=== PATIENT | male | born 1950 | race Caucasian/White ===

== ENCOUNTER → 2016-07-17 | Outpatient (CLI) | payer OTHER ==
[~2016-07-17] MED LIST: ASPI81TA28 PO; LISI-461 PO; METO50TA7 PO; ROSU20TA PO
--- NOTE | 2016-07-17 10:54 | DIAGNOSTIC IMAGING REPORT ---
ULTRASOUND RIGHT UPPER QUADRANT ABDOMEN CLINICAL HISTORY: Elevated hepatic transaminases. COMPARISON STUDY: No priors. TECHNIQUE: Real-time, grayscale, and color flow sonography of the right upper quadrant of the abdomen was performed. Images are reviewed in the transverse and longitudinal planes. FINDINGS: Liver: The liver is enlarged and demonstrates heterogeneous increased echotexture consistent with severe hepatic steatosis. Note that this degrades acoustic penetration of the liver. There is no intrahepatic biliary ductal dilatation. The main portal vein is patent. Gallbladder: The gallbladder is surgically absent. The common bile duct measures up to 0.5 cm in diameter. Pancreas: Not well visualized due to overlying bowel gas. Right kidney: Survey images of the right kidney demonstrate normal size and echotexture. There is no hydronephrosis. A 1.9 cm cyst is noted in the interpolar region. A 3.2 cm exophytic cyst is observed. Ascites: None. IMPRESSION: 1. Hepatomegaly and severe hepatic steatosis. 2. Status post cholecystectomy. 3. The pancreas was not well visualized due to overlying bowel gas. Electronically signed by: Lance Keller M.D. 07/17/2016 10:52 AM Dictated Date/Time: 07/17/2016 10:51 AM
== END | disposition home or self-care (01) ==
LOC: C.ULTR 10:29
PROVIDERS: ATTEND Internal Medicine
DX: R74.8 Abnormal levels of other serum enzymes (principal); R16.0 Hepatomegaly, not elsewhere classified; K76.0 Fatty (change of) liver, not elsewhere classified

== ENCOUNTER 2016-12-27 11:23 | Inpatient (IN) | payer OTHER ==
[~2016-12-27] VITALS: Ht 188 cm; Wt 97.8 kg
[2016-12-27] MEDS ORDERED: SODIUM CHLORIDE 0.9% 1000ML 1,000 ML IV STA (11:35)
[2016-12-27 12:20] LABS: BASO % 0.2 %; BASO ABS # 0.01 K/uL (0-0.2); COMPLETE YES; EOS % 1.2 %; HEMATOCRIT 37.5 % (42-52); IG% 0.2 %; LYMPH ABS # 1.09 K/uL (1.2-3.4); MEAN CELL VOLUME 88.9 fL (80-100); MEAN CORPUSCULAR HEMOGLOBIN 31.8 pg (25-34); MEAN CORPUSCULAR HGB CONC 35.7 g/dl (32-36); MEAN PLATELET VOLUME 9.6 fL (7.4-10.4); MONO % 9.4 %; PLATELET COUNT 136 K/uL (130-400); RED BLOOD COUNT 4.22 M/uL (4.7-6.1); WHITE BLOOD COUNT 5.19 K/uL (4.8-10.8)
[2016-12-27 12:23] LABS: ISTAT CREATININE 13.9 mg/dl (0.6-1.3); ISTAT HEMOGLOBIN 13.9 g/dl (14.0-18.0); ISTAT IONIZED CALCIUM 1.1 mmol/l (1.12-1.32)
--- NOTE | 2016-12-27 12:34 | DIAGNOSTIC IMAGING REPORT ---
CT SCAN OF THE ABDOMEN AND PELVIS WITHOUT IV CONTRAST CLINICAL HISTORY: Acute renal insufficiency. COMPARISON STUDY: Abdominal ultrasound dated 07/17/2016. TECHNIQUE: CT scan of the abdomen and pelvis is performed from the lung bases to the proximal femora. Images are reviewed in the axial, sagittal, and coronal planes. IV contrast was not administered for this examination. A dose lowering technique was utilized adhering to the principles of ALARA. CT DOSE: 658.18 mGy.cm FINDINGS: Lung bases: The heart is normal in size and without pericardial effusion. The coronary arteries are densely calcified. There is elevation of the right hemidiaphragm with mild bibasilar atelectasis. The lung bases are otherwise clear. There is a tiny hiatal hernia. Liver: The unenhanced liver is normal in size, contour, and attenuation. There is no intrahepatic biliary ductal dilatation. Gallbladder: Surgically absent noting clips in the gallbladder fossa. Spleen: Normal in size and attenuation. Pancreas: The unenhanced pancreas is grossly unremarkable. Adrenal glands: Unremarkable. Kidneys: The unenhanced kidneys demonstrate cortical atrophy and are without hydronephrosis. There are no renal calculi identified. A 3.7 cm exophytic cyst arises from the lower pole of the right kidney. A 2.0 cm exophytic cyst arises from the upper pole of the left kidney. Abdominal vasculature: The abdominal aorta is normal in course and caliber noting moderate to advanced atherosclerotic calcification. Bowel: The small bowel and colon are normal in course and caliber. The appendix is well-visualized and normal. Peritoneum: There is no intraperitoneal free air or abdominal ascites. Lymphadenopathy: None. Pelvic viscera: The prostate gland is diminutive and heterogeneous. The bladder wall appears mildly thickened and trabeculated suggesting chronic obstruction. Small bilateral ureteroceles are suspected. The ureters on the right may contain a punctate calculus. Skeletal structures: The skeletal structures are osteopenic. There is mild lumbosacral spondylosis. No lytic or blastic lesions are seen. IMPRESSION: 1. There are no acute infectious or inflammatory findings in the abdomen or pelvis. 2. The kidneys demonstrate cortical atrophy and are without hydronephrosis. 3. Small bilateral ureteroceles versus Hutch diverticula are suspected. The ureterocele on the right may contain a punctate calculus. Electronically signed by: Lance Keller M.D. 12/27/2016 12:32 PM Dictated Date/Time: 12/27/2016 12:24 PM
[2016-12-27 12:50] LABS: ALKALINE PHOSPHATASE 104 U/L (45-117); ALT/SGPT 19 U/L (12-78); BLOOD UREA NITROGEN 122 mg/dl (7-18); BUN/CREATININE RATIO 10.2 (10-20); CALCIUM 8.6 mg/dl (8.5-10.1); CARBON DIOXIDE 11 mmol/L (21-32); CHLORIDE 93 mmol/L (98-107); GLUCOSE 92 mg/dl (70-99); SODIUM 123 mmol/L (136-145)
[2016-12-27] MEDS ORDERED: METO50TA7 PO (13:09)
[2016-12-27] MEDS ORDERED: LISI-461 PO (13:09)
[2016-12-27] MEDS ORDERED: ASPI81TA28 PO (13:09)
[2016-12-27] MEDS ORDERED: ROSU20TA PO (13:09)
[2016-12-27 13:12] LABS: POTASSIUM 5.1 mmol/L (3.5-5.1)
--- NOTE | 2016-12-27 13:22 | History and Physical ---
History & Physical Date & Time of Service: Dec 27, 2016 at 13:22 . Chief Complaint: nausea, vomiting, diarrhea . Primary Care Physician: Darya Swain M.D. . History of Present Illness Source: patient, clinic records, hospital records 66 year-old male followed by Dr. Swain for Internal Medicine. History of hypertension and dyslipidemia. Developed GI symptoms 6 days prior to admission. [place]. Ate a hoagie that was prepared at a sandwich shop. Initially experienced nausea followed by vomiting and multiple episodes of loose stools. No hematemesis, melena, hematochezia. No abdominal pain. Experience possible low-grade temp, but did not take his temperature. He took 2 Advil tablets on one occasion; no other use of NSAID's. No recent ground beef, undercooked eggs. 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 No sick contacts. He was seen in an urgent care center 2 days prior to admission. Serum creatinine was reportedly 10. Apparently he was advised to come to the ED for evaluation, but opted not to at that time. Seen by Dr. Swain today referred to the ED for further evaluation and management. Patient reports that he has been voiding without difficulty. No history of renal disease; outpatient labs in November showed normal renal function. Only occasionally uses ibuprofen (took 2 tablets this week). . Past Medical/Surgical History Chronic Medical Problems: (1) Dyslipidemia Status: Chronic (2) Hypertension Status: Chronic Surgical Problems: (1) Status post cholecystectomy Status: Chronic (2) Status post surgical removal of pilonidal cyst Status: Chronic . Family History FATHER Hypertension Congestive heart failure Coronary artery disease Myelodysplastic syndrome Atrial fibrillation MOTHER Pulmonary embolism Hypertension GRANDMOTHER Diabetes mellitus Social History Smoking Status: Former Smoker Alcohol Use: 2 drinks/day Allergies Coded Allergies: No Known Allergies (Unverified , 12/27/16) Home Medications Scheduled Aspirin (Aspirin Ec), 81 MG PO DAILY Lisinopril (Zestril), 10 MG PO DAILY Metoprolol Succ (Toprol Xl) (Toprol-Xl), 50 MG PO DAILY Rosuvastatin Calcium (Crestor), 20 MG PO DAILY Review of Systems Constitutional: + weight loss (5 pounds this week), No fever Eyes: No worsening of vision, No diplopia ENT: No nasal symptoms, No sore throat Respiratory: No cough, No shortness of breath Cardiovascular: No chest pain, No edema Abdomen: + problem reported (as noted above) Musculoskeletal: No joint pain, No muscle pain Genitourinary - Male: No hematuria, No dysuria Neurologic: + problem reported (no headaches) Endocrine: + fatigue, No excessive thirst, No excessive urination Hematologic / Lymphatic: + abnormal bleeding/bruising Integumentary: No rash, No new/changing skin lesions Physical Exam Vital Signs Date Time Temp Pulse Resp B/P (MAP) Pulse Ox O2 Delivery O2 Flow Rate FiO2 12/27/16 12:44 83 12/27/16 12:37 80 130/74 98 Room Air 83 119/76 94 110/78 12/27/16 12:37 96 Room Air 12/27/16 12:37 96 Room Air 12/27/16 11:25 87 18 101/66 98 Room Air General Appearance: WD/WN, no apparent distress Head: normocephalic, atraumatic Eyes: normal inspection, PERRL, EOMI, sclerae normal (eyelids and conjunctivae normal) ENT: normal ENT inspection, hearing grossly normal, pharynx normal Neck: supple, no adenopathy, thyroid normal, no JVD, trachea midline Respiratory/Chest: lungs clear, no respiratory distress, no accessory muscle use Cardiovascular: regular rate, rhythm, no edema, no gallop, no JVD, no murmur, normal peripheral pulses, + pertinent finding (no rub) Abdomen/GI: non tender, soft, no organomegaly, no pulsatile mass, + pertinent finding (hyperactive bowel sounds) Back: no CVA tenderness Extremities/Musculoskelatal: no calf tenderness, normal capillary refill, no pedal edema Neurologic/Psych: holistic specialist II-XII nml as tested (PERRL, EOMI, no facial palsy, no dysarthria), no motor/sensory deficits, alert, normal mood/affect, oriented x 3 Skin: normal color, warm/dry, no rash Lymphatic: no adenopathy (cervical, axillary) Diagnostics Laboratory Results Results Past 24 Hours Test 12/27/16 12:00 12/27/16 12:09 12/27/16 12:52 Range/Units White Blood Count 5.19 4.8-10.8 K/uL Red Blood Count 4.22 4.7-6.1 M/uL Hemoglobin 13.4 14.0-18.0 g/dL Hematocrit 37.5 42-52 % Mean Corpuscular Volume 88.9 80-100 fL Mean Corpuscular Hemoglobin 31.8 25-34 pg Mean Corpuscular Hemoglobin Concent 35.7 32-36 g/dl Platelet Count 136 130-400 K/uL Mean Platelet Volume 9.6 7.4-10.4 fL Neutrophils (%) (Auto) 68.0 % Lymphocytes (%) (Auto) 21.0 % Monocytes (%) (Auto) 9.4 % Eosinophils (%) (Auto) 1.2 % Basophils (%) (Auto) 0.2 % Neutrophils # (Auto) 3.53 1.4-6.5 K/uL Lymphocytes # (Auto) 1.09 1.2-3.4 K/uL Monocytes # (Auto) 0.49 0.11-0.59 K/uL Eosinophils # (Auto) 0.06 0-0.5 K/uL Basophils # (Auto) 0.01 0-0.2 K/uL RDW Standard Deviation 40.8 36.4-46.3 fL RDW Coefficient of Variation 12.6 11.5-14.5 % Immature Granulocyte % (Auto) 0.2 % Immature Granulocyte # (Auto) 0.01 0.00-0.02 K/uL Sodium Level 123 136-145 mmol/L Potassium Level 5.1 3.5-5.1 mmol/L Chloride Level 93 98-107 mmol/L Carbon Dioxide Level 11 21-32 mmol/L Anion Gap 19.0 20.0 16-25 mmol/L Blood Urea Nitrogen 122 7-18 mg/dl Creatinine 12.00 0.60-1.40 mg/dl Est Creatinine Clear Calc Drug Dose 7.2 ml/min Estimated GFR () 4.5 Estimated GFR (Non- 3.9 BUN/Creatinine Ratio 10.2 10-20 Random Glucose 92 70-99 mg/dl Calcium Level 8.6 8.5-10.1 mg/dl Total Bilirubin 0.4 0.2-1 mg/dl Direct Bilirubin 0.1 0-0.2 mg/dl Aspartate Amino Transf (AST/SGOT) 9 15-37 U/L Alanine Aminotransferase (ALT/SGPT) 19 12-78 U/L Alkaline Phosphatase 104 45-117 U/L Total Protein 7.8 6.4-8.2 gm/dl Albumin 3.6 3.4-5.0 gm/dl Thyroid Stimulating Hormone (TSH) 3.640 0.300-4.500 uIu/ml Bedside Hemoglobin 13.9 14.0-18.0 g/dl Bedside Hematocrit 41 42-52 % Bedside Sodium 124 135-144 mEq/L Bedside Potassium 5.1 3.3-5.0 mEq/L Bedside Chloride 98 101-112 mEq/L Bedside Total CO2 13 24-31 mEq/l Bedside Blood Urea Nitrogen 133 7-18 mg/dl Bedside Creatinine 13.9 0.6-1.3 mg/dl Bedside Glucose (other) 93 70-99 mg/dl Bedside Ionized Calcium (Felicita) 1.10 1.12-1.32 mmol/l Diagnostic Radiology CHEST ONE VIEW PORTABLE FINDINGS: Cardiomediastinal silhouette normal. Mildly low lung volumes. Bandlike opacity in the left lung base. No other focal infiltrate. No pleural effusion or pneumothorax. Osseous structures normal. Multiple overlying external leads degrade evaluation of the abdomen. IMPRESSION: 1. Minimal left basilar opacity likely atelectasis. No other focal infiltrate. Electronically signed by: Thomas Forde M.D. 12/27/2016 5:54 PM Dictated Date/Time: 12/27/2016 5:[address] SCAN OF THE ABDOMEN AND PELVIS WITHOUT IV CONTRAST FINDINGS: Lung bases: The heart is normal in size and without pericardial effusion. The coronary arteries are densely calcified. There is elevation of the right hemidiaphragm with mild bibasilar atelectasis. The lung bases are otherwise clear. There is a tiny hiatal hernia. Liver: The unenhanced liver is normal in size, contour, and attenuation. There is no intrahepatic biliary ductal dilatation. Gallbladder: Surgically absent noting clips in the gallbladder fossa. Spleen: Normal in size and attenuation. Pancreas: The unenhanced pancreas is grossly unremarkable. Adrenal glands: Unremarkable. Kidneys: The unenhanced kidneys demonstrate cortical atrophy and are without hydronephrosis. There are no renal calculi identified. A 3.7 cm exophytic cyst arises from the lower pole of the right kidney. A 2.0 cm exophytic cyst arises from the upper pole of the left kidney. Abdominal vasculature: The abdominal aorta is normal in course and caliber noting moderate to advanced atherosclerotic calcification. Bowel: The small bowel and colon are normal in course and caliber. The appendix is well-visualized and normal. Peritoneum: There is no intraperitoneal free air or abdominal ascites. Lymphadenopathy: None. Pelvic viscera: The prostate gland is diminutive and heterogeneous. The bladder wall appears mildly thickened and trabeculated suggesting chronic obstruction. Small bilateral ureteroceles are suspected. The ureters on the right may contain a punctate calculus. Skeletal structures: The skeletal structures are osteopenic. There is mild lumbosacral spondylosis. No lytic or blastic lesions are seen. IMPRESSION: 1. There are no acute infectious or inflammatory findings in the abdomen or pelvis. 2. The kidneys demonstrate cortical atrophy and are without hydronephrosis. 3. Small bilateral ureteroceles versus Hutch diverticula are suspected. The ureterocele on the right may contain a punctate calculus. Electronically signed by: Lance Keller M.D. 12/27/2016 12:32 PM Dictated Date/Time: 12/27/2016 12:24 PM . EKG EKG performed at 11:58 reviewed and demonstrated baseline artifact, normal sinus rhythm at 82/minute, no acute ST or T-wave abnormalities. . Impression Assessment and Plan ACUTE KIDNEY INJURY Acute kidney injury; recent GI symptoms with multiple episodes of vomiting and diarrhea. Labs demonstrate BUN 122 and creatinine 12, associated with metabolic acidosis. Probable pre-renal azotemia. Consider shiga toxin-mediated HUS. Check stool studies. Follow platelets. No urinary tract obstruction per CT. Urine sediment fairly benign with 0-4 RBC's and 1-5 hyaline casts. UA does show 2+ blood with only a few RBC's. Pt is taking statin. Check CPK to rule out rhabdomyolysis. Check FE Na. IV fluids. No emergent need for hemodialysis (K 5.1, not fluid overloaded, not uremic). Consult Nephrology. HYPONATREMIA Serum sodium 123. Hyponatremia most likely secondary to electrolyte losses from vomiting and diarrhea. Fluid resuscitation with normal saline ordered. Monitor serum sodium and avoid overly-rapid correction. GI SYMPTOMS Patient experiencing severe nausea, vomiting, diarrhea without abdominal pain where per GI bleeding. He attributes GI illness to eating a hoagie from a sandwich shop. Check stools for WBCs, Clostridium difficile PCR, routine enteric pathogens, Giardia antigen, cryptosporidium antigen. HYPERTENSION Hemodynamically stable in ED. Hold lisinopril in light of YVAN. Continue metoprolol. Following titrate therapy. DYSLIPIDEMIA Hold rosuvastatin in light of GI symptoms. Check CPK to rule out rhabdomyolysis. VTE PROPHYLAXIS Moderate-high risk for VTE. SQ heparin. Ambulate. RESUSCITATION STATUS No living will. Full code. DISPOSITION Admit to Telemetry Unit. Expected discharge to home. Internal Medicine follow-up with Dr. Swain. . VTE Prophylaxis Given or contraindicated: Unfractionated heparin SQ
[2016-12-27 14:20] VITALS: BP 152/84; PULSE 91; TEMP 36.5; O2SAT 100; Ht 188 cm; Wt 97.8 kg
[2016-12-27] MEDS ORDERED: SODIUM CHLORIDE 0.9% 1000ML 1,000 ML IV SCH (14:30)
[2016-12-27] MEDS ORDERED: HydrALAZINE HCL 20 MG/ML VIAL IV. PRN (14:30)
[2016-12-27] MEDS ORDERED: CLONIDINE HCL 0.1 MG TAB PO PRN (14:30)
[2016-12-27 14:42] LABS: URINE APPEARANCE CLEAR (CLEAR); URINE BILIRUBIN NEG (NEG); URINE COLOR YELLOW; URINE NITRITE NEG (NEG); URINE SPECIFIC GRAVITY 1.015 (1.000-1.030); UROBILINOGEN NEG (NEG)
[2016-12-27 14:43] LABS: MANUAL MICROSCOPIC REQUIRED? NO; REVIEW REQ? YES
[2016-12-27 15:39] VITALS: BP 122/72; PULSE 83; TEMP 37; O2SAT 98
[2016-12-27 16:30] LABS: INR 0.9 (0.9-1.1); PARTIAL THROMBOPLASTIN RATIO 1.1; PROTHROMBIN TIME (PATIENT) 9.6 SECONDS (9.0-12.0)
[2016-12-27 16:56] LABS: BUN/CREATININE RATIO 10.1 (10-20); CALCIUM 7.9 mg/dl (8.5-10.1); POTASSIUM 4.6 mmol/L (3.5-5.1)
--- NOTE | 2016-12-27 17:50 | EMERGENCY ROOM VISIT NOTE ---
History Report prepared by Chelsey: [facility] Under the Supervision of: Dr. Rasta Arenas M.D. First contact with patient: 11:40 Chief Complaint: DEHYDRATION Stated Complaint: DEHYDRATION/FOOD POISON Nursing Triage Summary: Nausea, vomiting, diarrhea since approx Saturday. Seen at [facility], had lab work two times, showing dehydration. States feels it was food poisoning, not feeling any better per the pt. History of Present Illness The patient is a 66 year old male who presents to the Emergency Room with complaints of a persistent illness that started 6 days ago. He says that he was at camp and must have eaten something bad because he started having nausea, and episodes of vomiting and diarrhea. The patient notes that his stools were really dark during the first 2 days of the illness. He says that he has been gurgling as well. The patient thinks that the food that he ate that was bad was some peppers in a hoagie. He notes that he went to urgent care 2 days ago, and had lab work that day which revealed that his kidney function was off. 2 days ago, his creatinine was 10, and today it was 12. The patient states that his kidney function is normally perfect. He was told to go to the ED, but decided to see his family doctor yesterday morning and was given water there due to dehydration, and had another blood test. The patient then decided to come here today because he is not feeling any better. He notes that he had right flank pain one day over the course of the illness, but had one dose of Aleve and the pain went away. Pt denies LOC, headache, fevers, chills, diaphoresis, visual changes, neck pain, chest pain, breathing difficulties, current abdominal pain, back pain, hematochezia, urinary symptoms, numbness, weakness, lymphadenopathy, rash, or other complaints. Source of History: patient, spouse/significant other Onset: 6 days ago Position: other (global - illness) Quality: other (kidney function off) Timing: other (persistent) Associated Symptoms: + nausea, + vomiting, + diarrhea Note: Associated symptoms: Right flank pain during one day of illness, since resolved. Stools were dark during first 2 days of illness. Review of Systems See HPI for pertinent positives and negatives. A total of ten systems were reviewed and were otherwise negative. Past Medical & Surgical Medical Problems: (1) No chronic diseases present Family History Cancer Diabetes mellitus Hypertension Social History Smoking Status: Former Smoker Alcohol Use: occasionally Marital Status: Housing Status: lives with family Occupation Status: retired Current/Historical Medications Scheduled Aspirin (Aspirin Ec), 81 MG PO DAILY Lisinopril (Zestril), 10 MG PO DAILY Metoprolol Succ (Toprol Xl) (Toprol-Xl), 50 MG PO DAILY Rosuvastatin Calcium (Crestor), 20 MG PO DAILY Allergies Coded Allergies: No Known Allergies (Unverified , 12/27/16) Physical Exam Vital Signs Date Time Temp Pulse Resp B/P (MAP) Pulse Ox O2 Delivery O2 Flow Rate FiO2 12/27/16 12:44 83 12/27/16 12:37 80 130/74 98 Room Air 83 119/76 94 110/78 12/27/16 12:37 96 Room Air 12/27/16 12:37 96 Room Air 12/27/16 11:25 87 18 101/66 98 Room Air Physical Exam GENERAL: Awake, alert, well-appearing, in no distress HENT: Normocephalic, atraumatic. Oropharynx unremarkable. EYES: Normal conjunctiva. Sclera non-icteric. NECK: Supple. No nuchal rigidity. FROM. No JVD. RESPIRATORY: Clear to auscultation. CARDIAC: Regular rate, normal rhythm. Extremities warm and well perfused. Pulses equal. ABDOMEN: Soft, non-distended. No tenderness to palpation. No rebound or guarding. No masses. RECTAL: Deferred. MUSCULOSKELETAL: Chest examination reveals no tenderness. The back is symmetrical on inspection without obvious abnormality. There is no CVA tenderness to palpation. No joint edema. LOWER EXTREMITIES: Calves are equal size bilaterally and non-tender. No edema. No discoloration. NEURO: Normal sensorium. No sensory or motor deficits noted. SKIN: No rash or jaundice noted. Medical Decision & Procedures ER Provider Diagnostic Interpretation: CT: Radiology results as stated below per my review and radiologist interpretation CT SCAN OF THE ABDOMEN AND PELVIS WITHOUT IV CONTRAST CLINICAL HISTORY: Acute renal insufficiency. COMPARISON STUDY: Abdominal ultrasound dated 07/17/2016. TECHNIQUE: CT scan of the abdomen and pelvis is performed from the lung bases to the proximal femora. Images are reviewed in the axial, sagittal, and coronal planes. IV contrast was not administered for this examination. A dose lowering technique was utilized adhering to the principles of ALARA. CT DOSE: 658.18 mGy.cm FINDINGS: Lung bases: The heart is normal in size and without pericardial effusion. The coronary arteries are densely calcified. There is elevation of the right hemidiaphragm with mild bibasilar atelectasis. The lung bases are otherwise clear. There is a tiny hiatal hernia. Liver: The unenhanced liver is normal in size, contour, and attenuation. There is no intrahepatic biliary ductal dilatation. Gallbladder: Surgically absent noting clips in the gallbladder fossa. Spleen: Normal in size and attenuation. Pancreas: The unenhanced pancreas is grossly unremarkable. Adrenal glands: Unremarkable. Kidneys: The unenhanced kidneys demonstrate cortical atrophy and are without hydronephrosis. There are no renal calculi identified. A 3.7 cm exophytic cyst arises from the lower pole of the right kidney. A 2.0 cm exophytic cyst arises from the upper pole of the left kidney. Abdominal vasculature: The abdominal aorta is normal in course and caliber noting moderate to advanced atherosclerotic calcification. Bowel: The small bowel and colon are normal in course and caliber. The appendix is well-visualized and normal. Peritoneum: There is no intraperitoneal free air or abdominal ascites. Lymphadenopathy: None. Pelvic viscera: The prostate gland is diminutive and heterogeneous. The bladder wall appears mildly thickened and trabeculated suggesting chronic obstruction. Small bilateral ureteroceles are suspected. The ureters on the right may contain a punctate calculus. Skeletal structures: The skeletal structures are osteopenic. There is mild lumbosacral spondylosis. No lytic or blastic lesions are seen. IMPRESSION: 1. There are no acute infectious or inflammatory findings in the abdomen or pelvis. 2. The kidneys demonstrate cortical atrophy and are without hydronephrosis. 3. Small bilateral ureteroceles versus Hutch diverticula are suspected. The ureterocele on the right may contain a punctate calculus. Electronically signed by: Lance Keller M.D. 12/27/2016 12:32 PM Dictated Date/Time: 12/27/2016 12:24 PM Laboratory Results 12/27/16 12:00 Red Blood Count 4.22, Mean Corpuscular Volume 88.9, Mean Corpuscular Hemoglobin 31.8, Mean Corpuscular Hemoglobin Concent 35.7, Mean Platelet Volume 9.6, Neutrophils (%) (Auto) 68.0, Lymphocytes (%) (Auto) 21.0, Monocytes (%) (Auto) 9.4, Eosinophils (%) (Auto) 1.2, Basophils (%) (Auto) 0.2, Neutrophils # (Auto) 3.53, Lymphocytes # (Auto) 1.09, Monocytes # (Auto) 0.49, Eosinophils # (Auto) 0.06, Basophils # (Auto) 0.01 Test 12/27/16 12:00 12/27/16 12:09 12/27/16 12:22 12/27/16 12:52 White Blood Count 5.19 K/uL (4.8-10.8) Red Blood Count 4.22 M/uL (4.7-6.1) Hemoglobin 13.4 g/dL (14.0-18.0) Hematocrit 37.5 % (42-52) Mean Corpuscular Volume 88.9 fL (80-100) Mean Corpuscular Hemoglobin 31.8 pg (25-34) Mean Corpuscular Hemoglobin Concent 35.7 g/dl (32-36) Platelet Count 136 K/uL (130-400) Mean Platelet Volume 9.6 fL (7.4-10.4) Neutrophils (%) (Auto) 68.0 % Lymphocytes (%) (Auto) 21.0 % Monocytes (%) (Auto) 9.4 % Eosinophils (%) (Auto) 1.2 % Basophils (%) (Auto) 0.2 % Neutrophils # (Auto) 3.53 K/uL (1.4-6.5) Lymphocytes # (Auto) 1.09 K/uL (1.2-3.4) Monocytes # (Auto) 0.49 K/uL (0.11-0.59) Eosinophils # (Auto) 0.06 K/uL (0-0.5) Basophils # (Auto) 0.01 K/uL (0-0.2) RDW Standard Deviation 40.8 fL (36.4-46.3) RDW Coefficient of Variation 12.6 % (11.5-14.5) Immature Granulocyte % (Auto) 0.2 % Immature Granulocyte # (Auto) 0.01 K/uL (0.00-0.02) Total Bilirubin 0.4 mg/dl (0.2-1) Alanine Aminotransferase (ALT/SGPT) 19 U/L (12-78) Alkaline Phosphatase 104 U/L (45-117) Total Protein 7.8 gm/dl (6.4-8.2) Albumin 3.6 gm/dl (3.4-5.0) Thyroid Stimulating Hormone (TSH) 3.640 uIu/ml (0.300-4.500) Bedside Hemoglobin 13.9 g/dl (14.0-18.0) Bedside Hematocrit 41 % (42-52) Bedside Sodium 124 mEq/L (135-144) Bedside Potassium 5.1 mEq/L (3.3-5.0) Bedside Chloride 98 mEq/L (101-112) Bedside Total CO2 13 mEq/l (24-31) Bedside Blood Urea Nitrogen 133 mg/dl (7-18) Bedside Creatinine 13.9 mg/dl (0.6-1.3) Bedside Glucose (other) 93 mg/dl (70-99) Bedside Ionized Calcium (Felicita) 1.10 mmol/l (1.12-1.32) Bedside Glucose 87 mg/dl (70-99) Direct Bilirubin 0.1 mg/dl (0-0.2) Aspartate Amino Transf (AST/SGOT) 9 U/L (15-37) Laboratory results reviewed by me Medications Administered Medications (Trade) Dose Ordered Sig/Niall Route Start Time Stop Time Status Last Admin Dose Admin Sodium Chloride 1,000 ml @ 999 mls/hr Q1H1M STAT IV 12/27/16 11:35 12/27/16 12:35 DC 12/27/16 11:35 999 MLS/HR ECG Indication: nausea Rate (beats per minute): 82 Rhythm: normal sinus Findings: no acute ischemic change, no ectopy ED Course 1135: Ordered NSS 1000 ml @ 999 mls/hr IV. 1143: The patient was evaluated in room A10. A complete history and physical exam was performed. 1235: Upon reexamination, the patient was resting comfortably. I discussed the test results and treatment plan with him. He expressed understanding and agreement. The patient will be evaluated for further management. 1240: I discussed the patient with Dr. Danilo Davila professor of geology - he will evaluate the patient for further treatment. Medical Decision Triage Nursing notes reviewed. The patient's presentation and history were concerning for ARF. Etiologies such as metabolic, infection, hypo/hyperglycemia, electrolyte abnormalities, cardiac sources, intracerebral event, toxicologic, neurologic, as well as others were entertained. Patient is evaluated. Clinically he was well. Blood work was obtained. No leukocytosis. His chemistry panel showed some hyponatremia and his creatinine was concerning for a severe elevation. Stool studies were ordered. The patient was hydrated. CT imaging did not reveal any acute findings. Consultation was made with internal medicine. The patient was evaluated in the Emergency Room for further management. Medication Reconcilliation Current Medication List: was personally reviewed by me Blood Pressure Screening Patient's blood pressure: Normal blood pressure Consults Time Called: 1233 Consulting Physician: Dr. Danilo Davila professor of geology Returned Call: 1240 I discussed the patient with Dr. Danilo Davila professor of geology - he will evaluate the patient for further treatment. Impression Primary Impression: Acute renal failure Scribe Attestation The scribe's documentation has been prepared under my direction and personally reviewed by me in its entirety. I confirm that the note above accurately reflects all work, treatment, procedures, and medical decision making performed by me. Departure Information Dispostion Being Evaluated By Hospitalist Referrals Darya Swain M.D. (PCP) Patient Instructions My [facility]
--- NOTE | 2016-12-27 17:56 | DIAGNOSTIC IMAGING REPORT ---
CHEST ONE VIEW PORTABLE CLINICAL HISTORY: 66 years-old Male presenting with acute kidney injury. TECHNIQUE: Portable upright AP view of the chest was obtained. COMPARISON: None. FINDINGS: Cardiomediastinal silhouette normal. Mildly low lung volumes. Bandlike opacity in the left lung base. No other focal infiltrate. No pleural effusion or pneumothorax. Osseous structures normal. Multiple overlying external leads degrade evaluation of the abdomen. IMPRESSION: 1. Minimal left basilar opacity likely atelectasis. No other focal infiltrate. Electronically signed by: Thomas Forde M.D. 12/27/2016 5:54 PM Dictated Date/Time: 12/27/2016 5:54 PM
[2016-12-27] MEDS: SODIUM CHLORIDE 0.45% 1000ML 1,000 ML IV SCH ×2 (18:36→22:05)
[2016-12-27 19:35] VITALS: BP 138/68; PULSE 79; TEMP 36.8; O2SAT 96
[2016-12-27] MEDS: HEPARIN SOD 5000 UNIT/0.5 ML CARP SQ SCH (20:22)
[2016-12-27 22:39] LABS: BUN/CREATININE RATIO 10.9 (10-20); CALCIUM 7.7 mg/dl (8.5-10.1); POTASSIUM 4.6 mmol/L (3.5-5.1)
[2016-12-27 23:11] VITALS: BP 116/72; PULSE 79; TEMP 36.8; O2SAT 99
[2016-12-28] VITALS (7 sets, daily range): BP systolic 102–128; BP diastolic 66–76; PULSE 73–92; TEMP 36.5–36.8; O2SAT 96–100
[2016-12-28 02:14] LABS: BUN/CREATININE RATIO 10.2 (10-20); CALCIUM 7.4 mg/dl (8.5-10.1); POTASSIUM 5.1 mmol/L (3.5-5.1)
[2016-12-28] MEDS: SODIUM CHLORIDE 0.45% 1000ML 1,000 ML IV SCH (02:41)
[2016-12-28 06:16] LABS: HEMATOCRIT 33.6 % (42-52); MEAN CELL VOLUME 89.6 fL (80-100); MEAN CORPUSCULAR HEMOGLOBIN 30.7 pg (25-34); MEAN CORPUSCULAR HGB CONC 34.2 g/dl (32-36); MEAN PLATELET VOLUME 9.5 fL (7.4-10.4); PLATELET COUNT 118 K/uL (130-400); RED BLOOD COUNT 3.75 M/uL (4.7-6.1); WHITE BLOOD COUNT 4.73 K/uL (4.8-10.8)
[2016-12-28 07:02] LABS: ALB/GLOB RATIO 0.9 (0.9-2); BUN/CREATININE RATIO 9.5 (10-20); CALCIUM 7.6 mg/dl (8.5-10.1); MAGNESIUM 2.2 mg/dl (1.8-2.4); PHOSPHORUS 8.9 mg/dl (2.5-4.9); POTASSIUM 4.8 mmol/L (3.5-5.1)
[2016-12-28] MEDS: METOPROLOL SUCC 50MG EXT REL TAB PO SCH (07:49)
[2016-12-28] MEDS: ASPIRIN 81 MG ECTAB PO SCH (07:49)
[2016-12-28] MEDS: HEPARIN SOD 5000 UNIT/0.5 ML CARP SQ SCH ×2 (07:54→19:37)
--- NOTE | 2016-12-28 08:08 | NEPHROLOGY CONSULTATION ---
DATE OF CONSULTATION: 12/28/2016 ATTENDING OF RECORD: Dr. Juares. REASON FOR CONSULTATION: YVAN. HISTORY OF PRESENT ILLNESS: This is a 66-year-old male who presents with significant acute kidney injury. The patient states that a week ago today he went to [employer] on his way to [employer] and they made a sandwich for him and he ate half of the sandwich and several hours later started to develop loose stools, nausea, vomiting. He has not had anything really to eat since then and he continue to have loose stools; however, no more nausea and vomiting and is starting to get hungry again. The patient states that he did not have any decrease in urination. He did have some muscle spasms/low back pain on Saturday, did take 2 Aleve; however, has not had any more Aleve since then. The patient is stated denies any diabetes and quit smoking many years ago, does have hypertension. The patient states that he feels he has lost about 6 pounds this week, but otherwise feels okay. REVIEW OF SYSTEMS: No headaches, no blurry vision, no dysphagia, no lightheadedness. No chest pain, no shortness of breath. Positive nausea and vomiting has improved. Positive diarrhea continues. Positive anorexia is slowly improving. Positive fatigue. All other review of systems otherwise negative. PAST MEDICAL HISTORY: Hyperlipidemia and hypertension. PAST SURGICAL HISTORY: Cholecystectomy. FAMILY HISTORY: Heart disease and hypertension. SOCIAL HISTORY: Former smoker, quit several years ago; and does have about 2 drinks a day. No drugs. 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 HOME MEDICATIONS: Significant for metoprolol and lisinopril. CURRENT MEDICATIONS: Aspirin 81 mg a day, Toprol-XL 50 mg a day, heparin 5000 units subQ q. 12, half normal saline at 150 mL an hour. PHYSICAL EXAMINATION: VITAL SIGNS: Temperature 36.7, pulse 92, respiratory rate 18, blood pressure 102/70, satting 99% on room air. GENERAL: Awake, alert, oriented x3. EYES: No scleral icterus. ENT: Mucous membranes are dry. NECK: Supple. PULMONARY: Clear to auscultation. CARDIAC: Regular rate and rhythm. ABDOMEN: Bowel sounds positive, soft, nontender. EXTREMITIES: No clubbing, cyanosis or edema. NEUROLOGICALLY: Nonfocal. DERMATOLOGIC: No rash or ulcers noted. LABORATORIES: Sodium level is 128, potassium is 4.8, chloride 99, bicarbonate is 10, BUN is 114, creatinine is 12, glucose is 81, calcium is 7.6, and phosphorus level is 8.9. Magnesium level is 2.2, total protein 6.1, albumin 2.98. Urine random sodium of 38, urine random creatinine of 47. UA with pH of 5, specific gravity 1.015, 1+ protein, 2+ blood, and 0-4 RBCs. White count is 4, H&H 11 and 33, platelet count is 118 and INR is 0.9. Hep A and hep C are pending. Giardia is pending. Cryptosporidium is pending. Sodium level on admission was 123, trended up to 128 and now on half normal saline. C. diff is negative. Stool studies are pending. IMAGING DATA: Chest x-ray shows minimal left basilar opacity, likely atelectasis. Abdominal pelvis CT without contrast shows cortical atrophy of the kidneys without hydronephrosis. IMPRESSION AND PLAN: 1. Acute kidney injury in the setting of poor appetite, 6-pound weight loss, and diarrhea for the past week as well as taken 2 Aleve on a Saturday. Kidney function has not improved despite aggressive IV fluids and remains at 12. The patient though not uremic and potassium levels are stable. No indication for emergent dialysis at this time. The patient currently is getting half normal saline secondary to sodium level going from 123 up to 128. However, low sodium levels likely acute and okay for correcting since the patient still needs significant volume resuscitation. 2. Metabolic acidosis presumed, bicarb levels 10, we would like to switch fluids to D5W with 150 mEq of sodium bicarbonate and follow the potassium levels which are likely to drop as we correct the acidosis. 3. Hypocalcemia. Calcium levels are low. However, hesitant to give calcium at this time given the phosphorus levels are significantly elevated at 8.9. I would follow the calcium levels and only replete if corrected calcium levels are below 8. Overall, there is a concern for TTP or HUS, but he is not having any fevers, no abdominal pain and no change in mental status. Platelet count was good on admission and is just mildly low now after hydration down to 118. I feel the more likely scenario is significant volume depletion causing acute tubular necrosis where creatinine may take several days to start to improve. If patient starts get short of breath or electrolyte derangements, I may consider doing dialysis during this admission; however, trying to avoid by fluid resuscitation and following up labs. I appreciate the consultation. RACHAEL
[2016-12-28] MEDS: SODIUM BICARBONATE 8.4% INJ 150 MEQ in DEXTROSE 5% 1000ML 1,000 ML IV SCH ×3 (08:44→23:22)
[2016-12-28 13:00] LABS: BUN/CREATININE RATIO 10.4 (10-20); CALCIUM 7.7 mg/dl (8.5-10.1); POTASSIUM 4.2 mmol/L (3.5-5.1)
--- NOTE | 2016-12-28 19:16 | Progress Note ---
Internal Med Progress Note Date of Service: Dec 28, 2016. Provider Documentation: SUBJECTIVE: resting comfortably still has some diarrhea afebrile denies nausea or abdominal pain no sob no chest pain OBJECTIVE: Vital Signs-as noted below Exam: General-alert and awake. Not in distress ENT-normal hearing Neck-no neck masses Lungs-cta b/l no wheezing present no crackles Heart-s1 and s2 heard regular rate and rhythm no murmurs Abdomen-soft bowel sounds present non tender no distension Extremities-no erythema no edema Neuro-alert and awake moves extremities Lab data as noted below. ASSESSMENT & PLAN: ACUTE KIDNEY INJURY had GI symptoms with multiple episodes of vomiting and diarrhea.still has some diarrhea presented with BUN 122 and creatinine 12, associated with metabolic acidosis. MOST LIKELY pre-renal azotemia. Shiga toxin-mediated HUS. await Check stool studies. CT abd/plevis- no obstruction f/u cpk levels on bicarb drip as per Nephrology. close follow labs HYPONATREMIA Serum sodium 123. most;y hypovolumic on fluyids na 129 today f/u labs GI SYMPTOMS Patient was experiencing severe nausea, vomiting, diarrhea without abdominal pain. still has some diarrhea He attributes GI illness to eating a hoagie from a sandwich shop. will follow stools for routine enteric pathogens, Giardia antigen, cryptosporidium antigen. stool wbc negative study c diff negative HYPERTENSION Holding lisinopril in light of YVAN. To Continue metoprolol. will monitor DYSLIPIDEMIA Holding rosuvastatin in light of GI symptoms. Checking CPK to rule out rhabdomyolysis. VTE PROPHYLAXIS SQ heparin. Ambulate. RESUSCITATION STATUS Full code. DISPOSITION monitor in tele to be determined Vital Signs: Date Time Temp Pulse Resp B/P (MAP) Pulse Ox O2 Delivery O2 Flow Rate FiO2 12/28/16 16:04 36.7 86 18 110/68 (82) 98 12/28/16 16:00 Room Air 12/28/16 12:00 Room Air 12/28/16 11:13 36.7 78 18 128/74 (92) 100 Room Air 12/28/16 08:00 Room Air 12/28/16 07:08 92 18 102/70 (81) 99 Room Air 12/28/16 07:06 85 18 113/72 (86) 100 Room Air 12/28/16 07:05 36.7 78 18 120/76 (91) 100 Room Air 12/28/16 05:07 36.5 83 20 122/76 (91) 99 Room Air 12/28/16 04:00 Room Air 12/28/16 00:00 Room Air 12/27/16 23:11 36.8 79 20 116/72 (87) 99 Room Air 12/27/16 20:00 Room Air 12/27/16 19:35 36.8 79 18 138/68 (91) 96 Lab Results: Results Past 24 Hours Test 12/27/16 21:57 12/28/16 00:00 12/28/16 01:30 12/28/16 05:26 Range/Units Sodium Level 127 128 128 136-145 mmol/L Potassium Level 4.6 5.1 4.8 3.5-5.1 mmol/L Chloride Level 98 99 99 98-107 mmol/L Carbon Dioxide Level 13 12 10 21-32 mmol/L Anion Gap 16.0 17.0 19.0 3-11 mmol/L Blood Urea Nitrogen 120 113 114 7-18 mg/dl Creatinine 11.00 11.00 12.00 0.60-1.40 mg/dl Est Creatinine Clear Calc Drug Dose 7.7 7.7 7.0 ml/min Estimated GFR () 5.0 5.0 4.5 Estimated GFR (Non- 4.3 4.3 3.9 BUN/Creatinine Ratio 10.9 10.2 9.5 10-20 Random Glucose 80 79 81 70-99 mg/dl Calcium Level 7.7 7.4 7.6 8.5-10.1 mg/dl White Blood Count 4.73 4.8-10.8 K/uL Red Blood Count 3.75 4.7-6.1 M/uL Hemoglobin 11.5 14.0-18.0 g/dL Hematocrit 33.6 42-52 % Mean Corpuscular Volume 89.6 80-100 fL Mean Corpuscular Hemoglobin 30.7 25-34 pg Mean Corpuscular Hemoglobin Concent 34.2 32-36 g/dl RDW Standard Deviation 41.1 36.4-46.3 fL RDW Coefficient of Variation 12.6 11.5-14.5 % Platelet Count 118 130-400 K/uL Mean Platelet Volume 9.5 7.4-10.4 fL Phosphorus Level 8.9 2.5-4.9 mg/dl Magnesium Level 2.2 1.8-2.4 mg/dl Total Bilirubin 0.3 0.2-1 mg/dl Aspartate Amino Transf (AST/SGOT) 7 15-37 U/L Alanine Aminotransferase (ALT/SGPT) 15 12-78 U/L Alkaline Phosphatase 72 45-117 U/L Total Protein 6.1 6.4-8.2 gm/dl Albumin 2.9 3.4-5.0 gm/dl Globulin 3.2 2.5-4.0 gm/dl Albumin/Globulin Ratio 0.9 0.9-2 Hepatitis C Antibody Screen NEG NEG Test 12/28/16 11:50 12/28/16 12:16 Range/Units Stool Occult Blood NEGATIVE NEGATIVE Sodium Level 128 136-145 mmol/L Potassium Level 4.2 3.5-5.1 mmol/L Chloride Level 97 98-107 mmol/L Carbon Dioxide Level 17 21-32 mmol/L Anion Gap 14.0 3-11 mmol/L Blood Urea Nitrogen 114 7-18 mg/dl Creatinine 11.00 0.60-1.40 mg/dl Est Creatinine Clear Calc Drug Dose 7.7 ml/min Estimated GFR () 5.0 Estimated GFR (Non- 4.3 BUN/Creatinine Ratio 10.4 10-20 Random Glucose 198 70-99 mg/dl Calcium Level 7.7 8.5-10.1 mg/dl Ionized Calcium 0.99 1.12-1.32 mmol/l Microbiology Results 12/28/16 Shiga Toxin Test, Received Pending 12/28/16 Stool Culture, Received Pending 12/28/16 C.difficile Toxin B Gene (PCR) - Final, Complete No C. difficile toxin B gene detected 12/28/16 WBC Smear - Final, Complete
[2016-12-29] VITALS (8 sets, daily range): BP systolic 102–143; BP diastolic 67–79; PULSE 65–92; TEMP 36.5–36.9; O2SAT 97–98
[2016-12-29] MEDS: SODIUM BICARBONATE 8.4% INJ 150 MEQ in DEXTROSE 5% 1000ML 1,000 ML IV SCH (06:17)
--- NOTE | 2016-12-29 09:09 | Nephrology Progress Note ---
Nephrology Progress Note Date of Service: Dec 29, 2016. Subjective 66 yo male with erg-zem-lexwaxsi-presumed volume depletion significant enough to cause atn in the setting of n/v/diarrhea. feels good other than the watery diarrhea. pt is hungry and tolerating the clear liquid diet. Objective Date Time Temp Pulse Resp B/P (MAP) Pulse Ox O2 Delivery O2 Flow Rate FiO2 12/29/16 07:49 128/78 (95) 110/77 (88) 103/67 (79) 12/29/16 07:45 36.6 66 20 128/78 (95) 98 Room Air 74 86 12/29/16 04:11 36.9 65 17 114/70 (85) 98 Room Air 65 12/29/16 04:00 Room Air 12/29/16 00:13 36.7 70 17 129/75 (93) 98 Room Air 79 115/70 (85) 83 102/68 (79) 12/28/16 23:59 Room Air 12/28/16 20:00 Room Air 12/28/16 19:31 36.8 73 18 108/66 (80) 96 12/28/16 16:04 36.7 86 18 110/68 (82) 98 12/28/16 16:00 Room Air 12/28/16 12:00 Room Air 12/28/16 11:13 36.7 78 18 128/74 (92) 100 Room Air Physical Exam: General-aaox3 Eyes-no scleral icterus ENT-mm dry Neck-supple Lungs-cta Heart-rrr Abdomen-bs+ s/nt/nd Extremities-no edema Neuro-nonfocal Current Inpatient Medications Medications (Trade) Dose Ordered Sig/Niall Route Start Time Stop Time Status Last Admin Dose Admin Clonidine HCl (Catapres Tab) 0.1 mg Q4H PRN PO 12/27/16 14:30 01/26/17 14:29 Hydralazine HCl (HydrALAZINE INJ) 10 mg Q6H PRN IV. 12/27/16 14:30 01/26/17 14:29 Heparin Sodium (Porcine) (Heparin Sq 5000 Unit/0.5ml) 5,000 unit Q12 SQ 12/27/16 21:00 01/26/17 20:59 12/28/16 19:37 5,000 UNIT Aspirin (Ecotrin Tab) 81 mg DAILY PO 12/28/16 09:00 01/27/17 08:59 12/28/16 07:49 81 MG Metoprolol Succinate (Toprol Xl Tab) 50 mg DAILY PO 12/28/16 09:00 01/27/17 08:59 12/28/16 07:49 50 MG Sodium Bicarbonate 150 meq/Dextrose 1,150 ml @ 150 mls/hr Q7H40M IV 12/28/16 08:00 01/27/17 07:59 12/29/16 06:17 150 MLS/HR Last 24 Hours Test 12/28/16 11:50 12/28/16 12:16 12/29/16 06:46 12/29/16 08:51 Stool Occult Blood NEGATIVE Sodium Level 128 mmol/L Potassium Level 4.2 mmol/L Chloride Level 97 mmol/L Carbon Dioxide Level 17 mmol/L Anion Gap 14.0 mmol/L Blood Urea Nitrogen 114 mg/dl Creatinine 11.00 mg/dl Est Creatinine Clear Calc Drug Dose 7.7 ml/min Estimated GFR () 5.0 Estimated GFR (Non- 4.3 BUN/Creatinine Ratio 10.4 Random Glucose 198 mg/dl Calcium Level 7.7 mg/dl Ionized Calcium 0.99 mmol/l Total Creatine Kinase 88 U/L Test 12/29/16 08:52 Assessment & Plan YBO-lvf-jfnbvhkk-no hydro-thought to be volume depletion significant enough to cause atn-currently does not need dialysis. urinating well. labs pending. Metabolic acidosis-on d5w with 150meq of sodium bicarb and to recheck bicarb levels and calcium levels. hypokalemia-k levels likely low secondary to correcting the acidosis. will await the labs this morning and replete prn.
[2016-12-29 09:12] LABS: BASO % 0.5 %; BASO ABS # 0.02 K/uL (0-0.2); COMPLETE YES; EOS % 3.3 %; HEMATOCRIT 28.3 % (42-52); IG% 0.5 %; LYMPH % 24.9 %; LYMPH ABS # 0.97 K/uL (1.2-3.4); MEAN CELL VOLUME 85.8 fL (80-100); MEAN CORPUSCULAR HEMOGLOBIN 30.9 pg (25-34); MEAN PLATELET VOLUME 9.2 fL (7.4-10.4); MONO % 12.3 %; NEUT % 58.5 %; PLATELET COUNT 128 K/uL (130-400); WHITE BLOOD COUNT 3.89 K/uL (4.8-10.8)
[2016-12-29] MEDS: HEPARIN SOD 5000 UNIT/0.5 ML CARP SQ SCH ×2 (09:34→21:27)
[2016-12-29] MEDS: METOPROLOL SUCC 50MG EXT REL TAB PO SCH (09:35)
[2016-12-29] MEDS: ASPIRIN 81 MG ECTAB PO SCH (09:35)
[2016-12-29 09:39] LABS: BUN/CREATININE RATIO 9.2 (10-20); CALCIUM 7.6 mg/dl (8.5-10.1); MAGNESIUM 1.8 mg/dl (1.8-2.4); POTASSIUM 3.3 mmol/L (3.5-5.1)
[2016-12-29] MEDS ORDERED: POTASSIUM CHLORIDE 10 MEQ TABCR PO ONE (10:15)
[2016-12-29] MEDS ORDERED: CALCIUM GLUCONATE 10% 1,000 MG in SODIUM CHLORIDE 0.9% 50ML 50 ML IV ONE (10:15)
[2016-12-29] MEDS: SODIUM CHLORIDE 0.9% 1000ML 1,000 ML IV SCH (15:29)
--- NOTE | 2016-12-29 17:07 | Progress Note ---
Internal Med Progress Note Date of Service: Dec 29, 2016. Provider Documentation: SUBJECTIVE: resting comfortably still has some loose stools afebrile no nausea or abdominal pain request to advance the diet no sob OBJECTIVE: Vital Signs-as noted below Exam: General-alert and awake. Not in distress ENT-normal hearing Neck-no neck masses Lungs-cta b/l no wheezing present no crackles Heart-s1 and s2 heard regular rate and rhythm no murmurs Abdomen-soft bowel sounds present non tender no distension Extremities-no erythema no edema Neuro-alert and awake moves extremities Lab data as noted below. ASSESSMENT & PLAN: ACUTE KIDNEY INJURY had GI symptoms with multiple episodes of vomiting and diarrhea.still has some diarrhea presented with BUN 122 and creatinine 12, associated with metabolic acidosis. MOST LIKELY pre-renal azotemia. Shiga toxin-mediated HUS?. Check stool studies so far negative CT abd/plevis- no obstruction normal cpk levels on fluids as per Nephrology. close follow labs HYPONATREMIA Serum sodium 123. most;y hypovolumic on fluyids na 132 today f/u labs hypokalemia will replace. GI SYMPTOMS Patient was experiencing severe nausea, vomiting, diarrhea without abdominal pain. still has some diarrhea He attributes GI illness to eating a hoagie from a sandwich shop. will follow stools for routine enteric pathogens, Giardia antigen, cryptosporidium antigen. stool wbc negative study c diff negative HYPERTENSION Holding lisinopril in light of YVAN. To Continue metoprolol. stable will monitor DYSLIPIDEMIA Holding rosuvastatin in light of GI symptoms. Normal CPK levels VTE PROPHYLAXIS SQ heparin. Ambulate. RESUSCITATION STATUS Full code. DISPOSITION monitor in tele to be determined Vital Signs: Date Time Temp Pulse Resp B/P (MAP) Pulse Ox O2 Delivery O2 Flow Rate FiO2 12/29/16 15:26 36.6 75 20 132/79 (96) 98 Room Air 84 108/72 (84) 91 109/69 (82) 12/29/16 12:15 36.5 74 16 119/74 (89) 98 Room Air 12/29/16 07:49 128/78 (95) 110/77 (88) 103/67 (79) 12/29/16 07:45 36.6 66 20 128/78 (95) 98 Room Air 74 86 12/29/16 04:11 36.9 65 17 114/70 (85) 98 Room Air 65 12/29/16 04:00 Room Air 12/29/16 00:13 36.7 70 17 129/75 (93) 98 Room Air 79 115/70 (85) 83 102/68 (79) 12/28/16 23:59 Room Air 12/28/16 20:00 Room Air 12/28/16 19:31 36.8 73 18 108/66 (80) 96 Lab Results: Results Past 24 Hours Test 12/29/16 06:46 Range/Units White Blood Count 3.89 4.8-10.8 K/uL Red Blood Count 3.30 4.7-6.1 M/uL Hemoglobin 10.2 14.0-18.0 g/dL Hematocrit 28.3 42-52 % Mean Corpuscular Volume 85.8 80-100 fL Mean Corpuscular Hemoglobin 30.9 25-34 pg Mean Corpuscular Hemoglobin Concent 36.0 32-36 g/dl Platelet Count 128 130-400 K/uL Mean Platelet Volume 9.2 7.4-10.4 fL Neutrophils (%) (Auto) 58.5 % Lymphocytes (%) (Auto) 24.9 % Monocytes (%) (Auto) 12.3 % Eosinophils (%) (Auto) 3.3 % Basophils (%) (Auto) 0.5 % Neutrophils # (Auto) 2.27 1.4-6.5 K/uL Lymphocytes # (Auto) 0.97 1.2-3.4 K/uL Monocytes # (Auto) 0.48 0.11-0.59 K/uL Eosinophils # (Auto) 0.13 0-0.5 K/uL Basophils # (Auto) 0.02 0-0.2 K/uL RDW Standard Deviation 38.6 36.4-46.3 fL RDW Coefficient of Variation 12.3 11.5-14.5 % Immature Granulocyte % (Auto) 0.5 % Immature Granulocyte # (Auto) 0.02 0.00-0.02 K/uL Sodium Level 132 136-145 mmol/L Potassium Level 3.3 3.5-5.1 mmol/L Chloride Level 94 98-107 mmol/L Carbon Dioxide Level 24 21-32 mmol/L Anion Gap 14.0 3-11 mmol/L Blood Urea Nitrogen 101 7-18 mg/dl Creatinine 11.00 0.60-1.40 mg/dl Est Creatinine Clear Calc Drug Dose 7.7 ml/min Estimated GFR () 5.0 Estimated GFR (Non- 4.3 BUN/Creatinine Ratio 9.2 10-20 Random Glucose 149 70-99 mg/dl Calcium Level 7.6 8.5-10.1 mg/dl Magnesium Level 1.8 1.8-2.4 mg/dl Total Creatine Kinase 88 39-308 U/L
[2016-12-30] MEDS: SODIUM CHLORIDE 0.9% 1000ML 1,000 ML IV SCH ×3 (01:25→16:00)
[2016-12-30 02:58] VITALS: BP 113/70; PULSE 67; TEMP 36.7; O2SAT 98
[2016-12-30 06:26] LABS: BASO % 0.3 %; BASO ABS # 0.01 K/uL (0-0.2); COMPLETE YES; EOS % 2.5 %; HEMATOCRIT 28.7 % (42-52); IG% 0.3 %; LYMPH ABS # 1.02 K/uL (1.2-3.4); MEAN CELL VOLUME 87.8 fL (80-100); MEAN CORPUSCULAR HEMOGLOBIN 30.9 pg (25-34); MEAN CORPUSCULAR HGB CONC 35.2 g/dl (32-36); MEAN PLATELET VOLUME 8.7 fL (7.4-10.4); MONO % 14.8 %; NEUT % 56.1 %; PLATELET COUNT 113 K/uL (130-400); RED BLOOD COUNT 3.27 M/uL (4.7-6.1); WHITE BLOOD COUNT 3.93 K/uL (4.8-10.8)
[2016-12-30 07:12] LABS: BUN/CREATININE RATIO 9.1 (10-20); CALCIUM 7.7 mg/dl (8.5-10.1); CREATININE 9.6 mg/dl (0.60-1.40); MAGNESIUM 1.6 mg/dl (1.8-2.4); PHOSPHORUS 7.2 mg/dl (2.5-4.9); POTASSIUM 3.3 mmol/L (3.5-5.1)
[2016-12-30] MEDS ORDERED: POTASSIUM CHLORIDE 10 MEQ TABCR PO ONE ×2 (07:45→08:45)
[2016-12-30 08:08] VITALS: BP_SYST 109; BP_SYST 122; BP_SYST 145; BP_DIAS 76; BP_DIAS 79; BP_DIAS 84; PULSE 77; PULSE 84; PULSE 92; TEMP 36.4; O2SAT 98
--- NOTE | 2016-12-30 08:33 | Nephrology Progress Note ---
Nephrology Progress Note Date of Service: Dec 30, 2016. Subjective 66 yo male with xbt-ikm-ehnnmkhf-presumed volume depletion significant enough to cause atn in the setting of n/v/diarrhea. continues with watery diarrhea but tolerating renal diet. no sob. pt notices he feels much better and urinating much more. Objective Date Time Temp Pulse Resp B/P (MAP) Pulse Ox O2 Delivery O2 Flow Rate FiO2 12/30/16 08:08 36.4 77 20 145/84 (104) 98 Room Air 84 122/79 (93) 92 109/76 (87) 12/30/16 04:00 Room Air 12/30/16 02:58 36.7 67 19 113/70 (84) 98 Room Air 12/29/16 23:59 Room Air 12/29/16 22:52 36.8 72 19 143/79 (100) 97 Room Air 92 121/77 (92) 89 105/69 (81) 12/29/16 20:00 Room Air 12/29/16 19:32 36.6 77 18 122/74 (90) 97 Room Air 12/29/16 16:00 Room Air 12/29/16 15:26 36.6 75 20 132/79 (96) 98 Room Air 84 108/72 (84) 91 109/69 (82) 12/29/16 12:15 36.5 74 16 119/74 (89) 98 Room Air 12/29/16 12:00 Room Air Physical Exam: General-aaox3 Eyes-no scleral icterus ENT-mm dry Neck-supple Lungs-clear Heart-regular Abdomen-bs+ s/nt/nd Extremities-no edema Neuro-nonfocal Current Inpatient Medications Medications (Trade) Dose Ordered Sig/Niall Route Start Time Stop Time Status Last Admin Dose Admin Clonidine HCl (Catapres Tab) 0.1 mg Q4H PRN PO 12/27/16 14:30 01/26/17 14:29 Hydralazine HCl (HydrALAZINE INJ) 10 mg Q6H PRN IV. 12/27/16 14:30 01/26/17 14:29 Heparin Sodium (Porcine) (Heparin Sq 5000 Unit/0.5ml) 5,000 unit Q12 SQ 12/27/16 21:00 01/26/17 20:59 12/29/16 21:27 5,000 UNIT Aspirin (Ecotrin Tab) 81 mg DAILY PO 12/28/16 09:00 01/27/17 08:59 12/29/16 09:35 81 MG Metoprolol Succinate (Toprol Xl Tab) 50 mg DAILY PO 12/28/16 09:00 01/27/17 08:59 12/29/16 09:35 50 MG Sodium Chloride 1,000 ml @ 100 mls/hr Q10H IV 12/29/16 10:00 01/28/17 09:59 12/30/16 01:25 100 MLS/HR Potassium Chloride (Klor-Con M10) 40 meq NOW ONCE PO 12/30/16 08:30 12/30/16 08:31 UNV Magnesium Sulfate 1 gm/Prmx 100 ml @ 100 mls/hr NOW ONCE IV 12/30/16 08:30 12/30/16 09:29 UNV Last 24 Hours Test 12/30/16 06:09 White Blood Count 3.93 K/uL Red Blood Count 3.27 M/uL Hemoglobin 10.1 g/dL Hematocrit 28.7 % Mean Corpuscular Volume 87.8 fL Mean Corpuscular Hemoglobin 30.9 pg Mean Corpuscular Hemoglobin Concent 35.2 g/dl Platelet Count 113 K/uL Mean Platelet Volume 8.7 fL Neutrophils (%) (Auto) 56.1 % Lymphocytes (%) (Auto) 26.0 % Monocytes (%) (Auto) 14.8 % Eosinophils (%) (Auto) 2.5 % Basophils (%) (Auto) 0.3 % Neutrophils # (Auto) 2.21 K/uL Lymphocytes # (Auto) 1.02 K/uL Monocytes # (Auto) 0.58 K/uL Eosinophils # (Auto) 0.10 K/uL Basophils # (Auto) 0.01 K/uL RDW Standard Deviation 40.4 fL RDW Coefficient of Variation 12.5 % Immature Granulocyte % (Auto) 0.3 % Immature Granulocyte # (Auto) 0.01 K/uL Sodium Level 138 mmol/L Potassium Level 3.3 mmol/L Chloride Level 101 mmol/L Carbon Dioxide Level 25 mmol/L Anion Gap 12.0 mmol/L Blood Urea Nitrogen 88 mg/dl Creatinine 9.60 mg/dl Est Creatinine Clear Calc Drug Dose 8.8 ml/min Estimated GFR () 5.9 Estimated GFR (Non- 5.1 BUN/Creatinine Ratio 9.1 Random Glucose 94 mg/dl Calcium Level 7.7 mg/dl Phosphorus Level 7.2 mg/dl Magnesium Level 1.6 mg/dl Assessment & Plan HJN-fvu-youoyveg-no vmosf-VTB-fmuzciysgb slowly improving. pt symptomatically improving. hypokalemia/hypomag-giving 40meq of po kdur and one gram of iv mag. repleting prn. continue current iv fluids. no signs of volume overload.
[2016-12-30] MEDS ORDERED: MAGNESIUM SULFATE 1GM / D5W 1 GM in PREMIXED IN D5W 100 ML IV ONE (08:45)
[2016-12-30] MEDS ORDERED: NURSING VERBAL MED ORDER ONE (09:00)
[2016-12-30] MEDS: ASPIRIN 81 MG ECTAB PO SCH (09:03)
[2016-12-30] MEDS: METOPROLOL SUCC 50MG EXT REL TAB PO SCH (09:03)
[2016-12-30] MEDS: HEPARIN SOD 5000 UNIT/0.5 ML CARP SQ SCH ×2 (09:04→19:57)
[2016-12-30 12:13] VITALS: BP 114/73; PULSE 67; TEMP 36.5; O2SAT 98
[2016-12-30 15:32] VITALS: BP_SYST 102; BP_SYST 106; BP_SYST 110; BP_DIAS 68; BP_DIAS 69; PULSE 72; PULSE 78; PULSE 79; TEMP 36.5; O2SAT 97
--- NOTE | 2016-12-30 16:38 | Progress Note ---
Internal Med Progress Note Date of Service: Dec 30, 2016. Provider Documentation: SUBJECTIVE: resting comfortably had three loose bowel movements yesterday tolerating regular renal diet no nausea or abdominal pain' afebrile feeling much better OBJECTIVE: Vital Signs-as noted below Exam: General-alert and awake. Not in distress ENT-normal hearing Neck-no neck masses Lungs-cta b/l no wheezing present no crackles Heart-s1 and s2 heard regular rate and rhythm no murmurs Abdomen-soft bowel sounds present non tender no distension Extremities-no erythema no edema Neuro-alert and awake moves extremities Lab data as noted below. ASSESSMENT & PLAN: ACUTE KIDNEY INJURY had GI symptoms with multiple episodes of vomiting and diarrhea.still has some diarrhea presented with BUN 122 and creatinine 12, associated with metabolic acidosis. MOST LIKELY pre-renal azotemia. Shiga toxin-mediated HUS?. Check stool studies so far negative CT abd/plevis- no obstruction normal cpk levels on fluids as per Nephrology cr 9.6 today. close follow labs HYPONATREMIA na 138 today resolved hypokalemia will replace. GI SYMPTOMS Patient was experiencing severe nausea, vomiting, diarrhea without abdominal pain. still has some diarrhea He attributes GI illness to eating a hoagie from a sandwich shop. will follow stools for routine enteric pathogens, Giardia antigen, cryptosporidium antigen. stool wbc negative study c diff negative HYPERTENSION Holding lisinopril in light of YVAN. To Continue metoprolol. stable will monitor DYSLIPIDEMIA Holding rosuvastatin in light of GI symptoms. Normal CPK levels VTE PROPHYLAXIS SQ heparin. Ambulate. RESUSCITATION STATUS Full code. DISPOSITION monitor in tele to be determined Vital Signs: Date Time Temp Pulse Resp B/P (MAP) Pulse Ox O2 Delivery O2 Flow Rate FiO2 12/30/16 15:32 36.5 72 20 110/69 (83) 97 Room Air 78 106/69 (81) 79 102/68 (79) 12/30/16 12:13 36.5 67 16 114/73 (87) 98 Room Air 12/30/16 08:08 36.4 77 20 145/84 (104) 98 Room Air 84 122/79 (93) 92 109/76 (87) 12/30/16 07:30 Room Air 12/30/16 04:00 Room Air 12/30/16 02:58 36.7 67 19 113/70 (84) 98 Room Air 12/29/16 23:59 Room Air 12/29/16 22:52 36.8 72 19 143/79 (100) 97 Room Air 92 121/77 (92) 89 105/69 (81) 12/29/16 20:00 Room Air 12/29/16 19:32 36.6 77 18 122/74 (90) 97 Room Air Lab Results: Results Past 24 Hours Test 12/30/16 06:09 Range/Units White Blood Count 3.93 4.8-10.8 K/uL Red Blood Count 3.27 4.7-6.1 M/uL Hemoglobin 10.1 14.0-18.0 g/dL Hematocrit 28.7 42-52 % Mean Corpuscular Volume 87.8 80-100 fL Mean Corpuscular Hemoglobin 30.9 25-34 pg Mean Corpuscular Hemoglobin Concent 35.2 32-36 g/dl Platelet Count 113 130-400 K/uL Mean Platelet Volume 8.7 7.4-10.4 fL Neutrophils (%) (Auto) 56.1 % Lymphocytes (%) (Auto) 26.0 % Monocytes (%) (Auto) 14.8 % Eosinophils (%) (Auto) 2.5 % Basophils (%) (Auto) 0.3 % Neutrophils # (Auto) 2.21 1.4-6.5 K/uL Lymphocytes # (Auto) 1.02 1.2-3.4 K/uL Monocytes # (Auto) 0.58 0.11-0.59 K/uL Eosinophils # (Auto) 0.10 0-0.5 K/uL Basophils # (Auto) 0.01 0-0.2 K/uL RDW Standard Deviation 40.4 36.4-46.3 fL RDW Coefficient of Variation 12.5 11.5-14.5 % Immature Granulocyte % (Auto) 0.3 % Immature Granulocyte # (Auto) 0.01 0.00-0.02 K/uL Sodium Level 138 136-145 mmol/L Potassium Level 3.3 3.5-5.1 mmol/L Chloride Level 101 98-107 mmol/L Carbon Dioxide Level 25 21-32 mmol/L Anion Gap 12.0 3-11 mmol/L Blood Urea Nitrogen 88 7-18 mg/dl Creatinine 9.60 0.60-1.40 mg/dl Est Creatinine Clear Calc Drug Dose 8.8 ml/min Estimated GFR () 5.9 Estimated GFR (Non- 5.1 BUN/Creatinine Ratio 9.1 10-20 Random Glucose 94 70-99 mg/dl Calcium Level 7.7 8.5-10.1 mg/dl Phosphorus Level 7.2 2.5-4.9 mg/dl Magnesium Level 1.6 1.8-2.4 mg/dl
[2016-12-30 19:44] VITALS: BP 136/67; PULSE 64; TEMP 36.6; O2SAT 99
[2016-12-30 22:15] LABS: CRYPTOSPORIDIUM AG TC 37213 NOT DETECTED (NOT DETECTED); O&P GIARDIA AG NOT DETECTED (NOT DETECTED)
[2016-12-31] VITALS (11 sets, daily range): BP systolic 99–131; BP diastolic 65–81; PULSE 61–93; TEMP 36.5–36.9; O2SAT 92–99
[2016-12-31] MEDS: SODIUM CHLORIDE 0.9% 1000ML 1,000 ML IV SCH ×3 (02:00→23:00)
[2016-12-31 07:00] LABS: BASO % 0.2 %; BASO ABS # 0.01 K/uL (0-0.2); COMPLETE YES; EOS % 2.6 %; HEMATOCRIT 28.1 % (42-52); IG% 0.2 %; LYMPH % 27.5 %; LYMPH ABS # 1.25 K/uL (1.2-3.4); MEAN CELL VOLUME 89.8 fL (80-100); MEAN CORPUSCULAR HEMOGLOBIN 31.3 pg (25-34); MEAN CORPUSCULAR HGB CONC 34.9 g/dl (32-36); MEAN PLATELET VOLUME 9.1 fL (7.4-10.4); MONO % 14.3 %; NEUT % 55.2 %; PLATELET COUNT 136 K/uL (130-400); RED BLOOD COUNT 3.13 M/uL (4.7-6.1); WHITE BLOOD COUNT 4.54 K/uL (4.8-10.8)
[2016-12-31 07:48] LABS: BUN/CREATININE RATIO 9.2 (10-20); CALCIUM 7.8 mg/dl (8.5-10.1); CREATININE 7.78 mg/dl (0.60-1.40); MAGNESIUM 1.6 mg/dl (1.8-2.4); POTASSIUM 3.4 mmol/L (3.5-5.1)
[2016-12-31] MEDS: ASPIRIN 81 MG ECTAB PO SCH (09:21)
[2016-12-31] MEDS: METOPROLOL SUCC 50MG EXT REL TAB PO SCH (09:21)
[2016-12-31] MEDS: HEPARIN SOD 5000 UNIT/0.5 ML CARP SQ SCH ×2 (09:22→20:25)
[2016-12-31] MEDS: POTASSIUM CHLORIDE 10 MEQ TABCR PO SCH (12:30)
[2016-12-31] MEDS: MAGNESIUM SULFATE 1GM / D5W 1 GM in PREMIXED IN D5W 100 ML IV SCH ×2 (12:30→13:38)
--- NOTE | 2016-12-31 12:39 | Nephrology Progress Note ---
Nephrology Progress Note Date of Service: Dec 31, 2016. Subjective 66 yo male with bhw-wex-acweieza-presumed volume depletion significant enough to cause atn in the setting of n/v/diarrhea. pt continues to feel better everyday. did lose iv access this morning. Objective Date Time Temp Pulse Resp B/P (MAP) Pulse Ox O2 Delivery O2 Flow Rate FiO2 12/31/16 11:13 36.7 61 18 115/70 (85) 99 Room Air 12/31/16 08:00 Room Air 12/31/16 07:35 81 99/66 (77) 12/31/16 07:35 75 121/75 (90) 12/31/16 07:34 36.9 67 18 131/80 (97) 99 Room Air 12/31/16 04:30 Room Air 12/31/16 03:58 36.9 70 18 124/81 (95) 97 Room Air 12/31/16 00:06 36.6 70 18 121/73 (89) 92 Room Air 82 115/71 (86) 93 104/65 (78) 12/31/16 00:00 Room Air 12/30/16 20:00 Room Air 12/30/16 19:44 36.6 64 18 136/67 (90) 99 Room Air 12/30/16 16:00 Room Air 12/30/16 15:32 36.5 72 20 110/69 (83) 97 Room Air 78 106/69 (81) 79 102/68 (79) Physical Exam: General-aaox3 Eyes-no scleral icterus ENT-mmm Neck-supple Lungs-clear Heart-regular Abdomen-bs+ s/nt/nd Extremities-no edema Neuro-nonfocal Current Inpatient Medications Medications (Trade) Dose Ordered Sig/Niall Route Start Time Stop Time Status Last Admin Dose Admin Clonidine HCl (Catapres Tab) 0.1 mg Q4H PRN PO 12/27/16 14:30 01/26/17 14:29 Hydralazine HCl (HydrALAZINE INJ) 10 mg Q6H PRN IV. 12/27/16 14:30 01/26/17 14:29 Heparin Sodium (Porcine) (Heparin Sq 5000 Unit/0.5ml) 5,000 unit Q12 SQ 12/27/16 21:00 01/26/17 20:59 12/31/16 09:22 5,000 UNIT Aspirin (Ecotrin Tab) 81 mg DAILY PO 12/28/16 09:00 01/27/17 08:59 12/31/16 09:21 81 MG Metoprolol Succinate (Toprol Xl Tab) 50 mg DAILY PO 12/28/16 09:00 01/27/17 08:59 12/31/16 09:21 50 MG Sodium Chloride 1,000 ml @ 100 mls/hr Q10H IV 12/29/16 10:00 01/28/17 09:59 12/31/16 02:00 100 MLS/HR Potassium Chloride (Klor-Con M10) 30 meq TODAY@1115 PO 12/31/16 11:15 01/30/17 11:14 12/31/16 12:30 30 MEQ Magnesium Sulfate 1 gm/Prmx 100 ml @ 100 mls/hr Q1H IV 12/31/16 11:15 12/31/16 13:14 12/31/16 12:30 100 MLS/HR Last 24 Hours Test 12/31/16 06:16 White Blood Count 4.54 K/uL Red Blood Count 3.13 M/uL Hemoglobin 9.8 g/dL Hematocrit 28.1 % Mean Corpuscular Volume 89.8 fL Mean Corpuscular Hemoglobin 31.3 pg Mean Corpuscular Hemoglobin Concent 34.9 g/dl Platelet Count 136 K/uL Mean Platelet Volume 9.1 fL Neutrophils (%) (Auto) 55.2 % Lymphocytes (%) (Auto) 27.5 % Monocytes (%) (Auto) 14.3 % Eosinophils (%) (Auto) 2.6 % Basophils (%) (Auto) 0.2 % Neutrophils # (Auto) 2.50 K/uL Lymphocytes # (Auto) 1.25 K/uL Monocytes # (Auto) 0.65 K/uL Eosinophils # (Auto) 0.12 K/uL Basophils # (Auto) 0.01 K/uL RDW Standard Deviation 41.0 fL RDW Coefficient of Variation 12.7 % Immature Granulocyte % (Auto) 0.2 % Immature Granulocyte # (Auto) 0.01 K/uL Sodium Level 141 mmol/L Potassium Level 3.4 mmol/L Chloride Level 105 mmol/L Carbon Dioxide Level 24 mmol/L Anion Gap 12.0 mmol/L Blood Urea Nitrogen 72 mg/dl Creatinine 7.78 mg/dl Est Creatinine Clear Calc Drug Dose 10.9 ml/min Estimated GFR () 7.6 Estimated GFR (Non- 6.5 BUN/Creatinine Ratio 9.2 Random Glucose 91 mg/dl Calcium Level 7.8 mg/dl Magnesium Level 1.6 mg/dl Assessment & Plan HMT-ojl-btecgwfz-no drdzt-KZQ-vtrttpdnld continues to improve. continue current iv fluids. will need iv placed again this morning. serologies are pending and ordered to be thorough but appears to be atn which is resolving. hypokalemia/hypomag-repleting prn.
--- NOTE | 2016-12-31 15:24 | Progress Note ---
Internal Med Progress Note Date of Service: Dec 31, 2016. Provider Documentation: SUBJECTIVE: resting on the chair comfortably no bowel movements yesterday and today so far tolerating regular renal diet no pain afebrile ambulating in room fine OBJECTIVE: Vital Signs-as noted below Exam: General-alert and awake. Not in distress ENT-normal hearing Neck-no neck masses Lungs-cta b/l no wheezing present no crackles Heart-s1 and s2 heard regular rate and rhythm no murmurs Abdomen-soft bowel sounds present non tender no distension Extremities-no erythema no edema Neuro-alert and awake moves extremities Lab data as noted below. ASSESSMENT & PLAN: 66M PRESENTS WITH 6DAYS OF N/V AND DIARRHEA. WAS CAMPING FOR HUNTING BUT DRINKING BOTTLED WATER. URGENT CARE LABS SHOWED CR 11 BUT DID NOT COME TO HOSPITAL. SAW FAMILY DOCTOR WHO ADVISED TO COME TO HOSPITAL. SEEN BY NEPHROLOGY. MOST LIKELY ATN FROM DIARRHEA AND VOMITING. HOLDING LISINOPRIL. FLUIDS PER NEPHROLOGY. SLOW IMPROVEMENT. SEROLOGIES PENDING. CR 7.8 TODAY. ACUTE KIDNEY INJURY had GI symptoms with multiple episodes of vomiting and diarrhea.still has some diarrhea presented with BUN 122 and creatinine 12, associated with metabolic acidosis. MOST LIKELY pre-renal azotemia. Shiga toxin-mediated HUS?. Check stool studies so far negative CT abd/plevis- no obstruction normal cpk levels serologies pending on fluids as per Nephrology cr 7.8 today. slowly improving close follow labs HYPONATREMIA na 138 today resolved hypokalemia and hypomagnesemia will replace. GI SYMPTOMS Patient was experiencing severe nausea, vomiting, diarrhea without abdominal pain on presentation. still had some diarrhea until yesterday He attributes GI illness to eating a hoagie from a sandwich shop. will follow stools for routine enteric pathogens, Giardia antigen, cryptosporidium antigen- negative so far stool wbc negative study c diff negative improved HYPERTENSION Holding lisinopril in light of YVAN. To Continue metoprolol. stable will monitor DYSLIPIDEMIA Holding rosuvastatin in light of GI symptoms. Normal CPK levels VTE PROPHYLAXIS SQ heparin. Ambulate. RESUSCITATION STATUS Full code. DISPOSITION monitor in tele ambulate in hallway await renal function to improve expect to discharge home and followup with pcp and nephrology Vital Signs: Date Time Temp Pulse Resp B/P (MAP) Pulse Ox O2 Delivery O2 Flow Rate FiO2 12/31/16 16:00 98 Room Air 12/31/16 15:20 36.5 68 20 116/74 (88) 98 Room Air 12/31/16 12:00 99 Room Air 12/31/16 11:13 36.7 61 18 115/70 (85) 99 Room Air 12/31/16 08:00 Room Air 12/31/16 07:35 81 99/66 (77) 12/31/16 07:35 75 121/75 (90) 12/31/16 07:34 36.9 67 18 131/80 (97) 99 Room Air 12/31/16 04:30 Room Air 12/31/16 03:58 36.9 70 18 124/81 (95) 97 Room Air 12/31/16 00:06 36.6 70 18 121/73 (89) 92 Room Air 82 115/71 (86) 93 104/65 (78) 12/31/16 00:00 Room Air 12/30/16 20:00 Room Air 12/30/16 19:44 36.6 64 18 136/67 (90) 99 Room Air Lab Results: Results Past 24 Hours Test 12/31/16 06:16 Range/Units White Blood Count 4.54 4.8-10.8 K/uL Red Blood Count 3.13 4.7-6.1 M/uL Hemoglobin 9.8 14.0-18.0 g/dL Hematocrit 28.1 42-52 % Mean Corpuscular Volume 89.8 80-100 fL Mean Corpuscular Hemoglobin 31.3 25-34 pg Mean Corpuscular Hemoglobin Concent 34.9 32-36 g/dl Platelet Count 136 130-400 K/uL Mean Platelet Volume 9.1 7.4-10.4 fL Neutrophils (%) (Auto) 55.2 % Lymphocytes (%) (Auto) 27.5 % Monocytes (%) (Auto) 14.3 % Eosinophils (%) (Auto) 2.6 % Basophils (%) (Auto) 0.2 % Neutrophils # (Auto) 2.50 1.4-6.5 K/uL Lymphocytes # (Auto) 1.25 1.2-3.4 K/uL Monocytes # (Auto) 0.65 0.11-0.59 K/uL Eosinophils # (Auto) 0.12 0-0.5 K/uL Basophils # (Auto) 0.01 0-0.2 K/uL RDW Standard Deviation 41.0 36.4-46.3 fL RDW Coefficient of Variation 12.7 11.5-14.5 % Immature Granulocyte % (Auto) 0.2 % Immature Granulocyte # (Auto) 0.01 0.00-0.02 K/uL Sodium Level 141 136-145 mmol/L Potassium Level 3.4 3.5-5.1 mmol/L Chloride Level 105 98-107 mmol/L Carbon Dioxide Level 24 21-32 mmol/L Anion Gap 12.0 3-11 mmol/L Blood Urea Nitrogen 72 7-18 mg/dl Creatinine 7.78 0.60-1.40 mg/dl Est Creatinine Clear Calc Drug Dose 10.9 ml/min Estimated GFR () 7.6 Estimated GFR (Non- 6.5 BUN/Creatinine Ratio 9.2 10-20 Random Glucose 91 70-99 mg/dl Calcium Level 7.8 8.5-10.1 mg/dl Magnesium Level 1.6 1.8-2.4 mg/dl
[2017-01-01] VITALS (11 sets, daily range): BP systolic 101–137; BP diastolic 63–84; PULSE 63–80; TEMP 36.2–36.8; O2SAT 96–100
[2017-01-01 06:59] LABS: BASO % 0.2 %; BASO ABS # 0.01 K/uL (0-0.2); COMPLETE YES; EOS % 3.4 %; IG% 0.6 %; LYMPH % 27.1 %; LYMPH ABS # 1.35 K/uL (1.2-3.4); MEAN CELL VOLUME 91.4 fL (80-100); MEAN CORPUSCULAR HEMOGLOBIN 31.1 pg (25-34); MEAN CORPUSCULAR HGB CONC 34.1 g/dl (32-36); MEAN PLATELET VOLUME 8.8 fL (7.4-10.4); MONO % 10.8 %; NEUT % 57.9 %; PLATELET COUNT 157 K/uL (130-400); WHITE BLOOD COUNT 4.98 K/uL (4.8-10.8)
[2017-01-01 07:56] LABS: BUN/CREATININE RATIO 9.4 (10-20); CREATININE 6.11 mg/dl (0.60-1.40); POTASSIUM 3.4 mmol/L (3.5-5.1)
[2017-01-01] MEDS: METOPROLOL SUCC 50MG EXT REL TAB PO SCH (08:27)
[2017-01-01] MEDS: SODIUM CHLORIDE 0.9% 1000ML 1,000 ML IV SCH ×2 (08:27→18:11)
[2017-01-01] MEDS: ASPIRIN 81 MG ECTAB PO SCH (08:27)
[2017-01-01] MEDS: POTASSIUM CHLORIDE 10 MEQ TABCR PO SCH ×2 (08:28→15:26)
[2017-01-01] MEDS: HEPARIN SOD 5000 UNIT/0.5 ML CARP SQ SCH ×2 (08:29→21:46)
--- NOTE | 2017-01-01 14:52 | Progress Note ---
Internal Med Progress Note Date of Service: Jan 01, 2017. Provider Documentation: SUBJECTIVE: patient denies pain or shortness of breath. denies problems with urination. patient understands that he is receiving IV fluids as his renal function is being monitored. No cardiac events on monitor technician OBJECTIVE: Exam: General-alert and awake. Not in distress ENT-normal hearing Neck-no neck masses Lungs-cta b/l, no wheezing present no crackles Heart-s1 and s2 heard regular rate and rhythm no murmurs Abdomen-soft bowel sounds present non tender no distension Extremities-no erythema no edema Neuro-alert and awake moves extremities ASSESSMENT & PLAN: ACUTE KIDNEY INJURY likely secondary to pre-renal azotemia from multiple episodes of vomiting and diarrhea -CT abdomen 12/27/16:There are no acute infectious or inflammatory findings in the abdomen/pelvis, The kidneys demonstrate cortical atrophy and are without hydronephrosis. There are 3.7 cm exophytic cyst arises from the lower pole of the right kidney and A 2.0 cm exophytic cyst arises from the upper pole of the left kidney. -negative stool studies -Creatinine downtrending from 12 on admission 12/27/16 to 6.11 on 01/01/17 while on IV fluids -Patient with resolved diarrhea and vomiting -Patient is urinating Electrolyte deficiencies -Hyponatremia on admission resolved -serum Potassium 3.4 with normal serum magnesium level of 2 on 01/01/17, 60 meq oral potassium ordered HYPERTENSION -Lisinopril held because of YVAN. -Continue metoprolol DYSLIPIDEMIA -Rosuvastatin held because of recent GI symptoms. -Normal CPK levels VTE PROPHYLAXIS -SQ heparin. Ambulate. RESUSCITATION STATUS: Full code. Telemetry discontinue on 01/01/17 DISPOSITION: await renal function to improve vs plateau and will then be discharged to home primary care and nephrology follow up Vital Signs: Date Time Temp Pulse Resp B/P (MAP) Pulse Ox O2 Delivery O2 Flow Rate FiO2 01/01/17 11:20 36.2 63 16 128/76 (93) 100 Room Air 01/01/17 11:20 Room Air 01/01/17 11:09 36.6 63 18 99 01/01/17 10:56 36.6 63 18 99 01/01/17 10:48 36.6 63 18 114/69 (84) 99 Room Air 01/01/17 07:56 Room Air 01/01/17 07:35 36.7 68 18 122/73 (89) 98 Room Air 01/01/17 04:00 98 Room Air 01/01/17 03:43 36.6 64 18 111/71 (84) 98 01/01/17 00:00 36.8 68 18 137/84 (101) 97 12/31/16 23:59 96 Room Air 12/31/16 20:00 96 Room Air 12/31/16 19:35 36.7 76 18 108/70 (83) 96 Room Air 12/31/16 16:00 98 Room Air 12/31/16 15:20 36.5 68 20 116/74 (88) 98 Room Air Lab Results: Results Past 24 Hours Test 01/01/17 06:44 Range/Units White Blood Count 4.98 4.8-10.8 K/uL Red Blood Count 3.50 4.7-6.1 M/uL Hemoglobin 10.9 14.0-18.0 g/dL Hematocrit 32.0 42-52 % Mean Corpuscular Volume 91.4 80-100 fL Mean Corpuscular Hemoglobin 31.1 25-34 pg Mean Corpuscular Hemoglobin Concent 34.1 32-36 g/dl Platelet Count 157 130-400 K/uL Mean Platelet Volume 8.8 7.4-10.4 fL Neutrophils (%) (Auto) 57.9 % Lymphocytes (%) (Auto) 27.1 % Monocytes (%) (Auto) 10.8 % Eosinophils (%) (Auto) 3.4 % Basophils (%) (Auto) 0.2 % Neutrophils # (Auto) 2.88 1.4-6.5 K/uL Lymphocytes # (Auto) 1.35 1.2-3.4 K/uL Monocytes # (Auto) 0.54 0.11-0.59 K/uL Eosinophils # (Auto) 0.17 0-0.5 K/uL Basophils # (Auto) 0.01 0-0.2 K/uL RDW Standard Deviation 42.9 36.4-46.3 fL RDW Coefficient of Variation 12.8 11.5-14.5 % Immature Granulocyte % (Auto) 0.6 % Immature Granulocyte # (Auto) 0.03 0.00-0.02 K/uL Sodium Level 144 136-145 mmol/L Potassium Level 3.4 3.5-5.1 mmol/L Chloride Level 109 98-107 mmol/L Carbon Dioxide Level 25 21-32 mmol/L Anion Gap 10.0 3-11 mmol/L Blood Urea Nitrogen 57 7-18 mg/dl Creatinine 6.11 0.60-1.40 mg/dl Est Creatinine Clear Calc Drug Dose 13.8 ml/min Estimated GFR () 10.1 Estimated GFR (Non- 8.8 BUN/Creatinine Ratio 9.4 10-20 Random Glucose 104 70-99 mg/dl Calcium Level 8.0 8.5-10.1 mg/dl Magnesium Level 2.0 1.8-2.4 mg/dl
[2017-01-01] MEDS ORDERED: POTASSIUM CHLORIDE 20 MEQ TABCR PO ONE (15:00)
[2017-01-01] MEDS ORDERED: POTASSIUM CHLORIDE 10 MEQ TABCR PO ONE (16:00)
--- NOTE | 2017-01-01 16:00 | Nephrology Progress Note ---
Nephrology Progress Note Date of Service: Jan 01, 2017. Subjective 66 yo male with ndd-hsr-lijsahuf-presumed volume depletion significant enough to cause atn in the setting of n/v/diarrhea. pt moved to regular floor. feels great. drinking cranberry juice. no signs of volume overload. Objective Date Time Temp Pulse Resp B/P (MAP) Pulse Ox O2 Delivery O2 Flow Rate FiO2 01/01/17 15:48 36.3 68 18 101/63 (76) 100 Room Air 01/01/17 11:20 36.2 63 16 128/76 (93) 100 Room Air 01/01/17 11:20 Room Air 01/01/17 11:09 36.6 63 18 99 01/01/17 10:56 36.6 63 18 99 01/01/17 10:48 36.6 63 18 114/69 (84) 99 Room Air 01/01/17 07:56 Room Air 01/01/17 07:35 36.7 68 18 122/73 (89) 98 Room Air 01/01/17 04:00 98 Room Air 01/01/17 03:43 36.6 64 18 111/71 (84) 98 01/01/17 00:00 36.8 68 18 137/84 (101) 97 12/31/16 23:59 96 Room Air 12/31/16 20:00 96 Room Air 12/31/16 19:35 36.7 76 18 108/70 (83) 96 Room Air 12/31/16 16:00 98 Room Air Physical Exam: General-aaox3 Eyes-no scleral icterus ENT-mmm Neck-supple Lungs-cta Heart-regular Abdomen-bs+ s/nt/nd Extremities-no edema Neuro-nonfocal Current Inpatient Medications Medications (Trade) Dose Ordered Sig/Niall Route Start Time Stop Time Status Last Admin Dose Admin Clonidine HCl (Catapres Tab) 0.1 mg Q4H PRN PO 12/27/16 14:30 01/26/17 14:29 Hydralazine HCl (HydrALAZINE INJ) 10 mg Q6H PRN IV. 12/27/16 14:30 01/26/17 14:29 Heparin Sodium (Porcine) (Heparin Sq 5000 Unit/0.5ml) 5,000 unit Q12 SQ 12/27/16 21:00 01/26/17 20:59 01/01/17 08:29 5,000 UNIT Aspirin (Ecotrin Tab) 81 mg DAILY PO 12/28/16 09:00 01/27/17 08:59 01/01/17 08:27 81 MG Metoprolol Succinate (Toprol Xl Tab) 50 mg DAILY PO 12/28/16 09:00 01/27/17 08:59 01/01/17 08:27 50 MG Sodium Chloride 1,000 ml @ 100 mls/hr Q10H IV 12/29/16 10:00 01/28/17 09:59 01/01/17 08:27 100 MLS/HR Potassium Chloride (Klor-Con M10) 30 meq TODAY@1600 ONCE PO 01/01/17 16:00 01/01/17 16:01 Last 24 Hours Test 01/01/17 06:44 White Blood Count 4.98 K/uL Red Blood Count 3.50 M/uL Hemoglobin 10.9 g/dL Hematocrit 32.0 % Mean Corpuscular Volume 91.4 fL Mean Corpuscular Hemoglobin 31.1 pg Mean Corpuscular Hemoglobin Concent 34.1 g/dl Platelet Count 157 K/uL Mean Platelet Volume 8.8 fL Neutrophils (%) (Auto) 57.9 % Lymphocytes (%) (Auto) 27.1 % Monocytes (%) (Auto) 10.8 % Eosinophils (%) (Auto) 3.4 % Basophils (%) (Auto) 0.2 % Neutrophils # (Auto) 2.88 K/uL Lymphocytes # (Auto) 1.35 K/uL Monocytes # (Auto) 0.54 K/uL Eosinophils # (Auto) 0.17 K/uL Basophils # (Auto) 0.01 K/uL RDW Standard Deviation 42.9 fL RDW Coefficient of Variation 12.8 % Immature Granulocyte % (Auto) 0.6 % Immature Granulocyte # (Auto) 0.03 K/uL Sodium Level 144 mmol/L Potassium Level 3.4 mmol/L Chloride Level 109 mmol/L Carbon Dioxide Level 25 mmol/L Anion Gap 10.0 mmol/L Blood Urea Nitrogen 57 mg/dl Creatinine 6.11 mg/dl Est Creatinine Clear Calc Drug Dose 13.8 ml/min Estimated GFR () 10.1 Estimated GFR (Non- 8.8 BUN/Creatinine Ratio 9.4 Random Glucose 104 mg/dl Calcium Level 8.0 mg/dl Magnesium Level 2.0 mg/dl Assessment & Plan RGM-lui-ughuiblv-no [id number] continues to improve. down to 6.11. hypokalemia-k 3.4 and repleting prn. continue current iv fluids. if eating and drinking well, depending on labs, could consider sending home tomorrow with repeat labs next week.
[2017-01-02] MEDS: SODIUM CHLORIDE 0.9% 1000ML 1,000 ML IV SCH ×2 (04:15→14:39)
[2017-01-02 07:35] LABS: BUN/CREATININE RATIO 9.1 (10-20); CALCIUM 8.1 mg/dl (8.5-10.1); CREATININE 4.49 mg/dl (0.60-1.40); MAGNESIUM 1.5 mg/dl (1.8-2.4); POTASSIUM 3.8 mmol/L (3.5-5.1)
[2017-01-02 07:37] LABS: ALB/GLOB RATIO 0.9 (0.9-2)
[2017-01-02 07:38] VITALS: BP 120/68; PULSE 68; TEMP 36.5; O2SAT 96
[2017-01-02 08:00] VITALS: O2SAT 96
[2017-01-02] MEDS: ASPIRIN 81 MG ECTAB PO SCH (08:17)
[2017-01-02] MEDS: METOPROLOL SUCC 50MG EXT REL TAB PO SCH (08:17)
[2017-01-02] MEDS: HEPARIN SOD 5000 UNIT/0.5 ML CARP SQ SCH ×2 (08:18→21:53)
[2017-01-02] MEDS ORDERED: MAGNESIUM SULFATE 1GM / D5W 1 GM in PREMIXED IN D5W 100 ML IV STA (08:30)
--- NOTE | 2017-01-02 09:00 | Nephrology Progress Note ---
Nephrology Progress Note Date of Service: Jan 02, 2017. Subjective 66 yo male with tyf-jhb-wlinfhfk-presumed volume depletion significant enough to cause atn in the setting of n/v/diarrhea. Patient continues to recover. now patient's greatest concern is that he hasn't had a bowel movement for several days. He normally has issues with chronic constipation and has used high dose Senna in the past-followed by GI in [place]. Now patient uses PRN Miralax to maintain regularity. Otherwise, he states that he feels great. with good urine output and no signs of volume overload. No nausea, vomiting, chest pain, SOB, or confusion. Objective Date Time Temp Pulse Resp B/P (MAP) Pulse Ox O2 Delivery O2 Flow Rate FiO2 01/02/17 07:38 36.5 68 12 120/68 (85) 96 Room Air 0.0 01/01/17 23:59 Room Air 01/01/17 23:49 36.6 80 18 122/72 (89) 97 Room Air 01/01/17 18:09 96 Room Air 01/01/17 15:48 36.3 68 18 101/63 (76) 100 Room Air 01/01/17 11:20 36.2 63 16 128/76 (93) 100 Room Air 01/01/17 11:20 Room Air 01/01/17 11:09 36.6 63 18 99 01/01/17 10:56 36.6 63 18 99 01/01/17 10:48 36.6 63 18 114/69 (84) 99 Room Air Physical Exam: General-aaox3 Eyes-no scleral icterus ENT-mmm Neck-supple Lungs-cta Heart-regular Abdomen-bs+ s/nt/nd Extremities-no edema Neuro-nonfocal Current Inpatient Medications Medications (Trade) Dose Ordered Sig/Niall Route Start Time Stop Time Status Last Admin Dose Admin Clonidine HCl (Catapres Tab) 0.1 mg Q4H PRN PO 12/27/16 14:30 01/26/17 14:29 Hydralazine HCl (HydrALAZINE INJ) 10 mg Q6H PRN IV. 12/27/16 14:30 01/26/17 14:29 Heparin Sodium (Porcine) (Heparin Sq 5000 Unit/0.5ml) 5,000 unit Q12 SQ 12/27/16 21:00 01/26/17 20:59 01/02/17 08:18 5,000 UNIT Aspirin (Ecotrin Tab) 81 mg DAILY PO 12/28/16 09:00 01/27/17 08:59 01/02/17 08:17 81 MG Metoprolol Succinate (Toprol Xl Tab) 50 mg DAILY PO 12/28/16 09:00 01/27/17 08:59 01/02/17 08:17 50 MG Sodium Chloride 1,000 ml @ 100 mls/hr Q10H IV 12/29/16 10:00 01/28/17 09:59 01/02/17 04:15 100 MLS/HR Magnesium Sulfate 1 gm/Prmx 100 ml @ 100 mls/hr NOW STAT IV 01/02/17 08:30 01/02/17 09:29 Magnesium Sulfate 1 gm/Prmx 100 ml @ 100 mls/hr TODAY@0930 IV 01/02/17 09:30 01/02/17 10:29 Magnesium Oxide (Mag-Ox Tab) 400 mg QAM PO 01/02/17 09:00 02/01/17 08:59 Last 24 Hours Test 01/02/17 06:47 Sodium Level 143 mmol/L Potassium Level 3.8 mmol/L Chloride Level 114 mmol/L Carbon Dioxide Level 23 mmol/L Anion Gap 6.0 mmol/L Blood Urea Nitrogen 41 mg/dl Creatinine 4.49 mg/dl Est Creatinine Clear Calc Drug Dose 18.8 ml/min Estimated GFR () 14.7 Estimated GFR (Non- 12.7 BUN/Creatinine Ratio 9.1 Random Glucose 125 mg/dl Calcium Level 8.1 mg/dl Magnesium Level 1.5 mg/dl Total Bilirubin 0.2 mg/dl Aspartate Amino Transf (AST/SGOT) 15 U/L Alanine Aminotransferase (ALT/SGPT) 17 U/L Alkaline Phosphatase 52 U/L Total Protein 6.2 gm/dl Albumin 2.9 gm/dl Globulin 3.3 gm/dl Albumin/Globulin Ratio 0.9 Assessment & Plan KYG-ygy-kivnsvug-no lmzxk-BVF-qyojftmxnu continues to improve. down to 4.49. From a renal perspective, may be ok to be d/c'd as soon as tomorrow if kidney function continues to improve. will continue to follow as outpt with repeat labs next week. hypokalemia-continuing to replete prn. Last potassium 3.8. Hypomagnesemia. Magnesium trending downward at 1.5. will give 1g Iv now and continue to follow. Primary service also ordered a loading maintenance dose. will notify charge nurse to inform primary hospitalist for cancellation of order if indicated. Constipation. Had significant volume depletion but recovering. maintained with miralax at home. defer to primary service. addition of mag may also help produce a bm. This patient was seen and treated with direct collaboration with Dr. Mata. Thank you for the opportunity to participate in this patient's care. Appreciate the Consult. ATTENDING NOTE: I performed a history and physical examination of the patient, including specifically on history- pt feels great, concerned now about constipation, on physical exam-no edema, and my impression and plan are ATN-resolving, would like to keep pt in house till tomorrow afternoon to try to help optimize renal recovery and repeat bmp again next saturday. repleting mag today as well with one gram. I have discussed the patient's management with Ellen Ngo PA-C, Please refer to above note for the documented findings and plan of care. Reg Mata DO
[2017-01-02] MEDS ORDERED: NURSING VERBAL MED ORDER ONE (09:30)
[2017-01-02] MEDS ORDERED: MAGNESIUM SULFATE 1GM / D5W 1 GM in PREMIXED IN D5W 100 ML IV SCH (09:30)
[2017-01-02] MEDS: MAGNESIUM OXIDE 400 MG TAB PO SCH (09:42)
[2017-01-02 15:23] VITALS: BP 118/64; PULSE 66; TEMP 36.7; O2SAT 97
--- NOTE | 2017-01-02 15:52 | Progress Note ---
Internal Med Progress Note Date of Service: Jan 02, 2017. Provider Documentation: SUBJECTIVE: patient denies pain or shortness of breath. denies problems with urination. OBJECTIVE: Exam: General-alert and awake. Not in distress ENT-normal hearing Neck-no neck masses Lungs-cta b/l, no wheezing present no crackles Heart-s1 and s2 heard regular rate and rhythm no murmurs Abdomen-soft bowel sounds present non tender no distension Extremities-no erythema no edema Neuro-alert and awake moves extremities ASSESSMENT & PLAN: ACUTE KIDNEY INJURY likely secondary to pre-renal azotemia from multiple episodes of vomiting and diarrhea -CT abdomen 12/27/16:There are no acute infectious or inflammatory findings in the abdomen/pelvis, The kidneys demonstrate cortical atrophy and are without hydronephrosis. There are 3.7 cm exophytic cyst arises from the lower pole of the right kidney and A 2.0 cm exophytic cyst arises from the upper pole of the left kidney. -negative stool studies -Creatinine downtrending from 12 on admission 12/27/16 to 4.49 on 01/02/17 while on IV fluids -resolved diarrhea and vomiting -Patient is urinating -nephrology consult following patient Electrolyte deficiencies -Hyponatremia on admission resolved -serum magnesium level of 1.5 on 01/02/17, a total of 2 grams IV magnesium given. Patient is on PO magnesium daily now because has been have low serum magnesium requiring IV repletions in recent days. HYPERTENSION -Lisinopril held because of YVAN. -Continue metoprolol DYSLIPIDEMIA -Rosuvastatin held because of recent GI symptoms. -Normal CPK levels VTE PROPHYLAXIS -SQ heparin. Ambulate. RESUSCITATION STATUS: Full code. DISPOSITION: awaiting renal function to improve vs plateau and will then be discharged to home with primary care and nephrology follow up Vital Signs: Date Time Temp Pulse Resp B/P (MAP) Pulse Ox O2 Delivery O2 Flow Rate FiO2 01/02/17 15:23 36.7 66 12 118/64 (82) 97 Room Air 01/02/17 08:00 96 Room Air 01/02/17 07:38 36.5 68 12 120/68 (85) 96 Room Air 0.0 01/01/17 23:59 Room Air 01/01/17 23:49 36.6 80 18 122/72 (89) 97 Room Air 01/01/17 18:09 96 Room Air Lab Results: Results Past 24 Hours Test 01/02/17 06:47 Range/Units Sodium Level 143 136-145 mmol/L Potassium Level 3.8 3.5-5.1 mmol/L Chloride Level 114 98-107 mmol/L Carbon Dioxide Level 23 21-32 mmol/L Anion Gap 6.0 3-11 mmol/L Blood Urea Nitrogen 41 7-18 mg/dl Creatinine 4.49 0.60-1.40 mg/dl Est Creatinine Clear Calc Drug Dose 18.8 ml/min Estimated GFR () 14.7 Estimated GFR (Non- 12.7 BUN/Creatinine Ratio 9.1 10-20 Random Glucose 125 70-99 mg/dl Calcium Level 8.1 8.5-10.1 mg/dl Magnesium Level 1.5 1.8-2.4 mg/dl Total Bilirubin 0.2 0.2-1 mg/dl Aspartate Amino Transf (AST/SGOT) 15 15-37 U/L Alanine Aminotransferase (ALT/SGPT) 17 12-78 U/L Alkaline Phosphatase 52 45-117 U/L Total Protein 6.2 6.4-8.2 gm/dl Albumin 2.9 3.4-5.0 gm/dl Globulin 3.3 2.5-4.0 gm/dl Albumin/Globulin Ratio 0.9 0.9-2
[2017-01-02 16:47] VITALS: O2SAT 96
[2017-01-02 18:30] LABS: ALBUMIN 2.8 G/DL (3.8-4.8); GAMMA GLOBULIN 0.6 G/DL (0.8-1.7); TOTAL PROTEIN 5.1 G/DL (6.2-8.3)
[2017-01-02 23:35] VITALS: BP 113/70; PULSE 61; TEMP 36.6; O2SAT 98
[2017-01-03] MEDS: SODIUM CHLORIDE 0.9% 1000ML 1,000 ML IV SCH (01:01)
[2017-01-03 07:07] LABS: BUN/CREATININE RATIO 8.6 (10-20); CALCIUM 8.2 mg/dl (8.5-10.1); CREATININE 3.39 mg/dl (0.60-1.40); MAGNESIUM 1.8 mg/dl (1.8-2.4); POTASSIUM 3.8 mmol/L (3.5-5.1)
[2017-01-03 07:10] LABS: ALB/GLOB RATIO 0.8 (0.9-2)
[2017-01-03 07:22] VITALS: BP 120/71; PULSE 65; TEMP 36.4; O2SAT 95
[2017-01-03] MEDS: ASPIRIN 81 MG ECTAB PO SCH (07:40)
[2017-01-03] MEDS: MAGNESIUM OXIDE 400 MG TAB PO SCH (07:40)
[2017-01-03] MEDS: METOPROLOL SUCC 50MG EXT REL TAB PO SCH (07:40)
[2017-01-03] MEDS: HEPARIN SOD 5000 UNIT/0.5 ML CARP SQ SCH (07:42)
[2017-01-03] MEDS ORDERED: SODIUM CHLORIDE 0.45% 1000ML 1,000 ML IV ONE (07:43)
[2017-01-03 08:00] VITALS: O2SAT 95
--- NOTE | 2017-01-03 11:48 | Progress Note ---
Internal Med Progress Note Date of Service: Jan 03, 2017. Provider Documentation: SUBJECTIVE: patient denies pain or shortness of breath. denies problems with urination. OBJECTIVE: Exam: General-alert and awake. Not in distress ENT-normal hearing Neck-no neck masses Lungs-cta b/l, no wheezing present no crackles Heart-s1 and s2 heard regular rate and rhythm no murmurs Abdomen-soft bowel sounds present non tender no distension Extremities-no erythema no edema Neuro-alert and awake moves extremities ASSESSMENT & PLAN: ACUTE KIDNEY INJURY likely secondary to pre-renal azotemia from multiple episodes of vomiting and diarrhea -CT abdomen 12/27/16:There are no acute infectious or inflammatory findings in the abdomen/pelvis, The kidneys demonstrate cortical atrophy and are without hydronephrosis. There are 3.7 cm exophytic cyst arises from the lower pole of the right kidney and A 2.0 cm exophytic cyst arises from the upper pole of the left kidney. -negative stool studies -Creatinine downtrending from 12 on admission 12/27/16 to 3.39 on 01/03/17 while on IV fluids -resolved diarrhea and vomiting -Patient is urinating -nephrology consult following patient as inpatient. Hospitalist physician spoke with materials planning analyst Dr. Mata on 01/03/[address] Mata states that patient's kidney function has improved sufficiently for hospital discharge Electrolyte deficiencies -Hyponatremia on admission resolved -Serum Magnesium 1.8 on 01/03/17, patient received magnesium supplements as inpatient HYPERTENSION -Lisinopril held because of acute kidney injury. patient's blood pressure controlled without lisinopril. would advise to continue to hold this medication until primary care doctor follow up -Continue metoprolol DYSLIPIDEMIA -Rosuvastatin held in the hospital because of GI symptoms of diarrhea. Normal CPK levels. can continue Rosuvastatin as outpatient Disposition: patient to be discharged to home. Patient will contact his primary care doctor Internal Medicine Darrian Rubio Hallie Jeanne, MD for follow up. Patient also receiving prescription for Complete Metabolic Panel to be performed so his renal function can be followed by his primary care doctor. Patient may need further nephrology follow up as outpatient. This referral can be made by his primary care doctor Vital Signs: Date Time Temp Pulse Resp B/P (MAP) Pulse Ox O2 Delivery O2 Flow Rate FiO2 01/03/17 08:00 95 Room Air 01/03/17 07:22 36.4 65 20 120/71 (87) 95 Room Air 01/03/17 00:00 Room Air 01/02/17 23:35 36.6 61 16 113/70 (84) 98 Room Air 01/02/17 16:47 96 Room Air 01/02/17 15:23 36.7 66 12 118/64 (82) 97 Room Air Lab Results: Results Past 24 Hours Test 01/03/17 06:17 Range/Units Sodium Level 145 136-145 mmol/L Potassium Level 3.8 3.5-5.1 mmol/L Chloride Level 115 98-107 mmol/L Carbon Dioxide Level 24 21-32 mmol/L Anion Gap 6.0 3-11 mmol/L Blood Urea Nitrogen 29 7-18 mg/dl Creatinine 3.39 0.60-1.40 mg/dl Est Creatinine Clear Calc Drug Dose 24.9 ml/min Estimated GFR () 20.7 Estimated GFR (Non- 17.8 BUN/Creatinine Ratio 8.6 10-20 Random Glucose 97 70-99 mg/dl Calcium Level 8.2 8.5-10.1 mg/dl Magnesium Level 1.8 1.8-2.4 mg/dl Total Bilirubin 0.2 0.2-1 mg/dl Aspartate Amino Transf (AST/SGOT) 13 15-37 U/L Alanine Aminotransferase (ALT/SGPT) 16 12-78 U/L Alkaline Phosphatase 45 45-117 U/L Total Protein 5.6 6.4-8.2 gm/dl Albumin 2.5 3.4-5.0 gm/dl Globulin 3.1 2.5-4.0 gm/dl Albumin/Globulin Ratio 0.8 0.9-2
--- NOTE | 2017-01-03 12:07 | Discharge Instructions ---
Discharge Instructions Date of Service Jan 03, 2017. Admission Reason for Admission: Acute Kidney Injury Discharge Discharge Diagnosis / Problem: acute renal failure, diarrhea, hypokalemia, hypomagnesemia Discharge Goals Goal(s): Improve disease control Activity Recommendations Activity Limitations: resume your previous activity . Instructions / Follow-Up Instructions / Follow-Up ACUTE KIDNEY INJURY likely secondary to pre-renal azotemia from multiple episodes of vomiting and diarrhea -CT abdomen 12/27/16:There are no acute infectious or inflammatory findings in the abdomen/pelvis, The kidneys demonstrate cortical atrophy and are without hydronephrosis. There are 3.7 cm exophytic cyst arises from the lower pole of the right kidney and A 2.0 cm exophytic cyst arises from the upper pole of the left kidney. -negative stool studies -Creatinine downtrending from 12 on admission 12/27/16 to 3.39 on 01/03/17 while on IV fluids -resolved diarrhea and vomiting -Patient is urinating -nephrology consult following patient as inpatient. Hospitalist physician spoke with steel die printer Dr. Mata on 01/03/[address] Mata states that patient's kidney function has improved sufficiently for hospital discharge Electrolyte deficiencies -Hyponatremia on admission resolved -Serum Magnesium 1.8 on 01/03/17, patient received magnesium supplements as inpatient HYPERTENSION -Lisinopril held because of acute kidney injury. patient's blood pressure controlled without lisinopril. would advise to continue to hold this medication until primary care doctor follow up -Continue metoprolol DYSLIPIDEMIA -Rosuvastatin held in the hospital because of GI symptoms of diarrhea. Normal CPK levels. can continue Rosuvastatin as outpatient Disposition: patient to be discharged to home. Patient will contact his primary care doctor Internal Medicine Darrian Rubio Hallie Jeanne, MD for follow up. Patient also receiving prescription for Complete Metabolic Panel to be performed so his renal function can be followed by his primary care doctor. Patient may need further nephrology follow up as outpatient. This referral can be made by his primary care doctor Current Hospital Diet Patient's current hospital diet: Low Sodium Diet (2gm Na) Discharge Diet Recommended Diet: Low Sodium Diet (2gm Na), Renal Diet Pending Studies Studies pending at discharge: no Laboratory Results 01/01/17 06:44 Red Blood Count 3.50, Mean Corpuscular Volume 91.4, Mean Corpuscular Hemoglobin 31.1, Mean Corpuscular Hemoglobin Concent 34.1, Mean Platelet Volume 8.8, Neutrophils (%) (Auto) 57.9, Lymphocytes (%) (Auto) 27.1, Monocytes (%) (Auto) 10.8, Eosinophils (%) (Auto) 3.4, Basophils (%) (Auto) 0.2, Neutrophils # (Auto ) 2.88, Lymphocytes # (Auto) 1.35, Monocytes # (Auto) 0.54, Eosinophils # (Auto ) 0.17, Basophils # (Auto) 0.01 01/03/17 06:17 Test 12/27/16 12:00 12/27/16 12:09 12/27/16 12:22 12/27/16 12:52 Thyroid Stimulating Hormone (TSH) 3.640 uIu/ml (0.300-4.500) Bedside Hemoglobin 13.9 g/dl (14.0-18.0) Bedside Hematocrit 41 % (42-52) Bedside Sodium 124 mEq/L (135-144) Bedside Potassium 5.1 mEq/L (3.3-5.0) Bedside Chloride 98 mEq/L (101-112) Bedside Total CO2 13 mEq/l (24-31) Bedside Blood Urea Nitrogen 133 mg/dl (7-18) Bedside Creatinine 13.9 mg/dl (0.6-1.3) Bedside Glucose (other) 93 mg/dl (70-99) Bedside Ionized Calcium (Felicita) 1.10 mmol/l (1.12-1.32) Bedside Glucose 87 mg/dl (70-99) Direct Bilirubin 0.1 mg/dl (0-0.2) Test 12/27/16 14:25 12/27/16 16:10 12/27/16 21:57 12/28/16 00:00 Urine Color YELLOW Urine Appearance CLEAR (CLEAR) Urine pH 5.0 (4.5-7.5) Urine Specific Ilion 1.015 (1.000-1.030) Urine Protein 1+ (NEG) Urine Glucose (UA) NEG (NEG) Urine Ketones NEG (NEG) Urine Occult Blood 2+ (NEG) Urine Nitrite NEG (NEG) Urine Bilirubin NEG (NEG) Urine Urobilinogen NEG (NEG) Urine Leukocyte Esterase NEG (NEG) Urine WBC (Auto) 1-5 /hpf (0-5) Urine RBC (Auto) 0-4 /hpf (0-4) Urine Hyaline Casts (Auto) 1-5 /lpf (0-5) Urine Epithelial Cells (Auto) 10-20 /lpf (0-5) Urine Bacteria (Auto) NEG (NEG) Urine Yeast (Auto) (NONE PRSENT) Urine Osmolality 196 mOms/kg (500-800) Urine Random Creatinine 47.0 mg/dl Urine Random Sodium 38 mEq/L Prothrombin Time 9.6 SECONDS (9.0-12.0) Prothromb Time International Ratio 0.9 (0.9-1.1) Activated Partial Thromboplast Time 28.7 SECONDS (21.0-31.0) Partial Thromboplastin Ratio 1.1 Hepatitis A IgM Antibody NON-REACTIVE (NON-REACTIVE) Stool Cryptosporidium Antigen NOT DETECTED (NOT DETECTED) Giardia Antigen NOT DETECTED (NOT DETECTED) Test 12/28/16 05:26 12/28/16 11:50 12/28/16 12:16 12/29/16 06:46 Hepatitis C Antibody Screen NEG (NEG) Stool Occult Blood NEGATIVE (NEGATIVE) Ionized Calcium 0.99 mmol/l (1.12-1.32) Total Creatine Kinase 88 U/L (39-308) Test 12/30/16 06:09 01/01/17 06:44 01/03/17 06:17 Phosphorus Level 7.2 mg/dl (2.5-4.9) Qngsz-8-Rwcaxkdre 0.3 G/DL (0.2-0.3) Jweub-5-Xbhbgsoxf 0.6 G/DL (0.5-0.9) Xbif-2-Pborlsld 0.4 G/DL (0.4-0.6) Jwkm-8-Ihjlchpz 0.4 G/DL (0.2-0.5) Gamma Globulins 0.6 G/DL (0.8-1.7) Prot Electrophor Monoclonal Peak 3 G/DL (NOT DETECTED) Serum Monoclonal Protein G/DL (NOT DETECTED) Serum Monoclonal Protein (2) G/DL (NOT DETECTED) Protein Electrophoresis Interpret SEE NOTE Total Protein (MELVIN) 5.1 G/DL (6.2-8.3) Albumin (MELVIN) 2.8 G/DL (3.8-4.8) Anti-Nuclear Antibody Screen NEGATIVE (NEGATIVE) Anti-Nuclear Antibody Comment (()) Anti-Neutrophil Cytoplasmic Ab Negative (Negative) Anti-Glomerular Basement Memb Ab <1.0 AI (<1.0) Complement C3 114 MG/DL (90-180) Complement C4 35 MG/DL (16-47) Total Complement (CH50) >60 U/mL (31-60) White Blood Count 4.98 K/uL (4.8-10.8) Red Blood Count 3.50 M/uL (4.7-6.1) Hemoglobin 10.9 g/dL (14.0-18.0) Hematocrit 32.0 % (42-52) Mean Corpuscular Volume 91.4 fL (80-100) Mean Corpuscular Hemoglobin 31.1 pg (25-34) Mean Corpuscular Hemoglobin Concent 34.1 g/dl (32-36) Platelet Count 157 K/uL (130-400) Mean Platelet Volume 8.8 fL (7.4-10.4) Neutrophils (%) (Auto) 57.9 % Lymphocytes (%) (Auto) 27.1 % Monocytes (%) (Auto) 10.8 % Eosinophils (%) (Auto) 3.4 % Basophils (%) (Auto) 0.2 % Neutrophils # (Auto) 2.88 K/uL (1.4-6.5) Lymphocytes # (Auto) 1.35 K/uL (1.2-3.4) Monocytes # (Auto) 0.54 K/uL (0.11-0.59) Eosinophils # (Auto) 0.17 K/uL (0-0.5) Basophils # (Auto) 0.01 K/uL (0-0.2) RDW Standard Deviation 42.9 fL (36.4-46.3) RDW Coefficient of Variation 12.8 % (11.5-14.5) Immature Granulocyte % (Auto) 0.6 % Immature Granulocyte # (Auto) 0.03 K/uL (0.00-0.02) Anion Gap 6.0 mmol/L (3-11) Est Creatinine Clear Calc Drug Dose 24.9 ml/min Estimated GFR () 20.7 Estimated GFR (Non- 17.8 BUN/Creatinine Ratio 8.6 (10-20) Calcium Level 8.2 mg/dl (8.5-10.1) Magnesium Level 1.8 mg/dl (1.8-2.4) Total Bilirubin 0.2 mg/dl (0.2-1) Aspartate Amino Transf (AST/SGOT) 13 U/L (15-37) Alanine Aminotransferase (ALT/SGPT) 16 U/L (12-78) Alkaline Phosphatase 45 U/L (45-117) Total Protein 5.6 gm/dl (6.4-8.2) Albumin 2.5 gm/dl (3.4-5.0) Globulin 3.1 gm/dl (2.5-4.0) Albumin/Globulin Ratio 0.8 (0.9-2) Date/Time Source Procedure Growth Status 12/28/16 00:00 Stool Shiga Toxin Test - Final Complete 12/28/16 00:00 Stool Stool Culture - Final NO SALMONELLA ISOLATED,... Complete Medical Emergencies . Who to Call and When: Medical Emergencies: If at any time you feel your situation is an emergency, please call 911 immediately. . Non-Emergent Contact Non-Emergency issues call your: Primary Care Provider . . "Provider Documentation" section prepared by Rayo Ramsey. . VTE Core Measure Inpt VTE Proph given/why not?: Unfractionated heparin SQ
--- NOTE | 2017-01-03 12:09 | Discharge Summary ---
Discharge Summary Date of Service Jan 03, 2017. Discharge Summary Admission Date: Dec 27, 2016 at 13:24 Discharge Date: Jan 03, 2017 Discharge Disposition: Home Principal Diagnosis: acute renal failure, diarrhea, hypokalemia, hypomagnesemia Consultations: Nephrology, Dr. Mata Medication Reconciliation Continued Medications: Aspirin (Aspirin Ec) 81 Mg Tab 81 MG PO DAILY Metoprolol Succ (Toprol Xl) (Toprol-Xl) 50 Mg Tabcr 50 MG PO DAILY, TAB Rosuvastatin Calcium (Crestor) 20 Mg Tab 20 MG PO DAILY, TAB Discontinued Medications: Lisinopril (Zestril) 10 Mg Tab 10 MG PO DAILY, TAB Admission Information HPI (per Admitting provider): 66 year-old male followed by Dr. Swain for Internal Medicine. History of hypertension and dyslipidemia. Developed GI symptoms 6 days prior to admission. He [place]. Ate a hoagie that was prepared at a sandwich shop. Initially experienced nausea followed by vomiting and multiple episodes of loose stools. No hematemesis, melena, hematochezia. No abdominal pain. Experience possible low-grade temp, but did not take his temperature. He took 2 Advil tablets on one occasion; no other use of NSAID's. No recent ground beef, undercooked eggs. 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 No sick contacts. He was seen in an urgent care center 2 days prior to admission. Serum creatinine was reportedly 10. Apparently he was advised to come to the ED for evaluation, but opted not to at that time. Seen by Dr. Swain today referred to the ED for further evaluation and management. Patient reports that he has been voiding without difficulty. No history of renal disease; outpatient labs in November showed normal renal function. Only occasionally uses ibuprofen (took 2 tablets this week). . Physical Exam (per Admitting): General Appearance: WD/WN, no apparent distress Head: normocephalic, atraumatic Eyes: normal inspection, PERRL, EOMI, sclerae normal (eyelids and conjunctivae normal) ENT: normal ENT inspection, hearing grossly normal, pharynx normal Neck: supple, no adenopathy, thyroid normal, no JVD, trachea midline Respiratory/Chest: lungs clear, no respiratory distress, no accessory muscle use Cardiovascular: regular rate, rhythm, no edema, no gallop, no JVD, no murmur , normal peripheral pulses, + pertinent finding (no rub) Abdomen/GI: non tender, soft, no organomegaly, no pulsatile mass, + pertinent finding (hyperactive bowel sounds) Back: no CVA tenderness Extremities/Musculoskelatal: no calf tenderness, normal capillary refill, no pedal edema Neurologic/Psych: motorcycle police II-XII nml as tested (PERRL, EOMI, no facial palsy, no dysarthria), no motor/sensory deficits, alert, normal mood/affect, oriented x 3 Skin: normal color, warm/dry, no rash Lymphatic: no adenopathy (cervical, axillary) Hospital Course ACUTE KIDNEY INJURY likely secondary to pre-renal azotemia from multiple episodes of vomiting and diarrhea -CT abdomen 12/27/16:There are no acute infectious or inflammatory findings in the abdomen/pelvis, The kidneys demonstrate cortical atrophy and are without hydronephrosis. There are 3.7 cm exophytic cyst arises from the lower pole of the right kidney and A 2.0 cm exophytic cyst arises from the upper pole of the left kidney. -negative stool studies -Creatinine downtrending from 12 on admission 12/27/16 to 3.39 on 01/03/17 while on IV fluids -resolved diarrhea and vomiting -Patient is urinating -nephrology consult following patient as inpatient. Hospitalist physician spoke with associate dean Dr. Mata on 01/03/[address] Mata states that patient's kidney function has improved sufficiently for hospital discharge Electrolyte deficiencies -Hyponatremia on admission resolved -Serum Magnesium 1.8 on 01/03/17, patient received magnesium supplements as inpatient HYPERTENSION -Lisinopril held because of acute kidney injury. patient's blood pressure controlled without lisinopril. would advise to continue to hold this medication until primary care doctor follow up -Continue metoprolol DYSLIPIDEMIA -Rosuvastatin held in the hospital because of GI symptoms of diarrhea. Normal CPK levels. can continue Rosuvastatin as outpatient Disposition: patient to be discharged to home. Patient will contact his primary care doctor Internal Medicine [facility] Darrian Cam Hallie Jeanne, MD for follow up. Patient also receiving prescription for Complete Metabolic Panel to be performed so his renal function can be followed by his primary care doctor. Patient may need further nephrology follow up as outpatient. This referral can be made by his primary care doctor Total time spent on discharge = This includes examination of the patient, discharge planning, medication reconciliation, and communication with other providers. Discharge Instructions patient to be discharged to home. Patient will contact his primary care doctor Internal Medicine Darrian Rubio Hallie Jeanne, MD for follow up. Patient also receiving prescription for Complete Metabolic Panel to be performed so his renal function can be followed by his primary care doctor. Patient may need further nephrology follow up as outpatient. This referral can be made by his primary care doctor
[2017-01-03 12:13] VITALS: BP 120/71; PULSE 65; TEMP 36.4; O2SAT 95
== END 2017-01-03 13:40 | disposition home or self-care (01) | DRG 683 ==
LOC: C.EDB 11:24 → C.2T 13:24 → ENRESERV 13:34 → C.MS2W 01-01 11:53
PROVIDERS: ADMIT Hospitalist; ATTEND Hospitalist
DX: N17.9 Acute kidney failure, unspecified (principal); E87.1 Hypo-osmolality and hyponatremia; E86.0 Dehydration; I10 Essential (primary) hypertension; E78.5 Hyperlipidemia, unspecified; E83.42 Hypomagnesemia; Z87.891 Personal history of nicotine dependence; E87.6 Hypokalemia

== ENCOUNTER 2018-04-04 17:16 | Inpatient (IN) ==
[2018-04-04] MEDS ORDERED: SODIUM CHLORIDE 0.9% 1000ML 1,000 ML IV ONE (17:48)
[2018-04-04 18:00] LABS: Hematocrit (blood only) 31.7 % (42-52); Hemoglobin 10.3 g/dL (14.0-18.0); Mean Corpuscular Hgb Conc 32.5 g/dL (32-36); Mean Corpuscular Volume 98.8 fL (80-100); Mean Platelet Volume 9.9 fL (7.4-10.4); Nucleated RBC # (auto) 0.06 K/uL (0-0); Nucleated RBC % (auto) 0.4 %; Platelet Count 147 K/uL (130-400); RDW Coefficient of Variation 15.9 % (11.5-14.5); RDW Standard Deviation 57.9 fL (36.4-46.3); Red Blood Count 3.21 M/uL (4.7-6.1); White Blood Count 14.17 K/uL (4.8-10.8)
[2018-04-04 18:08] LABS: Albumin Level 3.4 gm/dl (3.4-5.0); BUN Creatinine Ratio 24.3 (10-20); Bilirubin Direct 0.3 mg/dl (0-0.2); Calcium 8.2 mg/dl (8.5-10.1); Creatinine Clr Calc Pharmacy 43.2 ml/min; Est GFR (Non-African American) 32.7; Potassium 3.4 mmol/L (3.5-5.1)
[2018-04-04 18:08] LABS: iSTAT Hemoglobin 10.5 g/dl (14.0-18.0); iSTAT Ionized Calcium 1.05 mmol/l (1.12-1.32)
--- NOTE | 2018-04-04 18:12 | XRay Report ---
XR pelvis 1-2V routine CLINICAL HISTORY: Fall. COMPARISON: CT of the abdomen and pelvis December 27, 2016. FINDINGS: The sacroiliac joints and symphysis pubis are intact. No acute fractures identified within the pelvis or hips. There is mild osteoarthritis of the hips. Pelvic calcifications likely reflect p hleboliths. Apparent mild foreshortening of the left femoral neck is likely positional. IMPRESSION: No acute fracture within the pelvis or hips. Electronically signed by: North Ribeiro M.D. 04/04/2018 6:10 PM
--- NOTE | 2018-04-04 18:14 | XRay Report ---
XR chest 1V portable CLINICAL HISTORY: Recent falls. Evaluate for perforation. COMPARISON STUDY: Chest radiograph December 27, 2016. FINDINGS: Mild elevation of the right hemidiaphragm is unchanged. There is no pneumothorax or pleural effusion. Cardiomediastinal silhouette is stable. There is no lucency under the hemidiaphragms to in dicate pneumoperitoneum on this exam. IMPRESSION: No acute cardiopulmonary findings. Electronically signed by: North Ribeiro M.D. 04/04/2018 6:13 PM
[2018-04-04 18:22] LABS: Partial Thromboplastin Ratio 0.8; Partial Thromboplastin Time 20.1 Seconds (21.0-31.0); Prothrombin Time 9.8 Seconds (9.0-12.0)
[2018-04-04 18:22] LABS: Troponin I 0.046 ng/ml (0-0.045)
--- NOTE | 2018-04-04 18:22 | CT Scan Report ---
CT SCAN OF THE BRAIN WITHOUT IV CONTRAST CLINICAL HISTORY: Fall. COMPARISON STUDY: No priors. TECHNIQUE: Unenhanced axial CT scan of the brain is performed from the vertex to the skull base. A do se lowering technique was utilized adhering to the principles of ALARA. FINDINGS: Brain parenchyma: There are age-related involutional changes noting minimal subcortical and perivent ricular microangiopathic change. There is no hemorrhage, mass effect, or evidence of acute territoria l ischemia by CT criteria. Nicole-white matter differentiation is preserved. No extra-axial fluid colle ction is seen. Ventricles, sulci, cisterns: Prominent secondary to involutional change. Intracranial vasculature: There is atherosclerotic calcification of the cavernous carotid arteries. Calvarium: There is no depressed calvarial fracture. Sinuses and mastoids: The visualized paranasal sinuses are clear. The mastoid air cells are well pneu matized. Orbits: The bony orbits are grossly intact. IMPRESSION: There is no hemorrhage, mass effect, or evidence of acute territorial ischemia by CT contreras self. Electronically signed by: Lance Keller M.D. 04/04/2018 6:20 PM
[2018-04-04 18:23] LABS: Basophils # (auto) 0.01 K/uL (0-0.2); Basophils % (auto) 0.1 %; Echinocytes 1+; Immature Granulocytes % (auto) 0.7 %; Lymphocytes # (auto) 2.66 K/uL (1.2-3.4); Lymphocytes % (auto) 18.8 %; Monocytes % (auto) 10.6 %; Neutrophils % (auto) 69.8 %
--- NOTE | 2018-04-04 18:25 | CT Scan Report ---
CT SCAN OF THE CERVICAL SPINE CLINICAL HISTORY: Fall. COMPARISON STUDY: No priors. TECHNIQUE: CT scan of the cervical spine is performed from the skull base to the upper thoracic spine . Images are reviewed in the axial, sagittal, and coronal planes. IV contrast was not administered fo r this examination. A dose lowering technique was utilized adhering to the principles of ALARA. FINDINGS: Skeletal structures: The skeletal structures are well mineralized. There is no evidence of fracture o r subluxation involving the cervical spine. Vertebral body height is maintained. There is minimal an terolisthesis at C3-C4 and C4-C5. Alignment is otherwise preserved. Small anterior osteophytes are no alize in the lower cervical region. There is straightening of the cervical lordosis. The odontoid proce ss and lateral masses are intact. The atlantoaxial articulation is preserved noting mild productive d egenerative change. The spinous processes appear intact. Uncovertebral and facet arthropathy are seen at several levels. Intervertebral discs: The disc spaces are well maintained. Central canal: Grossly patent. Soft tissues: The prevertebral and paraspinous soft tissues are within normal limits. There is mild a therosclerotic calcification of the carotid bulbs. Calvarium: The visualized calvarium at the skull base appears intact. Brain parenchyma: Partially visualized brain parenchyma the skull base is within normal limits. Sinuses and mastoids: Trace mucosal thickening is seen within the right maxillary antrum. The mastoid air cells are well pneumatized. Lung apices: Clear as visualized. IMPRESSION: There is no evidence of fracture or subluxation involving the cervical spine. Electronically signed by: Lance Keller M.D. 04/04/2018 6:24 PM
--- NOTE | 2018-04-04 19:10 | CT Scan Report ---
CT SCAN OF THE CHEST, ABDOMEN, AND PELVIS WITHOUT IV CONTRAST CLINICAL HISTORY: Fall. COMPARISON STUDY: Chest x-ray dated 04/04/2018. Abdominal CT dated 12/27/2016. TECHNIQUE: Unenhanced CT scan of the chest, abdomen, and pelvis was performed from the thoracic inlet to the proximal femora. Images are reviewed in the axial, sagittal, and coronal planes. IV contrast was not administered as per the referring clinician. Note that the examination was performed in signi ficantly suboptimal fashion without IV contrast. A dose lowering technique was utilized adhering to the principles of ALARA. CT DOSE: 2914.45 mGy.cm FINDINGS: CHEST: Thyroid: Imaged portions of the thyroid gland are normal in size and attenuation. Thoracic aorta: There is mild atherosclerotic calcification of the thoracic aorta. There is aneurysma l dilatation of the ascending thoracic aorta which measures up to 4.1 cm. The remainder of the thorac ic aorta is normal in caliber, and the arch demonstrates standard 3-vessel anatomy. Heart: The heart is normal in size and without pericardial effusion. The coronary arteries are densel y calcified. The pulmonary trunk is normal in caliber. Lungs and pleural spaces: Mild emphysematous change is noted. There is no airspace consolidation, ple ural effusion, or pneumothorax. The trachea and central airways are clear.There are foci of bibasilar scarring/atelectasis. A punctate calcified granuloma is noted in the right middle lobe. Mediastinum: There is no mediastinal lymphadenopathy. Christal: Not well assessed without IV contrast. Axillae: There is no axillary lymphadenopathy. Bony thorax: The skeletal structures are osteopenic. There is an acute nondistracted left anterior 7t h rib fracture. The remainder of the bony thorax appears intact. No lytic or blastic lesions are iden tified. Soft tissues: Gynecomastia is noted. ABDOMEN AND PELVIS: Liver: The unenhanced liver is enlarged, measuring 24.3 cm in length. The liver demonstrates diffusel y diminished attenuation consistent with severe hepatic steatosis. There is no intrahepatic or ductal dilatation. Gallbladder: Surgically absent noting clips in the gallbladder fossa. Spleen: Normal in size and attenuation. Pancreas: Unremarkable. Adrenal glands: Unremarkable. Kidneys: The unenhanced kidneys demonstrate cortical atrophy and are without hydronephrosis. No renal calculi are identified. Small bilateral renal cysts measure up to 3 cm. Additional subcentimeter cor tical hypodensities also likely represent cysts but are too small for definitive characterization. Abdominal vasculature: The abdominal aorta is normal in course and caliber noting advanced atheroscle rotic calcification. Bowel: There is a small hiatal hernia. Circumferential wall thickening is noted in the mid to distal esophagus. The stomach is otherwise normal in configuration. No bowel obstruction is seen. The append ix is well-visualized and normal. Peritoneum: There is no intraperitoneal free air or abdominal ascites. Lymphadenopathy: None. Pelvic viscera: The prostate gland is diminutive and contains coarse calcifications. The bladder wall is thickened and trabeculated indicating chronic outlet obstruction. Small bilateral ureteroceles ve rsus Hutch diverticula are noted and unchanged from previous. Skeletal structures: The skeletal structures are osteopenic. The lumbosacral spine and bony pelvis ap pear intact. Mild lumbosacral spondylosis is observed. No lytic or blastic lesions are seen. IMPRESSION: 1. Suboptimal examination without IV contrast. 2. There is an acute nondistracted left anterior 7th rib fracture. 3. No additional fracture is seen. 4. There is no airspace consolidation, pleural effusion, or pneumothorax. 5. There is a small hiatal hernia, with circumferential wall thickening noted in the mid to distal es ophagus. Correlate clinically for evidence of esophagitis. This could be further assessed with endosc opy if clinically warranted. 6. There is no evidence of solid organ injury in the abdomen or pelvis on this unenhanced examination . 7. Mild emphysema. 8. Hepatomegaly and severe hepatic steatosis. 9. There is mild aneurysmal dilatation of the ascending thoracic aorta which measures up to 4.1 cm in diameter. 10. Additional findings as above. Electronically signed by: Lance Keller M.D. 04/04/2018 7:09 PM
[2018-04-04] MEDS ORDERED: PANTOprazole 80 MG in DEXTROSE 5% 100 ML IV ONE (19:18)
[2018-04-04 19:43] LABS: iSTAT Hemoglobin 8.8 g/dl (14.0-18.0); iSTAT Ionized Calcium 1.07 mmol/l (1.12-1.32)
[2018-04-04] MEDS ORDERED: SODIUM CHLORIDE 0.9% 1000ML 1,000 ML IV SCH (19:45)
[2018-04-04] MEDS ORDERED: NSS + 20MEQ KCL 20 MEQ/1,000 ML BAG IV ONE (19:53)
[2018-04-04 19:55] LABS: Appearance Urine Cloudy (Clear); Bacteria Urine Automated Negative (Negative); Bilirubin Urine Negative (Negative); Color Urine Yellow; Epithelial Cell Urine Auto >30 /lpf (0-5); Glucose Urine UA Trace (Negative); Ketones Urine 1+ (Negative); Leukocyte Esterase Urine Negative (Negative); Nitrite Urine Negative (Negative); Protein Urine 2+ (Negative); Specific Gravity Urine 1.022 (1.000-1.030); Urobilinogen Urine Negative (Negative); pH Urine 5.5 (4.5-7.5)
[2018-04-04] MEDS: PANTOprazole 40 MG in DEXTROSE 5% 100 ML IV SCH (19:58)
[2018-04-04] MEDS ORDERED: GABAPENTIN 1200MG ALCOHOL WITHDRAWAL LOAD PO STA (20:13)
[2018-04-04] MEDS ORDERED: LORazepam 2 MG/4 ML VIAL IV PRN (20:14)
[2018-04-04] MEDS ORDERED: LORazepam 1 MG/2 ML VIAL IV PRN ×2 (20:14→23:08)
[2018-04-04] MEDS ORDERED: LORazepam 3 MG/6 ML VIAL IV PRN (20:14)
[2018-04-04] MEDS ORDERED: MULTI-VITAMIN INFUSION 10 ML, THIAMINE HCL 100 MG, FOLIC ACID 1 MG, POTASSIUM CHLORIDE ... IV ONE (20:15)
[2018-04-04] MEDS ORDERED: ATIVAN IV ALCOHOL WITHDRAWL IV SCH (20:15)
[2018-04-04 20:35] LABS: Influenza A virus by PCR Neg for Influ A (Neg); Influenza B virus by PCR Neg for Influ B (Neg)
[2018-04-04] MEDS ORDERED: OCTREOTIDE ACETATE 50 MCG in SYRINGE 9.5 ML IV STA (20:48)
--- NOTE | 2018-04-04 21:43 | History & Physical Report ---
Date of Service April 04, 2018 Assessment & Plan (1) GI bleed: UGIB With hemodynamic instability Possible sources : Esophagitis, gastritis, PUD, MWT, potential variceal bleed given chronic liver disease on CT HTN, patient hypotensive upon arrival at the ER BP currently improved Acute on chronic anemia Hemoglobin drop from baseline secondary to above Recurrent syncope Possible alcohol withdrawal seizures Rule out seizure disorder, history childhood meningitis status post treatment Orthostasis from hypovolemia/GI bleed contributory Traumatic left rib fracture, rhabdomyolysis secondary to fall Hypokalemia secondary to emesis AGMA, ARF secondary to illness Troponin elevation secondary to illness, hypotension, tachycardia, ARF TAA on CT Chronic thrombocytopenia possibly secondary to chronic liver disease Ongoing alcohol abuse Abnormal LFTs possible alcoholic hepatitis Hyperglycemia rule out DM past tobacco abuse ICU monitoring PPI drip Octreotide drip until variceal bleed ruled out GI consult RE UGIB, abnormal LFTs Serial H&H, transfuse PRBC if hemoglobin less than 8 (hx PVD) Hold home antihypertensives for now. Monitor renal function , CPK, lactic acid response to IVF Follow cardiac markers, TTE if with progression Seizure precautions Ativan as needed Hold AED prophylactic therapy for now EEG; MRI brain with contrast once kidney function normal for seizure workup Neurology consult RE new onset seizures Replace potassium DT precautions Outpatient follow-up surveillance imaging/CT surgery consultation for TAA Check hemoglobin A1c DVT prophylaxis SCDs RE UGIB Full code Total critical time was 50 minutes. History of Present Illness Chief Complaint: Syncope, possible seizures Primary Care Provider: Darya Swain History obtained from patient, family, and records. Medical history significant for hypertension, hyperlipidemia, alcohol abuse, history childhood meningitis status post therapy, past tobacco abuse, history of colonic polyps, chronic anemia (baseline hemoglobin of 10) chronic thrombocytopenia. Recent confinement December 2016 for acute kidney injury. Patient admitted with a creatinine of 12 which improved with IVF. As per patient, kidney function was normal following confinement however last month kidney function was noted to be abnormal by PCP on blood work. He was advised to increase fluid intake by PCP. 3 days ago patient noted nausea vomiting symptoms without abdominal pain. Appetite was poor. No chest pain, no SOB. Last EtOH intake was about 3 days ago. Denies recent NSAID intake. Emesis initially yellow later noted to be dark brown. Stools noted to be melanotic yesterday. Patient had an unwitnessed syncopal event at home yesterday while in the bathroom. He woke up face down on the floor. Patient unsure how long he was unconscious. Denies headache symptoms. This afternoon, patient requested his 2 sons to help him get up and walk around the house. Sons later noted patient to be breathing heavily. Patient later noted to have convulsions/" possible seizures", arms and legs shaking, no tongue biting. Episode lasted about 2 minutes. Patient noted to be incontinent of stool and urine after episode. Somewhat confused and purposelessly reaching for his belt for about 10 minutes as per son. At the ER, SBP noted to be 90s initially. IV fluids administered. IV Keppra given at the ER for seizure prophylaxis. Protonix infusion started for possible UGIB. SBP currently 130s. Medical History as above Surgical History : Cholecystectomy, pilonidal cyst removal Family History : Heart disease, A. 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 Allergies Allergy/AdvReac Type Severity Reaction Status Date / Time No Known Allergies Allergy Verified 04/04/18 19:17 Home Medications Home Medications Medication Instructions Recorded Confirmed Type aspirin [Aspir-81] 81 mg PO QAM 04/04/18 04/04/18 History lisinopril 10 mg PO QAM 04/04/18 04/04/18 History metoprolol succinate 50 mg PO HS 04/04/18 04/04/18 History rosuvastatin 20 mg PO HS 04/04/18 04/04/18 History sertraline 50 mg PO QAM 04/04/18 04/04/18 History Past Med/Surg History Medical History YVAN (acute kidney injury) Social History Current Living Situation: Spouse Other Information That Helps Us Care for You: No Feels Safe at Home: Yes Safety Concerns: Feels Safe At This Time Smoking Status: Former smoker Do You Dip or Chew Tobacco: No Smoking End Date: 2005 Hx Alcohol Use: Yes Alcohol type: hard liquor Alcohol Intake Frequency: 0-2 drinks per day Hx Substance Use: No Beliefs That Will Affect Care: Hindu Hindu Beliefs: Restorationist Preferred Language: Arabic Communication Ability: Effective Resist Coater Developer Required: No Review of Systems As per HPI, all 10 systems reviewed, all other ROS negative Physical Exam 2 Vital Signs (Past 24 Hours): Last Vital Signs Temp 36.7 C 04/04/18 17:23 Pulse 121 H 04/04/18 21:25 Resp 20 04/04/18 21:25 BP 133/79 04/04/18 21:25 Pulse Ox 98 04/04/18 21:25 Physical Exam: GENERAL: Comfortable but slightly anxious, no respiratory distress, tremulous SKIN: Pallor , cool HEENT: Bespectacled, pale palpebral conjunctivae, no ptosis, dry buccal mucosa NECK : Supple, no tenderness CHEST : CTA, no tenderness, bruising left chest wall/flank HEART : Tachycardic , no obvious murmurs ABDOMEN: Some distention, nontender, ecchymoses hypogastrium EXTREMITIES : No LE swelling/tenderness, no other conspicuous deformities noted NEUROLOGIC : Coherent, no facial asymmetry, no other gross focality except for intention tremors, gait and stance not assessed Results & Data Laboratory Results Laboratory Results WBC 14.17 K/uL (4.8-10.8) H 04/04/18 16:55 RBC 3.21 M/uL (4.7-6.1) L 04/04/18 16:55 Hgb 10.3 g/dL (14.0-18.0) L 04/04/18 16:55 POC Hgb 8.8 g/dl (14.0-18.0) L 04/04/18 19:29 Hct 31.7 % (42-52) L 04/04/18 16:55 POC Hct 26 % (42-52) L 04/04/18 19:29 MCV 98.8 fL (80-100) 04/04/18 16:55 MCH 32.1 pg (25-34) 04/04/18 16:55 MCHC 32.5 g/dL (32-36) 04/04/18 16:55 RDW Std Deviation 57.9 fL (36.4-46.3) H 04/04/18 16:55 RDW Coeff of Julia 15.9 % (11.5-14.5) H 04/04/18 16:55 Plt Count 147 K/uL (130-400) 04/04/18 16:55 MPV 9.9 fL (7.4-10.4) 04/04/18 16:55 Immature Gran % (Auto) 0.7 % 04/04/18 16:55 Neut % (Auto) 69.8 % 04/04/18 16:55 Lymph % (Auto) 18.8 % 04/04/18 16:55 Evangeline % (Auto) 10.6 % 04/04/18 16:55 Eos % (Auto) 0.0 % 04/04/18 16:55 Baso % (Auto) 0.1 % 04/04/18 16:55 Immature Gran # (Auto) 0.10 K/uL (0.00-0.02) H 04/04/18 16:55 Neut # (Auto) 9.90 K/uL (1.4-6.5) H 04/04/18 16:55 Lymph # (Auto) 2.66 K/uL (1.2-3.4) 04/04/18 16:55 Evangeline # (Auto) 1.50 K/uL (0.11-0.59) H 04/04/18 16:55 Eos # (Auto) 0.00 K/uL (0-0.5) 04/04/18 16:55 Baso # (Auto) 0.01 K/uL (0-0.2) 04/04/18 16:55 Absolute Nucleated RBC 0.06 K/uL (0-0) H 04/04/18 16:55 Nucleated RBC % (auto) 0.4 % 04/04/18 16:55 Echinocytes 1+ 04/04/18 16:55 PT 9.8 Seconds (9.0-12.0) 04/04/18 17:46 INR 1.0 (0.9-1.1) 04/04/18 17:46 APTT 20.1 Seconds (21.0-31.0) L 04/04/18 17:46 PTT Ratio 0.8 04/04/18 17:46 POC Sodium 133 mEq/L (135-144) L 04/04/18 19:29 Sodium 128 mmol/L (136-145) L 04/04/18 16:55 POC Potassium 3.5 mEq/L (3.3-5.0) 04/04/18 19:29 Potassium 3.4 mmol/L (3.5-5.1) L 04/04/18 16:55 POC Chloride 100 mEq/L (101-112) L 04/04/18 19:29 Chloride 94 mmol/L (98-107) L 04/04/18 16:55 Carbon Dioxide 10 mmol/L (21-32) L 04/04/18 16:55 POC Total CO2 15 mEq/l (24-31) L 04/04/18 19:29 Anion Gap 24.0 (3-11) H 04/04/18 16:55 POC Anion Gap 22.0 mmol/L (16-25) 04/04/18 19:29 POC BUN 43 mg/dl (7-18) H 04/04/18 19:29 BUN 50 mg/dl (7-18) H 04/04/18 16:55 Creatinine 2.04 mg/dl (0.6-1.4) H 04/04/18 16:55 POC Creatinine 1.5 mg/dl (0.6-1.3) H 04/04/18 19:29 Est Cr Clr Drug Dosing 43.2 ml/min 04/04/18 16:55 Est GFR ( Amer) 38.0 04/04/18 16:55 Est GFR (Non-Af Amer) 32.7 04/04/18 16:55 BUN/Creatinine Ratio 24.3 (10-20) H 04/04/18 16:55 Glucose 194 mg/dl (70-99) H 04/04/18 16:55 POC Glucose (other) 140 mg/dl (70-99) H 04/04/18 19:29 POC Lactic Acid Miguelito 3.50 mmol/L (0.90-1.70) H 04/04/18 19:26 Calcium 8.2 mg/dl (8.5-10.1) L 04/04/18 16:55 POC Ioniz Calcium Felicita 1.07 mmol/l (1.12-1.32) L 04/04/18 19: Magnesium 2.4 mg/dl (1.8-2.4) 04/04/18 16:55 Total Bilirubin 1.0 mg/dl (0.2-1) 04/04/18 16:55 Direct Bilirubin 0.3 mg/dl (0-0.2) H 04/04/18 16:55 AST 111 U/L (15-37) H 04/04/18 16:55 ALT 116 U/L (12-78) H 04/04/18 16:55 Alkaline Phosphatase 62 U/L (45-117) 04/04/18 16:55 Total Creatine Kinase 552 U/L (39-308) H 04/04/18 17:46 POC Troponin I < 0.03 ng/ml (0-0.045) 04/04/18 18:08 Troponin I 0.046 ng/ml (0-0.045) H* 04/04/18 16:55 Total Protein 7.0 gm/dl (6.4-8.2) 04/04/18 16:55 Albumin 3.4 gm/dl (3.4-5.0) 04/04/18 16:55 Lipase 145 U/L (73-393) 04/04/18 16:55 Procalcitonin 1.47 ng/ml (0-0.5) H 04/04/18 16:53 Urine Color Yellow 04/04/18 18:25 Urine Appearance Cloudy (Clear) H 04/04/18 18:25 Urine pH 5.5 (4.5-7.5) 04/04/18 18:25 Ur Specific [place] 1.022 (1.000-1.030) 04/04/18 18:25 Urine Protein 2+ (Negative) H 04/04/18 18:25 Urine Glucose (UA) Trace (Negative) H 04/04/18 18:25 Urine Ketones 1+ (Negative) H 04/04/18 18:25 Urine Blood 3+ (Negative) H 04/04/18 18:25 Urine Nitrite Negative (Negative) 04/04/18 18:25 Urine Bilirubin Negative (Negative) 04/04/18 18:25 Urine Urobilinogen Negative (Negative) 04/04/18 18:25 Ur Leukocyte Esterase Negative (Negative) 04/04/18 18:25 Urine WBC (Auto) 1-5 /hpf (0-5) 04/04/18 18:25 Urine RBC (Auto) 0-4 /hpf (0-4) 04/04/18 18:25 U Hyaline Cast (Auto) 10-30 /lpf (0-5) H 04/04/18 18:25 U Epithel Cells (Auto) >30 /lpf (0-5) H 04/04/18 18:25 Urine Bacteria (Auto) Negative (Negative) 04/04/18 18:25 Ur Renal Epithelial Cell Not Reportable 04/04/18 18:25 Granular Casts 10-20 /lpf (0) H 04/04/18 18:25 Stl C. diff Tox B Gene Neg C.diff Toxin B (Neg) 04/04/18 20:05 Influenza Type A (PCR) Neg for Influ A (Neg) 04/04/18 19:47 Influenza Type B (PCR) Neg for Influ B (Neg) 04/04/18 19:47 Blood Type O Positive 04/04/18 16:55 Antibody Screen NEGATIVE 04/04/18 16:[address] head: No acute pathology Cervical spine CT: No fracture, subluxation CT chest, abdomen, and pelvis 1. Suboptimal examination without IV contrast. 2. There is an acute nondistracted left anterior 7th rib fracture. 3. No additional fracture is seen. 4. There is no airspace consolidation, pleural effusion, or pneumothorax. 5. There is a small hiatal hernia, with circumferential wall thickening noted in the mid to distal esophagus. Correlate clinically for evidence of esophagitis. This could be further assessed with endoscopy if clinically warranted. 6. There is no evidence of solid organ injury in the abdomen or pelvis on this unenhanced examination. 7. Mild emphysema. 8. Hepatomegaly and severe hepatic steatosis. 9. There is mild aneurysmal dilatation of the ascending thoracic aorta which measures up to 4.1 cm in diameter. EKG as per my interpretation: Rate 135, sinus tachycardia, nonspecific T wave abnormalities _ (1) GI bleed GI bleed type/associated pathology: Gastritis type:
--- NOTE | 2018-04-04 21:49 | Critical Care Consultation ---
Date of Consultation April 04, 2018 Patient is a 67-year-old male reports a significant past medical history of hypertension hyperlipidemia and anxiety he is on 3 medications for the aforementioned medical problems he does not know the names. He denies being allergic to any medications. He reports cholecystectomy otherwise no surgeries. He reports no smoking history reports daily alcohol use however his last alcohol consumption was 5 days ago because he reports he has been "sick". His sickness consisted of vomiting and being unable to keep fluids down. 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 He denies ever being told of a enlarged blood vessel off his heart, he is never had any GI bleeding. He denies chest pain or shortness of breath at this time. Supervising Physician Co-Signing Physician Notes Reason Critically Ill: Gastrointestinal hemorrhage with hemodynamic instability PLAN: Neuro: Possible seizure-like activity -Loaded with Keppra -Continue Keppra may require follow-up MRI -Neurology consult -Alcohol withdrawal seizure? -Alcohol withdrawal precautions Resp: Calcifications seen on CT scan -Pulmonary nodule clinic follow-up CV: Tachycardia -Likely secondary to gastrointestinal hemorrhage and volume depletion Aortic dilatation -Outpatient follow-up with cardiothoracic surgery Elevated troponins -Trend troponins -Low threshold to scan with contrast if concerned for aortic dissection however not consistent with clinical history Fluids/Renal: Acute kidney injury -Secondary to volume depletion from poor p.o. intake Lactic acid acidosis -Question seizure activity versus convulsive syncope versus dehydration versus alcohol withdrawal seizure -Continuing to improve ID: Blood cultures pending -No obvious pulmonary source, no evidence of meningismus, urine unremarkable GI/Nutrition: Gastrointestinal hemorrhage -On Protonix infusion -On octreotide given alcohol history -No purported history of esophageal varices History of frequent colonoscopies secondary to history of polyps -No history of EGD Heme: Anemia -Near baseline -Type and screen low threshold for transfusion DVT prophylaxis: SCDs Endocrine: ICU hyperglycemia protocol Vascular access: 18-gauge and 20-gauge peripheral IVs Code Status: Full code I have personally spent 40 minutes of critical care time in the direct management of this patient. This is a life/limb threatening event. This includes time spent evaluating patient, direct bedside care, chart review, placing orders, interpretation of diagnostic studies, discussion with consultants, patient, and/or family members regarding treatment decisions, as well as other required patient management activities. This time is exclusive of all separately billable procedures, and teaching time and separate from and in addition to any other critical care service time. History of Present Illness Reason for Consultation: Hemodynamic instabilities Requesting Physician: Sloan Laura Allergies Allergy/AdvReac Type Severity Reaction Status Date / Time No Known Allergies Allergy Verified 04/04/18 19:17 Home Medications Home Medications Medication Instructions Recorded Confirmed Type aspirin [[id number]] 81 mg PO QAM 04/04/18 04/04/18 History lisinopril 10 mg PO QAM 04/04/18 04/04/18 History metoprolol succinate 50 mg PO HS 04/04/18 04/04/18 History rosuvastatin 20 mg PO HS 04/04/18 04/04/18 History sertraline 50 mg PO QAM 04/04/18 04/04/18 History Patient History Medical History YVAN (acute kidney injury) Social History Current Living Situation: Spouse Other Information That Helps Us Care for You: No Feels Safe at Home: Yes Safety Concerns: Feels Safe At This Time Smoking Status: Former smoker Do You Dip or Chew Tobacco: No Smoking End Date: 2005 Hx Alcohol Use: Yes Alcohol type: hard liquor Alcohol Intake Frequency: 0-2 drinks per day Hx Substance Use: No Beliefs That Will Affect Care: [facility] Beliefs: Zoroastrian Preferred Language: Macedonian Communication Ability: Effective Solution Sales Senior Executive Required: No Review of Systems As per HPI, all other review of systems are otherwise negative Physical Exam 2 Vital Signs (Past 24 Hours): Last Vital Signs Temp 36.7 C 04/04/18 17:23 Pulse 121 H 04/04/18 21:25 Resp 20 04/04/18 21:25 BP 133/79 04/04/18 21:25 Pulse Ox 98 04/04/18 21:25 General: Well-nourished male appears stated age I have reviewed the recorded vital signs Neurological: RASS score: 1, Moves all 4 extremities, Psychological: GCS 15 following complex commands Eyes: Pupils are equal, round and reactive to light, anicteric sclera. Symmetrical lids. HENT: Oropharynx is clear, moist mucous membranes. Neck: Supple. Symmetric. trachea midline. No thyromegaly. Cardiovascular: Normal peripheral perfusion. Distal pulses and capillary refill intact. No JVD. Respiratory: Respirations are non-labored, no accessory muscle use. Breath sounds are equal. Gastrointestinal: Soft. Non-distended. Diffuse ecchymoses over the abdomen Lymphatic: No cervical lymphadenopathy. Musculoskeletal: No deformity. No clubbing nor cyanosis. Results & Data Laboratory Results 04/04/18 04/04/18 04/04/18 Range/Units 21:05 21:05 20:05 WBC (4.8-10.8) K/uL RBC (4.7-6.1) M/uL Hgb (14.0-18.0) g/dL POC Hgb (14.0-18.0) g/dl Hct (42-52) % POC Hct (42-52) % MCV (80-100) fL MCH (25-34) pg MCHC (32-36) g/dL RDW Std Deviation (36.4-46.3) fL RDW Coeff of Julia (11.5-14.5) % Plt Count (130-400) K/uL MPV (7.4-10.4) fL Immature Gran % (Auto) % Neut % (Auto) % Lymph % (Auto) % [place] % (Auto) % Eos % (Auto) % Baso % (Auto) % Immature Gran # (Auto) (0.00-0.02) K/uL Neut # (Auto) (1.4-6.5) K/uL Lymph # (Auto) (1.2-3.4) K/uL [place] # (Auto) (0.11-0.59) K/uL Eos # (Auto) (0-0.5) K/uL Baso # (Auto) (0-0.2) K/uL Absolute Nucleated RBC (0-0) K/uL Nucleated RBC % (auto) % Echinocytes PT (9.0-12.0) Seconds INR (0.9-1.1) APTT (21.0-31.0) Seconds PTT Ratio POC Sodium (135-144) mEq/L Sodium (136-145) mmol/L POC Potassium (3.3-5.0) mEq/L Potassium (3.5-5.1) mmol/L POC Chloride (101-112) mEq/L Chloride (98-107) mmol/L Carbon Dioxide (21-32) mmol/L POC Total CO2 (24-31) mEq/l Anion Gap (3-11) POC Anion Gap (16-25) mmol/L POC BUN (7-18) mg/dl BUN (7-18) mg/dl Creatinine (0.6-1.4) mg/dl POC Creatinine (0.6-1.3) mg/dl Est Cr Clr Drug Dosing ml/min Est GFR ( Amer) Est GFR (Non-Af Amer) BUN/Creatinine Ratio (10-20) Glucose (70-99) mg/dl POC Glucose (other) (70-99) mg/dl Osmolality Pending POC Lactic Acid Miguelito (0.90-1.70) mmol/L Calcium (8.5-10.1) mg/dl POC Ioniz Calcium Felicita (1.12-1.32) mmol/l Magnesium (1.8-2.4) mg/dl Total Bilirubin (0.2-1) mg/dl Direct Bilirubin (0-0.2) mg/dl AST (15-37) U/L ALT (12-78) U/L Alkaline Phosphatase (45-117) U/L Total Creatine Kinase (39-308) U/L POC Troponin I (0-0.045) ng/ml Troponin I (0-0.045) ng/ml Total Protein (6.4-8.2) gm/dl Albumin (3.4-5.0) gm/dl Lipase (73-393) U/L Folate Pending Procalcitonin (0-0.5) ng/ml Urine Color Urine Appearance (Clear) Urine pH (4.5-7.5) Ur Specific [place] (1.000-1.030) Urine Protein (Negative) Urine Glucose (UA) (Negative) Urine Ketones (Negative) Urine Blood (Negative) Urine Nitrite (Negative) Urine Bilirubin (Negative) Urine Urobilinogen (Negative) Ur Leukocyte Esterase (Negative) Urine WBC (Auto) (0-5) /hpf Urine RBC (Auto) (0-4) /hpf U Hyaline Cast (Auto) (0-5) /lpf U Epithel Cells (Auto) (0-5) /lpf Urine Bacteria (Auto) (Negative) Ur Renal Epithelial Cell Granular Casts (0) /lpf Stl C. diff Tox B Gene Neg C.diff Toxin B (Neg) Influenza Type A (PCR) (Neg) Influenza Type B (PCR) (Neg) Blood Type Antibody Screen 04/04/18 04/04/18 04/04/18 Range/Units 19:47 19:29 19:26 WBC (4.8-10.8) K/uL RBC (4.7-6.1) M/uL Hgb (14.0-18.0) g/dL POC Hgb 8.8 L (14.0-18.0) g/dl Hct (42-52) % POC Hct 26 L (42-52) % MCV (80-100) fL MCH (25-34) pg MCHC (32-36) g/dL RDW Std Deviation (36.4-46.3) fL RDW Coeff of Julia (11.5-14.5) % Plt Count (130-400) K/uL MPV (7.4-10.4) fL Immature Gran % (Auto) % Neut % (Auto) % Lymph % (Auto) % [place] % (Auto) % Eos % (Auto) % Baso % (Auto) % Immature Gran # (Auto) (0.00-0.02) K/uL Neut # (Auto) (1.4-6.5) K/uL Lymph # (Auto) (1.2-3.4) K/uL [place] # (Auto) (0.11-0.59) K/uL Eos # (Auto) (0-0.5) K/uL Baso # (Auto) (0-0.2) K/uL Absolute Nucleated RBC (0-0) K/uL Nucleated RBC % (auto) % Echinocytes PT (9.0-12.0) Seconds INR (0.9-1.1) APTT (21.0-31.0) Seconds PTT Ratio POC Sodium 133 L (135-144) mEq/L Sodium (136-145) mmol/L POC Potassium 3.5 (3.3-5.0) mEq/L Potassium (3.5-5.1) mmol/L POC Chloride 100 L (101-112) mEq/L Chloride (98-107) mmol/L Carbon Dioxide (21-32) mmol/L POC Total CO2 15 L (24-31) mEq/l Anion Gap (3-11) POC Anion Gap 22.0 (16-25) mmol/L POC BUN 43 H (7-18) mg/dl BUN (7-18) mg/dl Creatinine (0.6-1.4) mg/dl POC Creatinine 1.5 H (0.6-1.3) mg/dl Est Cr Clr Drug Dosing ml/min Est GFR ( Amer) Est GFR (Non-Af Amer) BUN/Creatinine Ratio (10-20) Glucose (70-99) mg/dl POC Glucose (other) 140 H (70-99) mg/dl Osmolality POC Lactic Acid Miguelito 3.50 H (0.90-1.70) mmol/L Calcium (8.5-10.1) mg/dl POC Ioniz Calcium Felicita 1.07 L (1.12-1.32) mmol/l Magnesium (1.8-2.4) mg/dl Total Bilirubin (0.2-1) mg/dl Direct Bilirubin (0-0.2) mg/dl AST (15-37) U/L ALT (12-78) U/L Alkaline Phosphatase (45-117) U/L Total Creatine Kinase (39-308) U/L POC Troponin I (0-0.045) ng/ml Troponin I (0-0.045) ng/ml Total Protein (6.4-8.2) gm/dl Albumin (3.4-5.0) gm/dl Lipase (73-393) U/L Folate Procalcitonin (0-0.5) ng/ml Urine Color Urine Appearance (Clear) Urine pH (4.5-7.5) Ur Specific [place] (1.000-1.030) Urine Protein (Negative) Urine Glucose (UA) (Negative) Urine Ketones (Negative) Urine Blood (Negative) Urine Nitrite (Negative) Urine Bilirubin (Negative) Urine Urobilinogen (Negative) Ur Leukocyte Esterase (Negative) Urine WBC (Auto) (0-5) /hpf Urine RBC (Auto) (0-4) /hpf U Hyaline Cast (Auto) (0-5) /lpf U Epithel Cells (Auto) (0-5) /lpf Urine Bacteria (Auto) (Negative) Ur Renal Epithelial Cell Granular Casts (0) /lpf Stl C. diff Tox B Gene (Neg) Influenza Type A (PCR) Neg for Influ A (Neg) Influenza Type B (PCR) Neg for Influ B (Neg) Blood Type Antibody Screen 04/04/18 04/04/18 04/04/18 Range/Units 18:25 18:08 17:58 WBC (4.8-10.8) K/uL RBC (4.7-6.1) M/uL Hgb (14.0-18.0) g/dL POC Hgb (14.0-18.0) g/dl Hct (42-52) % POC Hct (42-52) % MCV (80-100) fL MCH (25-34) pg MCHC (32-36) g/dL RDW Std Deviation (36.4-46.3) fL RDW Coeff of Julia (11.5-14.5) % Plt Count (130-400) K/uL MPV (7.4-10.4) fL Immature Gran % (Auto) % Neut % (Auto) % Lymph % (Auto) % [place] % (Auto) % Eos % (Auto) % Baso % (Auto) % Immature Gran # (Auto) (0.00-0.02) K/uL Neut # (Auto) (1.4-6.5) K/uL Lymph # (Auto) (1.2-3.4) K/uL [place] # (Auto) (0.11-0.59) K/uL Eos # (Auto) (0-0.5) K/uL Baso # (Auto) (0-0.2) K/uL Absolute Nucleated RBC (0-0) K/uL Nucleated RBC % (auto) % Echinocytes PT (9.0-12.0) Seconds INR (0.9-1.1) APTT (21.0-31.0) Seconds PTT Ratio POC Sodium (135-144) mEq/L Sodium (136-145) mmol/L POC Potassium (3.3-5.0) mEq/L Potassium (3.5-5.1) mmol/L POC Chloride (101-112) mEq/L Chloride (98-107) mmol/L Carbon Dioxide (21-32) mmol/L POC Total CO2 (24-31) mEq/l Anion Gap (3-11) POC Anion Gap (16-25) mmol/L POC BUN (7-18) mg/dl BUN (7-18) mg/dl Creatinine (0.6-1.4) mg/dl POC Creatinine (0.6-1.3) mg/dl Est Cr Clr Drug Dosing ml/min Est GFR ( Amer) Est GFR (Non-Af Amer) BUN/Creatinine Ratio (10-20) Glucose (70-99) mg/dl POC Glucose (other) (70-99) mg/dl Osmolality POC Lactic Acid Miguelito 6.25 H (0.90-1.70) mmol/L Calcium (8.5-10.1) mg/dl POC Ioniz Calcium Felicita (1.12-1.32) mmol/l Magnesium (1.8-2.4) mg/dl Total Bilirubin (0.2-1) mg/dl Direct Bilirubin (0-0.2) mg/dl AST (15-37) U/L ALT (12-78) U/L Alkaline Phosphatase (45-117) U/L Total Creatine Kinase (39-308) U/L POC Troponin I < 0.03 (0-0.045) ng/ml Troponin I (0-0.045) ng/ml Total Protein (6.4-8.2) gm/dl Albumin (3.4-5.0) gm/dl Lipase (73-393) U/L Folate Procalcitonin (0-0.5) ng/ml Urine Color Yellow Urine Appearance Cloudy H (Clear) Urine pH 5.5 (4.5-7.5) Ur Specific [place] 1.022 (1.000-1.030) Urine Protein 2+ H (Negative) Urine Glucose (UA) Trace H (Negative) Urine Ketones 1+ H (Negative) Urine Blood 3+ H (Negative) Urine Nitrite Negative (Negative) Urine Bilirubin Negative (Negative) Urine Urobilinogen Negative (Negative) Ur Leukocyte Esterase Negative (Negative) Urine WBC (Auto) 1-5 (0-5) /hpf Urine RBC (Auto) 0-4 (0-4) /hpf U Hyaline Cast (Auto) 10-30 H (0-5) /lpf U Epithel Cells (Auto) >30 H (0-5) /lpf Urine Bacteria (Auto) Negative (Negative) Ur Renal Epithelial Cell Not Reportable Granular Casts 10-20 H (0) /lpf Stl C. diff Tox B Gene (Neg) Influenza Type A (PCR) (Neg) Influenza Type B (PCR) (Neg) Blood Type Antibody Screen 04/04/18 04/04/18 04/04/18 Range/Units 17:48 17:46 17:46 WBC (4.8-10.8) K/uL RBC (4.7-6.1) M/uL Hgb (14.0-18.0) g/dL POC Hgb 10.5 L (14.0-18.0) g/dl Hct (42-52) % POC Hct 31 L (42-52) % MCV (80-100) fL MCH (25-34) pg MCHC (32-36) g/dL RDW Std Deviation (36.4-46.3) fL RDW Coeff of Julia (11.5-14.5) % Plt Count (130-400) K/uL MPV (7.4-10.4) fL Immature Gran % (Auto) % Neut % (Auto) % Lymph % (Auto) % [place] % (Auto) % Eos % (Auto) % Baso % (Auto) % Immature Gran # (Auto) (0.00-0.02) K/uL Neut # (Auto) (1.4-6.5) K/uL Lymph # (Auto) (1.2-3.4) K/uL [place] # (Auto) (0.11-0.59) K/uL Eos # (Auto) (0-0.5) K/uL Baso # (Auto) (0-0.2) K/uL Absolute Nucleated RBC (0-0) K/uL Nucleated RBC % (auto) % Echinocytes PT 9.8 (9.0-12.0) Seconds INR 1.0 (0.9-1.1) APTT 20.1 L (21.0-31.0) Seconds PTT Ratio 0.8 POC Sodium 130 L (135-144) mEq/L Sodium (136-145) mmol/L POC Potassium 3.6 (3.3-5.0) mEq/L Potassium (3.5-5.1) mmol/L POC Chloride 98 L (101-112) mEq/L Chloride (98-107) mmol/L Carbon Dioxide (21-32) mmol/L POC Total CO2 15 L (24-31) mEq/l Anion Gap (3-11) POC Anion Gap 22.0 (16-25) mmol/L POC BUN 48 H (7-18) mg/dl BUN (7-18) mg/dl Creatinine (0.6-1.4) mg/dl POC Creatinine 1.6 H (0.6-1.3) mg/dl Est Cr Clr Drug Dosing ml/min Est GFR ( Amer) Est GFR (Non-Af Amer) BUN/Creatinine Ratio (10-20) Glucose (70-99) mg/dl POC Glucose (other) 174 H (70-99) mg/dl Osmolality POC Lactic Acid Miguelito (0.90-1.70) mmol/L Calcium (8.5-10.1) mg/dl POC Ioniz Calcium Felicita 1.05 L (1.12-1.32) mmol/l Magnesium (1.8-2.4) mg/dl Total Bilirubin (0.2-1) mg/dl Direct Bilirubin (0-0.2) mg/dl AST (15-37) U/L ALT (12-78) U/L Alkaline Phosphatase (45-117) U/L Total Creatine Kinase 552 H (39-308) U/L POC Troponin I (0-0.045) ng/ml Troponin I (0-0.045) ng/ml Total Protein (6.4-8.2) gm/dl Albumin (3.4-5.0) gm/dl Lipase (73-393) U/L Folate Procalcitonin (0-0.5) ng/ml Urine Color Urine Appearance (Clear) Urine pH (4.5-7.5) Ur Specific [place] (1.000-1.030) Urine Protein (Negative) Urine Glucose (UA) (Negative) Urine Ketones (Negative) Urine Blood (Negative) Urine Nitrite (Negative) Urine Bilirubin (Negative) Urine Urobilinogen (Negative) Ur Leukocyte Esterase (Negative) Urine WBC (Auto) (0-5) /hpf Urine RBC (Auto) (0-4) /hpf U Hyaline Cast (Auto) (0-5) /lpf U Epithel Cells (Auto) (0-5) /lpf Urine Bacteria (Auto) (Negative) Ur Renal Epithelial Cell Granular Casts (0) /lpf Stl C. diff Tox B Gene (Neg) Influenza Type A (PCR) (Neg) Influenza Type B (PCR) (Neg) Blood Type Antibody Screen 04/04/18 04/04/18 04/04/18 Range/Units 16:55 16:55 16:55 WBC (4.8-10.8) K/uL RBC (4.7-6.1) M/uL Hgb (14.0-18.0) g/dL POC Hgb (14.0-18.0) g/dl Hct (42-52) % POC Hct (42-52) % MCV (80-100) fL MCH (25-34) pg MCHC (32-36) g/dL RDW Std Deviation (36.4-46.3) fL RDW Coeff of Julia (11.5-14.5) % Plt Count (130-400) K/uL MPV (7.4-10.4) fL Immature Gran % (Auto) % Neut % (Auto) % Lymph % (Auto) % [place] % (Auto) % Eos % (Auto) % Baso % (Auto) % Immature Gran # (Auto) (0.00-0.02) K/uL Neut # (Auto) (1.4-6.5) K/uL Lymph # (Auto) (1.2-3.4) K/uL [place] # (Auto) (0.11-0.59) K/uL Eos # (Auto) (0-0.5) K/uL Baso # (Auto) (0-0.2) K/uL Absolute Nucleated RBC (0-0) K/uL Nucleated RBC % (auto) % Echinocytes PT (9.0-12.0) Seconds INR (0.9-1.1) APTT (21.0-31.0) Seconds PTT Ratio POC Sodium (135-144) mEq/L Sodium 128 L (136-145) mmol/L POC Potassium (3.3-5.0) mEq/L Potassium 3.4 L (3.5-5.1) mmol/L POC Chloride (101-112) mEq/L Chloride 94 L (98-107) mmol/L Carbon Dioxide 10 L (21-32) mmol/L POC Total CO2 (24-31) mEq/l Anion Gap 24.0 H (3-11) POC Anion Gap (16-25) mmol/L POC BUN (7-18) mg/dl BUN 50 H (7-18) mg/dl Creatinine 2.04 H (0.6-1.4) mg/dl POC Creatinine (0.6-1.3) mg/dl Est Cr Clr Drug Dosing 43.2 ml/min Est GFR ( Amer) 38.0 Est GFR (Non-Af Amer) 32.7 BUN/Creatinine Ratio 24.3 H (10-20) Glucose 194 H (70-99) mg/dl POC Glucose (other) (70-99) mg/dl Osmolality POC Lactic Acid Miguelito (0.90-1.70) mmol/L Calcium 8.2 L (8.5-10.1) mg/dl POC Ioniz Calcium Felicita (1.12-1.32) mmol/l Magnesium 2.4 (1.8-2.4) mg/dl Total Bilirubin 1.0 (0.2-1) mg/dl Direct Bilirubin 0.3 H (0-0.2) mg/dl AST 111 H (15-37) U/L ALT 116 H (12-78) U/L Alkaline Phosphatase 62 (45-117) U/L Total Creatine Kinase (39-308) U/L POC Troponin I (0-0.045) ng/ml Troponin I 0.046 H* (0-0.045) ng/ml Total Protein 7.0 (6.4-8.2) gm/dl Albumin 3.4 (3.4-5.0) gm/dl Lipase 145 (73-393) U/L Folate Procalcitonin (0-0.5) ng/ml Urine Color Urine Appearance (Clear) Urine pH (4.5-7.5) Ur Specific [place] (1.000-1.030) Urine Protein (Negative) Urine Glucose (UA) (Negative) Urine Ketones (Negative) Urine Blood (Negative) Urine Nitrite (Negative) Urine Bilirubin (Negative) Urine Urobilinogen (Negative) Ur Leukocyte Esterase (Negative) Urine WBC (Auto) (0-5) /hpf Urine RBC (Auto) (0-4) /hpf U Hyaline Cast (Auto) (0-5) /lpf U Epithel Cells (Auto) (0-5) /lpf Urine Bacteria (Auto) (Negative) Ur Renal Epithelial Cell Granular Casts (0) /lpf Stl C. diff Tox B Gene (Neg) Influenza Type A (PCR) (Neg) Influenza Type B (PCR) (Neg) Blood Type O Positive Antibody Screen NEGATIVE 04/04/18 04/04/18 Range/Units 16:55 16:53 WBC 14.17 H (4.8-10.8) K/uL RBC 3.21 L (4.7-6.1) M/uL Hgb 10.3 L (14.0-18.0) g/dL POC Hgb (14.0-18.0) g/dl Hct 31.7 L (42-52) % POC Hct (42-52) % MCV 98.8 (80-100) fL MCH 32.1 (25-34) pg MCHC 32.5 (32-36) g/dL RDW Std Deviation 57.9 H (36.4-46.3) fL RDW Coeff of Julia 15.9 H (11.5-14.5) % Plt Count 147 (130-400) K/uL MPV 9.9 (7.4-10.4) fL Immature Gran % (Auto) 0.7 % Neut % (Auto) 69.8 % Lymph % (Auto) 18.8 % [place] % (Auto) 10.6 % Eos % (Auto) 0.0 % Baso % (Auto) 0.1 % Immature Gran # (Auto) 0.10 H (0.00-0.02) K/uL Neut # (Auto) 9.90 H (1.4-6.5) K/uL Lymph # (Auto) 2.66 (1.2-3.4) K/uL [place] # (Auto) 1.50 H (0.11-0.59) K/uL Eos # (Auto) 0.00 (0-0.5) K/uL Baso # (Auto) 0.01 (0-0.2) K/uL Absolute Nucleated RBC 0.06 H (0-0) K/uL Nucleated RBC % (auto) 0.4 % Echinocytes 1+ PT (9.0-12.0) Seconds INR (0.9-1.1) APTT (21.0-31.0) Seconds PTT Ratio POC Sodium (135-144) mEq/L Sodium (136-145) mmol/L POC Potassium (3.3-5.0) mEq/L Potassium (3.5-5.1) mmol/L POC Chloride (101-112) mEq/L Chloride (98-107) mmol/L Carbon Dioxide (21-32) mmol/L POC Total CO2 (24-31) mEq/l Anion Gap (3-11) POC Anion Gap (16-25) mmol/L POC BUN (7-18) mg/dl BUN (7-18) mg/dl Creatinine (0.6-1.4) mg/dl POC Creatinine (0.6-1.3) mg/dl Est Cr Clr Drug Dosing ml/min Est GFR ( Amer) Est GFR (Non-Af Amer) BUN/Creatinine Ratio (10-20) Glucose (70-99) mg/dl POC Glucose (other) (70-99) mg/dl Osmolality POC Lactic Acid Miguelito (0.90-1.70) mmol/L Calcium (8.5-10.1) mg/dl POC Ioniz Calcium Felicita (1.12-1.32) mmol/l Magnesium (1.8-2.4) mg/dl Total Bilirubin (0.2-1) mg/dl Direct Bilirubin (0-0.2) mg/dl AST (15-37) U/L ALT (12-78) U/L Alkaline Phosphatase (45-117) U/L Total Creatine Kinase (39-308) U/L POC Troponin I (0-0.045) ng/ml Troponin I (0-0.045) ng/ml Total Protein (6.4-8.2) gm/dl Albumin (3.4-5.0) gm/dl Lipase (73-393) U/L Folate Procalcitonin 1.47 H (0-0.5) ng/ml Urine Color Urine Appearance (Clear) Urine pH (4.5-7.5) Ur Specific [place] (1.000-1.030) Urine Protein (Negative) Urine Glucose (UA) (Negative) Urine Ketones (Negative) Urine Blood (Negative) Urine Nitrite (Negative) Urine Bilirubin (Negative) Urine Urobilinogen (Negative) Ur Leukocyte Esterase (Negative) Urine WBC (Auto) (0-5) /hpf Urine RBC (Auto) (0-4) /hpf U Hyaline Cast (Auto) (0-5) /lpf U Epithel Cells (Auto) (0-5) /lpf Urine Bacteria (Auto) (Negative) Ur Renal Epithelial Cell Granular Casts (0) /lpf Stl C. diff Tox B Gene (Neg) Influenza Type A (PCR) (Neg) Influenza Type B (PCR) (Neg) Blood Type Antibody Screen
[2018-04-04] MEDS ORDERED: POTASSIUM CHLORIDE 20 MEQ TABCR PO STA (21:55)
[2018-04-04] MEDS ORDERED: GABAPENTIN 600 MG TAB PO ONE (22:00)
[2018-04-04] MEDS: OCTREOTIDE ACETATE 500 MCG in 0.9 % SODIUM CHLORIDE 100 ML IV SCH (22:03)
[2018-04-04] MEDS ORDERED: GLUCAGON FOR INJ 1 MG VIAL SQ PRN (23:08)
[2018-04-04] MEDS ORDERED: ACETAMINOPHEN 325 MG TAB PO PRN (23:08)
[2018-04-04] MEDS ORDERED: HYDROmorphone INJ 0.5 MG/0.5 ML SYR IV PRN (23:08)
[2018-04-04] MEDS ORDERED: PROCHLORPERAZINE 5 MG in SYRINGE 4 ML IV PRN (23:08)
[2018-04-04] MEDS ORDERED: GLUCOSE 10 TABS/TUBE PO PRN (23:08)
[2018-04-04] MEDS ORDERED: ICU PROTOCOL FOR HYPERGLYCEMIA PRN (23:08)
[2018-04-04] MEDS ORDERED: DEXTROSE 50% 50 ML SYRINGE IV PRN (23:08)
[2018-04-04] MEDS ORDERED: OXYCODONE HCL IR 5 MG TAB (IMMEDIATE RELEASE) PO PRN (23:08)
[2018-04-04] MEDS ORDERED: GLUCOSE 40% GEL 15 GM TUBE PO PRN (23:08)
[2018-04-04] MEDS ORDERED: CARBOHYDRATES FOR HYPOGLYCEMIA PO PRN (23:08)
[2018-04-04] MEDS: NSS + 20MEQ KCL 20 MEQ/1,000 ML BAG IV SCH (23:18)
[2018-04-04] MEDS: INSULIN ASPART 100 UNITS/ML 3 ML PEN SC SCH (23:27)
--- NOTE | 2018-04-04 23:30 | Emergency Department Note ---
Entered by Estrella Estrada acting as a scribe for History of Present Illness General Chief complaint: Illness Stated complaint: SEIZURE Time Seen by Provider: 04/04/18 17:44 Source: patient Mode of arrival: EMS Limitations: no limitations History of Present Illness Onset (ago): hour(s) 1 Location: head Radiation: non-radiation Pain Consistency: + now resolved Relieved By: + none Exacerbated By: + none Associated symptoms: + nausea/vomiting and + other (+LOC) The patient is a 67 year old male who presents to the Emergency Room with complaints of seizure like activity that occurred [facility]. He was brought to the ED via EMS. Nursing states the patient fell several times earlier today and reports he has no recollection of those incidents. Prior to arrival, he experienced seizure like symptoms and his family told EMS he was "shaking uncontrollably" for approximately 2 minutes and they believe he did lose consciousness. His family called EMS after they witnessed the seizure like activity. The patient denies any history of prior seizures. He was incontinent of stool and urine upon arrival to the ED. His stool was heme positive. The patient does not take any blood thinners. He admits to vomiting for the past week but denies any hematemesis or coffee ground emesis. Yesterday the patient noticed that his stools were black. The patient admits to a history of kidney problems stating 15 months ago his kidneys "shut down". He denies any prior history of cardiac issues. He denies any recent hematuria. Home Medications Home Medications Medication Instructions Recorded Confirmed Type aspirin [Aspir-81] 81 mg PO QAM 04/04/18 04/04/18 History lisinopril 10 mg PO QAM 04/04/18 04/04/18 History metoprolol succinate 50 mg PO HS 04/04/18 04/04/18 History rosuvastatin 20 mg PO HS 04/04/18 04/04/18 History sertraline 50 mg PO QAM 04/04/18 04/04/18 History Allergies Allergy/AdvReac Type Severity Reaction Status Date / Time No Known Allergies Allergy Verified 04/04/18 19:17 Past Med/Surg History Medical History YVAN (acute kidney injury) Social History Current Living Situation: Spouse Other Information That Helps Us Care for You: No Feels Safe at Home: Yes Safety Concerns: Feels Safe At This Time Smoking Status: Former smoker Do You Dip or Chew Tobacco: No Smoking End Date: 2005 Hx Alcohol Use: Yes Alcohol type: hard liquor Alcohol Intake Frequency: 0-2 drinks per day Hx Substance Use: No Beliefs That Will Affect Care: Faith Faith Beliefs: Taoist Preferred Language: Yoruba Communication Ability: Effective Budget Controller Required: No Review of Systems See HPI for pertinent positives & negatives. and A total of 10 systems reviewed and were otherwise negative Physical Exam Vital Signs Vital Signs - 24 hr 04/04/18 17:23 04/04/18 18:01 04/04/18 18:22 Temperature 36.7 C Temperature Source Oral Sepsis Recent Fever Within 48 Hours No Sepsis New/Unexplained Change in Mental Status No Sepsis Action Taken by Nursing No Action Required Pulse Rate 130 H Pulse Rate [Right] 128 H Pulse Rhythm [Right] Pulse Strength [Right] Respiratory Rate 18 28 H Respiratory Effort / Characteristics Non-Labored Respiratory Depth Respiratory Pattern Blood Pressure 113/73 Blood Pressure [Right Arm] 99/59 L 136/75 Blood Pressure Mean 86 Blood Pressure Mean [Right Arm] 72 95 Blood Pressure Position [Right Arm] Pulse Oximetry 100 100 Oxygen Delivery Method Room Air 04/04/18 18:30 04/04/18 18:35 04/04/18 18:53 Temperature Temperature Source Sepsis Recent Fever Within 48 Hours Sepsis New/Unexplained Change in Mental Status Sepsis Action Taken by Nursing Pulse Rate Pulse Rate [Right] 120 H 118 H 115 H Pulse Rhythm [Right] Pulse Strength [Right] Respiratory Rate 20 21 Respiratory Effort / Characteristics Non-Labored Non-Labored Respiratory Depth Normal Normal Respiratory Pattern Blood Pressure Blood Pressure [Right Arm] 150/72 H 125/70 131/71 Blood Pressure Mean Blood Pressure Mean [Right Arm] 98 88 91 Blood Pressure Position [Right Arm] Pulse Oximetry 100 100 100 Oxygen Delivery Method Room Air Room Air Room Air 04/04/18 20:10 04/04/18 21:25 04/04/18 22:05 Temperature Temperature Source Sepsis Recent Fever Within 48 Hours Sepsis New/Unexplained Change in Mental Status Sepsis Action Taken by Nursing Pulse Rate Pulse Rate [Right] 132 H 121 H Pulse Rhythm [Right] Regular Regular Pulse Strength [Right] Normal Normal Respiratory Rate 20 20 Respiratory Effort / Characteristics Non-Labored Spontaneous Non-Labored Spontaneous Respiratory Depth Normal Normal Respiratory Pattern Regular Regular Blood Pressure Blood Pressure [Right Arm] 110/70 133/79 Blood Pressure Mean Blood Pressure Mean [Right Arm] 83 97 Blood Pressure Position [Right Arm] Sitting Sitting Pulse Oximetry 98 98 Oxygen Delivery Method Room Air Room Air Room Air GENERAL: He is oriented to person, place, and time. HENT: Exam performed. - Head: Normocephalic and atraumatic. - Right Ear: External ear normal. No mastoid tenderness. - Left Ear: External ear normal. No mastoid tenderness. - Mouth/Throat: The oropharynx is clear and moist. No trismus in the jaw. No dental abscesses or uvula swelling. No oropharyngeal exudate or tonsillar abscesses. EYES: Conjunctivae and EOM are normal. Pupils are equal, round, and reactive to light. Right eye exhibits no discharge. Left eye exhibits no discharge. No scleral icterus. NECK: Normal range of motion. Neck supple. No JVD present. No spinous process tenderness present. No carotid bruit present. No rigidity. No tracheal deviation and normal range of motion present. No Brudzinski's sign and no Kernig 's sign noted. CV: Tachycardic heart rate, regular rhythm, normal heart sounds and intact distal pulses. There is no peripheral edema. Palpable radial pulses bue. PULM/CHEST: Effort normal and breath sounds normal. No respiratory distress. No stridor. He has no wheezes. He has no rales. - Chest Wall: He exhibits no tenderness. ABD: The abdomen is soft. Bowel sounds are normal. He has mild distension. No mass is present. There is no tenderness. There is no rebound, no guarding, no Skinner's sign and no tenderness at McBurney's point. Rovsig negative. RECTAL: Hemoccult positive. MUSC/SKEL: Normal range of motion. There is no peripheral edema, tenderness or deformity. LYMPH: No cervical adenopathy. NEURO: He is alert and oriented to person, place, and time. He has normal strength. No cranial nerve deficit or sensory deficit. Coordination and gait normal. GCS eye subscore is 4. GCS verbal subscore is 5. GCS motor subscore is 6. Cerebellar tests wnl. SKIN: Skin is warm and dry. He is not diaphoretic. Diffuse ecchymosis over the anterior abdomen, bilateral LE and back. PSYCH: He has a normal mood and affect. Behavior is normal. Judgment and thought content normal. Course 1744: Past medical records reviewed. The patient was evaluated in room D4, and a complete history and physical examination were performed.patient was found to be tachycardic and hypotensive. Patient was moved from bed D4 to bed B1. BP on arrival to the trauma bay is 76/52, 2 L NSS bolus was initiated. Bedside US showed no free fluid in abdomen, small pericardial effusion with no pericardial tamponade. 1756: POC Hemoglobin is 10.5. His lactic is 6.25. 1900: His blood pressure is improving 99/51. He is receiving an IV fluid bolus. Patient will be taken to CT. Patient will receive castellanos scan given his falls and reported seizure that was witnessed by his sons. 1921: Vital signs stable. Labs show leukocytosis of 14.17. Coags within normal limits. Hemoglobin of 10.3. Creatinine 2.04 which is improved from his baseline. Troponin 0 0.046. CTs show no acute traumatic injury or free fluid in the abdomen. This is thought to be due to the patient's acute kidney injury , no heparin was started given the patient's active GI bleeding. I discussed the patients case with Dr. Avila, [facility] Hospitalist. The patient will be further evaluated. 0: A repeat POC lactic acid is 3.5 status post fluid bolus. It is unclear if the lactic acidemia is due to infectious source, however it is less likely given that the patient not having any fever. The lactic acidemia could also be due to seizure that was witnessed by 2 sons. Fluid resuscitation will continue. A repeat Hemoglobin is 8.8. His last BP was 105/72 and his heart rate was 78. Protonix was initiated in the emergency department. Keppra was also given 1 g IV piggyback load given the reported seizure history. I discussed these findings with Dr. Avila who will evaluate the patient and decide if he should go to the ICU. Blood cultures have been sent. This time the patient is not febrile, has no meningeal signs, antibiotics will be held and be further discussed with the hospitalist team after they evaluate the patient. 2144: Dr. Guzman requested that the patient be admitted to the ICU. Dr. Chen, ICU was here to evaluate the patient. I discussed the patients case with Dr. Chen, ICU. Antibiotics will be held at this time. The patient will be further evaluated. Consultations Consultation #1: I discussed the patients case with Dr. Avila, [facility] Hospitalist. The patient will be further evaluated. Time: 19:22 Consultation #2: I discussed the patients case with Dr. Chen, ICU. The patient will be further evaluated. Time: 21:45 Administered Medications Pantoprazole Sodium 40 mg/ (Dextrose) 100 mls @ 20 mls/hr IV Q5H DELVIS Stop: 05/04/18 19:29 Last Admin: 04/04/18 19:58 Dose: 20 mls/hr Potassium Chloride/Sodium Chloride (Normal Saline W/20 Meq Kcl) 20 meq in 1, 000 mls @ 200 mls/hr IV .Q5H DELVIS Stop: 05/04/18 23:14 Last Admin: 04/04/18 23:18 Dose: 200 mls/hr Octreotide Acetate 500 mcg/ (Sodium Chloride) 105 mls @ 10.5 mls/hr IV .Q10H DELVIS Stop: 05/04/18 20:59 Last Admin: 04/04/18 22:03 Dose: 50 mcg/hr, 10.5 mls/hr Discontinued Medications Gabapentin (Neurontin) 1,200 mg PO TODAY@2200 ONE Stop: 04/04/18 22:01 Last Admin: 04/04/18 23:17 Dose: 1,200 mg Sodium Chloride (Nss 1000ml) 1,000 mls @ 999 mls/hr IV .Q1H1M ONE Stop: 04/04/18 18:48 Last Infusion: 04/04/18 19:15 Dose: 0 mls/hr Admin: 04/04/18 18:15 Dose: 999 mls/hr Pantoprazole Sodium 80 mg/ (Dextrose) 120 mls @ 400 mls/hr IV NOW ONE Stop: 04/04/18 19:35 Last Infusion: 04/04/18 20:23 Dose: 0 mls/hr Admin: 04/04/18 19:58 Dose: 400 mls/hr Levetiracetam 1,000 mg/ (Dextrose) 110 mls @ 440 mls/hr IV NOW STA Stop: 04/04/18 19:37 Last Infusion: 04/04/18 20:23 Dose: 0 mls/hr Admin: 04/04/18 19:58 Dose: 440 mls/hr Sodium Chloride (Nss 1000ml) 1,000 mls @ 125 mls/hr IV .Q8H DELVIS Stop: 05/04/18 19:44 Last Admin: 04/04/18 19:58 Dose: 125 mls/hr Multivitamins 10 ml/ Thiamine HCl 100 mg/ Folic Acid 1 mg/Potassium Chloride 20 meq/Sodium Chloride 1,021.2 mls @ 500 mls/hr IV .Q2H3M ONE Stop: 04/04/18 22:17 Last Admin: 04/04/18 20:27 Dose: 500 mls/hr Octreotide Acetate 50 mcg/ (Syringe) 10 mls @ 3 mls/min IV ONE STA Stop: 04/04/18 20:51 Last Admin: 04/04/18 22:03 Dose: 3 mls/min Potassium Chloride (Klor-Con M20) 40 meq PO NOW STA Stop: 04/04/18 21:56 Last Admin: 04/04/18 23:18 Dose: 40 meq Medical Decision Making Medical Records Attestation: I reviewed the patient's medical records. Home Medications Current Medication List: was personally reviewed by me Laboratory Data Attestation: I reviewed the patient's lab results. Result diagrams: 04/04/18 16:55 04/04/18 16:55 Lab Results 04/04/18 04/04/18 04/04/18 Range/Units 16:53 16:55 16:55 WBC 14.17 H (4.8-10.8) K/uL RBC 3.21 L (4.7-6.1) M/uL Hgb 10.3 L (14.0-18.0) g/dL POC Hgb (14.0-18.0) g/dl Hct 31.7 L (42-52) % POC Hct (42-52) % MCV 98.8 (80-100) fL MCH 32.1 (25-34) pg MCHC 32.5 (32-36) g/dL RDW Std Deviation 57.9 H (36.4-46.3) fL RDW Coeff of Julia 15.9 H (11.5-14.5) % Plt Count 147 (130-400) K/uL MPV 9.9 (7.4-10.4) fL Immature Gran % (Auto) 0.7 % Neut % (Auto) 69.8 % Lymph % (Auto) 18.8 % [place] % (Auto) 10.6 % Eos % (Auto) 0.0 % Baso % (Auto) 0.1 % Immature Gran # (Auto) 0.10 H (0.00-0.02) K/uL Neut # (Auto) 9.90 H (1.4-6.5) K/uL Lymph # (Auto) 2.66 (1.2-3.4) K/uL [place] # (Auto) 1.50 H (0.11-0.59) K/uL Eos # (Auto) 0.00 (0-0.5) K/uL Baso # (Auto) 0.01 (0-0.2) K/uL Absolute Nucleated RBC 0.06 H (0-0) K/uL Nucleated RBC % (auto) 0.4 % Echinocytes 1+ PT (9.0-12.0) Seconds INR (0.9-1.1) APTT (21.0-31.0) Seconds PTT Ratio POC Sodium (135-144) mEq/L Sodium 128 L (136-145) mmol/L POC Potassium (3.3-5.0) mEq/L Potassium 3.4 L (3.5-5.1) mmol/L POC Chloride (101-112) mEq/L Chloride 94 L (98-107) mmol/L Carbon Dioxide 10 L (21-32) mmol/L POC Total CO2 (24-31) mEq/l Anion Gap 24.0 H (3-11) POC Anion Gap (16-25) mmol/L POC BUN (7-18) mg/dl BUN 50 H (7-18) mg/dl Creatinine 2.04 H (0.6-1.4) mg/dl POC Creatinine (0.6-1.3) mg/dl Est Cr Clr Drug Dosing 43.2 ml/min Est GFR ( Amer) 38.0 Est GFR (Non-Af Amer) 32.7 BUN/Creatinine Ratio 24.3 H (10-20) Glucose 194 H (70-99) mg/dl POC Glucose (other) (70-99) mg/dl Osmolality (280-300) mOsm/kg POC Lactic Acid Miguelito (0.90-1.70) mmol/L Calcium 8.2 L (8.5-10.1) mg/dl POC Ioniz Calcium Felicita (1.12-1.32) mmol/l Magnesium (1.8-2.4) mg/dl Total Bilirubin 1.0 (0.2-1) mg/dl Direct Bilirubin 0.3 H (0-0.2) mg/dl AST 111 H (15-37) U/L ALT 116 H (12-78) U/L Alkaline Phosphatase 62 (45-117) U/L Total Creatine Kinase (39-308) U/L POC Troponin I (0-0.045) ng/ml Troponin I 0.046 H* (0-0.045) ng/ml Total Protein 7.0 (6.4-8.2) gm/dl Albumin 3.4 (3.4-5.0) gm/dl Lipase 145 (73-393) U/L Folate (>5.38) ng/ml Procalcitonin 1.47 H (0-0.5) ng/ml Urine Color Urine Appearance (Clear) Urine pH (4.5-7.5) Ur Specific Clark (1.000-1.030) Urine Protein (Negative) Urine Glucose (UA) (Negative) Urine Ketones (Negative) Urine Blood (Negative) Urine Nitrite (Negative) Urine Bilirubin (Negative) Urine Urobilinogen (Negative) Ur Leukocyte Esterase (Negative) Urine WBC (Auto) (0-5) /hpf Urine RBC (Auto) (0-4) /hpf U Hyaline Cast (Auto) (0-5) /lpf U Epithel Cells (Auto) (0-5) /lpf Urine Bacteria (Auto) (Negative) Ur Renal Epithelial Cell Granular Casts (0) /lpf Stl C. diff Tox B Gene (Neg) Influenza Type A (PCR) (Neg) Influenza Type B (PCR) (Neg) Blood Type Antibody Screen 04/04/18 04/04/18 04/04/18 Range/Units 16:55 16:55 17:46 WBC (4.8-10.8) K/uL RBC (4.7-6.1) M/uL Hgb (14.0-18.0) g/dL POC Hgb (14.0-18.0) g/dl Hct (42-52) % POC Hct (42-52) % MCV (80-100) fL MCH (25-34) pg MCHC (32-36) g/dL RDW Std Deviation (36.4-46.3) fL RDW Coeff of Julia (11.5-14.5) % Plt Count (130-400) K/uL MPV (7.4-10.4) fL Immature Gran % (Auto) % Neut % (Auto) % Lymph % (Auto) % [place] % (Auto) % Eos % (Auto) % Baso % (Auto) % Immature Gran # (Auto) (0.00-0.02) K/uL Neut # (Auto) (1.4-6.5) K/uL Lymph # (Auto) (1.2-3.4) K/uL [place] # (Auto) (0.11-0.59) K/uL Eos # (Auto) (0-0.5) K/uL Baso # (Auto) (0-0.2) K/uL Absolute Nucleated RBC (0-0) K/uL Nucleated RBC % (auto) % Echinocytes PT 9.8 (9.0-12.0) Seconds INR 1.0 (0.9-1.1) APTT 20.1 L (21.0-31.0) Seconds PTT Ratio 0.8 POC Sodium (135-144) mEq/L Sodium (136-145) mmol/L POC Potassium (3.3-5.0) mEq/L Potassium (3.5-5.1) mmol/L POC Chloride (101-112) mEq/L Chloride (98-107) mmol/L Carbon Dioxide (21-32) mmol/L POC Total CO2 (24-31) mEq/l Anion Gap (3-11) POC Anion Gap (16-25) mmol/L POC BUN (7-18) mg/dl BUN (7-18) mg/dl Creatinine (0.6-1.4) mg/dl POC Creatinine (0.6-1.3) mg/dl Est Cr Clr Drug Dosing ml/min Est GFR ( Amer) Est GFR (Non-Af Amer) BUN/Creatinine Ratio (10-20) Glucose (70-99) mg/dl POC Glucose (other) (70-99) mg/dl Osmolality (280-300) mOsm/kg POC Lactic Acid Miguelito (0.90-1.70) mmol/L Calcium (8.5-10.1) mg/dl POC Ioniz Calcium Felicita (1.12-1.32) mmol/l Magnesium 2.4 (1.8-2.4) mg/dl Total Bilirubin (0.2-1) mg/dl Direct Bilirubin (0-0.2) mg/dl AST (15-37) U/L ALT (12-78) U/L Alkaline Phosphatase (45-117) U/L Total Creatine Kinase (39-308) U/L POC Troponin I (0-0.045) ng/ml Troponin I (0-0.045) ng/ml Total Protein (6.4-8.2) gm/dl Albumin (3.4-5.0) gm/dl Lipase (73-393) U/L Folate (>5.38) ng/ml Procalcitonin (0-0.5) ng/ml Urine Color Urine Appearance (Clear) Urine pH (4.5-7.5) Ur Specific Clark (1.000-1.030) Urine Protein (Negative) Urine Glucose (UA) (Negative) Urine Ketones (Negative) Urine Blood (Negative) Urine Nitrite (Negative) Urine Bilirubin (Negative) Urine Urobilinogen (Negative) Ur Leukocyte Esterase (Negative) Urine WBC (Auto) (0-5) /hpf Urine RBC (Auto) (0-4) /hpf U Hyaline Cast (Auto) (0-5) /lpf U Epithel Cells (Auto) (0-5) /lpf Urine Bacteria (Auto) (Negative) Ur Renal Epithelial Cell Granular Casts (0) /lpf Stl C. diff Tox B Gene (Neg) Influenza Type A (PCR) (Neg) Influenza Type B (PCR) (Neg) Blood Type O Positive Antibody Screen NEGATIVE 04/04/18 04/04/18 04/04/18 Range/Units 17:46 17:48 17:58 WBC (4.8-10.8) K/uL RBC (4.7-6.1) M/uL Hgb (14.0-18.0) g/dL POC Hgb 10.5 L (14.0-18.0) g/dl Hct (42-52) % POC Hct 31 L (42-52) % MCV (80-100) fL MCH (25-34) pg MCHC (32-36) g/dL RDW Std Deviation (36.4-46.3) fL RDW Coeff of Julia (11.5-14.5) % Plt Count (130-400) K/uL MPV (7.4-10.4) fL Immature Gran % (Auto) % Neut % (Auto) % Lymph % (Auto) % [place] % (Auto) % Eos % (Auto) % Baso % (Auto) % Immature Gran # (Auto) (0.00-0.02) K/uL Neut # (Auto) (1.4-6.5) K/uL Lymph # (Auto) (1.2-3.4) K/uL [place] # (Auto) (0.11-0.59) K/uL Eos # (Auto) (0-0.5) K/uL Baso # (Auto) (0-0.2) K/uL Absolute Nucleated RBC (0-0) K/uL Nucleated RBC % (auto) % Echinocytes PT (9.0-12.0) Seconds INR (0.9-1.1) APTT (21.0-31.0) Seconds PTT Ratio POC Sodium 130 L (135-144) mEq/L Sodium (136-145) mmol/L POC Potassium 3.6 (3.3-5.0) mEq/L Potassium (3.5-5.1) mmol/L POC Chloride 98 L (101-112) mEq/L Chloride (98-107) mmol/L Carbon Dioxide (21-32) mmol/L POC Total CO2 15 L (24-31) mEq/l Anion Gap (3-11) POC Anion Gap 22.0 (16-25) mmol/L POC BUN 48 H (7-18) mg/dl BUN (7-18) mg/dl Creatinine (0.6-1.4) mg/dl POC Creatinine 1.6 H (0.6-1.3) mg/dl Est Cr Clr Drug Dosing ml/min Est GFR ( Amer) Est GFR (Non-Af Amer) BUN/Creatinine Ratio (10-20) Glucose (70-99) mg/dl POC Glucose (other) 174 H (70-99) mg/dl Osmolality (280-300) mOsm/kg POC Lactic Acid Miguelito 6.25 H (0.90-1.70) mmol/L Calcium (8.5-10.1) mg/dl POC Ioniz Calcium Felicita 1.05 L (1.12-1.32) mmol/l Magnesium (1.8-2.4) mg/dl Total Bilirubin (0.2-1) mg/dl Direct Bilirubin (0-0.2) mg/dl AST (15-37) U/L ALT (12-78) U/L Alkaline Phosphatase (45-117) U/L Total Creatine Kinase 552 H (39-308) U/L POC Troponin I (0-0.045) ng/ml Troponin I (0-0.045) ng/ml Total Protein (6.4-8.2) gm/dl Albumin (3.4-5.0) gm/dl Lipase (73-393) U/L Folate (>5.38) ng/ml Procalcitonin (0-0.5) ng/ml Urine Color Urine Appearance (Clear) Urine pH (4.5-7.5) Ur Specific Clark (1.000-1.030) Urine Protein (Negative) Urine Glucose (UA) (Negative) Urine Ketones (Negative) Urine Blood (Negative) Urine Nitrite (Negative) Urine Bilirubin (Negative) Urine Urobilinogen (Negative) Ur Leukocyte Esterase (Negative) Urine WBC (Auto) (0-5) /hpf Urine RBC (Auto) (0-4) /hpf U Hyaline Cast (Auto) (0-5) /lpf U Epithel Cells (Auto) (0-5) /lpf Urine Bacteria (Auto) (Negative) Ur Renal Epithelial Cell Granular Casts (0) /lpf Stl C. diff Tox B Gene (Neg) Influenza Type A (PCR) (Neg) Influenza Type B (PCR) (Neg) Blood Type Antibody Screen 04/04/18 04/04/18 04/04/18 Range/Units 18:08 18:25 19:26 WBC (4.8-10.8) K/uL RBC (4.7-6.1) M/uL Hgb (14.0-18.0) g/dL POC Hgb (14.0-18.0) g/dl Hct (42-52) % POC Hct (42-52) % MCV (80-100) fL MCH (25-34) pg MCHC (32-36) g/dL RDW Std Deviation (36.4-46.3) fL RDW Coeff of Julia (11.5-14.5) % Plt Count (130-400) K/uL MPV (7.4-10.4) fL Immature Gran % (Auto) % Neut % (Auto) % Lymph % (Auto) % [place] % (Auto) % Eos % (Auto) % Baso % (Auto) % Immature Gran # (Auto) (0.00-0.02) K/uL Neut # (Auto) (1.4-6.5) K/uL Lymph # (Auto) (1.2-3.4) K/uL [place] # (Auto) (0.11-0.59) K/uL Eos # (Auto) (0-0.5) K/uL Baso # (Auto) (0-0.2) K/uL Absolute Nucleated RBC (0-0) K/uL Nucleated RBC % (auto) % Echinocytes PT (9.0-12.0) Seconds INR (0.9-1.1) APTT (21.0-31.0) Seconds PTT Ratio POC Sodium (135-144) mEq/L Sodium (136-145) mmol/L POC Potassium (3.3-5.0) mEq/L Potassium (3.5-5.1) mmol/L POC Chloride (101-112) mEq/L Chloride (98-107) mmol/L Carbon Dioxide (21-32) mmol/L POC Total CO2 (24-31) mEq/l Anion Gap (3-11) POC Anion Gap (16-25) mmol/L POC BUN (7-18) mg/dl BUN (7-18) mg/dl Creatinine (0.6-1.4) mg/dl POC Creatinine (0.6-1.3) mg/dl Est Cr Clr Drug Dosing ml/min Est GFR ( Amer) Est GFR (Non-Af Amer) BUN/Creatinine Ratio (10-20) Glucose (70-99) mg/dl POC Glucose (other) (70-99) mg/dl Osmolality (280-300) mOsm/kg POC Lactic Acid Miguelito 3.50 H (0.90-1.70) mmol/L Calcium (8.5-10.1) mg/dl POC Ioniz Calcium Felicita (1.12-1.32) mmol/l Magnesium (1.8-2.4) mg/dl Total Bilirubin (0.2-1) mg/dl Direct Bilirubin (0-0.2) mg/dl AST (15-37) U/L ALT (12-78) U/L Alkaline Phosphatase (45-117) U/L Total Creatine Kinase (39-308) U/L POC Troponin I < 0.03 (0-0.045) ng/ml Troponin I (0-0.045) ng/ml Total Protein (6.4-8.2) gm/dl Albumin (3.4-5.0) gm/dl Lipase (73-393) U/L Folate (>5.38) ng/ml Procalcitonin (0-0.5) ng/ml Urine Color Yellow Urine Appearance Cloudy H (Clear) Urine pH 5.5 (4.5-7.5) Ur Specific Clark 1.022 (1.000-1.030) Urine Protein 2+ H (Negative) Urine Glucose (UA) Trace H (Negative) Urine Ketones 1+ H (Negative) Urine Blood 3+ H (Negative) Urine Nitrite Negative (Negative) Urine Bilirubin Negative (Negative) Urine Urobilinogen Negative (Negative) Ur Leukocyte Esterase Negative (Negative) Urine WBC (Auto) 1-5 (0-5) /hpf Urine RBC (Auto) 0-4 (0-4) /hpf U Hyaline Cast (Auto) 10-30 H (0-5) /lpf U Epithel Cells (Auto) >30 H (0-5) /lpf Urine Bacteria (Auto) Negative (Negative) Ur Renal Epithelial Cell Not Reportable Granular Casts 10-20 H (0) /lpf Stl C. diff Tox B Gene (Neg) Influenza Type A (PCR) (Neg) Influenza Type B (PCR) (Neg) Blood Type Antibody Screen 04/04/18 04/04/18 04/04/18 Range/Units 19:29 19:47 20:05 WBC (4.8-10.8) K/uL RBC (4.7-6.1) M/uL Hgb (14.0-18.0) g/dL POC Hgb 8.8 L (14.0-18.0) g/dl Hct (42-52) % POC Hct 26 L (42-52) % MCV (80-100) fL MCH (25-34) pg MCHC (32-36) g/dL RDW Std Deviation (36.4-46.3) fL RDW Coeff of Julia (11.5-14.5) % Plt Count (130-400) K/uL MPV (7.4-10.4) fL Immature Gran % (Auto) % Neut % (Auto) % Lymph % (Auto) % [place] % (Auto) % Eos % (Auto) % Baso % (Auto) % Immature Gran # (Auto) (0.00-0.02) K/uL Neut # (Auto) (1.4-6.5) K/uL Lymph # (Auto) (1.2-3.4) K/uL [place] # (Auto) (0.11-0.59) K/uL Eos # (Auto) (0-0.5) K/uL Baso # (Auto) (0-0.2) K/uL Absolute Nucleated RBC (0-0) K/uL Nucleated RBC % (auto) % Echinocytes PT (9.0-12.0) Seconds INR (0.9-1.1) APTT (21.0-31.0) Seconds PTT Ratio POC Sodium 133 L (135-144) mEq/L Sodium (136-145) mmol/L POC Potassium 3.5 (3.3-5.0) mEq/L Potassium (3.5-5.1) mmol/L POC Chloride 100 L (101-112) mEq/L Chloride (98-107) mmol/L Carbon Dioxide (21-32) mmol/L POC Total CO2 15 L (24-31) mEq/l Anion Gap (3-11) POC Anion Gap 22.0 (16-25) mmol/L POC BUN 43 H (7-18) mg/dl BUN (7-18) mg/dl Creatinine (0.6-1.4) mg/dl POC Creatinine 1.5 H (0.6-1.3) mg/dl Est Cr Clr Drug Dosing ml/min Est GFR ( Amer) Est GFR (Non-Af Amer) BUN/Creatinine Ratio (10-20) Glucose (70-99) mg/dl POC Glucose (other) 140 H (70-99) mg/dl Osmolality (280-300) mOsm/kg POC Lactic Acid Miguelito (0.90-1.70) mmol/L Calcium (8.5-10.1) mg/dl POC Ioniz Calcium Felicita 1.07 L (1.12-1.32) mmol/l Magnesium (1.8-2.4) mg/dl Total Bilirubin (0.2-1) mg/dl Direct Bilirubin (0-0.2) mg/dl AST (15-37) U/L ALT (12-78) U/L Alkaline Phosphatase (45-117) U/L Total Creatine Kinase (39-308) U/L POC Troponin I (0-0.045) ng/ml Troponin I (0-0.045) ng/ml Total Protein (6.4-8.2) gm/dl Albumin (3.4-5.0) gm/dl Lipase (73-393) U/L Folate (>5.38) ng/ml Procalcitonin (0-0.5) ng/ml Urine Color Urine Appearance (Clear) Urine pH (4.5-7.5) Ur Specific Clark (1.000-1.030) Urine Protein (Negative) Urine Glucose (UA) (Negative) Urine Ketones (Negative) Urine Blood (Negative) Urine Nitrite (Negative) Urine Bilirubin (Negative) Urine Urobilinogen (Negative) Ur Leukocyte Esterase (Negative) Urine WBC (Auto) (0-5) /hpf Urine RBC (Auto) (0-4) /hpf U Hyaline Cast (Auto) (0-5) /lpf U Epithel Cells (Auto) (0-5) /lpf Urine Bacteria (Auto) (Negative) Ur Renal Epithelial Cell Granular Casts (0) /lpf Stl C. diff Tox B Gene Neg C.diff Toxin B (Neg) Influenza Type A (PCR) Neg for Influ A (Neg) Influenza Type B (PCR) Neg for Influ B (Neg) Blood Type Antibody Screen 04/04/18 04/04/18 Range/Units 21:05 21:05 WBC (4.8-10.8) K/uL RBC (4.7-6.1) M/uL Hgb (14.0-18.0) g/dL POC Hgb (14.0-18.0) g/dl Hct (42-52) % POC Hct (42-52) % MCV (80-100) fL MCH (25-34) pg MCHC (32-36) g/dL RDW Std Deviation (36.4-46.3) fL RDW Coeff of Julia (11.5-14.5) % Plt Count (130-400) K/uL MPV (7.4-10.4) fL Immature Gran % (Auto) % Neut % (Auto) % Lymph % (Auto) % [place] % (Auto) % Eos % (Auto) % Baso % (Auto) % Immature Gran # (Auto) (0.00-0.02) K/uL Neut # (Auto) (1.4-6.5) K/uL Lymph # (Auto) (1.2-3.4) K/uL [place] # (Auto) (0.11-0.59) K/uL Eos # (Auto) (0-0.5) K/uL Baso # (Auto) (0-0.2) K/uL Absolute Nucleated RBC (0-0) K/uL Nucleated RBC % (auto) % Echinocytes PT (9.0-12.0) Seconds INR (0.9-1.1) APTT (21.0-31.0) Seconds PTT Ratio POC Sodium (135-144) mEq/L Sodium (136-145) mmol/L POC Potassium (3.3-5.0) mEq/L Potassium (3.5-5.1) mmol/L POC Chloride (101-112) mEq/L Chloride (98-107) mmol/L Carbon Dioxide (21-32) mmol/L POC Total CO2 (24-31) mEq/l Anion Gap (3-11) POC Anion Gap (16-25) mmol/L POC BUN (7-18) mg/dl BUN (7-18) mg/dl Creatinine (0.6-1.4) mg/dl POC Creatinine (0.6-1.3) mg/dl Est Cr Clr Drug Dosing ml/min Est GFR ( Amer) Est GFR (Non-Af Amer) BUN/Creatinine Ratio (10-20) Glucose (70-99) mg/dl POC Glucose (other) (70-99) mg/dl Osmolality 292 (280-300) mOsm/kg POC Lactic Acid Miguelito (0.90-1.70) mmol/L Calcium (8.5-10.1) mg/dl POC Ioniz Calcium Felicita (1.12-1.32) mmol/l Magnesium (1.8-2.4) mg/dl Total Bilirubin (0.2-1) mg/dl Direct Bilirubin (0-0.2) mg/dl AST (15-37) U/L ALT (12-78) U/L Alkaline Phosphatase (45-117) U/L Total Creatine Kinase (39-308) U/L POC Troponin I (0-0.045) ng/ml Troponin I (0-0.045) ng/ml Total Protein (6.4-8.2) gm/dl Albumin (3.4-5.0) gm/dl Lipase (73-393) U/L Folate > 24.00 (>5.38) ng/ml Procalcitonin (0-0.5) ng/ml Urine Color Urine Appearance (Clear) Urine pH (4.5-7.5) Ur Specific Clark (1.000-1.030) Urine Protein (Negative) Urine Glucose (UA) (Negative) Urine Ketones (Negative) Urine Blood (Negative) Urine Nitrite (Negative) Urine Bilirubin (Negative) Urine Urobilinogen (Negative) Ur Leukocyte Esterase (Negative) Urine WBC (Auto) (0-5) /hpf Urine RBC (Auto) (0-4) /hpf U Hyaline Cast (Auto) (0-5) /lpf U Epithel Cells (Auto) (0-5) /lpf Urine Bacteria (Auto) (Negative) Ur Renal Epithelial Cell Granular Casts (0) /lpf Stl C. diff Tox B Gene (Neg) Influenza Type A (PCR) (Neg) Influenza Type B (PCR) (Neg) Blood Type Antibody Screen Imaging Data Radiologist's Impression: Radiology results as stated below per my review and the radiologist's interpretation: CT SCAN OF THE CHEST, ABDOMEN, AND PELVIS WITHOUT IV CONTRAST CLINICAL HISTORY: Fall. COMPARISON STUDY: Chest x-ray dated 04/04/2018. Abdominal CT dated 12/27/2016. TECHNIQUE: Unenhanced CT scan of the chest, abdomen, and pelvis was performed from the thoracic inlet to the proximal femora. Images are reviewed in the axial , sagittal, and coronal planes. IV contrast was not administered as per the referring clinician. Note that the examination was performed in significantly suboptimal fashion without IV contrast. A dose lowering technique was utilized adhering to the principles of ALARA. CT DOSE: 2914.45 mGy.cm FINDINGS: CHEST: Thyroid: Imaged portions of the thyroid gland are normal in size and attenuation. Thoracic aorta: There is mild atherosclerotic calcification of the thoracic aorta. There is aneurysmal dilatation of the ascending thoracic aorta which measures up to 4.1 cm. The remainder of the thoracic aorta is normal in caliber , and the arch demonstrates standard 3-vessel anatomy. Heart: The heart is normal in size and without pericardial effusion. The coronary arteries are densely calcified. The pulmonary trunk is normal in caliber. Lungs and pleural spaces: Mild emphysematous change is noted. There is no airspace consolidation, pleural effusion, or pneumothorax. The trachea and central airways are clear.There are foci of bibasilar scarring/atelectasis. A punctate calcified granuloma is noted in the right middle lobe. Mediastinum: There is no mediastinal lymphadenopathy. Christal: Not well assessed without IV contrast. Axillae: There is no axillary lymphadenopathy. Bony thorax: The skeletal structures are osteopenic. There is an acute nondistracted left anterior 7th rib fracture. The remainder of the bony thorax appears intact. No lytic or blastic lesions are identified. Soft tissues: Gynecomastia is noted. ABDOMEN AND PELVIS: Liver: The unenhanced liver is enlarged, measuring 24.3 cm in length. The liver demonstrates diffusely diminished attenuation consistent with severe hepatic steatosis. There is no intrahepatic or ductal dilatation. Gallbladder: Surgically absent noting clips in the gallbladder fossa. Spleen: Normal in size and attenuation. Pancreas: Unremarkable. Adrenal glands: Unremarkable. Kidneys: The unenhanced kidneys demonstrate cortical atrophy and are without hydronephrosis. No renal calculi are identified. Small bilateral renal cysts measure up to 3 cm. Additional subcentimeter cortical hypodensities also likely represent cysts but are too small for definitive characterization. Abdominal vasculature: The abdominal aorta is normal in course and caliber noting advanced atherosclerotic calcification. Bowel: There is a small hiatal hernia. Circumferential wall thickening is noted in the mid to distal esophagus. The stomach is otherwise normal in configuration. No bowel obstruction is seen. The appendix is well-visualized and normal. Peritoneum: There is no intraperitoneal free air or abdominal ascites. Lymphadenopathy: None. Pelvic viscera: The prostate gland is diminutive and contains coarse calcifications. The bladder wall is thickened and trabeculated indicating chronic outlet obstruction. Small bilateral ureteroceles versus Hutch diverticula are noted and unchanged from previous. Skeletal structures: The skeletal structures are osteopenic. The lumbosacral spine and bony pelvis appear intact. Mild lumbosacral spondylosis is observed. No lytic or blastic lesions are seen. IMPRESSION: 1. Suboptimal examination without IV contrast. 2. There is an acute nondistracted left anterior 7th rib fracture. 3. No additional fracture is seen. 4. There is no airspace consolidation, pleural effusion, or pneumothorax. 5. There is a small hiatal hernia, with circumferential wall thickening noted in the mid to distal esophagus. Correlate clinically for evidence of esophagitis. This could be further assessed with endoscopy if clinically warranted. 6. There is no evidence of solid organ injury in the abdomen or pelvis on this unenhanced examination. 7. Mild emphysema. 8. Hepatomegaly and severe hepatic steatosis. 9. There is mild aneurysmal dilatation of the ascending thoracic aorta which measures up to 4.1 cm in diameter. 10. Additional findings as above. Electronically signed by: Lance Keller M.D. 04/04/2018 7:[address] SCAN OF THE CHEST, ABDOMEN, AND PELVIS WITHOUT IV CONTRAST CLINICAL HISTORY: Fall. COMPARISON STUDY: Chest x-ray dated 04/04/2018. Abdominal CT dated 12/27/2016. TECHNIQUE: Unenhanced CT scan of the chest, abdomen, and pelvis was performed from the thoracic inlet to the proximal femora. Images are reviewed in the axial , sagittal, and coronal planes. IV contrast was not administered as per the referring clinician. Note that the examination was performed in significantly suboptimal fashion without IV contrast. A dose lowering technique was utilized adhering to the principles of ALARA. CT DOSE: 2914.45 mGy.cm FINDINGS: CHEST: Thyroid: Imaged portions of the thyroid gland are normal in size and attenuation. Thoracic aorta: There is mild atherosclerotic calcification of the thoracic aorta. There is aneurysmal dilatation of the ascending thoracic aorta which measures up to 4.1 cm. The remainder of the thoracic aorta is normal in caliber , and the arch demonstrates standard 3-vessel anatomy. Heart: The heart is normal in size and without pericardial effusion. The coronary arteries are densely calcified. The pulmonary trunk is normal in caliber. Lungs and pleural spaces: Mild emphysematous change is noted. There is no airspace consolidation, pleural effusion, or pneumothorax. The trachea and central airways are clear.There are foci of bibasilar scarring/atelectasis. A punctate calcified granuloma is noted in the right middle lobe. Mediastinum: There is no mediastinal lymphadenopathy. Christal: Not well assessed without IV contrast. Axillae: There is no axillary lymphadenopathy. Bony thorax: The skeletal structures are osteopenic. There is an acute nondistracted left anterior 7th rib fracture. The remainder of the bony thorax appears intact. No lytic or blastic lesions are identified. Soft tissues: Gynecomastia is noted. ABDOMEN AND PELVIS: Liver: The unenhanced liver is enlarged, measuring 24.3 cm in length. The liver demonstrates diffusely diminished attenuation consistent with severe hepatic steatosis. There is no intrahepatic or ductal dilatation. Gallbladder: Surgically absent noting clips in the gallbladder fossa. Spleen: Normal in size and attenuation. Pancreas: Unremarkable. Adrenal glands: Unremarkable. Kidneys: The unenhanced kidneys demonstrate cortical atrophy and are without hydronephrosis. No renal calculi are identified. Small bilateral renal cysts measure up to 3 cm. Additional subcentimeter cortical hypodensities also likely represent cysts but are too small for definitive characterization. Abdominal vasculature: The abdominal aorta is normal in course and caliber noting advanced atherosclerotic calcification. Bowel: There is a small hiatal hernia. Circumferential wall thickening is noted in the mid to distal esophagus. The stomach is otherwise normal in configuration. No bowel obstruction is seen. The appendix is well-visualized and normal. Peritoneum: There is no intraperitoneal free air or abdominal ascites. Lymphadenopathy: None. Pelvic viscera: The prostate gland is diminutive and contains coarse calcifications. The bladder wall is thickened and trabeculated indicating chronic outlet obstruction. Small bilateral ureteroceles versus Hutch diverticula are noted and unchanged from previous. Skeletal structures: The skeletal structures are osteopenic. The lumbosacral spine and bony pelvis appear intact. Mild lumbosacral spondylosis is observed. No lytic or blastic lesions are seen. IMPRESSION: 1. Suboptimal examination without IV contrast. 2. There is an acute nondistracted left anterior 7th rib fracture. 3. No additional fracture is seen. 4. There is no airspace consolidation, pleural effusion, or pneumothorax. 5. There is a small hiatal hernia, with circumferential wall thickening noted in the mid to distal esophagus. Correlate clinically for evidence of esophagitis. This could be further assessed with endoscopy if clinically warranted. 6. There is no evidence of solid organ injury in the abdomen or pelvis on this unenhanced examination. 7. Mild emphysema. 8. Hepatomegaly and severe hepatic steatosis. 9. There is mild aneurysmal dilatation of the ascending thoracic aorta which measures up to 4.1 cm in diameter. 10. Additional findings as above. Electronically signed by: Lance Keller M.D. 04/04/2018 7:09 PM XR pelvis 1-2V routine CLINICAL HISTORY: Fall. COMPARISON: CT of the abdomen and pelvis December 27, 2016. FINDINGS: The sacroiliac joints and symphysis pubis are intact. No acute fractures identified within the pelvis or hips. There is mild osteoarthritis of the hips. Pelvic calcifications likely reflect phleboliths. Apparent mild foreshortening of the left femoral neck is likely positional. IMPRESSION: No acute fracture within the pelvis or hips. Electronically signed by: North Ribeiro M.D. 04/04/2018 6:[address] SCAN OF THE BRAIN WITHOUT IV CONTRAST CLINICAL HISTORY: Fall. COMPARISON STUDY: No priors. TECHNIQUE: Unenhanced axial CT scan of the brain is performed from the vertex to the skull base. A dose lowering technique was utilized adhering to the principles of ALARA. FINDINGS: Brain parenchyma: There are age-related involutional changes noting minimal subcortical and periventricular microangiopathic change. There is no hemorrhage , mass effect, or evidence of acute territorial ischemia by CT criteria. Nicole- white matter differentiation is preserved. No extra-axial fluid collection is seen. Ventricles, sulci, cisterns: Prominent secondary to involutional change. Intracranial vasculature: There is atherosclerotic calcification of the cavernous carotid arteries. Calvarium: There is no depressed calvarial fracture. Sinuses and mastoids: The visualized paranasal sinuses are clear. The mastoid air cells are well pneumatized. Orbits: The bony orbits are grossly intact. IMPRESSION: There is no hemorrhage, mass effect, or evidence of acute territorial ischemia by CT criteria. Electronically signed by: Lance Keller M.D. 04/04/2018 6:[address] SCAN OF THE CERVICAL SPINE CLINICAL HISTORY: Fall. COMPARISON STUDY: No priors. TECHNIQUE: CT scan of the cervical spine is performed from the skull base to the upper thoracic spine. Images are reviewed in the axial, sagittal, and coronal planes. IV contrast was not administered for this examination. A dose lowering technique was utilized adhering to the principles of ALARA. FINDINGS: Skeletal structures: The skeletal structures are well mineralized. There is no evidence of fracture or subluxation involving the cervical spine. Vertebral body height is maintained. There is minimal anterolisthesis at C3-C4 and C4- C5. Alignment is otherwise preserved. Small anterior osteophytes are noted in the lower cervical region. There is straightening of the cervical lordosis. The odontoid process and lateral masses are intact. The atlantoaxial articulation is preserved noting mild productive degenerative change. The spinous processes appear intact. Uncovertebral and facet arthropathy are seen at several levels. Intervertebral discs: The disc spaces are well maintained. Central canal: Grossly patent. Soft tissues: The prevertebral and paraspinous soft tissues are within normal limits. There is mild atherosclerotic calcification of the carotid bulbs. Calvarium: The visualized calvarium at the skull base appears intact. Brain parenchyma: Partially visualized brain parenchyma the skull base is within normal limits. Sinuses and mastoids: Trace mucosal thickening is seen within the right maxillary antrum. The mastoid air cells are well pneumatized. Lung apices: Clear as visualized. IMPRESSION: There is no evidence of fracture or subluxation involving the cervical spine. Electronically signed by: Lance Keller M.D. 04/04/2018 6:24 PM XR chest 1V portable CLINICAL HISTORY: Recent falls. Evaluate for perforation. COMPARISON STUDY: Chest radiograph December 27, 2016. FINDINGS: Mild elevation of the right hemidiaphragm is unchanged. There is no pneumothorax or pleural effusion. Cardiomediastinal silhouette is stable. There is no lucency under the hemidiaphragms to indicate pneumoperitoneum on this exam. IMPRESSION: No acute cardiopulmonary findings. Electronically signed by: North Ribeiro M.D. 04/04/2018 6:13 PM ECG Data Attestation: I personally reviewed and interpreted this ECG as follows: Indication: weakness Rate (beats per minute): 132 Rhythm: sinus tachycardia Findings: + other (IN, QRS and QTC are within normal limits) and + ST depression (Mild ST depression in leads B4-B6); no ST elevation Additional Comments: Repeat EKG on 04/04/[address] 128, IN, QRS and QTC are within normal limits. Blood Pressure Blood Pressure Findings: Elevated blood pressure Blood Pressure Disposition: further management by hospitalist JESUS Narrative 1744: Past medical records reviewed. The patient was evaluated in room D4, and a complete history and physical examination were performed.patient was found to be tachycardic and hypotensive. Patient was moved from bed D4 to bed B1. BP on arrival to the trauma bay is 76/52, 2 L NSS bolus was initiated. Bedside US showed no free fluid in abdomen, small pericardial effusion with no pericardial tamponade. 1756: POC Hemoglobin is 10.5. His lactic is 6.25. 1900: His blood pressure is improving 99/51. He is receiving an IV fluid bolus. Patient will be taken to CT. Patient will receive castellanos scan given his falls and reported seizure that was witnessed by his sons. 1921: Vital signs stable. Labs show leukocytosis of 14.17. Coags within normal limits. Hemoglobin of 10.3. Creatinine 2.04 which is improved from his baseline. Troponin 0 0.046. CTs show no acute traumatic injury or free fluid in the abdomen. This is thought to be due to the patient's acute kidney injury , no heparin was started given the patient's active GI bleeding. I discussed the patients case with Dr. Avila, [facility] Hospitalist. The patient will be further evaluated. 1929: A repeat POC lactic acid is 3.5 status post fluid bolus. It is unclear if the lactic acidemia is due to infectious source, however it is less likely given that the patient not having any fever. The lactic acidemia could also be due to seizure that was witnessed by 2 sons. Fluid resuscitation will continue. A repeat Hemoglobin is 8.8. His last BP was 105/72 and his heart rate was 78. Protonix was initiated in the emergency department. Fiorella was also given 1 g IV piggyback load given the reported seizure history. I discussed these findings with Dr. Avila who will evaluate the patient and decide if he should go to the ICU. Blood cultures have been sent. This time the patient is not febrile, has no meningeal signs, antibiotics will be held and be further discussed with the hospitalist team after they evaluate the patient. 2144: Dr. Guzman requested that the patient be admitted to the ICU. Dr. Chen, ICU was here to evaluate the patient. I discussed the patients case with Dr. Chen, ICU. Antibiotics will be held at this time. The patient will be further evaluated. Impression & Plan Acute kidney injury, New onset seizure, Fall, GI bleed, Lactic acidemia, Sepsis Critical Care Time I have personally spent greater than 122 minutes of critical care time in the direct management of this patient. This includes bedside care, interpretation of diagnostic studies, and testing, discussion with consultants, patient, and family members, and other required patient management activities. This 72 minutes is in excess of all separately billable procedures. Critical Care Time: Yes Total Critical Care Time: 122 Discharge Plan Visit Data *Final* Discharge Date/Time: 04/04/18 22:34 Chief Complaint: Illness Stated Complaint: SEIZURE ED Provider: Amado Mares Discharge Problem: Acute kidney injury, New onset seizure, Fall, GI bleed, Lactic acidemia, Sepsis Patient Disposition: Admitted As Inpatient Discharge Instructions Interventions: ED Discharge Assessment Last Done: 04/04/18 22:34 The scribe's documentation has been prepared under my direction and personally reviewed by me in its entirety. I confirm that the note above accurately reflects all work, treatment, procedures, and medical decision making performed by me.
[2018-04-05 00:28] LABS: Hematocrit (blood only) 24.5 % (42-52); Hemoglobin 8.2 g/dL (14.0-18.0)
[2018-04-05 00:43] LABS: BUN Creatinine Ratio 32.9 (10-20); Calcium 7.4 mg/dl (8.5-10.1); Creatinine Clr Calc Pharmacy 58.3 ml/min; Est GFR (African American) 60.4; Est GFR (Non-African American) 52.1; Potassium 3.4 mmol/L (3.5-5.1)
[2018-04-05 00:49] LABS: Troponin I 0.051 ng/ml (0-0.045)
[2018-04-05] MEDS ORDERED: POTASSIUM CHLORIDE 20 MEQ TABCR PO STA (00:50)
[2018-04-05] MEDS: PANTOprazole 40 MG in DEXTROSE 5% 100 ML IV SCH ×5 (01:02→22:15)
[2018-04-05 01:41] LABS: Amphetamines+Metham, Urine Neg (Neg); Barbiturates, Urine Neg (Neg); Benzodiazepine, Urine Neg (Neg); Cocaine, Urine Neg (Neg); MDMA (Ecstacy), Urine Neg (Neg); Methadone, Urine Neg (Neg); Opiate, Urine Neg (Neg); Phencyclidine, Urine Neg (Neg)
[2018-04-05] MEDS: NSS + 20MEQ KCL 20 MEQ/1,000 ML BAG IV SCH ×2 (04:28→10:46)
[2018-04-05] MEDS: GABAPENTIN 600 MG TAB PO SCH ×3 (04:32→18:25)
[2018-04-05 04:46] LABS: Nucleated RBC # (auto) 0.02 K/uL (0-0); Nucleated RBC % (auto) 0.4 %
[2018-04-05 05:03] LABS: BUN Creatinine Ratio 29.3 (10-20); Calcium 7.4 mg/dl (8.5-10.1); Creatinine Clr Calc Pharmacy 59.1 ml/min; Est GFR (African American) 61.4; Potassium 3.8 mmol/L (3.5-5.1)
[2018-04-05 05:14] LABS: Basophilic Stippling Occasional; Basophils # (auto) 0.01 K/uL (0-0.2); Basophils % (auto) 0.2 %; Eosinophils # (auto) 0.02 K/uL (0-0.5); Eosinophils % (auto) 0.3 %; Hematocrit (blood only) 21.5 % (42-52); Hemoglobin 7.5 g/dL (14.0-18.0); Immature Granulocytes # (auto) 0.02 K/uL (0.00-0.02); Immature Granulocytes % (auto) 0.3 %; Lymphocytes # (auto) 0.95 K/uL (1.2-3.4); Lymphocytes % (auto) 15.9 %; Mean Corpuscular Hgb Conc 34.9 g/dL (32-36); Mean Corpuscular Volume 94.3 fL (80-100); Mean Platelet Volume 9.8 fL (7.4-10.4); Monocytes # (auto) 0.55 K/uL (0.11-0.59); Monocytes % (auto) 9.2 %; Neutrophils # (auto) 4.43 K/uL (1.4-6.5); Neutrophils % (auto) 74.1 %; Platelet Count 66 K/uL (130-400); Poikilocytosis Present; RDW Coefficient of Variation 15.9 % (11.5-14.5); RDW Standard Deviation 55.6 fL (36.4-46.3); Red Blood Count 2.28 M/uL (4.7-6.1); White Blood Count 5.98 K/uL (4.8-10.8)
[2018-04-05 05:20] LABS: Troponin I 0.054 ng/ml (0-0.045)
[2018-04-05] MEDS: METOPROLOL SUCC 50MG EXT REL TAB PO SCH (06:04)
[2018-04-05] MEDS: INSULIN ASPART 100 UNITS/ML 3 ML PEN SC SCH ×3 (06:05→18:25)
[2018-04-05 07:07] LABS: Estimated Average Glucose 97 mg/dl
[2018-04-05] MEDS: OCTREOTIDE ACETATE 500 MCG in 0.9 % SODIUM CHLORIDE 100 ML IV SCH ×2 (07:45→18:25)
[2018-04-05] MEDS: SERTRALINE HCL 50 MG TABLET PO SCH (07:51)
[2018-04-05] MEDS: FOLIC ACID 1 MG TAB PO SCH (07:52)
[2018-04-05] MEDS: THIAMINE HCL 100 MG TAB PO SCH (07:52)
[2018-04-05] MEDS: MULTIVITAMIN TAB PO SCH (07:52)
[2018-04-05] MEDS ORDERED: INFLUENZA ADMINISTRATION CHARGE ONE (08:00)
[2018-04-05] MEDS ORDERED: INFLUENZA VACCINE HIGH DOSE 65+ 0.5 ML SYR IM ONE (08:00)
[2018-04-05] MEDS ORDERED: PNEUMOCOCCAL ADMINISTRATION CHARGE ONE (08:00)
[2018-04-05] MEDS ORDERED: PNEUMOCOCCAL POLYSACCHARIDES 25 MCG/0.5 ML VIAL/SYR IM ONE (08:00)
--- NOTE | 2018-04-05 12:14 | Consultation Report ---
DATE: 04/05/2018 REASON FOR CONSULTATION: Seizure. HISTORY OF PRESENT ILLNESS: The patient is a 67-year-old right-handed male with a history of hypertension. The patient has been ill for 4 days, vomiting, unable to take any of his medications by mouth, these medicines include aspirin, lisinopril, metoprolol, rosuvastatin and sertraline. He is a daily alcohol drinker, his confided with me that it is unclear how much he drinks in a day, but it is significant. The patient indicates to me that he drinks several alcoholic, liquor beverages per day. His last drink was approximately 3 days prior to admission. He had poor oral intake. He had multiple falls. The falls were apparently unwitnessed, but when he woke up on the ground several times, he would only transiently be disoriented and he had not been injured other than bruising and had not bitten his tongue and has been incontinent. At least one episode of seizure activity lasting 2 minutes was noted, he was incontinent thereafter, confused and purposelessly reaching for his belt for 10 minutes. In the ER, his blood pressure was in the 90s, initially fluid was administered, Keppra given and Protonix infused. It was determined that he had upper GI bleed and was hemodynamically unstable, had acute on chronic anemia, had a traumatic fracture of his left rib, hypokalemia, acute renal failure related to illness, elevation of troponin, thoracic aortic aneurysm on CT and abnormal liver function. PAST MEDICAL HISTORY: His past medical history is notable for hypertension, hyperlipidemia. He has a history of acute kidney injury related to a food-borne illness. No hx of sz, stroke, syncope, head injury. Hx of tremor, hx of meningitis in 8th grade. 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 He does not smoke. He drinks alcohol as above. MEDICATIONS: Upon admission, he was initially loaded with Keppra and that it has been held and he is on a gabapentin protocol. His current medications include gabapentin, sertraline, folic acid, thiamine, insulin sliding scale, and metoprolol. No family history of seizure. LABORATORY DATA: His noncontrast CT of the head was unremarkable. His white count on admission was 14, H and H 10.3/31, eventually falling with hydration to 7.5 and 21.5, platelet count initially 147, now 66. PTT 20.1. Chemistry profile notable for an initial sodium of 132, potassium 3.4, BUN/cr 46/1.39, glucose 134 POC, calcium 7.4. CK initially 552. Troponin positive. TSH 2.73. Urinalysis notable for 2+ protein, 3+ blood, 10-30 hyaline casts, greater than 30 epithelial cells. Toxicology screen is negative. Influenza A and B are negative. Hep C is negative. PHYSICAL EXAMINATION: VITAL SIGNS: Current vitals 37, pulse 106, respirations 18, 112/79. HEENT: The patient is normocephalic, atraumatic. No evidence of tongue laceration. NEUROLOGIC: He is awake, alert, oriented x3, no right/left confusion and no aphasia. Pupils are equal. Optic nerves are difficult to visualize. There are normal gonzalez, motility, facial symmetry. There is symmetric strength, no drift. Normal rapid alternating movements, diminished ankle jerks, downgoing toes. He is mildly tremulous on [id number] and [id number] is normal. Vibration is only appreciated at the ankles. IMPRESSION: Possible alcohol withdrawal seizure. PLAN: 1. MRI brain with and without contrast if kidney function permits. 2. EEG. 3. Further determination regarding ongoing anticonvulsant dependent on the results of the EEG. 4. Alcohol withdrawal. The patient was counseled on the relationship that the alcohol use and withdrawal may be playing. 5. Mild essential tremor which says preceded the alcohol withdrawal, not requiring any treatment at present, although the aforementioned medications for alcohol withdrawal prophylaxis may be blunting that. 6. Possible peripheral neuropathy, not particularly explored although could be related to alcohol use. We will follow with you. RACHAEL
[2018-04-05] MEDS ORDERED: GADOBUTROL 65ML VIAL IV PRN (12:47)
[2018-04-05 13:15] LABS: Hematocrit (blood only) 22.6 % (42-52); Hemoglobin 7.4 g/dL (14.0-18.0)
--- NOTE | 2018-04-05 13:31 | Magnetic Resonance Report ---
MRI OF THE BRAIN COMBO CLINICAL HISTORY: Seizure. COMPARISON STUDY: CT of the brain dated 04/04/2018. TECHNIQUE: MRI of the brain was performed utilizing various T1 and T2-weighted sequences in the axial , sagittal, and coronal planes. Contrast-enhanced sequences were acquired following the administratio n of 8.5 cc of Gadavist. The examination is performed using the seizure protocol. The examination is modestly degraded by motion artifact. 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 There is no hemorrhage or mass effect. There is no r estricted diffusion to suggest acute ischemia. No enhancing mass lesion is identified on the postcont rast images. Nicole-white matter differentiation is preserved. No extra-axial fluid collection is seen. The cerebellar tonsils are normal in configuration. The hippocampi are normal and symmetric. Ventricles, sulci, and cisterns: Prominent secondary to involutional change. Pituitary and sella: Unremarkable. Intracranial vasculature: Normal flow voids are maintained at the skull base. Orbits: The bony orbits are grossly intact. Orbital contents are normal in appearance. Sinuses and mastoids: There is trace mucosal thickening within the maxillary antra, ethmoid sinuses, and the sphenoid sinuses. The mastoid air cells are well pneumatized. Calvarium: Unremarkable. Cervical cord: Partially visualized cervical spinal cord is normal in morphology and signal intensity . IMPRESSION: No acute intracranial abnormality. Electronically signed by: Lance Keller M.D. 04/05/2018 1:30 PM
--- NOTE | 2018-04-05 17:01 | Critical Care Progress Note ---
Date of Service April 05, 2018 Supervising Physician Co-Signing Physician Notes Reason Critically Ill: Gastrointestinal hemorrhage with hemodynamic instability PLAN: Neuro: Possible seizure-like activity -Antiepileptics per neurology -RI reviewed -Neurology consult reviewed -Alcohol withdrawal precautions Resp: Calcifications seen on CT scan -Pulmonary nodule clinic follow-up CV: Tachycardia: Resolved Aortic dilatation -Outpatient follow-up with cardiothoracic surgery Elevated troponins -Trend troponins -Low threshold to scan with contrast if concerned for aortic dissection however not consistent with clinical history Fluids/Renal: Acute kidney injury -Improving Lactic acid acidosis: Resolved ID: Blood cultures pending: No growth to date GI/Nutrition: Gastrointestinal hemorrhage -On Protonix infusion -On octreotide given alcohol history -No purported history of esophageal varices History of frequent colonoscopies secondary to history of polyps -No history of EGD Heme: Anemia -Holding blood transfusion -Will transfuse if H&H drops below 6, troponins not significantly of increasing I do not believe the patient is having cardiac ischemia DVT prophylaxis: SCDs Endocrine: ICU hyperglycemia protocol Vascular access: 18-gauge and 20-gauge peripheral IVs Code Status: Full code I have personally spent 35 minutes of critical care time in the direct management of this patient. This is a life/limb threatening event. This includes time spent evaluating patient, direct bedside care, chart review, placing orders, interpretation of diagnostic studies, discussion with consultants, patient, and/or family members regarding treatment decisions, as well as other required patient management activities. This time is exclusive of all separately billable procedures, and teaching time and separate from and in addition to any other critical care service time. Subjective No additional seizure-like activity. Feels improved compared to yesterday Physical Exam 2 Vital Signs (Past 24 Hours): Last Vital Signs Temp 36.8 C 04/05/18 13:00 Pulse 93 H 04/05/18 13:00 Resp 27 H 04/05/18 13:00 BP 126/73 04/05/18 13:00 Pulse Ox 100 04/05/18 13:00 General: Well-nourished male appears stated age I have reviewed the recorded vital signs Neurological: RASS score: 1, Moves all 4 extremities, Psychological: GCS 15 following complex commands Eyes: Pupils are equal, round and reactive to light, anicteric sclera. Symmetrical lids. HENT: Oropharynx is clear, moist mucous membranes. Neck: Supple. Symmetric. trachea midline. No thyromegaly. Cardiovascular: Normal peripheral perfusion. Distal pulses and capillary refill intact. No JVD. Respiratory: Respirations are non-labored, no accessory muscle use. Breath sounds are equal. Gastrointestinal: Soft. Non-distended. Diffuse ecchymoses over the abdomen Lymphatic: No cervical lymphadenopathy. Musculoskeletal: No deformity. No clubbing nor cyanosis. Results & Data Laboratory Results 04/05/18 04/05/18 04/05/18 Range/Units 13:16 12:52 04:29 WBC (4.8-10.8) K/uL RBC (4.7-6.1) M/uL Hgb 7.4 L (14.0-18.0) g/dL POC Hgb (14.0-18.0) g/dl Hct 22.6 L (42-52) % POC Hct (42-52) % MCV (80-100) fL MCH (25-34) pg MCHC (32-36) g/dL RDW Std Deviation (36.4-46.3) fL RDW Coeff of Julia (11.5-14.5) % Plt Count (130-400) K/uL MPV (7.4-10.4) fL Immature Gran % (Auto) % Neut % (Auto) % Lymph % (Auto) % [place] % (Auto) % Eos % (Auto) % Baso % (Auto) % Immature Gran # (Auto) (0.00-0.02) K/uL Neut # (Auto) (1.4-6.5) K/uL Lymph # (Auto) (1.2-3.4) K/uL [place] # (Auto) (0.11-0.59) K/uL Eos # (Auto) (0-0.5) K/uL Baso # (Auto) (0-0.2) K/uL Absolute Nucleated RBC (0-0) K/uL Nucleated RBC % (auto) % Platelet Estimate (Normal) Poikilocytosis Basophilic Stippling Echinocytes PT (9.0-12.0) Seconds INR (0.9-1.1) APTT (21.0-31.0) Seconds PTT Ratio POC Sodium (135-144) mEq/L Sodium (136-145) mmol/L POC Potassium (3.3-5.0) mEq/L Potassium (3.5-5.1) mmol/L POC Chloride (101-112) mEq/L Chloride (98-107) mmol/L Carbon Dioxide (21-32) mmol/L POC Total CO2 (24-31) mEq/l Anion Gap (3-11) POC Anion Gap (16-25) mmol/L POC BUN (7-18) mg/dl BUN (7-18) mg/dl Creatinine (0.6-1.4) mg/dl POC Creatinine (0.6-1.3) mg/dl Est Cr Clr Drug Dosing ml/min Est GFR ( Amer) Est GFR (Non-Af Amer) BUN/Creatinine Ratio (10-20) Glucose (70-99) mg/dl POC Glucose 117 H (70-99) POC Glucose (other) (70-99) mg/dl Estimat Average Glucose mg/dl Hemoglobin A1c (4.5-5.6) % Osmolality (280-300) mOsm/kg POC Lactic Acid Miguelito (0.90-1.70) mmol/L Lactate (0.4-2.0) mmol/L Calcium (8.5-10.1) mg/dl POC Ioniz Calcium Felicita (1.12-1.32) mmol/l Magnesium (1.8-2.4) mg/dl Total Bilirubin (0.2-1) mg/dl Direct Bilirubin (0-0.2) mg/dl AST (15-37) U/L ALT (12-78) U/L Alkaline Phosphatase (45-117) U/L Total Creatine Kinase (39-308) U/L POC Troponin I (0-0.045) ng/ml Troponin I (0-0.045) ng/ml Total Protein (6.4-8.2) gm/dl Albumin (3.4-5.0) gm/dl Lipase (73-393) U/L Folate (>5.38) ng/ml Procalcitonin (0-0.5) ng/ml TSH (0.300-4.500) uIu/ml Urine Color Urine Appearance (Clear) Urine pH (4.5-7.5) Ur Specific [place] (1.000-1.030) Urine Protein (Negative) Urine Glucose (UA) (Negative) Urine Ketones (Negative) Urine Blood (Negative) Urine Nitrite (Negative) Urine Bilirubin (Negative) Urine Urobilinogen (Negative) Ur Leukocyte Esterase (Negative) Urine WBC (Auto) (0-5) /hpf Urine RBC (Auto) (0-4) /hpf U Hyaline Cast (Auto) (0-5) /lpf U Epithel Cells (Auto) (0-5) /lpf Urine Bacteria (Auto) (Negative) Ur Renal Epithelial Cell Granular Casts (0) /lpf Urine Osmolality (500-800) mOsm/kg Ur Random Sodium mmol/L Nasal Screen MRSA (PCR) (Negative) Stl C. diff Tox B Gene (Neg) Urine Opiates Screen (Neg) Ur Methadone, Qual (Neg) Urine Barbiturates (Neg) Ur Phencyclidine (PCP) (Neg) U Amphetamin/Meth Scrn (Neg) MDMA (Ecstasy) Screen (Neg) U Benzodiazepines Scrn (Neg) Ur Cocaine Metabolite (Neg) U Marijuana (THC) Screen (Neg) Ethyl Alcohol mg/dL (0-3) mg/dl Hepatitis C Ab Screen (Neg) Influenza Type A (PCR) (Neg) Influenza Type B (PCR) (Neg) Blood Type Blood Type Recheck O Positive Antibody Screen Crossmatch 04/05/18 04/05/18 04/05/18 Range/Units 04:29 04:29 04:29 WBC 5.98 (4.8-10.8) K/uL RBC 2.28 L (4.7-6.1) M/uL Hgb 7.5 L (14.0-18.0) g/dL POC Hgb (14.0-18.0) g/dl Hct 21.5 L (42-52) % POC Hct (42-52) % MCV 94.3 (80-100) fL MCH 32.9 (25-34) pg MCHC 34.9 (32-36) g/dL RDW Std Deviation 55.6 H (36.4-46.3) fL RDW Coeff of Julia 15.9 H (11.5-14.5) % Plt Count 66 L D (130-400) K/uL MPV 9.8 (7.4-10.4) fL Immature Gran % (Auto) 0.3 % Neut % (Auto) 74.1 % Lymph % (Auto) 15.9 % Ows[place] % (Auto) 9.2 % Eos % (Auto) 0.3 % Baso % (Auto) 0.2 % Immature Gran # (Auto) 0.02 (0.00-0.02) K/uL Neut # (Auto) 4.43 (1.4-6.5) K/uL Lymph # (Auto) 0.95 L (1.2-3.4) K/uL [place] # (Auto) 0.55 (0.11-0.59) K/uL Eos # (Auto) 0.02 (0-0.5) K/uL Baso # (Auto) 0.01 (0-0.2) K/uL Absolute Nucleated RBC 0.02 H (0-0) K/uL Nucleated RBC % (auto) 0.4 % Platelet Estimate Decreased (Normal) Poikilocytosis Present Basophilic Stippling Occasional Echinocytes PT (9.0-12.0) Seconds INR (0.9-1.1) APTT (21.0-31.0) Seconds PTT Ratio POC Sodium (135-144) mEq/L Sodium 134 L (136-145) mmol/L POC Potassium (3.3-5.0) mEq/L Potassium 3.8 (3.5-5.1) mmol/L POC Chloride (101-112) mEq/L Chloride 109 H (98-107) mmol/L Carbon Dioxide 17 L (21-32) mmol/L POC Total CO2 (24-31) mEq/l Anion Gap 8.0 (3-11) POC Anion Gap (16-25) mmol/L POC BUN (7-18) mg/dl BUN 40 H (7-18) mg/dl Creatinine 1.37 (0.6-1.4) mg/dl POC Creatinine (0.6-1.3) mg/dl Est Cr Clr Drug Dosing 59.1 ml/min Est GFR ( Amer) 61.4 Est GFR (Non-Af Amer) 53.0 BUN/Creatinine Ratio 29.3 H (10-20) Glucose 149 H (70-99) mg/dl POC Glucose (70-99) POC Glucose (other) (70-99) mg/dl Estimat Average Glucose mg/dl Hemoglobin A1c (4.5-5.6) % Osmolality (280-300) mOsm/kg POC Lactic Acid Miguelito (0.90-1.70) mmol/L Lactate 0.8 (0.4-2.0) mmol/L Calcium 7.4 L (8.5-10.1) mg/dl POC Ioniz Calcium Felicita (1.12-1.32) mmol/l Magnesium (1.8-2.4) mg/dl Total Bilirubin (0.2-1) mg/dl Direct Bilirubin (0-0.2) mg/dl AST (15-37) U/L ALT (12-78) U/L Alkaline Phosphatase (45-117) U/L Total Creatine Kinase 473 H (39-308) U/L POC Troponin I (0-0.045) ng/ml Troponin I 0.054 H* (0-0.045) ng/ml Total Protein (6.4-8.2) gm/dl Albumin (3.4-5.0) gm/dl Lipase (73-393) U/L Folate (>5.38) ng/ml Procalcitonin (0-0.5) ng/ml TSH (0.300-4.500) uIu/ml Urine Color Urine Appearance (Clear) Urine pH (4.5-7.5) Ur Specific [place] (1.000-1.030) Urine Protein (Negative) Urine Glucose (UA) (Negative) Urine Ketones (Negative) Urine Blood (Negative) Urine Nitrite (Negative) Urine Bilirubin (Negative) Urine Urobilinogen (Negative) Ur Leukocyte Esterase (Negative) Urine WBC (Auto) (0-5) /hpf Urine RBC (Auto) (0-4) /hpf U Hyaline Cast (Auto) (0-5) /lpf U Epithel Cells (Auto) (0-5) /lpf Urine Bacteria (Auto) (Negative) Ur Renal Epithelial Cell Granular Casts (0) /lpf Urine Osmolality (500-800) mOsm/kg Ur Random Sodium mmol/L Nasal Screen MRSA (PCR) (Negative) Stl C. diff Tox B Gene (Neg) Urine Opiates Screen (Neg) Ur Methadone, Qual (Neg) Urine Barbiturates (Neg) Ur Phencyclidine (PCP) (Neg) U Amphetamin/Meth Scrn (Neg) MDMA (Ecstasy) Screen (Neg) U Benzodiazepines Scrn (Neg) Ur Cocaine Metabolite (Neg) U Marijuana (THC) Screen (Neg) Ethyl Alcohol mg/dL (0-3) mg/dl Hepatitis C Ab Screen (Neg) Influenza Type A (PCR) (Neg) Influenza Type B (PCR) (Neg) Blood Type Blood Type Recheck Antibody Screen Crossmatch 04/05/18 04/05/18 04/05/18 Range/Units 01:10 01:10 01:10 WBC (4.8-10.8) K/uL RBC (4.7-6.1) M/uL Hgb (14.0-18.0) g/dL POC Hgb (14.0-18.0) g/dl Hct (42-52) % POC Hct (42-52) % MCV (80-100) fL MCH (25-34) pg MCHC (32-36) g/dL RDW Std Deviation (36.4-46.3) fL RDW Coeff of Julia (11.5-14.5) % Plt Count (130-400) K/uL MPV (7.4-10.4) fL Immature Gran % (Auto) % Neut % (Auto) % Lymph % (Auto) % [place] % (Auto) % Eos % (Auto) % Baso % (Auto) % Immature Gran # (Auto) (0.00-0.02) K/uL Neut # (Auto) (1.4-6.5) K/uL Lymph # (Auto) (1.2-3.4) K/uL [place] # (Auto) (0.11-0.59) K/uL Eos # (Auto) (0-0.5) K/uL Baso # (Auto) (0-0.2) K/uL Absolute Nucleated RBC (0-0) K/uL Nucleated RBC % (auto) % Platelet Estimate (Normal) Poikilocytosis Basophilic Stippling Echinocytes PT (9.0-12.0) Seconds INR (0.9-1.1) APTT (21.0-31.0) Seconds PTT Ratio POC Sodium (135-144) mEq/L Sodium (136-145) mmol/L POC Potassium (3.3-5.0) mEq/L Potassium (3.5-5.1) mmol/L POC Chloride (101-112) mEq/L Chloride (98-107) mmol/L Carbon Dioxide (21-32) mmol/L POC Total CO2 (24-31) mEq/l Anion Gap (3-11) POC Anion Gap (16-25) mmol/L POC BUN (7-18) mg/dl BUN (7-18) mg/dl Creatinine (0.6-1.4) mg/dl POC Creatinine (0.6-1.3) mg/dl Est Cr Clr Drug Dosing ml/min Est GFR ( Amer) Est GFR (Non-Af Amer) BUN/Creatinine Ratio (10-20) Glucose (70-99) mg/dl POC Glucose (70-99) POC Glucose (other) (70-99) mg/dl Estimat Average Glucose mg/dl Hemoglobin A1c (4.5-5.6) % Osmolality (280-300) mOsm/kg POC Lactic Acid Miguelito (0.90-1.70) mmol/L Lactate (0.4-2.0) mmol/L Calcium (8.5-10.1) mg/dl POC Ioniz Calcium Felicita (1.12-1.32) mmol/l Magnesium (1.8-2.4) mg/dl Total Bilirubin (0.2-1) mg/dl Direct Bilirubin (0-0.2) mg/dl AST (15-37) U/L ALT (12-78) U/L Alkaline Phosphatase (45-117) U/L Total Creatine Kinase (39-308) U/L POC Troponin I (0-0.045) ng/ml Troponin I (0-0.045) ng/ml Total Protein (6.4-8.2) gm/dl Albumin (3.4-5.0) gm/dl Lipase (73-393) U/L Folate (>5.38) ng/ml Procalcitonin (0-0.5) ng/ml TSH (0.300-4.500) uIu/ml Urine Color Urine Appearance (Clear) Urine pH (4.5-7.5) Ur Specific [place] (1.000-1.030) Urine Protein (Negative) Urine Glucose (UA) (Negative) Urine Ketones (Negative) Urine Blood (Negative) Urine Nitrite (Negative) Urine Bilirubin (Negative) Urine Urobilinogen (Negative) Ur Leukocyte Esterase (Negative) Urine WBC (Auto) (0-5) /hpf Urine RBC (Auto) (0-4) /hpf U Hyaline Cast (Auto) (0-5) /lpf U Epithel Cells (Auto) (0-5) /lpf Urine Bacteria (Auto) (Negative) Ur Renal Epithelial Cell Granular Casts (0) /lpf Urine Osmolality 590 (500-800) mOsm/kg Ur Random Sodium 26 mmol/L Nasal Screen MRSA (PCR) (Negative) Stl C. diff Tox B Gene (Neg) Urine Opiates Screen Neg (Neg) Ur Methadone, Qual Neg (Neg) Urine Barbiturates Neg (Neg) Ur Phencyclidine (PCP) Neg (Neg) U Amphetamin/Meth Scrn Neg (Neg) MDMA (Ecstasy) Screen Neg (Neg) U Benzodiazepines Scrn Neg (Neg) Ur Cocaine Metabolite Neg (Neg) U Marijuana (THC) Screen Neg (Neg) Ethyl Alcohol mg/dL (0-3) mg/dl Hepatitis C Ab Screen (Neg) Influenza Type A (PCR) (Neg) Influenza Type B (PCR) (Neg) Blood Type Blood Type Recheck Antibody Screen Crossmatch 04/05/18 04/05/18 04/05/18 Range/Units 00:17 00:17 00:17 WBC (4.8-10.8) K/uL RBC (4.7-6.1) M/uL Hgb (14.0-18.0) g/dL POC Hgb (14.0-18.0) g/dl Hct (42-52) % POC Hct (42-52) % MCV (80-100) fL MCH (25-34) pg MCHC (32-36) g/dL RDW Std Deviation (36.4-46.3) fL RDW Coeff of Julia (11.5-14.5) % Plt Count (130-400) K/uL MPV (7.4-10.4) fL Immature Gran % (Auto) % Neut % (Auto) % Lymph % (Auto) % [place] % (Auto) % Eos % (Auto) % Baso % (Auto) % Immature Gran # (Auto) (0.00-0.02) K/uL Neut # (Auto) (1.4-6.5) K/uL Lymph # (Auto) (1.2-3.4) K/uL [place] # (Auto) (0.11-0.59) K/uL Eos # (Auto) (0-0.5) K/uL Baso # (Auto) (0-0.2) K/uL Absolute Nucleated RBC (0-0) K/uL Nucleated RBC % (auto) % Platelet Estimate (Normal) Poikilocytosis Basophilic Stippling Echinocytes PT (9.0-12.0) Seconds INR (0.9-1.1) APTT (21.0-31.0) Seconds PTT Ratio POC Sodium (135-144) mEq/L Sodium 132 L (136-145) mmol/L POC Potassium (3.3-5.0) mEq/L Potassium 3.4 L (3.5-5.1) mmol/L POC Chloride (101-112) mEq/L Chloride 104 (98-107) mmol/L Carbon Dioxide 18 L (21-32) mmol/L POC Total CO2 (24-31) mEq/l Anion Gap 10.0 (3-11) POC Anion Gap (16-25) mmol/L POC BUN (7-18) mg/dl BUN 46 H (7-18) mg/dl Creatinine 1.39 D (0.6-1.4) mg/dl POC Creatinine (0.6-1.3) mg/dl Est Cr Clr Drug Dosing 58.3 ml/min Est GFR ( Amer) 60.4 Est GFR (Non-Af Amer) 52.1 BUN/Creatinine Ratio 32.9 H (10-20) Glucose 141 H (70-99) mg/dl POC Glucose (70-99) POC Glucose (other) (70-99) mg/dl Estimat Average Glucose mg/dl Hemoglobin A1c (4.5-5.6) % Osmolality (280-300) mOsm/kg POC Lactic Acid Miguelito (0.90-1.70) mmol/L Lactate 2.2 H* (0.4-2.0) mmol/L Calcium 7.4 L (8.5-10.1) mg/dl POC Ioniz Calcium Felicita (1.12-1.32) mmol/l Magnesium (1.8-2.4) mg/dl Total Bilirubin (0.2-1) mg/dl Direct Bilirubin (0-0.2) mg/dl AST (15-37) U/L ALT (12-78) U/L Alkaline Phosphatase (45-117) U/L Total Creatine Kinase (39-308) U/L POC Troponin I (0-0.045) ng/ml Troponin I 0.051 H* (0-0.045) ng/ml Total Protein (6.4-8.2) gm/dl Albumin (3.4-5.0) gm/dl Lipase (73-393) U/L Folate (>5.38) ng/ml Procalcitonin (0-0.5) ng/ml TSH (0.300-4.500) uIu/ml Urine Color Urine Appearance (Clear) Urine pH (4.5-7.5) Ur Specific [place] (1.000-1.030) Urine Protein (Negative) Urine Glucose (UA) (Negative) Urine Ketones (Negative) Urine Blood (Negative) Urine Nitrite (Negative) Urine Bilirubin (Negative) Urine Urobilinogen (Negative) Ur Leukocyte Esterase (Negative) Urine WBC (Auto) (0-5) /hpf Urine RBC (Auto) (0-4) /hpf U Hyaline Cast (Auto) (0-5) /lpf U Epithel Cells (Auto) (0-5) /lpf Urine Bacteria (Auto) (Negative) Ur Renal Epithelial Cell Granular Casts (0) /lpf Urine Osmolality (500-800) mOsm/kg Ur Random Sodium mmol/L Nasal Screen MRSA (PCR) (Negative) Stl C. diff Tox B Gene (Neg) Urine Opiates Screen (Neg) Ur Methadone, Qual (Neg) Urine Barbiturates (Neg) Ur Phencyclidine (PCP) (Neg) U Amphetamin/Meth Scrn (Neg) MDMA (Ecstasy) Screen (Neg) U Benzodiazepines Scrn (Neg) Ur Cocaine Metabolite (Neg) U Marijuana (THC) Screen (Neg) Ethyl Alcohol mg/dL < 3.0 (0-3) mg/dl Hepatitis C Ab Screen (Neg) Influenza Type A (PCR) (Neg) Influenza Type B (PCR) (Neg) Blood Type Blood Type Recheck Antibody Screen Crossmatch 04/05/18 04/04/18 04/04/18 Range/Units 00:17 23:25 23:00 WBC (4.8-10.8) K/uL RBC (4.7-6.1) M/uL Hgb 8.2 L (14.0-18.0) g/dL POC Hgb (14.0-18.0) g/dl Hct 24.5 L (42-52) % POC Hct (42-52) % MCV (80-100) fL MCH (25-34) pg MCHC (32-36) g/dL RDW Std Deviation (36.4-46.3) fL RDW Coeff of Julia (11.5-14.5) % Plt Count (130-400) K/uL MPV (7.4-10.4) fL Immature Gran % (Auto) % Neut % (Auto) % Lymph % (Auto) % [place] % (Auto) % Eos % (Auto) % Baso % (Auto) % Immature Gran # (Auto) (0.00-0.02) K/uL Neut # (Auto) (1.4-6.5) K/uL Lymph # (Auto) (1.2-3.4) K/uL [place] # (Auto) (0.11-0.59) K/uL Eos # (Auto) (0-0.5) K/uL Baso # (Auto) (0-0.2) K/uL Absolute Nucleated RBC (0-0) K/uL Nucleated RBC % (auto) % Platelet Estimate (Normal) Poikilocytosis Basophilic Stippling Echinocytes PT (9.0-12.0) Seconds INR (0.9-1.1) APTT (21.0-31.0) Seconds PTT Ratio POC Sodium (135-144) mEq/L Sodium (136-145) mmol/L POC Potassium (3.3-5.0) mEq/L Potassium (3.5-5.1) mmol/L POC Chloride (101-112) mEq/L Chloride (98-107) mmol/L Carbon Dioxide (21-32) mmol/L POC Total CO2 (24-31) mEq/l Anion Gap (3-11) POC Anion Gap (16-25) mmol/L POC BUN (7-18) mg/dl BUN (7-18) mg/dl Creatinine (0.6-1.4) mg/dl POC Creatinine (0.6-1.3) mg/dl Est Cr Clr Drug Dosing ml/min Est GFR ( Amer) Est GFR (Non-Af Amer) BUN/Creatinine Ratio (10-20) Glucose (70-99) mg/dl POC Glucose 134 H (70-99) POC Glucose (other) (70-99) mg/dl Estimat Average Glucose mg/dl Hemoglobin A1c (4.5-5.6) % Osmolality (280-300) mOsm/kg POC Lactic Acid Miguelito (0.90-1.70) mmol/L Lactate (0.4-2.0) mmol/L Calcium (8.5-10.1) mg/dl POC Ioniz Calcium Felicita (1.12-1.32) mmol/l Magnesium (1.8-2.4) mg/dl Total Bilirubin (0.2-1) mg/dl Direct Bilirubin (0-0.2) mg/dl AST (15-37) U/L ALT (12-78) U/L Alkaline Phosphatase (45-117) U/L Total Creatine Kinase (39-308) U/L POC Troponin I (0-0.045) ng/ml Troponin I (0-0.045) ng/ml Total Protein (6.4-8.2) gm/dl Albumin (3.4-5.0) gm/dl Lipase (73-393) U/L Folate (>5.38) ng/ml Procalcitonin (0-0.5) ng/ml TSH (0.300-4.500) uIu/ml Urine Color Urine Appearance (Clear) Urine pH (4.5-7.5) Ur Specific [place] (1.000-1.030) Urine Protein (Negative) Urine Glucose (UA) (Negative) Urine Ketones (Negative) Urine Blood (Negative) Urine Nitrite (Negative) Urine Bilirubin (Negative) Urine Urobilinogen (Negative) Ur Leukocyte Esterase (Negative) Urine WBC (Auto) (0-5) /hpf Urine RBC (Auto) (0-4) /hpf U Hyaline Cast (Auto) (0-5) /lpf U Epithel Cells (Auto) (0-5) /lpf Urine Bacteria (Auto) (Negative) Ur Renal Epithelial Cell Granular Casts (0) /lpf Urine Osmolality (500-800) mOsm/kg Ur Random Sodium mmol/L Nasal Screen MRSA (PCR) Negative (Negative) Stl C. diff Tox B Gene (Neg) Urine Opiates Screen (Neg) Ur Methadone, Qual (Neg) Urine Barbiturates (Neg) Ur Phencyclidine (PCP) (Neg) U Amphetamin/Meth Scrn (Neg) MDMA (Ecstasy) Screen (Neg) U Benzodiazepines Scrn (Neg) Ur Cocaine Metabolite (Neg) U Marijuana (THC) Screen (Neg) Ethyl Alcohol mg/dL (0-3) mg/dl Hepatitis C Ab Screen (Neg) Influenza Type A (PCR) (Neg) Influenza Type B (PCR) (Neg) Blood Type Blood Type Recheck Antibody Screen Crossmatch 04/04/18 04/04/18 04/04/18 Range/Units 21:05 21:05 20:05 WBC (4.8-10.8) K/uL RBC (4.7-6.1) M/uL Hgb (14.0-18.0) g/dL POC Hgb (14.0-18.0) g/dl Hct (42-52) % POC Hct (42-52) % MCV (80-100) fL MCH (25-34) pg MCHC (32-36) g/dL RDW Std Deviation (36.4-46.3) fL RDW Coeff of Julia (11.5-14.5) % Plt Count (130-400) K/uL MPV (7.4-10.4) fL Immature Gran % (Auto) % Neut % (Auto) % Lymph % (Auto) % [place] % (Auto) % Eos % (Auto) % Baso % (Auto) % Immature Gran # (Auto) (0.00-0.02) K/uL Neut # (Auto) (1.4-6.5) K/uL Lymph # (Auto) (1.2-3.4) K/uL [place] # (Auto) (0.11-0.59) K/uL Eos # (Auto) (0-0.5) K/uL Baso # (Auto) (0-0.2) K/uL Absolute Nucleated RBC (0-0) K/uL Nucleated RBC % (auto) % Platelet Estimate (Normal) Poikilocytosis Basophilic Stippling Echinocytes PT (9.0-12.0) Seconds INR (0.9-1.1) APTT (21.0-31.0) Seconds PTT Ratio POC Sodium (135-144) mEq/L Sodium (136-145) mmol/L POC Potassium (3.3-5.0) mEq/L Potassium (3.5-5.1) mmol/L POC Chloride (101-112) mEq/L Chloride (98-107) mmol/L Carbon Dioxide (21-32) mmol/L POC Total CO2 (24-31) mEq/l Anion Gap (3-11) POC Anion Gap (16-25) mmol/L POC BUN (7-18) mg/dl BUN (7-18) mg/dl Creatinine (0.6-1.4) mg/dl POC Creatinine (0.6-1.3) mg/dl Est Cr Clr Drug Dosing ml/min Est GFR ( Amer) Est GFR (Non-Af Amer) BUN/Creatinine Ratio (10-20) Glucose (70-99) mg/dl POC Glucose (70-99) POC Glucose (other) (70-99) mg/dl Estimat Average Glucose mg/dl Hemoglobin A1c (4.5-5.6) % Osmolality 292 (280-300) mOsm/kg POC Lactic Acid Miguelito (0.90-1.70) mmol/L Lactate (0.4-2.0) mmol/L Calcium (8.5-10.1) mg/dl POC Ioniz Calcium Felicita (1.12-1.32) mmol/l Magnesium (1.8-2.4) mg/dl Total Bilirubin (0.2-1) mg/dl Direct Bilirubin (0-0.2) mg/dl AST (15-37) U/L ALT (12-78) U/L Alkaline Phosphatase (45-117) U/L Total Creatine Kinase (39-308) U/L POC Troponin I (0-0.045) ng/ml Troponin I (0-0.045) ng/ml Total Protein (6.4-8.2) gm/dl Albumin (3.4-5.0) gm/dl Lipase (73-393) U/L Folate > 24.00 (>5.38) ng/ml Procalcitonin (0-0.5) ng/ml TSH (0.300-4.500) uIu/ml Urine Color Urine Appearance (Clear) Urine pH (4.5-7.5) Ur Specific [place] (1.000-1.030) Urine Protein (Negative) Urine Glucose (UA) (Negative) Urine Ketones (Negative) Urine Blood (Negative) Urine Nitrite (Negative) Urine Bilirubin (Negative) Urine Urobilinogen (Negative) Ur Leukocyte Esterase (Negative) Urine WBC (Auto) (0-5) /hpf Urine RBC (Auto) (0-4) /hpf U Hyaline Cast (Auto) (0-5) /lpf U Epithel Cells (Auto) (0-5) /lpf Urine Bacteria (Auto) (Negative) Ur Renal Epithelial Cell Granular Casts (0) /lpf Urine Osmolality (500-800) mOsm/kg Ur Random Sodium mmol/L Nasal Screen MRSA (PCR) (Negative) Stl C. diff Tox B Gene Neg C.diff Toxin B (Neg) Urine Opiates Screen (Neg) Ur Methadone, Qual (Neg) Urine Barbiturates (Neg) Ur Phencyclidine (PCP) (Neg) U Amphetamin/Meth Scrn (Neg) MDMA (Ecstasy) Screen (Neg) U Benzodiazepines Scrn (Neg) Ur Cocaine Metabolite (Neg) U Marijuana (THC) Screen (Neg) Ethyl Alcohol mg/dL (0-3) mg/dl Hepatitis C Ab Screen (Neg) Influenza Type A (PCR) (Neg) Influenza Type B (PCR) (Neg) Blood Type Blood Type Recheck Antibody Screen Crossmatch 04/04/18 04/04/18 04/04/18 Range/Units 19:47 19:29 19:26 WBC (4.8-10.8) K/uL RBC (4.7-6.1) M/uL Hgb (14.0-18.0) g/dL POC Hgb 8.8 L (14.0-18.0) g/dl Hct (42-52) % POC Hct 26 L (42-52) % MCV (80-100) fL MCH (25-34) pg MCHC (32-36) g/dL RDW Std Deviation (36.4-46.3) fL RDW Coeff of Julia (11.5-14.5) % Plt Count (130-400) K/uL MPV (7.4-10.4) fL Immature Gran % (Auto) % Neut % (Auto) % Lymph % (Auto) % [place] % (Auto) % Eos % (Auto) % Baso % (Auto) % Immature Gran # (Auto) (0.00-0.02) K/uL Neut # (Auto) (1.4-6.5) K/uL Lymph # (Auto) (1.2-3.4) K/uL [place] # (Auto) (0.11-0.59) K/uL Eos # (Auto) (0-0.5) K/uL Baso # (Auto) (0-0.2) K/uL Absolute Nucleated RBC (0-0) K/uL Nucleated RBC % (auto) % Platelet Estimate (Normal) Poikilocytosis Basophilic Stippling Echinocytes PT (9.0-12.0) Seconds INR (0.9-1.1) APTT (21.0-31.0) Seconds PTT Ratio POC Sodium 133 L (135-144) mEq/L Sodium (136-145) mmol/L POC Potassium 3.5 (3.3-5.0) mEq/L Potassium (3.5-5.1) mmol/L POC Chloride 100 L (101-112) mEq/L Chloride (98-107) mmol/L Carbon Dioxide (21-32) mmol/L POC Total CO2 15 L (24-31) mEq/l Anion Gap (3-11) POC Anion Gap 22.0 (16-25) mmol/L POC BUN 43 H (7-18) mg/dl BUN (7-18) mg/dl Creatinine (0.6-1.4) mg/dl POC Creatinine 1.5 H (0.6-1.3) mg/dl Est Cr Clr Drug Dosing ml/min Est GFR ( Amer) Est GFR (Non-Af Amer) BUN/Creatinine Ratio (10-20) Glucose (70-99) mg/dl POC Glucose (70-99) POC Glucose (other) 140 H (70-99) mg/dl Estimat Average Glucose mg/dl Hemoglobin A1c (4.5-5.6) % Osmolality (280-300) mOsm/kg POC Lactic Acid Miguelito 3.50 H (0.90-1.70) mmol/L Lactate (0.4-2.0) mmol/L Calcium (8.5-10.1) mg/dl POC Ioniz Calcium Felicita 1.07 L (1.12-1.32) mmol/l Magnesium (1.8-2.4) mg/dl Total Bilirubin (0.2-1) mg/dl Direct Bilirubin (0-0.2) mg/dl AST (15-37) U/L ALT (12-78) U/L Alkaline Phosphatase (45-117) U/L Total Creatine Kinase (39-308) U/L POC Troponin I (0-0.045) ng/ml Troponin I (0-0.045) ng/ml Total Protein (6.4-8.2) gm/dl Albumin (3.4-5.0) gm/dl Lipase (73-393) U/L Folate (>5.38) ng/ml Procalcitonin (0-0.5) ng/ml TSH (0.300-4.500) uIu/ml Urine Color Urine Appearance (Clear) Urine pH (4.5-7.5) Ur Specific [place] (1.000-1.030) Urine Protein (Negative) Urine Glucose (UA) (Negative) Urine Ketones (Negative) Urine Blood (Negative) Urine Nitrite (Negative) Urine Bilirubin (Negative) Urine Urobilinogen (Negative) Ur Leukocyte Esterase (Negative) Urine WBC (Auto) (0-5) /hpf Urine RBC (Auto) (0-4) /hpf U Hyaline Cast (Auto) (0-5) /lpf U Epithel Cells (Auto) (0-5) /lpf Urine Bacteria (Auto) (Negative) Ur Renal Epithelial Cell Granular Casts (0) /lpf Urine Osmolality (500-800) mOsm/kg Ur Random Sodium mmol/L Nasal Screen MRSA (PCR) (Negative) Stl C. diff Tox B Gene (Neg) Urine Opiates Screen (Neg) Ur Methadone, Qual (Neg) Urine Barbiturates (Neg) Ur Phencyclidine (PCP) (Neg) U Amphetamin/Meth Scrn (Neg) MDMA (Ecstasy) Screen (Neg) U Benzodiazepines Scrn (Neg) Ur Cocaine Metabolite (Neg) U Marijuana (THC) Screen (Neg) Ethyl Alcohol mg/dL (0-3) mg/dl Hepatitis C Ab Screen (Neg) Influenza Type A (PCR) Neg for Influ A (Neg) Influenza Type B (PCR) Neg for Influ B (Neg) Blood Type Blood Type Recheck Antibody Screen Crossmatch 04/04/18 04/04/18 04/04/18 Range/Units 18:25 18:08 17:58 WBC (4.8-10.8) K/uL RBC (4.7-6.1) M/uL Hgb (14.0-18.0) g/dL POC Hgb (14.0-18.0) g/dl Hct (42-52) % POC Hct (42-52) % MCV (80-100) fL MCH (25-34) pg MCHC (32-36) g/dL RDW Std Deviation (36.4-46.3) fL RDW Coeff of Julia (11.5-14.5) % Plt Count (130-400) K/uL MPV (7.4-10.4) fL Immature Gran % (Auto) % Neut % (Auto) % Lymph % (Auto) % [place] % (Auto) % Eos % (Auto) % Baso % (Auto) % Immature Gran # (Auto) (0.00-0.02) K/uL Neut # (Auto) (1.4-6.5) K/uL Lymph # (Auto) (1.2-3.4) K/uL [place] # (Auto) (0.11-0.59) K/uL Eos # (Auto) (0-0.5) K/uL Baso # (Auto) (0-0.2) K/uL Absolute Nucleated RBC (0-0) K/uL Nucleated RBC % (auto) % Platelet Estimate (Normal) Poikilocytosis Basophilic Stippling Echinocytes PT (9.0-12.0) Seconds INR (0.9-1.1) APTT (21.0-31.0) Seconds PTT Ratio POC Sodium (135-144) mEq/L Sodium (136-145) mmol/L POC Potassium (3.3-5.0) mEq/L Potassium (3.5-5.1) mmol/L POC Chloride (101-112) mEq/L Chloride (98-107) mmol/L Carbon Dioxide (21-32) mmol/L POC Total CO2 (24-31) mEq/l Anion Gap (3-11) POC Anion Gap (16-25) mmol/L POC BUN (7-18) mg/dl BUN (7-18) mg/dl Creatinine (0.6-1.4) mg/dl POC Creatinine (0.6-1.3) mg/dl Est Cr Clr Drug Dosing ml/min Est GFR ( Amer) Est GFR (Non-Af Amer) BUN/Creatinine Ratio (10-20) Glucose (70-99) mg/dl POC Glucose (70-99) POC Glucose (other) (70-99) mg/dl Estimat Average Glucose mg/dl Hemoglobin A1c (4.5-5.6) % Osmolality (280-300) mOsm/kg POC Lactic Acid Miguelito 6.25 H (0.90-1.70) mmol/L Lactate (0.4-2.0) mmol/L Calcium (8.5-10.1) mg/dl POC Ioniz Calcium Felicita (1.12-1.32) mmol/l Magnesium (1.8-2.4) mg/dl Total Bilirubin (0.2-1) mg/dl Direct Bilirubin (0-0.2) mg/dl AST (15-37) U/L ALT (12-78) U/L Alkaline Phosphatase (45-117) U/L Total Creatine Kinase (39-308) U/L POC Troponin I < 0.03 (0-0.045) ng/ml Troponin I (0-0.045) ng/ml Total Protein (6.4-8.2) gm/dl Albumin (3.4-5.0) gm/dl Lipase (73-393) U/L Folate (>5.38) ng/ml Procalcitonin (0-0.5) ng/ml TSH (0.300-4.500) uIu/ml Urine Color Yellow Urine Appearance Cloudy H (Clear) Urine pH 5.5 (4.5-7.5) Ur Specific [place] 1.022 (1.000-1.030) Urine Protein 2+ H (Negative) Urine Glucose (UA) Trace H (Negative) Urine Ketones 1+ H (Negative) Urine Blood 3+ H (Negative) Urine Nitrite Negative (Negative) Urine Bilirubin Negative (Negative) Urine Urobilinogen Negative (Negative) Ur Leukocyte Esterase Negative (Negative) Urine WBC (Auto) 1-5 (0-5) /hpf Urine RBC (Auto) 0-4 (0-4) /hpf U Hyaline Cast (Auto) 10-30 H (0-5) /lpf U Epithel Cells (Auto) >30 H (0-5) /lpf Urine Bacteria (Auto) Negative (Negative) Ur Renal Epithelial Cell Not Reportable Granular Casts 10-20 H (0) /lpf Urine Osmolality (500-800) mOsm/kg Ur Random Sodium mmol/L Nasal Screen MRSA (PCR) (Negative) Stl C. diff Tox B Gene (Neg) Urine Opiates Screen (Neg) Ur Methadone, Qual (Neg) Urine Barbiturates (Neg) Ur Phencyclidine (PCP) (Neg) U Amphetamin/Meth Scrn (Neg) MDMA (Ecstasy) Screen (Neg) U Benzodiazepines Scrn (Neg) Ur Cocaine Metabolite (Neg) U Marijuana (THC) Screen (Neg) Ethyl Alcohol mg/dL (0-3) mg/dl Hepatitis C Ab Screen (Neg) Influenza Type A (PCR) (Neg) Influenza Type B (PCR) (Neg) Blood Type Blood Type Recheck Antibody Screen Crossmatch 04/04/18 04/04/18 04/04/18 Range/Units 17:48 17:46 17:46 WBC (4.8-10.8) K/uL RBC (4.7-6.1) M/uL Hgb (14.0-18.0) g/dL POC Hgb 10.5 L (14.0-18.0) g/dl Hct (42-52) % POC Hct 31 L (42-52) % MCV (80-100) fL MCH (25-34) pg MCHC (32-36) g/dL RDW Std Deviation (36.4-46.3) fL RDW Coeff of Julia (11.5-14.5) % Plt Count (130-400) K/uL MPV (7.4-10.4) fL Immature Gran % (Auto) % Neut % (Auto) % Lymph % (Auto) % [place] % (Auto) % Eos % (Auto) % Baso % (Auto) % Immature Gran # (Auto) (0.00-0.02) K/uL Neut # (Auto) (1.4-6.5) K/uL Lymph # (Auto) (1.2-3.4) K/uL [place] # (Auto) (0.11-0.59) K/uL Eos # (Auto) (0-0.5) K/uL Baso # (Auto) (0-0.2) K/uL Absolute Nucleated RBC (0-0) K/uL Nucleated RBC % (auto) % Platelet Estimate (Normal) Poikilocytosis Basophilic Stippling Echinocytes PT 9.8 (9.0-12.0) Seconds INR 1.0 (0.9-1.1) APTT 20.1 L (21.0-31.0) Seconds PTT Ratio 0.8 POC Sodium 130 L (135-144) mEq/L Sodium (136-145) mmol/L POC Potassium 3.6 (3.3-5.0) mEq/L Potassium (3.5-5.1) mmol/L POC Chloride 98 L (101-112) mEq/L Chloride (98-107) mmol/L Carbon Dioxide (21-32) mmol/L POC Total CO2 15 L (24-31) mEq/l Anion Gap (3-11) POC Anion Gap 22.0 (16-25) mmol/L POC BUN 48 H (7-18) mg/dl BUN (7-18) mg/dl Creatinine (0.6-1.4) mg/dl POC Creatinine 1.6 H (0.6-1.3) mg/dl Est Cr Clr Drug Dosing ml/min Est GFR ( Amer) Est GFR (Non-Af Amer) BUN/Creatinine Ratio (10-20) Glucose (70-99) mg/dl POC Glucose (70-99) POC Glucose (other) 174 H (70-99) mg/dl Estimat Average Glucose mg/dl Hemoglobin A1c (4.5-5.6) % Osmolality (280-300) mOsm/kg POC Lactic Acid Miguelito (0.90-1.70) mmol/L Lactate (0.4-2.0) mmol/L Calcium (8.5-10.1) mg/dl POC Ioniz Calcium Felicita 1.05 L (1.12-1.32) mmol/l Magnesium (1.8-2.4) mg/dl Total Bilirubin (0.2-1) mg/dl Direct Bilirubin (0-0.2) mg/dl AST (15-37) U/L ALT (12-78) U/L Alkaline Phosphatase (45-117) U/L Total Creatine Kinase 552 H (39-308) U/L POC Troponin I (0-0.045) ng/ml Troponin I (0-0.045) ng/ml Total Protein (6.4-8.2) gm/dl Albumin (3.4-5.0) gm/dl Lipase (73-393) U/L Folate (>5.38) ng/ml Procalcitonin (0-0.5) ng/ml TSH 2.730 (0.300-4.500) uIu/ml Urine Color Urine Appearance (Clear) Urine pH (4.5-7.5) Ur Specific [place] (1.000-1.030) Urine Protein (Negative) Urine Glucose (UA) (Negative) Urine Ketones (Negative) Urine Blood (Negative) Urine Nitrite (Negative) Urine Bilirubin (Negative) Urine Urobilinogen (Negative) Ur Leukocyte Esterase (Negative) Urine WBC (Auto) (0-5) /hpf Urine RBC (Auto) (0-4) /hpf U Hyaline Cast (Auto) (0-5) /lpf U Epithel Cells (Auto) (0-5) /lpf Urine Bacteria (Auto) (Negative) Ur Renal Epithelial Cell Granular Casts (0) /lpf Urine Osmolality (500-800) mOsm/kg Ur Random Sodium mmol/L Nasal Screen MRSA (PCR) (Negative) Stl C. diff Tox B Gene (Neg) Urine Opiates Screen (Neg) Ur Methadone, Qual (Neg) Urine Barbiturates (Neg) Ur Phencyclidine (PCP) (Neg) U Amphetamin/Meth Scrn (Neg) MDMA (Ecstasy) Screen (Neg) U Benzodiazepines Scrn (Neg) Ur Cocaine Metabolite (Neg) U Marijuana (THC) Screen (Neg) Ethyl Alcohol mg/dL (0-3) mg/dl Hepatitis C Ab Screen (Neg) Influenza Type A (PCR) (Neg) Influenza Type B (PCR) (Neg) Blood Type Blood Type Recheck Antibody Screen Crossmatch 04/04/18 04/04/18 04/04/18 Range/Units 16:55 16:55 16:55 WBC (4.8-10.8) K/uL RBC (4.7-6.1) M/uL Hgb (14.0-18.0) g/dL POC Hgb (14.0-18.0) g/dl Hct (42-52) % POC Hct (42-52) % MCV (80-100) fL MCH (25-34) pg MCHC (32-36) g/dL RDW Std Deviation (36.4-46.3) fL RDW Coeff of Julia (11.5-14.5) % Plt Count (130-400) K/uL MPV (7.4-10.4) fL Immature Gran % (Auto) % Neut % (Auto) % Lymph % (Auto) % [place] % (Auto) % Eos % (Auto) % Baso % (Auto) % Immature Gran # (Auto) (0.00-0.02) K/uL Neut # (Auto) (1.4-6.5) K/uL Lymph # (Auto) (1.2-3.4) K/uL [place] # (Auto) (0.11-0.59) K/uL Eos # (Auto) (0-0.5) K/uL Baso # (Auto) (0-0.2) K/uL Absolute Nucleated RBC (0-0) K/uL Nucleated RBC % (auto) % Platelet Estimate (Normal) Poikilocytosis Basophilic Stippling Echinocytes PT (9.0-12.0) Seconds INR (0.9-1.1) APTT (21.0-31.0) Seconds PTT Ratio POC Sodium (135-144) mEq/L Sodium (136-145) mmol/L POC Potassium (3.3-5.0) mEq/L Potassium (3.5-5.1) mmol/L POC Chloride (101-112) mEq/L Chloride (98-107) mmol/L Carbon Dioxide (21-32) mmol/L POC Total CO2 (24-31) mEq/l Anion Gap (3-11) POC Anion Gap (16-25) mmol/L POC BUN (7-18) mg/dl BUN (7-18) mg/dl Creatinine (0.6-1.4) mg/dl POC Creatinine (0.6-1.3) mg/dl Est Cr Clr Drug Dosing ml/min Est GFR ( Amer) Est GFR (Non-Af Amer) BUN/Creatinine Ratio (10-20) Glucose (70-99) mg/dl POC Glucose (70-99) POC Glucose (other) (70-99) mg/dl Estimat Average Glucose 97 mg/dl Hemoglobin A1c 5.0 (4.5-5.6) % Osmolality (280-300) mOsm/kg POC Lactic Acid Miguelito (0.90-1.70) mmol/L Lactate (0.4-2.0) mmol/L Calcium (8.5-10.1) mg/dl POC Ioniz Calcium Felicita (1.12-1.32) mmol/l Magnesium 2.4 (1.8-2.4) mg/dl Total Bilirubin (0.2-1) mg/dl Direct Bilirubin (0-0.2) mg/dl AST (15-37) U/L ALT (12-78) U/L Alkaline Phosphatase (45-117) U/L Total Creatine Kinase (39-308) U/L POC Troponin I (0-0.045) ng/ml Troponin I (0-0.045) ng/ml Total Protein (6.4-8.2) gm/dl Albumin (3.4-5.0) gm/dl Lipase (73-393) U/L Folate (>5.38) ng/ml Procalcitonin (0-0.5) ng/ml TSH (0.300-4.500) uIu/ml Urine Color Urine Appearance (Clear) Urine pH (4.5-7.5) Ur Specific [place] (1.000-1.030) Urine Protein (Negative) Urine Glucose (UA) (Negative) Urine Ketones (Negative) Urine Blood (Negative) Urine Nitrite (Negative) Urine Bilirubin (Negative) Urine Urobilinogen (Negative) Ur Leukocyte Esterase (Negative) Urine WBC (Auto) (0-5) /hpf Urine RBC (Auto) (0-4) /hpf U Hyaline Cast (Auto) (0-5) /lpf U Epithel Cells (Auto) (0-5) /lpf Urine Bacteria (Auto) (Negative) Ur Renal Epithelial Cell Granular Casts (0) /lpf Urine Osmolality (500-800) mOsm/kg Ur Random Sodium mmol/L Nasal Screen MRSA (PCR) (Negative) Stl C. diff Tox B Gene (Neg) Urine Opiates Screen (Neg) Ur Methadone, Qual (Neg) Urine Barbiturates (Neg) Ur Phencyclidine (PCP) (Neg) U Amphetamin/Meth Scrn (Neg) MDMA (Ecstasy) Screen (Neg) U Benzodiazepines Scrn (Neg) Ur Cocaine Metabolite (Neg) U Marijuana (THC) Screen (Neg) Ethyl Alcohol mg/dL (0-3) mg/dl Hepatitis C Ab Screen Neg (Neg) Influenza Type A (PCR) (Neg) Influenza Type B (PCR) (Neg) Blood Type Blood Type Recheck Antibody Screen Crossmatch 04/04/18 04/04/18 04/04/18 Range/Units 16:55 16:55 16:55 WBC 14.17 H (4.8-10.8) K/uL RBC 3.21 L (4.7-6.1) M/uL Hgb 10.3 L (14.0-18.0) g/dL POC Hgb (14.0-18.0) g/dl Hct 31.7 L (42-52) % POC Hct (42-52) % MCV 98.8 (80-100) fL MCH 32.1 (25-34) pg MCHC 32.5 (32-36) g/dL RDW Std Deviation 57.9 H (36.4-46.3) fL RDW Coeff of Julia 15.9 H (11.5-14.5) % Plt Count 147 (130-400) K/uL MPV 9.9 (7.4-10.4) fL Immature Gran % (Auto) 0.7 % Neut % (Auto) 69.8 % Lymph % (Auto) 18.8 % [place] % (Auto) 10.6 % Eos % (Auto) 0.0 % Baso % (Auto) 0.1 % Immature Gran # (Auto) 0.10 H (0.00-0.02) K/uL Neut # (Auto) 9.90 H (1.4-6.5) K/uL Lymph # (Auto) 2.66 (1.2-3.4) K/uL [place] # (Auto) 1.50 H (0.11-0.59) K/uL Eos # (Auto) 0.00 (0-0.5) K/uL Baso # (Auto) 0.01 (0-0.2) K/uL Absolute Nucleated RBC 0.06 H (0-0) K/uL Nucleated RBC % (auto) 0.4 % Platelet Estimate (Normal) Poikilocytosis Basophilic Stippling Echinocytes 1+ PT (9.0-12.0) Seconds INR (0.9-1.1) APTT (21.0-31.0) Seconds PTT Ratio POC Sodium (135-144) mEq/L Sodium 128 L (136-145) mmol/L POC Potassium (3.3-5.0) mEq/L Potassium 3.4 L (3.5-5.1) mmol/L POC Chloride (101-112) mEq/L Chloride 94 L (98-107) mmol/L Carbon Dioxide 10 L (21-32) mmol/L POC Total CO2 (24-31) mEq/l Anion Gap 24.0 H (3-11) POC Anion Gap (16-25) mmol/L POC BUN (7-18) mg/dl BUN 50 H (7-18) mg/dl Creatinine 2.04 H (0.6-1.4) mg/dl POC Creatinine (0.6-1.3) mg/dl Est Cr Clr Drug Dosing 43.2 ml/min Est GFR ( Amer) 38.0 Est GFR (Non-Af Amer) 32.7 BUN/Creatinine Ratio 24.3 H (10-20) Glucose 194 H (70-99) mg/dl POC Glucose (70-99) POC Glucose (other) (70-99) mg/dl Estimat Average Glucose mg/dl Hemoglobin A1c (4.5-5.6) % Osmolality (280-300) mOsm/kg POC Lactic Acid Miguelito (0.90-1.70) mmol/L Lactate (0.4-2.0) mmol/L Calcium 8.2 L (8.5-10.1) mg/dl POC Ioniz Calcium Felicita (1.12-1.32) mmol/l Magnesium (1.8-2.4) mg/dl Total Bilirubin 1.0 (0.2-1) mg/dl Direct Bilirubin 0.3 H (0-0.2) mg/dl AST 111 H (15-37) U/L ALT 116 H (12-78) U/L Alkaline Phosphatase 62 (45-117) U/L Total Creatine Kinase (39-308) U/L POC Troponin I (0-0.045) ng/ml Troponin I 0.046 H* (0-0.045) ng/ml Total Protein 7.0 (6.4-8.2) gm/dl Albumin 3.4 (3.4-5.0) gm/dl Lipase 145 (73-393) U/L Folate (>5.38) ng/ml Procalcitonin (0-0.5) ng/ml TSH (0.300-4.500) uIu/ml Urine Color Urine Appearance (Clear) Urine pH (4.5-7.5) Ur Specific [place] (1.000-1.030) Urine Protein (Negative) Urine Glucose (UA) (Negative) Urine Ketones (Negative) Urine Blood (Negative) Urine Nitrite (Negative) Urine Bilirubin (Negative) Urine Urobilinogen (Negative) Ur Leukocyte Esterase (Negative) Urine WBC (Auto) (0-5) /hpf Urine RBC (Auto) (0-4) /hpf U Hyaline Cast (Auto) (0-5) /lpf U Epithel Cells (Auto) (0-5) /lpf Urine Bacteria (Auto) (Negative) Ur Renal Epithelial Cell Granular Casts (0) /lpf Urine Osmolality (500-800) mOsm/kg Ur Random Sodium mmol/L Nasal Screen MRSA (PCR) (Negative) Stl C. diff Tox B Gene (Neg) Urine Opiates Screen (Neg) Ur Methadone, Qual (Neg) Urine Barbiturates (Neg) Ur Phencyclidine (PCP) (Neg) U Amphetamin/Meth Scrn (Neg) MDMA (Ecstasy) Screen (Neg) U Benzodiazepines Scrn (Neg) Ur Cocaine Metabolite (Neg) U Marijuana (THC) Screen (Neg) Ethyl Alcohol mg/dL (0-3) mg/dl Hepatitis C Ab Screen (Neg) Influenza Type A (PCR) (Neg) Influenza Type B (PCR) (Neg) Blood Type O Positive Blood Type Recheck Antibody Screen NEGATIVE Crossmatch See Detail 04/04/18 Range/Units 16:53 WBC (4.8-10.8) K/uL RBC (4.7-6.1) M/uL Hgb (14.0-18.0) g/dL POC Hgb (14.0-18.0) g/dl Hct (42-52) % POC Hct (42-52) % MCV (80-100) fL MCH (25-34) pg MCHC (32-36) g/dL RDW Std Deviation (36.4-46.3) fL RDW Coeff of Julia (11.5-14.5) % Plt Count (130-400) K/uL MPV (7.4-10.4) fL Immature Gran % (Auto) % Neut % (Auto) % Lymph % (Auto) % [place] % (Auto) % Eos % (Auto) % Baso % (Auto) % Immature Gran # (Auto) (0.00-0.02) K/uL Neut # (Auto) (1.4-6.5) K/uL Lymph # (Auto) (1.2-3.4) K/uL [place] # (Auto) (0.11-0.59) K/uL Eos # (Auto) (0-0.5) K/uL Baso # (Auto) (0-0.2) K/uL Absolute Nucleated RBC (0-0) K/uL Nucleated RBC % (auto) % Platelet Estimate (Normal) Poikilocytosis Basophilic Stippling Echinocytes PT (9.0-12.0) Seconds INR (0.9-1.1) APTT (21.0-31.0) Seconds PTT Ratio POC Sodium (135-144) mEq/L Sodium (136-145) mmol/L POC Potassium (3.3-5.0) mEq/L Potassium (3.5-5.1) mmol/L POC Chloride (101-112) mEq/L Chloride (98-107) mmol/L Carbon Dioxide (21-32) mmol/L POC Total CO2 (24-31) mEq/l Anion Gap (3-11) POC Anion Gap (16-25) mmol/L POC BUN (7-18) mg/dl BUN (7-18) mg/dl Creatinine (0.6-1.4) mg/dl POC Creatinine (0.6-1.3) mg/dl Est Cr Clr Drug Dosing ml/min Est GFR ( Amer) Est GFR (Non-Af Amer) BUN/Creatinine Ratio (10-20) Glucose (70-99) mg/dl POC Glucose (70-99) POC Glucose (other) (70-99) mg/dl Estimat Average Glucose mg/dl Hemoglobin A1c (4.5-5.6) % Osmolality (280-300) mOsm/kg POC Lactic Acid Miguelito (0.90-1.70) mmol/L Lactate (0.4-2.0) mmol/L Calcium (8.5-10.1) mg/dl POC Ioniz Calcium Felicita (1.12-1.32) mmol/l Magnesium (1.8-2.4) mg/dl Total Bilirubin (0.2-1) mg/dl Direct Bilirubin (0-0.2) mg/dl AST (15-37) U/L ALT (12-78) U/L Alkaline Phosphatase (45-117) U/L Total Creatine Kinase (39-308) U/L POC Troponin I (0-0.045) ng/ml Troponin I (0-0.045) ng/ml Total Protein (6.4-8.2) gm/dl Albumin (3.4-5.0) gm/dl Lipase (73-393) U/L Folate (>5.38) ng/ml Procalcitonin 1.47 H (0-0.5) ng/ml TSH (0.300-4.500) uIu/ml Urine Color Urine Appearance (Clear) Urine pH (4.5-7.5) Ur Specific [place] (1.000-1.030) Urine Protein (Negative) Urine Glucose (UA) (Negative) Urine Ketones (Negative) Urine Blood (Negative) Urine Nitrite (Negative) Urine Bilirubin (Negative) Urine Urobilinogen (Negative) Ur Leukocyte Esterase (Negative) Urine WBC (Auto) (0-5) /hpf Urine RBC (Auto) (0-4) /hpf U Hyaline Cast (Auto) (0-5) /lpf U Epithel Cells (Auto) (0-5) /lpf Urine Bacteria (Auto) (Negative) Ur Renal Epithelial Cell Granular Casts (0) /lpf Urine Osmolality (500-800) mOsm/kg Ur Random Sodium mmol/L Nasal Screen MRSA (PCR) (Negative) Stl C. diff Tox B Gene (Neg) Urine Opiates Screen (Neg) Ur Methadone, Qual (Neg) Urine Barbiturates (Neg) Ur Phencyclidine (PCP) (Neg) U Amphetamin/Meth Scrn (Neg) MDMA (Ecstasy) Screen (Neg) U Benzodiazepines Scrn (Neg) Ur Cocaine Metabolite (Neg) U Marijuana (THC) Screen (Neg) Ethyl Alcohol mg/dL (0-3) mg/dl Hepatitis C Ab Screen (Neg) Influenza Type A (PCR) (Neg) Influenza Type B (PCR) (Neg) Blood Type Blood Type Recheck Antibody Screen Crossmatch Diagnostic Findings I have reviewed the MRI results dated April 05, 2017: No acute abnormality.
[2018-04-05 17:28] LABS: Hematocrit (blood only) 25.2 % (42-52); Hemoglobin 8.3 g/dL (14.0-18.0)
--- NOTE | 2018-04-05 18:21 | Consultation Report ---
DATE OF CONSULTATION: 04/05/2018 ATTENDING PHYSICIAN: Dr. Cole Pena. REASON FOR CONSULTATION: Upper GI bleed. HISTORY OF PRESENT ILLNESS: Cole Kumar is a 67-year-old male who presented to the Department of Emergency Medicine yesterday with complaints of a seizure-like activity prior to arrival. The patient had fallen and had no recollection of this incident and does not have any prior history of a seizure disorder. He also had approximately a 5-day history of vomiting and nausea and initially had some diarrhea as well, which he attributed to a viral gastroenteritis. He denied any hematemesis or coffee-ground emesis though did note some black stools. He does have a significant medical history for alcohol intake, stating that he drinks approximately 2 alcoholic beverages per day and does have a history of fatty liver disease. In the Department of Emergency Medicine, he was noted to have an initial H and H of 10.3 and 31.7, platelet count was noted to be 147, white blood cell count was noted to be 14.17. His PT and INR were normal as he is on no anticoagulation. His initial BUN and creatinine were 50 and 2.04. He did undergo a CT scan of his chest, abdomen, and pelvis which noted a nondisplaced left anterior 7th rib fracture. There was a small hiatal hernia with some circumferential wall thickening in the mid to distal esophagus. Liver was enlarged and consistent with steatosis. He was subsequently admitted to the ICU and was started on a Protonix drip as well as an octreotide drip given his history of alcohol use. There was also a question of a seizure, and therefore, he was loaded with Keppra. He was given IV fluids as well, and we are consulted for further evaluation. His BUN and creatinine this morning were 40 and 1.37. His H and H did decline to 7.5 and 21.5, with a platelet count of 66, and a white blood cell count of 5.98. At the time that I saw the patient, he stated that he was feeling much better. He denied any further nausea or vomiting. He said that he had 1 bowel movement since his arrival, which was dark in color though denies any further bowel movements overnight. He denies any abdominal pain. He states that he has not had any history of jaundice, acholic stools, dark urine, or pruritus. He states that he has never had an upper endoscopy though has had several colonoscopies in the past at [facility]. His who accompanies him to his bedside does state that he drinks more than he lets on though the patient continues to only admit to 2 mixed drinks with vodka daily normal size per the patient. He further denies any alcohol related arrests, alcohol withdrawal seizures, or DTs in the past and states that he has never undergone alcohol rehab either as an inpatient or an outpatient. He denies any further complaints. PAST MEDICAL HISTORY: Includes a history of acute kidney injury, hypertension, acute on chronic anemia, syncope, rib fracture, hepatic steatosis. PAST SURGICAL HISTORY: None. ALLERGIES: None. MEDICATIONS AT PRESENT: Ativan 1, 2, or 3 mg as per withdrawal symptoms and based on SHAISTA score as needed, multivitamin daily, thiamine 100 mg IV daily, folic acid 1 mg IV daily, Phenergan 5 mg IV q.6, Neurontin 600 mg p.o. q.12 h., hydromorphone 0.25 mg IV q.3 h. p.r.n. pain, oxycodone 5 mg p.o. q.4 p.r.n. pain, Protonix drip at 8 mg/h, octreotide drip at 50 mcg/h. FAMILY HISTORY: Negative for GI malignancy or inflammatory bowel disease. SOCIAL HISTORY: He is . He is a former smoker. Denies illicit drug use. He does have approximately 2 alcoholic beverages per day as per the patient. REVIEW OF SYSTEMS: Negative times a 12 system review other than pertinent positives listed in the HPI. PHYSICAL EXAMINATION: VITAL SIGNS: Include temperature of 37, pulse 106, respirations 18, blood pressure 112/79, pulse oximetry 100% on room air. GENERAL: Awake, cooperative, chronically ill appearing, in no acute distress. HEAD: Normocephalic, atraumatic. EYES: Pupils equal and round. Extraocular muscles are intact. ENT: External evaluation of ears and nose is normal. Oropharynx is clear. NECK: Soft, supple. CHEST: Decreased breath sounds, bilateral bases. CARDIOVASCULAR SYSTEM: Regular rate and rhythm. GASTROINTESTINAL: Abdomen is soft, nontender, nondistended. Positive bowel sounds. EXTREMITIES: No clubbing, cyanosis, or edema. SKIN: Noted pallor. PSYCHIATRIC: Oriented x3, normal affect. LABORATORY STUDIES AND RADIOGRAPHIC STUDIES: Reviewed in the HPI. IMPRESSION: A 67-year-old male who presented with a seizure-like activity with a history of chronic alcohol use, hepatic steatosis, history of nausea, vomiting, and black stools, with acute kidney injury, and elevated troponins. PLAN: Currently, patient is not having any obvious overt GI bleeding and is having no bowel movements whatsoever. This would be unexpected in a patient with a brisk GI bleed as I would expect that the patient would have either hematemesis or persistent bowel movements as blood is a GI cathartic agent. I would surely recommend continuing him on his Protonix drip at 8 mg/h at this time as well as his octreotide drip at 50 mcg/h though he has no history of cirrhosis or a radiographic evidence of cirrhosis or varices. He does have some esophageal thickening on CT imaging and will clearly need an upper endoscopy during this hospitalization though I do not believe it is emergent at this time. I will follow his clinical course. I will make further recommendations as needed. If anything changes in regard to his status, please contact me, and further recommendations can be made at that time. He is being followed for signs of alcohol withdrawal and is on protocol for withdrawal symptoms, and this is being handled by the revenue enforcement agent. I will follow his clinical course and make further recommendations as needed. Once again, thanks for allowing me to participate in the care of this patient. If you have any further questions, please do not hesitate in contacting me.
--- NOTE | 2018-04-05 19:30 | Hospitalist Progress Note ---
Date of Service April 05, 2018 Assessment & Plan (1) GI bleed: Hgb on admission 10.3, then dropped to 7.4 CT abdomen showed no acute finding Starting on protonic drip and octeotride drip GI on board Continue monitor H/H Will transfuse if h/h drops below 7 aspirin on hold Case discussed with GI and OK to start on clear liquid diet Plan for EGD Seizure Mostly related to alcohol withdrawn Received Fiorella in the ER Neurology on board Recommended MRI brain and EEG Seizure and fall precaution Pt was advised no driving until free of seizure Acute on Chronic anemia Hbg dropped to 7.4 Monitor H/H closely Recurrent syncope Possible related to alcohol withdrawn seizure No arrhythmia on tele monitor ECHO showed no wall motion abnormality with EF btw 65 to 70 Stable YVAN Creatinine on admission 2.04 Due to dehydration from vomiting and poor oral intake Continue IVF Elevated troponin Mostly due to YVAN Troponin trending down aspirin on hold due to GI bleed Lisinopril on hold ECHO showed no wall motion abnormality Monitor closely HTN BP currently improved On metoprolol Lisinopril on hold due to YVAN Rib fracture related to fall Incentive spirometry Stable Hypokalemia K stable Monitor BMP Elevated CK level Due to fall CK trending down ON IV fluid Alcohol abuse Monitor for alcohol withdrawn Continue gabapentin/ativan alcohol withdrawn protocol No signs of DT DVT px on scd CODE STATUS FULL CODE DISPOSITION Continue monitor in ICU Subjective Pt was seen and examined Lying in bed with no ditress Pt said that he is hungry Denies any chest pain, palpitation and SOB Physical Exam 2 Vital Signs (Past 24 Hours): Last Vital Signs Temp 37.0 C 04/05/18 16:00 Pulse 97 H 04/05/18 18:00 Resp 25 H 04/05/18 18:00 BP 116/73 04/05/18 18:00 Pulse Ox 99 04/05/18 18:00 Physical Exam: General- No acute distress Head- atraumatic Eyes- PERRL, EOMI, ENT- oropharynx clear Neck- supple, no JVD Lungs- clear to auscultation Heart- regular rhythm; no murmur Abdomen- normal bowel sounds, soft, nontender Extremities- no calf tenderness Neuro- alert, oriented x 3; PERRL, EOMI; no facial palsy; no dysarthria Skin- warm & dry _ (1) GI bleed GI bleed type/associated pathology: Gastritis type:
[2018-04-06] MEDS: NSS + 20MEQ KCL 20 MEQ/1,000 ML BAG IV SCH (01:52)
[2018-04-06] MEDS: GABAPENTIN 600 MG TAB PO SCH ×4 (01:55→22:34)
[2018-04-06] MEDS: PANTOprazole 40 MG in DEXTROSE 5% 100 ML IV SCH ×2 (03:24→08:05)
[2018-04-06] MEDS: OCTREOTIDE ACETATE 500 MCG in 0.9 % SODIUM CHLORIDE 100 ML IV SCH ×2 (04:28→15:10)
[2018-04-06 04:43] LABS: Hematocrit (blood only) 22.5 % (42-52); Hemoglobin 7.2 g/dL (14.0-18.0); Mean Corpuscular Volume 99.1 fL (80-100); Nucleated RBC # (auto) 0.02 K/uL (0-0); Nucleated RBC % (auto) 0.4 %; RDW Coefficient of Variation 16.3 % (11.5-14.5); RDW Standard Deviation 58.7 fL (36.4-46.3); Red Blood Count 2.27 M/uL (4.7-6.1); White Blood Count 4.39 K/uL (4.8-10.8)
[2018-04-06 05:05] LABS: Platelet Count 78 K/uL (130-400)
[2018-04-06 05:08] LABS: Albumin Globulin Ratio 0.9 (0.9-2); Albumin Level 2.7 gm/dl (3.4-5.0); Bilirubin,Total 0.6 mg/dl (0.2-1); Calcium 7.7 mg/dl (8.5-10.1); Est GFR (African American) 62.5; Est GFR (Non-African American) 53.9; Globulin 2.9 gm/dl (2.5-4.0); Total Protein 5.6 gm/dl (6.4-8.2)
[2018-04-06 05:13] LABS: Eosinophils # (auto) 0.05 K/uL (0-0.5); Eosinophils % (auto) 1.1 %; Immature Granulocytes # (auto) 0.03 K/uL (0.00-0.02); Immature Granulocytes % (auto) 0.7 %; Lymphocytes # (auto) 0.87 K/uL (1.2-3.4); Lymphocytes % (auto) 19.8 %; Monocytes # (auto) 0.47 K/uL (0.11-0.59); Monocytes % (auto) 10.7 %; Neutrophils # (auto) 2.97 K/uL (1.4-6.5); Neutrophils % (auto) 67.7 %; Tear Drop Cells 1+
[2018-04-06] MEDS: INSULIN ASPART 100 UNITS/ML 3 ML PEN SC SCH ×4 (05:51→16:58)
[2018-04-06] MEDS: METOPROLOL SUCC 50MG EXT REL TAB PO SCH (08:05)
[2018-04-06] MEDS: THIAMINE HCL 100 MG TAB PO SCH (08:05)
[2018-04-06] MEDS: FOLIC ACID 1 MG TAB PO SCH (08:05)
[2018-04-06] MEDS: MULTIVITAMIN TAB PO SCH (08:05)
[2018-04-06] MEDS: SERTRALINE HCL 50 MG TABLET PO SCH (08:06)
[2018-04-06 08:14] LABS: Hematocrit (blood only) 22.8 % (42-52); Hemoglobin 7.5 g/dL (14.0-18.0)
--- NOTE | 2018-04-06 09:38 | Critical Care Progress Note ---
Date of Service April 06, 2018 Supervising Physician Co-Signing Physician Notes PLAN: Neuro: Possible seizure-like activity -Antiepileptics per neurology -MRI reviewed -Neurology consult reviewed -Alcohol withdrawal precautions: Consistently scoring 0-1 Resp: Calcifications seen on CT scan -Pulmonary nodule clinic follow-up CV: Tachycardia: Resolved Aortic dilatation -Outpatient follow-up with cardiothoracic surgery Elevated troponins -Trend troponins: Downtrending -Low threshold to scan with contrast if concerned for aortic dissection however not consistent with clinical history Fluids/Renal: Acute kidney injury -Improving Lactic acid acidosis: Resolved ID: Blood cultures pending: No growth to date GI/Nutrition: Gastrointestinal hemorrhage -On Protonix: Convert to 40 mg twice daily as patient has had approximately 48 hours and continuous infusion -On octreotide given alcohol history -No purported history of esophageal varices History of frequent colonoscopies secondary to history of polyps -No history of EGD Heme: Anemia -Holding blood transfusion -Will transfuse if H&H drops below 6, troponins not significantly of increasing I do not believe the patient is having cardiac ischemia DVT prophylaxis: SCDs Endocrine: ICU hyperglycemia protocol Vascular access: 18-gauge and 20-gauge peripheral IVs Code Status: Full code Subjective No chest pain no shortness of breath, no dizziness no syncope. No recurrent seizure, no bowel movements no melena. Would like to eat. Physical Exam 2 Vital Signs (Past 24 Hours): Last Vital Signs Temp 36.8 C 04/06/18 07:00 Pulse 93 H 04/06/18 09:00 Resp 23 04/06/18 09:00 BP 117/78 04/06/18 09:00 Pulse Ox 98 04/06/18 09:00 General: Alert. nontoxic. Skin: Warm, dry, Head: Atraumatic Ears, nose, mouth and throat: airway patent Cardiovascular: Normal peripheral perfusion Respiratory: no respiratory distress Gastrointestinal: Non distended Musculoskeletal: No deformity
--- NOTE | 2018-04-06 10:51 | Procedure Note ---
EEG Procedure Note Date of Service April 05, 2018 Start / End Times Start Time: 914 End Time: [address] Salgado History 67 year old with seizure like activity, suspect alcoholic withdrawal seizures. Home Medication List Home Medications Medication Instructions Recorded Confirmed Type aspirin [Aspir-81] 81 mg PO QAM 04/04/18 04/04/18 History lisinopril 10 mg PO QAM 04/04/18 04/04/18 History metoprolol succinate 50 mg PO HS 04/04/18 04/04/18 History rosuvastatin 20 mg PO HS 04/04/18 04/04/18 History sertraline 50 mg PO QAM 04/04/18 04/04/18 History Inpatient Medication List Folic Acid (F[facility]vite) [facility] [place] Stop: 05/05/18 08:59 Last Admin: 04/06/18 08:05 Dose: 1 mg Admin: 04/05/18 07:52 Dose: 1 mg Gadobutrol (Gadavist 65ml) 8.5 ml IV ONCE PRN PRN Reason: Interaction Checking Stop: 04/09/18 12:46 Last Admin: 04/05/18 12:48 Dose: 8.5 ml Octreotide Acetate 500 mcg/ (Sodium Chloride) 105 mls @ 10.5 mls/hr IV .Q10H DELVIS Stop: 05/04/18 20:59 Last Admin: 04/06/18 04:28 Dose: 50 mcg/hr, 10.5 mls/hr Infusion: 04/06/18 04:25 Dose: 50 mcg/hr, 10.5 mls/hr Admin: 04/05/18 18:25 Dose: 50 mcg/hr, 10.5 mls/hr Infusion: 04/05/18 17:45 Dose: 50 mcg/hr, 10.5 mls/hr Admin: 04/05/18 07:45 Dose: 50 mcg/hr, 10.5 mls/hr Infusion: 04/05/18 07:45 Dose: 50 mcg/hr, 10.5 mls/hr Admin: 04/04/18 22:03 Dose: 50 mcg/hr, 10.5 mls/hr Prochlorperazine 5 mg/ Syringe 5 mls @ 5 mls/min IV Q6H PRN PRN Reason: Nausea And Vomiting Stop: 05/04/18 23:07 Last Admin: 04/06/18 07:30 Dose: 5 mls/min Insulin Aspart (Novolog Flexpen) 0 units SC Q6 [facility] Stop: 05/05/18 00:00 Last Admin: 04/06/18 05:51 Dose: Not Given Admin: 04/06/18 00:00 Dose: Not Given Admin: 04/05/18 18:25 Dose: Not Given Admin: 04/05/18 13:17 Dose: Not Given Admin: 04/05/18 06:05 Dose: Not Given Admin: 04/04/18 23:27 Dose: Not Given Metoprolol Succinate (Toprol Xl) 25 mg PO [facility] Stop: 05/05/18 06:14 Last Admin: 04/06/18 08:05 Dose: 25 mg Admin: 04/05/18 06:04 Dose: 25 mg Multivitamins (Multivitamin Tab) 1 tab PO [facility] Stop: 05/05/18 08:59 Last Admin: 04/06/18 08:05 Dose: 1 tab Admin: 04/05/18 07:52 Dose: 1 tab Sertraline HCl (Zoloft) 50 mg PO [facility] Stop: 05/05/18 08:59 Last Admin: 04/06/18 08:06 Dose: 50 mg Admin: 04/05/18 07:51 Dose: 50 mg Thiamine HCl (Vitamin B-1) 100 mg PO [facility] Stop: 05/05/18 08:59 Last Admin: 04/06/18 08:05 Dose: 100 mg Admin: 04/05/18 07:52 Dose: 100 mg Discontinued Medications Gabapentin (Neurontin) 1,200 mg PO TODAY@2200 ONE Stop: 04/04/18 22:01 Last Admin: 04/04/18 23:17 Dose: 1,200 mg Gabapentin (Neurontin) 600 mg PO Q6H [facility] Stop: 04/05/18 10:01 Last Admin: 04/05/18 10:46 Dose: 600 mg Admin: 04/05/18 04:32 Dose: 600 mg Gabapentin (Neurontin) 600 mg PO Q8H [facility] Stop: 04/06/18 10:01 Last Admin: 04/06/18 03:06 Dose: 600 mg Admin: 04/05/18 18:25 Dose: 600 mg Sodium Chloride (Nss 1000ml) 1,000 mls @ 999 mls/hr IV .Q1H1M ONE Stop: 04/04/18 18:48 Last Infusion: 04/04/18 19:15 Dose: 0 mls/hr Admin: 04/04/18 18:15 Dose: 999 mls/hr Pantoprazole Sodium 40 mg/ (Dextrose) 100 mls @ 20 mls/hr IV Q5H [facility]VIS Stop: 05/04/18 19:29 Last Admin: 04/06/18 08:05 Dose: 20 mls/hr Infusion: 04/06/18 08:05 Dose: 20 mls/hr Admin: 04/06/18 03:24 Dose: 20 mls/hr Infusion: 04/06/18 03:15 Dose: 20 mls/hr Admin: 04/05/18 22:15 Dose: 20 mls/hr Infusion: 04/05/18 21:48 Dose: 20 mls/hr Admin: 04/05/18 16:48 Dose: 20 mls/hr Infusion: 04/05/18 15:46 Dose: 20 mls/hr Admin: 04/05/18 10:46 Dose: 20 mls/hr Infusion: 04/05/18 10:46 Dose: 20 mls/hr Admin: 04/05/18 06:04 Dose: 20 mls/hr Infusion: 04/05/18 06:02 Dose: 20 mls/hr Admin: 04/05/18 01:02 Dose: 20 mls/hr Infusion: 04/05/18 00:58 Dose: 20 mls/hr Admin: 04/04/18 19:58 Dose: 20 mls/hr Pantoprazole Sodium 80 mg/ (Dextrose) 120 mls @ 400 mls/hr IV NOW ONE Stop: 04/04/18 19:35 Last Infusion: 04/04/18 20:23 Dose: 0 mls/hr Admin: 04/04/18 19:58 Dose: 400 mls/hr Levetiracetam 1,000 mg/ (Dextrose) 110 mls @ 440 mls/hr IV NOW STA Stop: 04/04/18 19:37 Last Infusion: 04/04/18 20:23 Dose: 0 mls/hr Admin: 04/04/18 19:58 Dose: 440 mls/hr Sodium Chloride (Nss 1000ml) 1,000 mls @ 125 mls/hr IV .Q8H DELVIS Stop: 05/04/18 19:44 Last Infusion: 04/05/18 07:00 Dose: 0 mls/hr Infusion: 04/04/18 23:00 Dose: 0 mls/hr Admin: 04/04/18 19:58 Dose: 125 mls/hr Potassium Chloride/Sodium Chloride (Normal Saline W/20 Meq Kcl) 20 meq in 1, 000 mls @ 500 mls/hr IV .Q2H ONE Stop: 04/04/18 21:52 Last Admin: 04/05/18 07:02 Dose: Not Given Potassium Chloride/Sodium Chloride (Normal Saline W/20 Meq Kcl) 20 meq in 1, 000 mls @ 80 mls/hr IV .[id number] DELVIS Stop: 05/04/18 23:14 Last Infusion: 04/06/18 07:52 Dose: 0 mls/hr Infusion: 04/06/18 05:50 Dose: 0 mls/hr Admin: 04/06/18 01:52 Dose: 80 mls/hr Infusion: 04/05/18 23:16 Dose: 80 mls/hr Admin: 04/05/18 10:46 Dose: 80 mls/hr Infusion: 04/05/18 09:28 Dose: 200 mls/hr Admin: 04/05/18 04:28 Dose: 200 mls/hr Infusion: 04/05/18 04:18 Dose: 200 mls/hr Admin: 04/04/18 23:18 Dose: 200 mls/hr Multivitamins 10 ml/ Thiamine HCl 100 mg/ Folic Acid 1 mg/Potassium Chloride 20 meq/Sodium Chloride 1,021.2 mls @ 500 mls/hr IV .Q2H3M ONE Stop: 04/04/18 22:17 Last Infusion: 04/04/18 22:45 Dose: 0 mls/hr Admin: 04/04/18 20:27 Dose: 500 mls/hr Octreotide Acetate 50 mcg/ (Syringe) 10 mls @ 3 mls/min IV ONE STA Stop: 04/04/18 20:51 Last Admin: 04/04/18 22:03 Dose: 3 mls/min Potassium Chloride (Klor-Con M20) 40 meq PO NOW STA Stop: 04/04/18 21:56 Last Admin: 04/04/18 23:18 Dose: 40 meq Potassium Chloride (Klor-Con M20) 40 meq PO NOW STA Stop: 04/05/18 00:51 Last Admin: 04/05/18 01:17 Dose: 40 meq Description This is a 21 electrode EEG with a single channel dedicated to limited EKG. The electrodes were placed in accordance with the International 10-20 system. Interpretation The predominant background activity consists of an irregular 5-6 Hz activity, of up to 20 mV in amplitude, seen symmetrically distributed over the posterior head regions bilaterally. This activity attenuates some with eye-opening and other alerting procedures. Superimposed was considerable, persistent very low amplitude, fast Beta activity Photic stimulation was performed and elicited no change in the background activity and no abnormal responses were seen. Hyperventilation was not performed on this bedside ICU study. A mild amount of muscle, electrode, and movement artifact activity contaminated the recording and did not hinder interpretation to any significant degree. Throughout this recording, no focal abnormalities or potentially epileptogenic discharges are seen. The patient did not enter the drowsy state or stage II sleep. In summary, this EEG was mild abnormal during wakefulness, with mild generalized slowing. No focal abnormalities or potentially epileptogenic discharges were seen. The increased, fast Beta acitivity is seen with benzodiazepine use. Clinical Correlation The abscence of potentially epileptogenic activity does not exclude a seizure disorder, and this study is consistent with a mild nonspecific encephalopathy. Clinical correlation is required.
--- NOTE | 2018-04-06 12:32 | Progress Note ---
DATE: 04/06/2018 GASTROENTEROLOGY CONSULT SUBJECTIVE: I had the pleasure of seeing Cole at his bedside today. He states that he did have a period of nausea this morning and felt like he was going to vomit; however, he did not. He has had no bowel movement since yesterday. He denies any fevers, chills, nausea, vomiting, abdominal pain, melena, hematemesis or hematochezia and has no further complaints. REVIEW OF SYSTEMS: Negative x10 system review other than pertinent positives listed in the HPI. PHYSICAL EXAMINATION: VITAL SIGNS: Temp 36.8, pulse 94, respirations 16, blood pressure 136/68, pulse ox 91% on room air. GENERAL: He is awake, cooperative, in no acute distress. HEAD: Normocephalic, atraumatic. EYES: Pupils equal, round. Extraocular muscles are intact. ENT: External evaluation of ears and nose are normal. Oropharynx is clear. NECK: Soft and supple. CHEST: Clear to auscultation bilaterally. CARDIOVASCULAR SYSTEM: Regular rate and rhythm. ABDOMEN: Soft, slightly distended, nontender, positive bowel sounds. There is no hepatosplenomegaly or stigmata of chronic liver disease. EXTREMITIES: No clubbing, cyanosis, or edema. LABORATORY STUDIES: From today include an H and H of 7.5 and 22.8. His white blood cell count is 4.39 and his BUN is 22 with creatinine of 1.35. IMPRESSION: A 67-year-old male with history of alcohol use, hepatic steatosis, nausea, vomiting and black stools. PLAN: At the present time, I would recommend continuing his Protonix drip at 8 mg per hour as well as an octreotide drip at 50 mcg per hour. I will check a KUB secondary to his slight abdominal distention today and I will recommend that he undergo an upper endoscopy tomorrow for further evaluation of his symptoms. I will follow his clinical course and make further recommendations as needed. Once again, thanks for allowing me to participate in the care of this patient. If you have any further questions, please do not hesitate in contacting me. RACHAEL
--- NOTE | 2018-04-06 12:52 | XRay Report ---
KUB HISTORY: Abdominal distention. COMPARISON: Abdomen and pelvis CT 04/04/2018. FINDINGS: Multiple mildly dilated gas-filled loops of large and small bowel seen throughout the abdom en. This is consistent with an ileus. No evidence for bowel obstruction. No renal calculi. No ureter al calculi. Calcifications in the deep pelvis likely represent phleboliths. These remain unchanged. C holecystectomy. No pneumoperitoneum or pneumatosis. IMPRESSION: Mildly dilated gas-filled loops of large and small bowel seen throughout the abdomen consistent with an ileus. Electronically signed by: Robe Wiseman M.D. 04/06/2018 12:50 PM
[2018-04-06 13:28] LABS: Hematocrit (blood only) 22.6 % (42-52); Hemoglobin 7.4 g/dL (14.0-18.0)
--- NOTE | 2018-04-06 13:47 | Progress Note ---
DATE: 04/06/2018 I am seeing Mr. Kumar in followup of seizures. His EEG was mildly abnormal during wakefulness with mild generalized slowing. No focal abnormalities were noted. Beta activity noted consistent with benzodiazepine use. MRI of the brain with and without contrast is unremarkable for age. IMPRESSION: Seizure, likely alcohol withdrawal requiring no treatment other than a current withdrawal protocol. We will sign off at this point. Please reconsult if there are ongoing questions or concerns. MTDD
--- NOTE | 2018-04-06 18:38 | Hospitalist Progress Note ---
Date of Service April 06, 2018 Assessment & Plan (1) GI bleed: Hgb on admission 10.3, then dropped to 7.4 CT abdomen showed no acute finding KUB showed Mildly dilated gas-filled loops of large and small bowel seen throughout the abdomen consistent with an ileus. Continue on protonic drip and octeotride drip GI on board Continue monitor H/H Will transfuse if h/h drops below 7 aspirin on hold Case discussed with GI Will make NPO after midnight for EGD in am Seizure Mostly related to alcohol withdrawn EEG showed no focal abnormalities or potentially epileptogenic discharges were seen. MRI head showed no acute intracranial abnormality Neurology on board, no seizure med needing to start, except to treat for alcohol withdrawn Seizure and fall precaution Pt was advised no driving until free of seizure Acute on Chronic anemia Hbg dropped to 7.4 Monitor H/H closely EEG plan tomorrow Recurrent syncope Possible related to alcohol withdrawn seizure No arrhythmia on tele monitor ECHO showed no wall motion abnormality with EF btw 65 to 70 Stable YVAN Creatinine on admission 2.04 Due to dehydration from vomiting and poor oral intake Resolved Elevated troponin Mostly due to YVAN Troponin trending down to normal aspirin on hold due to GI bleed Lisinopril on hold ECHO showed no wall motion abnormality Monitor closely HTN BP currently improved On metoprolol Lisinopril on hold due to YVAN Rib fracture related to fall Incentive spirometry Stable Hypokalemia K stable Monitor BMP Elevated CK level Due to fall CK trending down to normal Received IV fluid Resolved Alcohol abuse Monitor for alcohol withdrawn Continue gabapentin/ativan alcohol withdrawn protocol No signs of DT DVT px on scd CODE STATUS FULL CODE DISPOSITION Continue monitor in ICU Subjective Pt was seen and examined Lying in bed with no distress watching TV Pt said that he feels fine Denies any new complaints Physical Exam 2 Vital Signs (Past 24 Hours): Last Vital Signs Temp 36.8 C 04/06/18 16:00 Pulse 99 H 04/06/18 17:00 Resp 21 04/06/18 17:00 BP 108/65 04/06/18 17:00 Pulse Ox 98 04/06/18 17:00 Physical Exam: General- No acute distress Head- atraumatic Eyes- PERRL, EOMI, ENT- oropharynx clear Neck- supple, no JVD Lungs- clear to auscultation Heart- regular rhythm; no murmur Abdomen- normal bowel sounds, soft, nontender Extremities- no calf tenderness Neuro- alert, oriented x 3; PERRL, EOMI; no facial palsy; no dysarthria Skin- warm & dry _ (1) GI bleed GI bleed type/associated pathology: Gastritis type:
[2018-04-06] MEDS: PANTOprazole 40 MG in SYRINGE 0 ML IV SCH (20:38)
[2018-04-07] MEDS: OCTREOTIDE ACETATE 500 MCG in 0.9 % SODIUM CHLORIDE 100 ML IV SCH ×2 (01:31→13:28)
[2018-04-07 05:04] LABS: Hemoglobin 7.1 g/dL (14.0-18.0); Mean Corpuscular Hgb Conc 32.3 g/dL (32-36); Mean Corpuscular Volume 98.7 fL (80-100); Nucleated RBC # (auto) 0.03 K/uL (0-0); Nucleated RBC % (auto) 0.6 %; RDW Coefficient of Variation 15.6 % (11.5-14.5); Red Blood Count 2.23 M/uL (4.7-6.1); White Blood Count 4.61 K/uL (4.8-10.8)
[2018-04-07 05:09] LABS: Mean Platelet Volume 9.3 fL (7.4-10.4); Platelet Count 86 K/uL (130-400)
[2018-04-07 05:24] LABS: Basophils # (auto) 0.02 K/uL (0-0.2); Basophils % (auto) 0.4 %; Eosinophils # (auto) 0.09 K/uL (0-0.5); Immature Granulocytes # (auto) 0.06 K/uL (0.00-0.02); Immature Granulocytes % (auto) 1.3 %; Lymphocytes # (auto) 1.18 K/uL (1.2-3.4); Lymphocytes % (auto) 25.6 %; Monocytes # (auto) 0.53 K/uL (0.11-0.59); Monocytes % (auto) 11.5 %; Neutrophils # (auto) 2.73 K/uL (1.4-6.5); Neutrophils % (auto) 59.2 %; RBC Morphology Unremarkable
[2018-04-07 05:43] LABS: BUN Creatinine Ratio 11.2 (10-20); Calcium 8.1 mg/dl (8.5-10.1); Creatinine Clr Calc Pharmacy 64.3 ml/min; Est GFR (Non-African American) 58.6; Phosphorus 1.6 mg/dl (2.5-4.9); Potassium 3.8 mmol/L (3.5-5.1)
[2018-04-07] MEDS: INSULIN ASPART 100 UNITS/ML 3 ML PEN SC SCH ×5 (05:47→23:51)
[2018-04-07] MEDS ORDERED: POTASSIUM PHOS 3 MMOL/1 ML INFUSION IV STA (05:50)
[2018-04-07] MEDS ORDERED: POTASSIUM PHOSPHATE 40 MMOL in SODIUM CHLORIDE 0.9% 1000ML 1,000 ML IV ONE (06:15)
--- NOTE | 2018-04-07 07:49 | Anesthesiology Consultation ---
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 and Patient seen in Pre Admission Testing Consults Requested none History Height/Weight Height: 6 ft 1 in Weight: 85.5 kg Allergies Allergy/AdvReac Type Severity Reaction Status Date / Time No Known Allergies Allergy Verified 04/04/18 19:17 Medications Home Medications Medication Instructions Recorded Confirmed Last Taken aspirin [Aspir-81] 81 mg PO QAM 04/04/18 04/04/18 04/01/18 lisinopril 10 mg PO QAM 04/04/18 04/04/18 04/01/18 metoprolol succinate 50 mg PO HS 04/04/18 04/04/18 04/01/18 rosuvastatin 20 mg PO HS 04/04/18 04/04/18 04/01/18 sertraline 50 mg PO QAM 04/04/18 04/04/18 04/01/18 Active Medications Generic Name Dose Route Start Last Admin Trade Name Freq PRN Reason Stop Dose Admin Folic Acid 1 mg 04/05/18 09:00 04/06/18 08:05 Folvite PO 05/05/18 08:59 1 mg QAM DELVIS Administration Gabapentin 600 mg 04/06/18 22:00 04/06/18 22:34 Neurontin PO 04/07/18 10:01 600 mg Q12H DELVIS Administration Gadobutrol 8.5 ml 04/05/18 12:47 04/05/18 12:48 Gadavist 65ml IV 04/09/18 12:46 8.5 ml ONCE PRN Administration Interaction Checking Octreotide Acetate 500 mcg/ 105 mls @ 10.5 mls/hr 04/04/18 21:00 04/07/18 01: 31 Sodium Chloride IV 05/04/18 20:59 50 mcg/hr .Q10H DELVIS 10.5 mls/hr Administration 50 MCG/HR Prochlorperazine 5 mg/ Syringe 5 mls @ 5 mls/min 04/04/18 23:08 04/06/18 07: 30 IV 05/04/18 23:07 5 mls/min Q6H PRN Administration Nausea And Vomiting Pantoprazole Sodium 40 mg/ 10 mls @ 5 mls/min 04/06/18 21:00 04/06/18 20:38 Syringe IV 05/06/18 20:59 5 mls/min BID DELVIS Administration Potassium Phosphate 40 mmol/ 1,013.3333 mls @ 142 mls/hr 04/07/18 06:15 04/07 06:23 Sodium Chloride IV 04/07/18 13:23 142 mls/hr ONE ONE Administration Insulin Aspart 0 units 04/05/18 00:00 04/07/18 05:47 Novolog Flexpen SC 05/05/18 00:00 Not Given Q6 DELVIS Metoprolol Succinate 25 mg 04/05/18 06:15 04/06/18 08:05 Toprol Xl PO 05/05/18 06:14 25 mg QAM DELVIS Administration Multivitamins 1 tab 04/05/18 09:00 04/06/18 08:05 Multivitamin Tab PO 05/05/18 08:59 1 tab QAM DELVIS Administration Sertraline HCl 50 mg 04/05/18 09:00 04/06/18 08:06 Zoloft PO 05/05/18 08:59 50 mg QAM DELVIS Administration Thiamine HCl 100 mg 04/05/18 09:00 04/06/18 08:05 Vitamin B-1 PO 05/05/18 08:59 100 mg QAM DELVIS Administration Past Medical History Medical History Alcohol abuse New onset seizure (Acute) Believed secondary to EtOH withdrawal Fall (Acute) GI bleed (Acute) Lactic acidemia (Acute) Sepsis (Acute) YVAN (acute kidney injury) (Acute) Acute kidney injury (Acute) Hypertension (Chronic) Dyslipidemia (Chronic) Anemia acute on chronic Past Surgical History Surgical History Status post cholecystectomy (Chronic) Social History Smoking Status: Former smoker Do You Dip or Chew Tobacco: No Smoking End Date: 2005 Hx Alcohol Use: Yes Alcohol type: hard liquor alcohol intake frequency: 0-2 drinks per day Hx Substance Use: No Physical Exam Vital Signs Last Vital Signs Temp 36.9 C 04/07/18 04:00 Pulse 83 04/07/18 06:00 Resp 16 04/07/18 06:00 BP 123/77 04/07/18 06:00 Pulse Ox 99 04/07/18 06:00 Testing Electrocardiogram Date: 04/05/18 Findings: + ST @ (107) Low voltage QRS Nonspecific ST abnormality Borderline ECG When compared with ECG of 04-APR-2018 19:18, No significant change was found Echocardiogram Date: 04/05/18 EF: 65 to 70% LV Function: normal (to hyperdynamic) Valvular Disease: + no significant valvular disease Laboratory Results 04/07/18 04:11 04/07/18 04:11 Blood Type O Positive 04/04/18 16:55 Antibody Screen NEGATIVE 04/04/18 16:55 PT 9.8 Seconds (9.0-12.0) 04/04/18 17:46 INR 1.0 (0.9-1.1) 04/04/18 17:46 APTT 20.1 Seconds (21.0-31.0) L 04/04/18 17:46 Hemoglobin A1c 5.0 % (4.5-5.6) 04/04/18 16:55 Urine Color Yellow 04/04/18 18:25 Urine Appearance Cloudy (Clear) H 04/04/18 18:25 Urine pH 5.5 (4.5-7.5) 04/04/18 18:25 Ur Specific [place] 1.022 (1.000-1.030) 04/04/18 18:25 Urine Protein 2+ (Negative) H 04/04/18 18:25 Urine Glucose (UA) Trace (Negative) H 04/04/18 18:25 Urine Ketones 1+ (Negative) H 04/04/18 18:25 Urine Nitrite Negative (Negative) 04/04/18 18:25 Ur Leukocyte Esterase Negative (Negative) 04/04/18 18:25 Urine WBC (Auto) 1-5 /hpf (0-5) 04/04/18 18:25 Urine RBC (Auto) 0-4 /hpf (0-4) 04/04/18 18:25 U Hyaline Cast (Auto) 10-30 /lpf (0-5) H 04/04/18 18:25 U Epithel Cells (Auto) >30 /lpf (0-5) H 04/04/18 18:25 Urine Bacteria (Auto) Negative (Negative) 04/04/18 18:25 04/04/18 18:43 Blood Culture - Preliminary Blood No growth to date. 04/04/18 18:29 Blood Culture - Preliminary Blood No growth to date. 04/06/18 20:42 POC Glucose 116 H
--- NOTE | 2018-04-07 09:12 | History & Physical Bridge Note ---
Date of Service April 07, 2018 History & Physical Bridge Note I have examined the patient, reviewed the History & Physical and in the interval since the performance of the History & Physical I have noted the following changes of clinical significance: no changes noted Patient reports that he has had no further melena, nausea, or vomiting since yesterday. He denies abdominal pain, chest pain, or shortness of breath. He continues on a Protonix drip and octreotide drip. He will continue on these medications and we will proceed with an EGD today for further evaluation. Thank you for allowing us to participate in the care of this patient. If you should have any further questions or concerns, do not hesitate to contact us. Supervising Physician Co-Signing Physician Notes Agree with JARVIS Thompson as above Abd: Soft, NT, ND, +BS Continue current therapy EGD today for further evaluation
[2018-04-07] MEDS ORDERED: PROPOFOL IV EMULSION 10 MG/ML 20 ML VIAL IV ONE (10:03)
[2018-04-07] MEDS ORDERED: LIDOCAINE HCL 2% 2 ML VIAL/AMP(20MG/ML) INFIL ONE (10:03)
[2018-04-07] MEDS ORDERED: MIDAZOLAM HCL 1 MG/ML 2ML VIAL ONE (10:04)
--- NOTE | 2018-04-07 10:46 | GI REPORT ---
Patient Name: Cole Kumar Procedure Date: 04/07/2018 10:15 AM Date of : 1950 Admit Type: Inpatient Age: 67 Gender: Male Attending MD: Moncho Santos DO Procedure: Upper GI endoscopy Providers: Moncho Santos DO Referring MD: AMANDA OTTO Indications: Melena Medicines: Monitored Anesthesia Care Complications: No immediate complications. Estimated Blood Loss: Estimated blood loss: none. Procedure: Pre-Anesthesia Assessment: - Prior to the procedure, a History and Physical was performed, and patient medications and allergies were reviewed. The patient's tolerance of previous anesthesia was also reviewed. The risks and benefits of the procedure and the sedation options and risks were discussed with the patient. All questions were answered, and informed consent was obtained. Prior Anticoagulants: The patient has taken aspirin, last dose was 6 days prior to procedure. ASA Grade Assessment: III - A patient with severe systemic disease. After reviewing the risks and benefits, the patient was deemed in satisfactory condition to undergo the procedure. After obtaining informed consent, the endoscope was passed under direct vision. Throughout the procedure, the patient's blood pressure, pulse, and oxygen saturations were monitored continuously. The Endoscope was introduced through the mouth, and advanced to the second part of duodenum. The upper GI endoscopy was accomplished without difficulty. The patient tolerated the procedure well. Findings: Moderately severe esophagitis with no bleeding was found. Biopsies were taken with a cold forceps for histology. A small hiatal hernia was present. The examined duodenum was normal. Impression: - Moderately severe erosive esophagitis. Biopsied. - Small hiatal hernia. - Normal examined duodenum. Recommendation: - Resume previous diet. - Continue present medications. - Await pathology results. - Return to primary care physician as previously scheduled. Moncho Santos DO 04/07/2018 10:46:12 AM This report has been signed electronically. Note Initiated On: 04/07/2018 10:15 AM Number of Addenda: 0 I attest to the content of the Intraoperative Record and orders documented therein, exceptions below {[id number]}
--- NOTE | 2018-04-07 11:36 | Anesthesiology Progress Note ---
Date of Service April 07, 2018 Anesthesia Post Procedure Vital Signs Vital Signs: Temp Pulse Pulse Resp BP BP Pulse Ox 04/07/18 11:06 86 18 115/67 99 04/07/18 10:51 93 H 18 112/72 98 04/07/18 10:36 102 H 16 104/66 100 04/07/18 09:49 37.0 C 84 18 118/78 99 04/07/18 09:00 84 22 111/67 99 04/07/18 08:00 36.9 C 93 H 22 117/72 99 04/07/18 07:00 86 18 99 04/07/18 06:00 83 16 123/77 99 04/07/18 04:00 36.9 C 84 16 114/66 99 04/07/18 02:00 82 17 112/89 97 04/07/18 00:00 36.8 C 84 16 97/72 L 96 04/06/18 22:00 87 20 110/68 99 04/06/18 20:00 36.6 C 90 20 148/86 H 99 04/06/18 18:00 93 H 17 82/57 L 96 04/06/18 17:00 99 H 21 108/65 98 04/06/18 16:00 36.8 C 96 H 22 82/56 L 95 04/06/18 15:00 95 H 23 96/59 L 100 04/06/18 14:00 96 H 29 H 103/50 L 98 04/06/18 13:00 88 21 123/68 100 04/06/18 12:00 36.8 C 88 24 133/71 100 Notes Mental Status: alert / awake / arousable and participated in evaluation Nausea / Vomiting: adequately controlled Pain: adequately controlled Airway Patency, RR, SpO2: stable & adequate BP & HR: stable & adequate Hydration State: stable & adequate Anesthetic Complications: no major complications apparent and Pt Satisfied with anesthetic care
[2018-04-07] MEDS: PANTOprazole 40 MG in SYRINGE 0 ML IV SCH (11:41)
[2018-04-07] MEDS: PANTOprazole 40 MG TAB PO SCH ×2 (12:00→23:51)
[2018-04-07] MEDS: THIAMINE HCL 100 MG TAB PO SCH (12:01)
[2018-04-07] MEDS: FOLIC ACID 1 MG TAB PO SCH (12:01)
[2018-04-07] MEDS: SERTRALINE HCL 50 MG TABLET PO SCH (12:01)
[2018-04-07] MEDS: METOPROLOL SUCC 50MG EXT REL TAB PO SCH (12:01)
[2018-04-07] MEDS: MULTIVITAMIN TAB PO SCH (12:01)
[2018-04-07] MEDS: GABAPENTIN 600 MG TAB PO SCH (12:01)
[2018-04-07 12:11] LABS: Hematocrit (blood only) 22.3 % (42-52); Hemoglobin 7.4 g/dL (14.0-18.0)
--- NOTE | 2018-04-07 15:16 | Hospitalist Progress Note ---
Date of Service April 07, 2018 Assessment & Plan (1) GI bleed: Hgb on admission 10.3, then dropped to 7.4 CT abdomen showed no acute finding KUB showed Mildly dilated gas-filled loops of large and small bowel seen throughout the abdomen consistent with an ileus. Continue on protonic drip and octeotride drip GI on board Continue monitor H/H Will transfuse if h/h drops below 7 aspirin on hold Case discussed with GI Will make NPO after midnight for EGD in am 04/07 S/P EGD done today showed moderately severe erosive esophagitis hgb 7.4 today Protonix changed to oral BID resume diet Monitor H./H Seizure Mostly related to alcohol withdrawn EEG showed no focal abnormalities or potentially epileptogenic discharges were seen. MRI head showed no acute intracranial abnormality Neurology on board, no seizure med needing to start, except to treat for alcohol withdrawn Seizure and fall precaution Pt was advised no driving until free of seizure Acute blood loss anemia Chronic anemia Hbg dropped to 7.4 Monitor H/H closely EEG done today Recurrent syncope Possible related to alcohol withdrawn seizure No arrhythmia on tele monitor ECHO showed no wall motion abnormality with EF btw 65 to 70 Stable YVAN Creatinine on admission 2.04 Due to dehydration from vomiting and poor oral intake Resolved Elevated troponin Mostly due to YVAN Troponin trending down to normal aspirin on hold due to GI bleed Lisinopril on hold ECHO showed no wall motion abnormality Monitor closely Resolved Hyponatremia Mostly due to poor oral intake and vomiting Na 135 today Improves Monitor BMP HTN BP currently improved On metoprolol Lisinopril on hold due to YVAN Will resume Lisinopril in am Rib fracture related to fall Incentive spirometry Stable Hypokalemia K stable Monitor BMP Elevated CK level Due to fall CK trending down to normal Received IV fluid Resolved Alcohol abuse Monitor for alcohol withdrawn Continue gabapentin/ativan alcohol withdrawn protocol No signs of DT DVT px on scd CODE STATUS FULL CODE DISPOSITION Will transfer out of the ICU Subjective Pt was seen and examined Lying in bed with no distress He had the EGD done today Pt said that he does have some burning irritation early when swallowing food Tolerated diet today Denies any hallucination, palpitation, SOB, Dizziness Physical Exam 2 Vital Signs (Past 24 Hours): Last Vital Signs Temp 36.8 C 04/07/18 12:00 Pulse 90 04/07/18 14:00 Resp 19 04/07/18 14:00 BP 114/77 04/07/18 14:00 Pulse Ox 99 04/07/18 14:00 Physical Exam: General- No acute distress Head- atraumatic Eyes- PERRL, EOMI, ENT- oropharynx clear Neck- supple, no JVD Lungs- clear to auscultation Heart- regular rhythm; no murmur Abdomen- normal bowel sounds, soft, nontender Extremities- no calf tenderness Neuro- alert, oriented x 3; PERRL, EOMI; no facial palsy; no dysarthria Skin- warm & dry _ (1) GI bleed GI bleed type/associated pathology: Gastritis type:
--- NOTE | 2018-04-08 08:23 | Anesthesiology Progress Note ---
Date of Service April 08, 2018 Anesthesia Post Procedure Vital Signs Vital Signs: Temp Pulse Pulse Resp BP BP Pulse Ox 04/08/18 08:20 90/53 L 04/08/18 08:19 102/63 04/08/18 08:05 37.0 C 91 H 16 99/63 L 99 04/07/18 23:18 36.6 C 94 H 18 117/70 96 04/07/18 18:00 93 H 21 109/65 97 04/07/18 17:00 89 20 113/61 96 04/07/18 16:00 36.8 C 88 19 124/78 98 04/07/18 15:22 87 04/07/18 14:00 90 19 114/77 99 04/07/18 13:31 92 H 17 90/52 L 04/07/18 13:00 100 H 23 117/65 97 04/07/18 12:30 100 H 23 116/91 100 04/07/18 12:02 91 H 19 100 04/07/18 12:00 36.8 C 86 19 120/75 96 04/07/18 11:59 89 20 119/70 95 04/07/18 11:52 90 21 04/07/18 11:06 86 18 115/67 99 04/07/18 10:51 93 H 18 112/72 98 04/07/18 10:36 102 H 16 104/66 100 04/07/18 09:49 37.0 C 84 18 118/78 99 04/07/18 09:00 84 22 111/67 99 Notes Mental Status: alert / awake / arousable and participated in evaluation Patient Amnestic to Procedure: Yes Nausea / Vomiting: adequately controlled Pain: adequately controlled Airway Patency, RR, SpO2: stable & adequate BP & HR: stable & adequate Hydration State: stable & adequate Anesthetic Complications: no major complications apparent
[2018-04-08] MEDS: MULTIVITAMIN TAB PO SCH (09:10)
[2018-04-08] MEDS: FOLIC ACID 1 MG TAB PO SCH (09:10)
[2018-04-08] MEDS: SERTRALINE HCL 50 MG TABLET PO SCH (09:10)
[2018-04-08] MEDS: PANTOprazole 40 MG TAB PO SCH ×2 (09:11→20:20)
[2018-04-08] MEDS: METOPROLOL SUCC 50MG EXT REL TAB PO SCH (09:11)
[2018-04-08] MEDS: THIAMINE HCL 100 MG TAB PO SCH (09:11)
[2018-04-08] MEDS: INSULIN ASPART 100 UNITS/ML 3 ML PEN SC SCH ×4 (09:12→20:20)
[2018-04-08 09:45] LABS: BUN Creatinine Ratio 8.1 (10-20); Calcium 8.2 mg/dl (8.5-10.1); Creatinine Clr Calc Pharmacy 57.5 ml/min; Est GFR (African American) 59.3; Est GFR (Non-African American) 51.2; Magnesium 1.6 mg/dl (1.8-2.4); Mean Corpuscular Hgb Conc 33.2 g/dL (32-36); Mean Platelet Volume 8.9 fL (7.4-10.4); Nucleated RBC # (auto) 0.04 K/uL (0-0); Nucleated RBC % (auto) 1.3 %; Platelet Count 93 K/uL (130-400); Potassium 3.5 mmol/L (3.5-5.1)
[2018-04-08 09:46] LABS: Phosphorus 1.8 mg/dl (2.5-4.9)
[2018-04-08 09:49] LABS: Hematocrit (blood only) 20.2 % (42-52); Hemoglobin 6.7 g/dL (14.0-18.0); Mean Corpuscular Volume 98.1 fL (80-100); RDW Coefficient of Variation 16.1 % (11.5-14.5); RDW Standard Deviation 57.3 fL (36.4-46.3); Red Blood Count 2.06 M/uL (4.7-6.1); White Blood Count 2.76 K/uL (4.8-10.8)
[2018-04-08] MEDS ORDERED: GABAPENTIN 600 MG TAB PO SCH (10:00)
[2018-04-08] MEDS ORDERED: SODIUM CHLORIDE 0.9% 250 ML IV PRN (10:21)
[2018-04-08] MEDS ORDERED: POTASSIUM PHOS 3 MMOL/1 ML INFUSION IV STA (10:30)
--- NOTE | 2018-04-08 10:37 | Gastroenterology Progress Note ---
Date of Service April 08, 2018 Assessment & Plan (1) Esophagitis: -Protonix 40 mg BID -Avoid NSAIDs and alcohol Present on Admission?: Yes (2) GI bleed: -See Esophagitis plan -Monitor H/H. If it continues to decline, will consider further intervention at that time. Present on Admission?: Yes Supervising Physician Co-Signing Physician Notes Agree with JARVIS Thompson as above Abd: Soft, NT, ND, +BS Continue current therapy Will monitor H/H and recommend transfusions PRN to maintain around 8/24 Subjective Patient is a 67 yo male who is hospitalized with melena. He underwent an EGD that indicated esophagitis and a hiatal hernia. He reports he is feeling well. He denies esophageal reflux, abdominal pain, or further melena. He is on Pantoprazole. His H/H is 6.4/20.2. Constitutional: no fatigue Respiratory: no cough Cardiovascular: no chest pain Gastrointestinal: no abdominal pain, no bloating, no early satiety, no heartburn , no vomiting, no hematemesis and no melena Physical Exam 2 Vital Signs (Past 24 Hours): Last Vital Signs Temp 37.0 C 04/08/18 08:05 Pulse 91 H 04/08/18 08:05 Resp 16 04/08/18 08:05 BP 90/53 L 04/08/18 08:20 Pulse Ox 99 04/08/18 08:05 Constitutional: WD/WN, vitals as above Eyes: PERRL, conjunctivae normal, anicteric sclerae Respiratory: normal respiratory effort, lungs clear to auscultation Cardiovascular: RRR, no murmur, no edema Gastrointestinal (Abdomen): normal bowel sounds, soft, nontender, no hepatosplenomegaly Musculoskeletal: no cyanosis or clubbing, extremities motor strength 5/5 _ (1) GI bleed GI bleed type/associated pathology: Gastritis type:
[2018-04-08] MEDS ORDERED: MAGNESIUM SULFATE / D5W 1 GM/100 ML BAG IV ONE (11:00)
[2018-04-08] MEDS ORDERED: POTASSIUM PHOSPHATE 15 MMOL in SODIUM CHLORIDE 0.9% 250 ML IV ONE (11:00)
--- NOTE | 2018-04-08 12:01 | Hospitalist Progress Note ---
Date of Service April 08, 2018 Assessment & Plan (1) GI bleed: Hgb on admission 10.3, then dropped to 7.4 CT abdomen showed no acute finding KUB showed Mildly dilated gas-filled loops of large and small bowel seen throughout the abdomen consistent with an ileus. Continue on protonic drip and octeotride drip GI on board Continue monitor H/H Will transfuse if h/h drops below 7 aspirin on hold Case discussed with GI Will make NPO after midnight for EGD in am 04/08 S/P EGD done today showed moderately severe erosive esophagitis hgb 6.7 today Will transfuse 1 unit PRBC Continue PPI BID Tolerated diet Monitor H./H Gastro on board Seizure Mostly related to alcohol withdrawn EEG showed no focal abnormalities or potentially epileptogenic discharges were seen. MRI head showed no acute intracranial abnormality Neurology on board, no seizure med needing to start, except to treat for alcohol withdrawn Seizure and fall precaution Pt was advised no driving until free of seizure Acute blood loss anemia Chronic anemia Hbg dropped to 6.7 Monitor H/H closely Will transfuse 1 unit PRBC today Recurrent syncope Possible related to alcohol withdrawn seizure No arrhythmia on tele monitor ECHO showed no wall motion abnormality with EF btw 65 to 70 Stable YVAN Creatinine on admission 2.04 Due to dehydration from vomiting and poor oral intake Creatinine bumped from 1.2 to 1.4 today Will get 1 unit prbc Monitor BMP Elevated troponin Mostly due to YVAN Troponin trending down to normal aspirin on hold due to GI bleed Lisinopril on hold ECHO showed no wall motion abnormality Monitor closely Resolved Electrolytes Imbalance Mostly due to poor oral intake and vomiting Na 132, Phos 1.8 and mg 1.6 Mg and phos replaced Will start on gentle IVF Monitor BMP HTN BP in the low side On metoprolol with parameters Lisinopril on hold due to YVAN Rib fracture related to fall Incentive spirometry Stable Elevated CK level Due to fall CK trending down to normal Received IV fluid Resolved Alcohol abuse Monitor for alcohol withdrawn Continue gabapentin/ativan alcohol withdrawn protocol No signs of DT DVT px on scd CODE STATUS FULL CODE DISPOSITION Continue monitor H/H PT/OT eval Subjective Pt was seen and examined Lying in bed with no distress Pt said that he feels fine Tolerated diet Has not had a bowel movement He denies any hallucination, palpitation, dizziness and chest pain Physical Exam 2 Vital Signs (Past 24 Hours): Last Vital Signs Temp 37.0 C 04/08/18 08:05 Pulse 91 H 04/08/18 08:05 Resp 16 04/08/18 08:05 BP 90/53 L 04/08/18 08:20 Pulse Ox 97 04/08/18 11:35 Physical Exam: General- No acute distress Head- atraumatic Eyes- PERRL, EOMI, ENT- oropharynx clear Neck- supple, no JVD Lungs- clear to auscultation Heart- regular rhythm; no murmur Abdomen- normal bowel sounds, soft, nontender Extremities- no calf tenderness Neuro- alert, oriented x 3; PERRL, EOMI; no facial palsy; no dysarthria Skin- warm & dry _ (1) GI bleed GI bleed type/associated pathology: Gastritis type:
[2018-04-08] MEDS ORDERED: ALUMINUM/MAGNESIUM SUSP 30 ML UDC PO PRN (17:45)
[2018-04-08] MEDS ORDERED: ALUMINUM/MAGNESIUM SUSP 30 ML UDC ONE (17:51)
[2018-04-08 20:04] LABS: Hematocrit (blood only) 22.2 % (42-52); Hemoglobin 7.4 g/dL (14.0-18.0)
[2018-04-09 07:01] LABS: Hematocrit (blood only) 24.2 % (42-52); Hemoglobin 8.1 g/dL (14.0-18.0); Mean Corpuscular Hgb Conc 33.5 g/dL (32-36); Mean Corpuscular Volume 95.7 fL (80-100); Mean Platelet Volume 9.3 fL (7.4-10.4); Nucleated RBC # (auto) 0.04 K/uL (0-0); Platelet Count 135 K/uL (130-400); RDW Coefficient of Variation 17.8 % (11.5-14.5); RDW Standard Deviation 62.5 fL (36.4-46.3); Red Blood Count 2.53 M/uL (4.7-6.1); White Blood Count 4.17 K/uL (4.8-10.8)
[2018-04-09 07:29] LABS: BUN Creatinine Ratio 7.2 (10-20); Calcium 8.4 mg/dl (8.5-10.1); Creatinine Clr Calc Pharmacy 56.7 ml/min; Est GFR (African American) 58.3; Est GFR (Non-African American) 50.3; Potassium 3.6 mmol/L (3.5-5.1)
[2018-04-09] MEDS: INSULIN ASPART 100 UNITS/ML 3 ML PEN SC SCH ×4 (08:00→20:56)
[2018-04-09] MEDS: THIAMINE HCL 100 MG TAB PO SCH (09:10)
[2018-04-09] MEDS: MULTIVITAMIN TAB PO SCH (09:10)
[2018-04-09] MEDS: METOPROLOL SUCC 50MG EXT REL TAB PO SCH (09:10)
[2018-04-09] MEDS: FOLIC ACID 1 MG TAB PO SCH (09:10)
[2018-04-09] MEDS: PANTOprazole 40 MG TAB PO SCH ×2 (09:10→20:55)
[2018-04-09] MEDS: SERTRALINE HCL 50 MG TABLET PO SCH (09:10)
[2018-04-09 15:17] VITALS: O2SAT 95
[2018-04-09] MEDS ORDERED: POLYETHYLENE (MIRALAX) 17 GM PACK PO PRN (16:23)
[2018-04-09] MEDS: DOCUSATE SODIUM 100 MG CAP PO SCH ×2 (17:26→20:56)
--- NOTE | 2018-04-09 18:16 | Hospitalist Progress Note ---
Date of Service April 09, 2018 Assessment & Plan (1) GI bleed: upper GI bleed presented with c/o dark melanotic stool acute blood loss anemia Hgb on admission 10.3, then dropped to 7.4 -> 6.7 s/p PRBC tx CT abdomen showed no acute finding KUB showed Mildly dilated gas-filled loops of large and small bowel seen throughout the abdomen consistent with an ileus. pt was treated with protonic drip and octeotride drip( due to hx of ETOH abuse ) GI consulted appreciate input S/P EGD 04/07: showed moderately severe erosive esophagitis pt is on Protonix 40 mg PO BID will need to continue for 2-3 months avoid NSAID's /ETOH H&H been stable post tx no episode of malnea diet advanced to solid , tolerating well Seizure no further episode Mostly related to alcohol withdrawn ( hx of daily ETOH intake 2-3 alchoholic beverage ,presented with Sz like activity , syncope -last ETOH drink was approx 72 hrs prior ) EEG showed no focal abnormalities or potentially epileptogenic discharges were seen. MRI head showed no acute intracranial abnormality Neurology on board, no seizure med needing to start, except to treat for alcohol withdrawn Seizure and fall precaution Pt was advised no driving until free of seizure for 3 months ( will notify DMV) Acute blood loss anemia due to upper GI bleed due to severe erosive esophagitis noted in EGD on 04/08 hx of Chronic anemia Hbg dropped to 6.7 s/p 1 unit of PRBC tx HB remains stable > 8 Recurrent syncope Possible related to alcohol withdrawn seizure/anemia /GI bleed No arrhythmia on tele monitor ECHO showed no wall motion abnormality with EF btw 65 to 70 no further episode YVAN resolved cr at baseline Creatinine on admission 2.04 Due to dehydration from vomiting and poor oral intake Elevated troponin Mostly due to YVAN/dehydration /hypotension leading to demand ischemia Troponin trending down to normal aspirin on hold due to GI bleed ECHO showed no wall motion abnormality Electrolytes Imbalance Mostly due to poor oral intake and vomiting Na 132, Phos 1.8 and mg 1.6 corrected with IV fluid and replacement HTN BP in the low side On metoprolol with parameters Lisinopril on hold due to YVAN will be resumed Rib fracture related to fall Incentive spirometry Stable Elevated CK level Due to fall CK trending down to normal Received IV fluid Resolved Alcohol abuse hx of ETOH abuse -drinks 2-3 alchoholic beverage a day , presented with recurrent syncope, Sz like activity -after last ETOH intake of 3 days back was admitted to ICU treated with gabapentin/ativan alcohol withdrawn protocol no withdrawl symptom at present pt is counselled for ETOH abstinence -can lead to life theatenting SZ/withdrawl symptom /DT/liver failure /GI bleed pt is agreeable to quit DVT px on scd CODE STATUS FULL CODE DISPOSITION possible discharge home tomorrow if no evidence of GI bleed /H&H remains stable Subjective tolerating solid diet no complain of abdominal pain or nausea no bowel movement since admission feels fine no weakness, no dizzy spell or ACHARYA Physical Exam 2 Vital Signs (Past 24 Hours): Last Vital Signs Temp 36.7 C 04/09/18 15:16 Pulse 89 04/09/18 15:16 Resp 18 04/09/18 15:16 BP 113/71 04/09/18 15:16 Pulse Ox 95 04/09/18 15:16 Physical Exam: GENERAL: No sign of distress, HEENT: Sclera nonicteric, pink-purple bilateral equal reactive to light extraocular muscle intact Normal oral mucosa, neck: No JVD, no thyromegaly, trachea midline Lungs: Clear to auscultate, no wheeze or rales Cardiovascular: Regular S1 and S2, no murmur or gallop, no JVD, no lower extremity edema Abdomen: Soft, nontender, bowel sounds active, no hepatosplenomegaly Extremities: No rash or deformity, normal joint, Neuro: No focal neurological deficit, no dysarthria, no facial droop Psych: Alert awake oriented x3: Euthymic Skin: No rash LYMPH NODES: No cervical lymphadenopathy _ (1) GI bleed GI bleed type/associated pathology: Gastritis type:
[2018-04-10 07:35] VITALS: BP 112/68; PULSE 88; TEMP 98.1
[2018-04-10] MEDS: INSULIN ASPART 100 UNITS/ML 3 ML PEN SC SCH ×2 (07:57→12:41)
[2018-04-10] MEDS: SERTRALINE HCL 50 MG TABLET PO SCH (08:37)
[2018-04-10] MEDS: MULTIVITAMIN TAB PO SCH (08:37)
[2018-04-10] MEDS: PANTOprazole 40 MG TAB PO SCH (08:37)
[2018-04-10] MEDS: DOCUSATE SODIUM 100 MG CAP PO SCH (08:38)
[2018-04-10] MEDS: FOLIC ACID 1 MG TAB PO SCH (08:38)
[2018-04-10] MEDS: THIAMINE HCL 100 MG TAB PO SCH (08:38)
[2018-04-10] MEDS: METOPROLOL SUCC 50MG EXT REL TAB PO SCH (08:38)
--- NOTE | 2018-04-10 13:46 | Discharge Summary ---
Date of Service April 10, 2018 Admission HPI Per Admitting Provider History obtained from patient, family, and records. Medical history significant for hypertension, hyperlipidemia, alcohol abuse, history childhood meningitis status post therapy, past tobacco abuse, history of colonic polyps, chronic anemia (baseline hemoglobin of 10) chronic thrombocytopenia. Recent confinement December 2016 for acute kidney injury. Patient admitted with a creatinine of 12 which improved with IVF. As per patient, kidney function was normal following confinement however last month kidney function was noted to be abnormal by PCP on blood work. He was advised to increase fluid intake by PCP. 3 days ago patient noted nausea vomiting symptoms without abdominal pain. Appetite was poor. No chest pain, no SOB. Last EtOH intake was about 3 days ago. Denies recent NSAID intake. Emesis initially yellow later noted to be dark brown. Stools noted to be melanotic yesterday. Patient had an unwitnessed syncopal event at home yesterday while in the bathroom. He woke up face down on the floor. Patient unsure how long he was unconscious. Denies headache symptoms. This afternoon, patient requested his 2 sons to help him get up and walk around the house. Sons later noted patient to be breathing heavily. Patient later noted to have convulsions/" possible seizures", arms and legs shaking, no tongue biting. Episode lasted about 2 minutes. Patient noted to be incontinent of stool and urine after episode. Somewhat confused and purposelessly reaching for his belt for about 10 minutes as per son. At the ER, SBP noted to be 90s initially. IV fluids administered. IV Keppra given at the ER for seizure prophylaxis. Protonix infusion started for possible UGIB. SBP currently 130s. Medical History as above Surgical History : Cholecystectomy, pilonidal cyst removal Family History : Heart disease, A. 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 GI BLEED /ANEMIA /ESOPHAGITIS /ETOH ABUSE /WITHDRAWL SEIZURE Discharge Exam GENERAL: No sign of distress, HEENT: Sclera nonicteric, pink-purple bilateral equal reactive to light extraocular muscle intact Normal oral mucosa, neck: No JVD, no thyromegaly, trachea midline Lungs: Clear to auscultate, no wheeze or rales Cardiovascular: Regular S1 and S2, no murmur or gallop, no JVD, no lower extremity edema Abdomen: Soft, nontender, bowel sounds active, no hepatosplenomegaly Extremities: No rash or deformity, normal joint, Neuro: No focal neurological deficit, no dysarthria, no facial droop Psych: Alert awake oriented x3: Euthymic Skin: No rash LYMPH NODES: No cervical lymphadenopathy Discharge Data Allergies Allergy/AdvReac Type Severity Reaction Status Date / Time No Known Allergies Allergy Verified 04/04/18 19:17 Consultations 04/04/18 19:24 ED Decision to Admit Stat 04/04/18 23:08 Consult Case Management - Discharge Planning Routine Consult Gastroenterology Routine Consult Staff Attorney Routine Consult Neurology Routine Procedures Performed Operation Date: 04/07/18 11:00 Actual Procedures p EGD Biopsy Cytology - Moncho Benavidez, DO Ordered Studies 04/04/18 17:55 CT cervical spine wo con Stat CT head/brain wo con Stat 04/04/18 17:59 CT abd pelvis wo con Stat CT chest wo con Stat 04/05/18 04:42 MR brain seizure wo/w con Routine Hospital Course (1) GI bleed: resolved upper GI bleed presented with c/o dark melanotic stool acute blood loss anemia Hgb on admission 10.3, then dropped to 7.4 -> 6.7 s/p PRBC tx CT abdomen showed no acute finding KUB showed Mildly dilated gas-filled loops of large and small bowel seen throughout the abdomen consistent with an ileus. pt was treated with protonic drip and octeotride drip( due to hx of ETOH abuse ) GI consulted appreciate input S/P EGD 04/07: showed moderately severe erosive esophagitis pt is on Protonix 40 mg PO BID will need to continue for 2-3 months avoid NSAID's /ETOH H&H been stable post tx ; Hb > 9 no episode of malnea diet advanced to solid , tolerating well stable to be discharged home today Seizure due to ETOH withdrawl no further episode Mostly related to alcohol withdrawn ( hx of daily ETOH intake 2-3 alchoholic beverage ,presented with Sz like activity , syncope -last ETOH drink was approx 72 hrs prior ) EEG showed no focal abnormalities or potentially epileptogenic discharges were seen. MRI head showed no acute intracranial abnormality Neurology on board, no seizure med needing to start, except to treat for alcohol withdrawn Seizure and fall precaution Pt was advised no driving until free of seizure for 3 months ( will notify DMV) Acute blood loss anemia corrected due to upper GI bleed due to severe erosive esophagitis noted in EGD on 04/08 hx of Chronic anemia Hbg dropped to 6.7 s/p 1 unit of PRBC tx hb 9.1 HB remains stable > 8 Recurrent syncope no further symptom ambulating indepenendently no dizzy spell or lightheadedness Possible related to alcohol withdrawn seizure/anemia /GI bleed No arrhythmia on tele monitor was tx to Medical floor ECHO showed no wall motion abnormality with EF btw 65 to 70 pt is counselled repeatedly to Quit ETOH / YVAN resolved cr at baseline Creatinine on admission 2.04 Due to dehydration from vomiting and poor oral intake Elevated troponin Mostly due to YVAN/dehydration /hypotension leading to demand ischemia Troponin trending down to normal aspirin on hold due to GI bleed ECHO showed no wall motion abnormality no prior hx of CAD or CVA pt's hx of chronic ETOH intake /abuse -risk for GI bleed is more pt is asked not to continue Aspirin as out pt ( has not been taking at home on a regular basis ) Electrolytes Imbalance corrected normal level Mostly due to poor oral intake and vomiting presented with Na 132, Phos 1.8 and mg 1.6 corrected with IV fluid and replacement HTN BP in the low side On metoprolol with parameters dose reduced to 25 mg daily ( was on 50 mg daily ) Lisinopril discontinued Rib fracture related to fall Incentive spirometry Stable denies of any pain or discomfort Elevated CK level Due to fall CK trending down to normal Received IV fluid Resolved Alcohol abuse hx of ETOH abuse -drinks 2-3 alchoholic beverage a day , presented with recurrent syncope, Sz like activity -after last ETOH intake of 3 days back was admitted to ICU treated with gabapentin/ativan alcohol withdrawn protocol no withdrawl symptom at present pt is counselled for ETOH abstinence -can lead to life theatenting SZ/withdrawl symptom /DT/liver failure /GI bleed pt is agreeable to quit DVT px on scd CODE STATUS FULL CODE DISPOSITION stable to be discharged home today Total Time Total Time Spent Total Time Spent (In Minutes): approx 40 mins Total Time Includes: Examination of the Patient, Discharge Planning and Medication Reconciliation Discharge Plan Discharge Items Patient Disposition: Home - Self-Care Reason For Visit: UGIB, HYPOTENSION Discharge Diagnosis: ANEMIA /UPPER GI BLEED /ESOPHAGITIS /ALCHOHOL ABUSE / WITHDRAWAL SEIZURE Discharge Goals: Decrease discomfort, Diagnostic testing and Therapeutic intervention Activity: Resume your previous activity Driving/Machine Use Comment: DO NOT DRIVE TILL SEIZURE FREE FOR 3 MONTHS Non-emergency contact: Primary Care Provider Call non-emergency contact if: you have any medication questions Follow-up/Referrals: Moncho Benavidez, [Physician] - (IN 4-6 WEEKS , PLEASE CALL OFFICE FOR APPOINTMENT ) Diet: Regular Other Ambulatory Orders: Basic Metabolic Panel (Routine) Timeframe: 1 Week Location: Determined by Patient Ordered By: Melissa Olivares Complete Blood Count no Diff (Routine) Timeframe: 1 Week Location: Determined by Patient Ordered By: Melissa Olivares Addtl Provider Instructions: FOLLOW UP WITH FAMILY PHYSICIAN DR BRIZUELA WITH IN A WEEK CONTINUE TO TAKE PROTONIX 40 MG TWICE DAILY FOR 3-4 WEEKS FOLLOW UP WITH GASTROENTERLOGY IN 4-6 WEEKS ( DR BENAVIDEZ ) TAKE MIRLAX /COLACE ( OVER THE COUNTER NEEDED FOR CONSTIPATION ) LAB WORK BASIC METABOLIC PANEL IN A WEEK NEED TO QUIT DRINKING ALCHOHOL ASK YOUR FAMILY PHYSICIAN FOR HELP /REFERRAL TO RESOURCES TO HELP WITH ALCOHOL ADDICTION CHANGE IN MEDICATIONS: LISINOPRIL DISCONTINUED FOR ACUTE RENAL FAILURE /LOW BLOOD PRESSURE METOPROLOL DOSE REDUCED TO 1/2 FOR LOW BLOOD PRESSURE ASPIRIN DISCONTINUED DUE TO GI BLEED Prescriptions: New metoprolol succinate 50 mg Tablet Extended Release 24 Hr 25 mg PO QAM 30 Days Qty: 15 RF: 2 pantoprazole 40 mg Tablet,Delayed Release (Dr/Ec) 40 mg PO BID 30 Days Qty: 60 RF: 3 multivitamin [Daily-Willow] Tablet 1 tab PO QAM 30 Days Qty: 30 RF: 0 thiamine HCl (vitamin B1) [Vitamin B-1] 100 mg Tablet 100 mg PO QAM 30 Days Qty: 30 RF: 0 folic acid 1 mg Tablet 1 mg PO QAM 30 Days Qty: 30 RF: 0 Continue sertraline 50 mg Tablet 50 mg PO QAM RF: 0 rosuvastatin 20 mg Tablet 20 mg PO HS RF: 0 Discontinued metoprolol succinate 50 mg Tablet Extended Release 24 Hr 50 mg PO HS RF: 0 aspirin [Aspir-81] 81 mg Tablet,Delayed Release (Dr/Ec) 81 mg PO QAM RF: 0 lisinopril 10 mg Tablet 10 mg PO QAM RF: 0 Stand-Alone Forms: [facility] Discharge Orders: Discharge Order (Routine); Ordered 04/10/18 Ordered By: Melissa Olivares Admission Data Admit Date/Time: 04/04/18 21:45 Attending Provider: Melissa Olivares Admit Provider: Cole Avila Primary Care Provider: Darya Brizuela Other Providers: Cole Avila ; Leonila Milligan ; Sam Ortiz ; Tori Palm ; Cristino Anguiano ; Roxy Vaughn ; Sophy Zapien ; Joellen Humphries ; Lobo Amado ; Geoffrey Fernandez ; Lenore Vargas ; Flory Victoria ; Emely Downey ; Ameena Echeverria ; Tamika Velasco ; Tano Chen ; Kerri Ibarra ; Rasta Dawson ; Kerri Martino ; Oralia Davalos ; Deniz Rios ; Agnes Wagner ; Sunil Mccormick Service: Medical Other Interventions: Discharge Summary Assessment (RN) Last Done: 04/10/18 13:49 DC Date/Time DO NOT enter until pt leaves facility: 04/10/18 14:24
--- NOTE | 2018-04-14 11:13 | Coding Query ---
PRESENT ON ADMISSION QUERY To promote full compliance with coding requirements relating to pateint care, physician participation is requested in all cases of manager building uncertainty. Please assist us with the question(s) below: Please place an X within the parenthesis (x). The following diagnosis(es) listed in this patient's medical record require physician assistance to determine if they were present on admission (POA) or not. Please advise for each diagnosis whether it was present on admission, not present on admission, or if it was clinically undetermined. 1. Acute Blood Loss Anemia (documented in Progress Notes and Discharge Summary) (x) Present On Admission ( ) Not Present On Admission ( ) Clinically Undetermined Thank you Tamela Costa *Definition of the present on admission (POA)-Present on admission is defined as present at the time the order for inpatient admission occurs. Conditions that develop during an outpatient encounter prior to a written order for inpatient admission (including emergency department, observation, or outpatient surgery) are considered present on admission. MTDD
== END 2018-04-10 14:24 | disposition home or self-care (01) | DRG 812 ==
LOC: ED 17:16 → 1E 21:45 → SUATTDRO 21:45 → 1E 22:34 → 4W 04-07 18:44

== ENCOUNTER 2018-04-28 09:46 | Inpatient (IN) ==
[2018-04-28] MEDS ORDERED: SODIUM CHLORIDE 0.9% 1000ML 1,000 ML IV SCH ×3 (10:15→20:15)
[2018-04-28 10:32] LABS: Mean Corpuscular Hgb Conc 32.8 g/dL (32-36)
[2018-04-28 10:39] LABS: INR 1.1 (0.9-1.1); Partial Thromboplastin Ratio 1.1; Partial Thromboplastin Time 29.5 Seconds (21.0-31.0); Prothrombin Time 10.7 Seconds (9.0-12.0)
[2018-04-28 10:41] LABS: Albumin Level 2.1 gm/dl (3.4-5.0); BUN Creatinine Ratio 16.8 (10-20); Calcium 8.6 mg/dl (8.5-10.1); Creatinine Clr Calc Pharmacy 34.6 ml/min; Est GFR (African American) 32.4; Potassium 3.4 mmol/L (3.5-5.1)
--- NOTE | 2018-04-28 10:44 | XRay Report ---
XR chest 1V portable CLINICAL HISTORY: weakness COMPARISON STUDY: 04/04/2018 FINDINGS: There are relatively low lung volumes. There is mild elevation of the right hemidiaphragm. There is colonic interposition. There is no focal pulmonary consolidation. There is no failure. There are no pleural effusions. There is a prominent left cardiophrenic angle fat pad.[ IMPRESSION: No active disease in the chest. Electronically signed by: David Delong M.D. 04/28/2018 10:42 AM
[2018-04-28 10:57] LABS: Albumin Globulin Ratio 0.5 (0.9-2); Bilirubin,Total 0.4 mg/dl (0.2-1); Globulin 4.5 gm/dl (2.5-4.0); Total Protein 6.6 gm/dl (6.4-8.2); Troponin I 0.106 ng/ml (0-0.045)
[2018-04-28 10:58] LABS: Hematocrit (blood only) 26.5 % (42-52); Hemoglobin 8.7 g/dL (14.0-18.0); Mean Corpuscular Volume 88.6 fL (80-100); Platelet Count 87 K/uL (130-400); RDW Coefficient of Variation 17.9 % (11.5-14.5); RDW Standard Deviation 58.6 fL (36.4-46.3); Red Blood Count 2.99 M/uL (4.7-6.1); White Blood Count 6.34 K/uL (4.8-10.8)
[2018-04-28 10:59] LABS: Dohle Bodies 1+; Eosinophils # (auto) 0.01 K/uL (0-0.5); Eosinophils % (auto) 0.2 %; Immature Granulocytes # (auto) 0.04 K/uL (0.00-0.02); Immature Granulocytes % (auto) 0.6 %; Lymphocytes # (auto) 0.36 K/uL (1.2-3.4); Lymphocytes % (auto) 5.7 %; Monocytes # (auto) 0.55 K/uL (0.11-0.59); Monocytes % (auto) 8.7 %; Neutrophils # (auto) 5.38 K/uL (1.4-6.5); Neutrophils % (auto) 84.8 %; Platelet Estimate Decreased (Normal)
--- NOTE | 2018-04-28 12:57 | History & Physical Report ---
Date of Service April 28, 2018 Assessment & Plan (1) Elevated troponin: Suspect due to demand ischemia and YVAN - Will check troponins Q6 hrs x 3 - Monitor on telemetry and repeat EKG in AM - Hold on cardiology consultation for now but will reconsider if troponins trending up or develops EKG changes (2) Acute kidney injury: Suspect due to dehydration. Pt reports he previously saw Dr. Mata for same complaint but never followed up outpatient. Pt denies NSAIDs or supplements at home. - Consult nephrology for any additional recommendations re: additional work-up - Follow BMP daily and later today - Will give addition 2 liters of NSS at 80 ml/hr then re-evaluate (3) Diarrhea: New-onset over past several days - associated incontinence - Check stool studies for infection including C. diff - Check fecal fat due to potential for pancreatic insufficiency (chronic alcohol use) and malabsorption. (4) Tachycardia: Suspect secondary to dehydration - Monitor on telemetry but already seems to be improving with IVF rehdration - Due to new-onset ACHARYA, check D-dimer (at risk for PE with recent hospitalization) - if positive, check LE venous doppler since unable to check CTA chest at this time with YVAN (5) Hypokalemia: - Replete with oral KCl and recheck later today - may need to add to IVF as well. Present on Admission?: Yes (6) Esophagitis: - continue PPI therapy (7) Alcohol abuse: Pt reports last drink was prior to admission in March (at least three weeks ago). Will monitor for any evidence of alcohol withdrawal during this admission. (8) Hypertension: - Continue Metoprolol with holds for SBP <100 (9) Dyslipidemia: Continue statin therapy (10) Dyspnea on exertion: Unclear etiology at this time. Trending troponin due to concern for cardiac etiology. Checking D-dimer due to concern for potential PE. May also be due to anemia from recent GI bleed Plan: Plan - Amanda Rice PA-C: Pt reviewed with collaborating physician, Dr. Carrasco. Plan of care discussed and as outlined above. Pt to followed by Dr. Ramsey, starting tomorrow. Robin Rice PA-C History of Present Illness Primary Care Provider: PCP: Darya Swain 68 y/o male with recent admission for GI bleed due to erosive esophagitis, YVAN and alcohol-withdrawal seizure who presented to the ED today via EMS due to progressive weakness, dyspnea on exertion and falls at home. Pt reports that initially he was doing well upon discharge from the hospital. He was able to complete his usual ADLs without difficulty. About ten days ago he started with lower back pain and bilateral hip pain. Because of this he was spending all day sitting in his chair, sleeping there at night. Over the same time period, he has noted progressive weakness and fatigue. The weakness is generalized and he cannot locate it to a specific area of the body. Over the past 5-7 days, the patient has noted dyspnea on exertion that takes several minutes of rest to resolve. He denies chest pain, palpitations, cough or wheezing. On Saturday ( two days ago), the patient had a mechanical fall but was able to get back up and had no injuries. Today, he went to get up from the chair he has been sleeping in and was too weak to stand resulting in another mechanical fall. This time he was unable to get up from the floor, where his found him when she returned home and then called EMS. He denies hitting head or losing consciousness but does "feel sore all over" from the fall this morning. No dizziness associated with either fall. Pt notes decreased oral intake over past several days. He has been attempting to keep up with fluids but mostly drinking juices such as apple juice. His appetite is markedly decreased for past few days with very little solid food since . Tried Muscle Milk last night. He denies nausea, vomiting, heartburn or indigestion. He does note urgent watery diarrhea with incontinence over past several days - at least 2-3 episodes of diarrhea per night. Denies hematochezia or melena. Abdomen has been bloated with increased eructation and flatus. No dysphagia or odynophagia. He reports his last alcoholic drink was at least three weeks ago ( prior to his last hospitalization). He took two Tylenol for his back pain but denies use of NSAIDs, aspirin or herbal supplements. Allergies Allergy/AdvReac Type Severity Reaction Status Date / Time No Known Allergies Allergy Verified 04/28/18 12:17 Home Medications Home Medications Medication Instructions Recorded Confirmed Type sertraline 50 mg PO QAM 04/04/18 04/28/18 History folic acid 1 mg PO QAM 30 Days #30 tab 04/10/18 04/28/18 Rx multivitamin [Daily-Willow] 1 tab PO QAM 30 Days #30 tab 04/10/18 04/28/18 Rx pantoprazole 40 mg PO BID 30 Days #60 tab 04/10/18 04/28/18 Rx thiamine HCl (vitamin B1) [Vitamin 100 mg PO QAM 30 Days #30 tab 04/10/18 Rx B-1] acetaminophen [Tylenol Extra 1,000 mg PO Q6H PRN 04/28/18 04/28/18 History Strength] metoprolol succinate 50 mg PO HS 04/28/18 04/28/18 History rosuvastatin 20 mg PO HS 04/28/18 04/28/18 History Past Med/Surg History Medical History Esophagitis (Acute) Alcohol abuse (Chronic) New onset seizure (Acute) Believed secondary to EtOH withdrawal Fall (Acute) GI bleed (Acute) Lactic acidemia (Acute) Sepsis (Resolved) YVAN (acute kidney injury) (Acute) Acute kidney injury (Acute) Hypertension (Chronic) Dyslipidemia (Chronic) Thrombocytopenia (Chronic) History of bacterial meningitis in childhood (Resolved) Anemia (Chronic) acute on chronic Surgical History Status post cholecystectomy (Chronic) History of excision of pilonidal cyst (Resolved) Family History Other No significant family history Social History marital status: Current Living Situation: Spouse Other Information That Helps Us Care for You: No Feels Safe at Home: Yes Safety Concerns: Feels Safe At This Time Smoking Status: Former smoker Smoking End Date: 2005 Hx Alcohol Use: Yes Alcohol type: hard liquor Alcohol Intake Frequency: 0-2 drinks per day Alcohol Intake Frequency Comment: Former Hx Substance Use: No Beliefs That Will Affect Care: None and Mosque Mosque Beliefs: muslim Preferred Language: Cymraes Limited Radiology Technician Required: No Review of Systems All systems reviewed & are unremarkable except as noted in HPI & below Constitutional: + fatigue, + weakness (generalized) and + anorexia; no fever and no chills Eyes: no blind spots, no diplopia, not seeing flashes and no worsening vision Ear, Nose, Mouth, Throat: no dizziness, no nasal congestion, no nasal discharge , no sore throat, no dysphagia and no pain with swallowing Respiratory: + dyspnea on exertion; no cough, no chest congestion, no hemoptysis , no sputum production and no wheezing Cardiovascular: + edema (per pt, increased indentation from his socks at night) ; no chest pain, no palpitations and no syncope Gastrointestinal: + belching, + diarrhea/loose stools (see HPI) and + fecal incontinence (see HPI); no abdominal pain, no heartburn, no vomiting, no pain with swallowing, no blood in stools and no melena Genitourinary (Male): no dysuria, no urinary frequency, no urinary incontinence , no decreased urination and no hematuria Musculoskeletal: + back pain and + joint pain (bilateral hip pain) Integumentary: no rash and no non-healing lesions Neurologic: + falls (two falls in past three days due to weakness) and + generalized weakness; no seizure-like activity (since discharge), no dizziness, no syncope, no headache(s) and no abnormal speech Hematologic / Lymphatic: no easy bleeding and no easy bruising Physical Exam 2 Vital Signs (Past 24 Hours): Last Vital Signs Temp 37.1 C 04/28/18 09:56 Pulse 94 H 04/28/18 11:33 Resp 18 04/28/18 11:33 BP 96/40 L 04/28/18 11:33 Pulse Ox 100 04/28/18 11:33 Constitutional: WD/WN, vitals as above Eyes: PERRL, conjunctivae normal, anicteric sclerae ENMT: external ear and nose normal, oropharynx normal Neck: trachea midline Respiratory: able to speak in complete sentences; no respiratory distress, no labored breathing and does not use accessory muscles Auscultation: lungs clear to auscultation bilaterally; no rales, no rhonchi and no wheezes Cardiovascular: Rate/Rhythm: regular rhythm and + tachycardic (~100 bpm) Heart Sounds: + murmur; no click and no gallop Vessels: dorsalis pedis pulses present; no carotid bruit Extremities: normal capillary refill; no calf tenderness and no pedal edema Gastrointestinal (Abdomen): Inspection/Auscultation: + abdomen distended ( softly) and normal bowel sounds Percussion/Palpation: + hepatomegaly and + tympanic to percussion; abdomen nontender and no guarding Musculoskeletal: Head/Neck/Chest: normocephalic and head atraumatic Spine: no step off deformity Extremities: no cyanosis, no chronic stasis changes and no clubbing Skin: no rashes, warm and dry area of ecchymosis noted right forearm Neurologic: Speech / Cognition: no expressive aphasia Motor/Sensory: no tremor and no sensory deficit (no focal sensory deficits noted in bilateral UE and LE) Cranial Nerves: tongue midline Psychiatric: A+Ox3, euthymic affect Results & Data Laboratory Results Laboratory Results - last 24 hr 04/28/18 04/28/18 04/28/18 09:30 09:30 09:30 WBC 6.34 RBC 2.99 L Hgb 8.7 L Hct 26.5 L MCV 88.6 MCH 29.1 MCHC 32.8 RDW Std Deviation 58.6 H RDW Coeff of Julia 17.9 H Plt Count 87 L MPV 12.0 H Immature Gran % (Auto) 0.6 Neut % (Auto) 84.8 Lymph % (Auto) 5.7 [place] % (Auto) 8.7 Eos % (Auto) 0.2 Baso % (Auto) 0.0 Immature Gran # (Auto) 0.04 H Neut # (Auto) 5.38 Lymph # (Auto) 0.36 L [place] # (Auto) 0.55 Eos # (Auto) 0.01 Baso # (Auto) 0.00 Dohle Bodies 1+ Platelet Estimate Decreased PT 10.7 INR 1.1 APTT 29.5 PTT Ratio 1.1 D-Dimer Sodium 131 L Potassium 3.4 L Chloride 97 L Carbon Dioxide 23 Anion Gap 11.0 BUN 39 H Creatinine 2.31 H Est Cr Clr Drug Dosing 34.6 Est GFR ( Amer) 32.4 Est GFR (Non-Af Amer) 28.0 BUN/Creatinine Ratio 16.8 Glucose 134 H Calcium 8.6 Magnesium 2.0 Total Bilirubin 0.4 AST 47 H ALT 28 Alkaline Phosphatase 76 Total Creatine Kinase 157 Troponin I 0.106 H* Total Protein 6.6 Albumin 2.1 L Globulin 4.5 H Albumin/Globulin Ratio 0.5 L TSH 2.290 04/28/18 15:27 WBC RBC Hgb Hct MCV MCH MCHC RDW Std Deviation RDW Coeff of Julia Plt Count MPV Immature Gran % (Auto) Neut % (Auto) Lymph % (Auto) [place] % (Auto) Eos % (Auto) Baso % (Auto) Immature Gran # (Auto) Neut # (Auto) Lymph # (Auto) [place] # (Auto) Eos # (Auto) Baso # (Auto) Dohle Bodies Platelet Estimate PT INR APTT PTT Ratio D-Dimer 1270 H* Sodium Potassium Chloride Carbon Dioxide Anion Gap BUN Creatinine Est Cr Clr Drug Dosing Est GFR ( Amer) Est GFR (Non-Af Amer) BUN/Creatinine Ratio Glucose Calcium Magnesium Total Bilirubin AST ALT Alkaline Phosphatase Total Creatine Kinase Troponin I Total Protein Albumin Globulin Albumin/Globulin Ratio TSH Diagnostic Findings Chest X-ray 04/28/18 - IMPRESSION: No active disease in the chest. Medications Administered Sodium Chloride (Nss 1000ml) 1,000 mls @ 80 mls/hr IV .[id number] DELVIS Stop: 04/29/18 14:56 Last Admin: 04/28/18 14:27 Dose: 80 mls/hr Discontinued Medications Sodium Chloride (Nss 1000ml) 1,000 mls @ 999 mls/hr IV .[id number] DELVIS Stop: 04/28/18 11:15 Last Infusion: 04/28/18 12:15 Dose: 0 mls/hr Admin: 04/28/18 10:33 Dose: 999 mls/hr Potassium Chloride (Klor-Con M20) 40 meq PO NOW STA Stop: 04/28/18 13:58 Last Admin: 04/28/18 14:25 Dose: 40 meq Code Status & VTE Plan Code Status Full resuscitation Supervising Physician Co-Signing Physician Notes HISTORY: Record reviewed. Patient interviewed and examined. Care coordinated with Amanda Rice PA-C. Please refer to her documentation for patient's history. Briefly, 68 YO male with history of hypertension, alcohol consumption, alcohol withdrawal seizures, and other problems. Recently admitted with erosive esophagitis attributed to drinking alcoholic beverages. Came to ED today for evaluation of malaise, dypsnea on exertion, and other problems. Appetite has been poor. Has fallen twice since returning home. Denies alcohol use since before last admission. EXAM: General- no distress Lungs- clear to auscultation; no respiratory distress Cardiovascular- RRR; tachycardia; II/ systolic murmur at base; no gallop; no JVD; trace pretibial edema Abdomen- + bowel sounds, soft, nontender Extremities- no cyanosis; no calf tenderness Neuro- alert, oriented Skin- warm & dry DATA: Hgb 8.7, WBC 6340, plts 87,000. D-dimer 1270. Na 131, K 3.4, Cl 97, CO2 23, BUN 39, creat 2.31, glucose 134. Trop 0.106. Other lab studies as noted. Chest x-ray did not show any acute findings. EKG performed at 0954 reviewed and demonstrated baseline artifact, ST at 110 / minute, ST depression V3-V5. ASSESSMENT AND PLAN: Generalized malaise. Elevated troponin- probably related to demand ischemia or fall. EKG shows ST depression in anterolateral leads. Check serial troponins. Doubt acute coronary syndrome, but should eventually have stress testing when not acutely ill. Anorexia with poor oral intake. Recent erosive esophagitis. Acute kidney injury, probably secondary to volume depletion. Hypokalemia. Experiencing diarrhea. Consider infectious etiologies- check C diff and routine stool culture. Consider pancreatic exocrine insufficiency. Further evaluation if symptoms persist. History of alcohol consumption, but reportedly none for last several weeks. Thiamine ordered. Monitor for withdrawal symptoms. Elevated D-dimer. Check venous duplex lower extremities. Will not order CTA chest until creatinine improved. Recent falls- 2 since last admission and a few prior to that. PT / OT evals when better. Low back pain. Check plain films. Further evaluation as clinically indicated if symptoms persist. Please refer to JUSTICE Rice's documentation for discussion of other issues. _ (1) Diarrhea Diarrhea type: unspecified type Qualified Code(s): R19.7 - Diarrhea, unspecified (2) Hypertension Hypertension type: unspecified Qualified Code(s): I10 - Essential (primary) hypertension
[2018-04-28] MEDS ORDERED: POTASSIUM CHLORIDE 20 MEQ TABCR PO STA (13:57)
--- NOTE | 2018-04-28 15:30 | Emergency Department Note ---
Entered by Ciara Silva acting as a scribe for Lance Argueta MD History of Present Illness General Chief complaint: Shortness of Breath/Dyspnea Time Seen by Provider: 04/28/18 10:02 Source: patient History of Present Illness Onset (ago): day(s) (a few days ago) Location: chest Pain Consistency: + other (worsening) Quality: + other (shortness of breath) Exacerbated By: + movement (exertion) Associated symptoms: + denies other symptoms (injuring self in fall, hitting his head,melena, hematochezia), + loss of appetite, + weakness and + other (fall , diarrhea, leg swelling); no cough and no fever/chills (fever) The patient is a 68 year old male who presents to the Emergency Room with complaints of worsening shortness of breath starting a few days ago. The patient states that at the end of last month he was in the ED for an upper GI bleed from gastritis secondary to alcohol consumption. Per his records, his hemoglobin dropped and he was transfused. He states that the past few days he hasnt been feeling well. He states that he has felt weak, short of breath, and has had diarrhea. He notes that his shortness of breath has been worse with exertion. He states that this morning he got up from his chair to get the newspaper and felt himself going down. He reports that he fell and was unable to get up. He states that his called EMS. He states that he didnt injure himself in the fall. The patient complains of leg swelling and loss of appetite. The patient notes that he hasnt drank alcohol since leaving the hospital. The patient denies fever, cough, melena, hematochezia, and hitting his head. Home Medications Home Medications Medication Instructions Recorded Confirmed Type sertraline 50 mg PO QAM 04/04/18 04/28/18 History folic acid 1 mg PO QAM 30 Days #30 tab 04/10/18 04/28/18 Rx multivitamin [Daily-Willow] 1 tab PO QAM 30 Days #30 tab 04/10/18 04/28/18 Rx pantoprazole 40 mg PO BID 30 Days #60 tab 04/10/18 04/28/18 Rx thiamine HCl (vitamin B1) [Vitamin 100 mg PO QAM 30 Days #30 tab 04/10/18 Rx B-1] acetaminophen [Tylenol Extra 1,000 mg PO Q6H PRN 04/28/18 04/28/18 History Strength] metoprolol succinate 50 mg PO HS 04/28/18 04/28/18 History rosuvastatin 20 mg PO HS 04/28/18 04/28/18 History Allergies Allergy/AdvReac Type Severity Reaction Status Date / Time No Known Allergies Allergy Verified 04/28/18 12:17 Past Med/Surg History Medical History Esophagitis (Acute) Alcohol abuse (Chronic) New onset seizure (Acute) Believed secondary to EtOH withdrawal Fall (Acute) GI bleed (Acute) Lactic acidemia (Acute) Sepsis (Resolved) YVAN (acute kidney injury) (Acute) Acute kidney injury (Acute) Hypertension (Chronic) Dyslipidemia (Chronic) Thrombocytopenia (Chronic) History of bacterial meningitis in childhood (Resolved) Anemia (Chronic) acute on chronic Surgical History Status post cholecystectomy (Chronic) History of excision of pilonidal cyst (Resolved) Family History Other No significant family history Social History marital status: Current Living Situation: Spouse Other Information That Helps Us Care for You: No Feels Safe at Home: Yes Safety Concerns: Feels Safe At This Time Smoking Status: Former smoker Smoking End Date: 2005 Hx Alcohol Use: Yes Alcohol type: hard liquor Alcohol Intake Frequency: 0-2 drinks per day Alcohol Intake Frequency Comment: Former Hx Substance Use: No Beliefs That Will Affect Care: None and Scientologist Scientologist Beliefs: baptism Preferred Language: Mohawk Reinsurance Clerk Required: No Review of Systems See HPI for pertinent positives & negatives. and A total of 10 systems reviewed and were otherwise negative Physical Exam Vital Signs Vital Signs - 24 hr 04/28/18 09:56 04/28/18 10:28 04/28/18 11:33 Temperature 37.1 C Temperature Source Oral Sepsis Recent Fever Within 48 Hours No Sepsis Action Taken by Nursing No Action Required Pulse Rate 112 H Pulse Rate [Apical] 94 H Pulse Rhythm Regular Pulse Rhythm [Apical] Regular Pulse Strength Normal Pulse Strength [Apical] Normal Respiratory Rate 20 18 Respiratory Effort / Characteristics Non-Labored Spontaneous Non-Labored Spontaneous Respiratory Depth Normal Normal Respiratory Pattern Regular Blood Pressure 107/52 L Blood Pressure [Left Arm] 96/40 L Blood Pressure [Right Arm] Blood Pressure Mean 70 Blood Pressure Mean [Left Arm] 58 Blood Pressure Mean [Right Arm] Blood Pressure Position Lying Blood Pressure Position [Right Arm] Pulse Oximetry 100 100 100 Oxygen Delivery Method Room Air Room Air Room Air 04/28/18 13:00 04/28/18 13:05 04/28/18 13:35 Temperature 36.8 C Temperature Source Oral Sepsis Recent Fever Within 48 Hours Sepsis Action Taken by Nursing Pulse Rate Pulse Rate [Apical] 91 H 99 H Pulse Rhythm Pulse Rhythm [Apical] Regular Pulse Strength Pulse Strength [Apical] Normal Respiratory Rate 18 20 Respiratory Effort / Characteristics Non-Labored Spontaneous Non-Labored Spontaneous Respiratory Depth Normal Normal Respiratory Pattern Regular Blood Pressure Blood Pressure [Left Arm] 101/48 L 92/51 L Blood Pressure [Right Arm] Blood Pressure Mean Blood Pressure Mean [Left Arm] 65 64 Blood Pressure Mean [Right Arm] Blood Pressure Position Blood Pressure Position [Right Arm] Pulse Oximetry 97 100 Oxygen Delivery Method Room Air Room Air Room Air 04/28/18 14:00 04/28/18 15:04 Temperature 36.8 C Temperature Source Oral Sepsis Recent Fever Within 48 Hours Sepsis Action Taken by Nursing Pulse Rate 102 H Pulse Rate [Apical] 94 H Pulse Rhythm Pulse Rhythm [Apical] Pulse Strength Pulse Strength [Apical] Respiratory Rate 18 Respiratory Effort / Characteristics Respiratory Depth Respiratory Pattern Blood Pressure Blood Pressure [Left Arm] Blood Pressure [Right Arm] 90/50 L Blood Pressure Mean Blood Pressure Mean [Left Arm] Blood Pressure Mean [Right Arm] 63 Blood Pressure Position Blood Pressure Position [Right Arm] Semi-fowlers Pulse Oximetry 98 Oxygen Delivery Method Room Air GENERAL: Patient is in no acute distress. HEENT: No acute trauma, normocephalic atraumatic, mucous membranes are dry, no nasal congestion, no scleral icterus. NECK: No stridor, no adenopathy, no meningismus, trachea is midline. LUNGS: Clear to auscultation bilaterally, no wheeze, no rhonchi, breath sounds equal. HEART: 2/6 systolic murmur. Mild tachycardia. Regular rhythm. ABDOMEN: Soft, nontender, bowel sounds positive, no hernias, no peritonitis. EXTREMITIES: No cyanosis, mild bilateral pedal edema, full range of motion of all the joints without pain or difficulty, no signs for acute trauma. NEUROLOGIC: Oriented x 3, no acute motor or sensory deficits, no focal weakness. SKIN: No rash, no jaundice, no diaphoresis. Course 1008: Past medical records reviewed. The patient was evaluated in room A2, and a complete history and physical examination were performed. 1100: I paged Lola at this time. 1102: I reevaluated the patient and he is feeling better. I discussed his test results and the treatment plan with him. He verbally agrees and understands. 1104: I reviewed the patient's case with MADHURI Mckeon Hospitalist. She will evaluate the patient for further management. Consultations Consultation #1: I reviewed the patient's case with MADHURI Mckeon. She will evaluate the patient for further management. Time: 11:04 Administered Medications Sodium Chloride (Nss 1000ml) 1,000 mls @ 80 mls/hr IV .[id number] DELVIS Stop: 04/29/18 14:56 Last Admin: 04/28/18 14:27 Dose: 80 mls/hr Discontinued Medications Sodium Chloride (Nss 1000ml) 1,000 mls @ 999 mls/hr IV .[id number] DELVIS Stop: 04/28/18 11:15 Last Infusion: 04/28/18 12:15 Dose: 0 mls/hr Admin: 04/28/18 10:33 Dose: 999 mls/hr Potassium Chloride (Klor-Con M20) 40 meq PO NOW STA Stop: 04/28/18 13:58 Last Admin: 04/28/18 14:25 Dose: 40 meq Medical Decision Making Differential Diagnosis Differential diagnoses include dehydration, renal injury, electrolyte imbalance , anemia, thyroid disorder, pneumonia, CHF, NV, UTI. Medical Records Attestation: I reviewed the patient's medical records. Home Medications Current Medication List: was personally reviewed by me Laboratory Data Attestation: I reviewed the patient's lab results. Result diagrams: 04/28/18 09:30 04/28/18 15:27 Lab Results 04/28/18 04/28/18 04/28/18 Range/Units 09:30 09:30 09:30 WBC 6.34 (4.8-10.8) K/uL RBC 2.99 L (4.7-6.1) M/uL Hgb 8.7 L (14.0-18.0) g/dL Hct 26.5 L (42-52) % MCV 88.6 (80-100) fL MCH 29.1 (25-34) pg MCHC 32.8 (32-36) g/dL RDW Std Deviation 58.6 H (36.4-46.3) fL RDW Coeff of Julia 17.9 H (11.5-14.5) % Plt Count 87 L (130-400) K/uL MPV 12.0 H (7.4-10.4) fL Immature Gran % (Auto) 0.6 % Neut % (Auto) 84.8 % Lymph % (Auto) 5.7 % Jackson % (Auto) 8.7 % Eos % (Auto) 0.2 % Baso % (Auto) 0.0 % Immature Gran # (Auto) 0.04 H (0.00-0.02) K/uL Neut # (Auto) 5.38 (1.4-6.5) K/uL Lymph # (Auto) 0.36 L (1.2-3.4) K/uL Jackson # (Auto) 0.55 (0.11-0.59) K/uL Eos # (Auto) 0.01 (0-0.5) K/uL Baso # (Auto) 0.00 (0-0.2) K/uL Dohle Bodies 1+ Platelet Estimate Decreased (Normal) PT 10.7 (9.0-12.0) Seconds INR 1.1 (0.9-1.1) APTT 29.5 (21.0-31.0) Seconds PTT Ratio 1.1 D-Dimer (0-500) ug/L FEU Sodium 131 L (136-145) mmol/L Potassium 3.4 L (3.5-5.1) mmol/L Chloride 97 L (98-107) mmol/L Carbon Dioxide 23 (21-32) mmol/L Anion Gap 11.0 (3-11) BUN 39 H (7-18) mg/dl Creatinine 2.31 H (0.6-1.4) mg/dl Est Cr Clr Drug Dosing 34.6 ml/min Est GFR ( Amer) 32.4 Est GFR (Non-Af Amer) 28.0 BUN/Creatinine Ratio 16.8 (10-20) Glucose 134 H (70-99) mg/dl Calcium 8.6 (8.5-10.1) mg/dl Magnesium 2.0 (1.8-2.4) mg/dl Total Bilirubin 0.4 (0.2-1) mg/dl AST 47 H (15-37) U/L ALT 28 (12-78) U/L Alkaline Phosphatase 76 (45-117) U/L Total Creatine Kinase 157 (39-308) U/L Troponin I 0.106 H* (0-0.045) ng/ml Total Protein 6.6 (6.4-8.2) gm/dl Albumin 2.1 L (3.4-5.0) gm/dl Globulin 4.5 H (2.5-4.0) gm/dl Albumin/Globulin Ratio 0.5 L (0.9-2) Lipase (73-393) U/L TSH 2.290 (0.300-4.500) uIu/ml 04/28/18 04/28/18 04/28/18 Range/Units 15:27 15:27 15:27 WBC (4.8-10.8) K/uL RBC (4.7-6.1) M/uL Hgb (14.0-18.0) g/dL Hct (42-52) % MCV (80-100) fL MCH (25-34) pg MCHC (32-36) g/dL RDW Std Deviation (36.4-46.3) fL RDW Coeff of Julia (11.5-14.5) % Plt Count (130-400) K/uL MPV (7.4-10.4) fL Immature Gran % (Auto) % Neut % (Auto) % Lymph % (Auto) % Jackson % (Auto) % Eos % (Auto) % Baso % (Auto) % Immature Gran # (Auto) (0.00-0.02) K/uL Neut # (Auto) (1.4-6.5) K/uL Lymph # (Auto) (1.2-3.4) K/uL Jackson # (Auto) (0.11-0.59) K/uL Eos # (Auto) (0-0.5) K/uL Baso # (Auto) (0-0.2) K/uL Dohle Bodies Platelet Estimate (Normal) PT (9.0-12.0) Seconds INR (0.9-1.1) APTT (21.0-31.0) Seconds PTT Ratio D-Dimer 1270 H* (0-500) ug/L FEU Sodium (136-145) mmol/L Potassium (3.5-5.1) mmol/L Chloride (98-107) mmol/L Carbon Dioxide (21-32) mmol/L Anion Gap (3-11) BUN (7-18) mg/dl Creatinine (0.6-1.4) mg/dl Est Cr Clr Drug Dosing ml/min Est GFR ( Amer) Est GFR (Non-Af Amer) BUN/Creatinine Ratio (10-20) Glucose (70-99) mg/dl Calcium (8.5-10.1) mg/dl Magnesium (1.8-2.4) mg/dl Total Bilirubin (0.2-1) mg/dl AST (15-37) U/L ALT (12-78) U/L Alkaline Phosphatase (45-117) U/L Total Creatine Kinase (39-308) U/L Troponin I 0.077 H* (0-0.045) ng/ml Total Protein (6.4-8.2) gm/dl Albumin (3.4-5.0) gm/dl Globulin (2.5-4.0) gm/dl Albumin/Globulin Ratio (0.9-2) Lipase 122 (73-393) U/L TSH (0.300-4.500) uIu/ml 04/28/18 Range/Units 15:27 WBC (4.8-10.8) K/uL RBC (4.7-6.1) M/uL Hgb (14.0-18.0) g/dL Hct (42-52) % MCV (80-100) fL MCH (25-34) pg MCHC (32-36) g/dL RDW Std Deviation (36.4-46.3) fL RDW Coeff of Julia (11.5-14.5) % Plt Count (130-400) K/uL MPV (7.4-10.4) fL Immature Gran % (Auto) % Neut % (Auto) % Lymph % (Auto) % Jackson % (Auto) % Eos % (Auto) % Baso % (Auto) % Immature Gran # (Auto) (0.00-0.02) K/uL Neut # (Auto) (1.4-6.5) K/uL Lymph # (Auto) (1.2-3.4) K/uL Jackson # (Auto) (0.11-0.59) K/uL Eos # (Auto) (0-0.5) K/uL Baso # (Auto) (0-0.2) K/uL Dohle Bodies Platelet Estimate (Normal) PT (9.0-12.0) Seconds INR (0.9-1.1) APTT (21.0-31.0) Seconds PTT Ratio D-Dimer (0-500) ug/L FEU Sodium 130 L (136-145) mmol/L Potassium 3.0 L (3.5-5.1) mmol/L Chloride 99 (98-107) mmol/L Carbon Dioxide 23 (21-32) mmol/L Anion Gap 8.0 (3-11) BUN 36 H (7-18) mg/dl Creatinine 1.96 H D (0.6-1.4) mg/dl Est Cr Clr Drug Dosing 44.3 ml/min Est GFR ( Amer) 39.6 Est GFR (Non-Af Amer) 34.1 BUN/Creatinine Ratio 18.3 (10-20) Glucose 122 H (70-99) mg/dl Calcium 7.9 L (8.5-10.1) mg/dl Magnesium (1.8-2.4) mg/dl Total Bilirubin (0.2-1) mg/dl AST (15-37) U/L ALT (12-78) U/L Alkaline Phosphatase (45-117) U/L Total Creatine Kinase (39-308) U/L Troponin I (0-0.045) ng/ml Total Protein (6.4-8.2) gm/dl Albumin (3.4-5.0) gm/dl Globulin (2.5-4.0) gm/dl Albumin/Globulin Ratio (0.9-2) Lipase (73-393) U/L TSH (0.300-4.500) uIu/ml Imaging Data Radiologist's Impression: Radiology results as stated below per my review and the radiologist's interpretation: XR chest 1V portable CLINICAL HISTORY: weakness COMPARISON STUDY: 04/04/2018 FINDINGS: There are relatively low lung volumes. There is mild elevation of the right hemidiaphragm. There is colonic interposition. There is no focal pulmonary consolidation. There is no failure. There are no pleural effusions. There is a prominent left cardiophrenic angle fat pad.[ IMPRESSION: No active disease in the chest. Electronically signed by: David Delong M.D. 04/28/2018 10:42 AM ECG Data Attestation: I personally reviewed and interpreted this ECG as follows: Indication: SOB/dyspnea Rate (beats per minute): 111 Rhythm: sinus tachycardia Findings: + nonspecific-ST abn; no PVC and no ST elevation Blood Pressure Blood Pressure Findings: Low blood pressure Blood Pressure Disposition: further management by hospitalist MDM Narrative There is no leukocytosis. The patient is anemic but this is baseline looking back at previous testing. Platelet count somewhat low but this also appears baseline. Renal panel testing does show some acute kidney injury with a creatinine elevation. Potassium is slightly low but acceptable. No evidence for hepatitis. No pancreatitis. The patient appeared to be in a euthyroid state. EKG showed a sinus tachycardia, no acute ischemia. Cardiac enzyme testing does show a mild elevation of the troponin, this could be consistent with cardiac injury or strain. Chest film does not show pneumonia, mediastinal widening or CHF. The patient presents tachycardic. He has been short of breath and has felt weak. He has had some diarrhea. He does appear to be somewhat dehydrated and has some acute kidney injury. He does have a mild troponin elevation. Given his findings, given his history, I did think a hospital stay was warranted. I spoke to the patient and case packer. The on-call hospitalist was consulted. Patient is currently resting comfortably. He did receive IV saline for hydration during his ER stay. Impression & Plan Elevated troponin, Acute kidney injury, Weakness, Tachycardia, Shortness of breath Discharge Plan Visit Data *Final* Discharge Date/Time: 04/28/18 13:05 Chief Complaint: Shortness of Breath/Dyspnea Other Complaint: Edema To Extremity ED Provider: Lance Argueta Discharge Problem: Elevated troponin, Acute kidney injury, Weakness, Tachycardia, Shortness of breath Patient Disposition: Admitted As Inpatient Discharge Instructions Interventions: ED Discharge Assessment Last Done: 04/28/18 13:05 The scribe's documentation has been prepared under my direction and personally reviewed by me in its entirety. I confirm that the note above accurately reflects all work, treatment, procedures, and medical decision making performed by me.
[2018-04-28 16:12] LABS: BUN Creatinine Ratio 18.3 (10-20); Calcium 7.9 mg/dl (8.5-10.1); Creatinine Clr Calc Pharmacy 44.3 ml/min; Est GFR (African American) 39.6; Est GFR (Non-African American) 34.1
[2018-04-28] MEDS: POTASSIUM CHLORIDE 40 MEQ in SODIUM CHLORIDE 0.9% 1000ML 1,000 ML IV SCH (19:35)
[2018-04-28] MEDS: METOPROLOL SUCC 50MG EXT REL TAB PO SCH (20:43)
[2018-04-28] MEDS: ROSUVASTATIN CALCIUM 20 MG TAB PO SCH (20:43)
[2018-04-28 20:52] LABS: Appearance Urine Cloudy (Clear); Bacteria Urine Automated Negative (Negative); Bilirubin Urine Negative (Negative); Blood Urine Negative (Negative); Color Urine Dark Yellow; Epithelial Cell Urine Auto >30 /lpf (0-5); Glucose Urine UA Negative (Negative); Ketones Urine Trace (Negative); Leukocyte Esterase Urine Trace (Negative); Nitrite Urine Negative (Negative); Protein Urine 2+ (Negative); RBC Urine Automated 0-4 /hpf (0-4); Specific Gravity Urine 1.025 (1.000-1.030); Urobilinogen Urine Negative (Negative); pH Urine 5.5 (4.5-7.5)
[2018-04-28] MEDS ORDERED: PANTOprazole 40 MG TAB PO SCH (21:00)
--- NOTE | 2018-04-28 21:16 | Ultrasound Report ---
ULTRASOUND BILATERAL LOWER EXTREMITY VENOUS CLINICAL HISTORY: Dyspnea on exertion. Positive d-dimer. COMPARISON STUDY: No priors. TECHNIQUE: Real-time, grayscale, and color Doppler sonography of the deep veins of the right and left lower extremity was performed from the inguinal crease to the calf. Compression and augmentation wer e utilized. FINDINGS: There is no sonographic evidence of deep venous thrombosis identified in the right or left lower extremity. The common femoral, superficial femoral, and popliteal veins are patent and normally compressible bilaterally. The greater saphenous vein and the profunda femoris vein at the junction w ith the common femoral vein are clear in both legs. The visualized calf veins are patent bilaterally. IMPRESSION: There is no sonographic evidence of deep venous thrombosis identified in the right or lef t lower extremity. Electronically signed by: Lance Keller M.D. 04/28/2018 9:15 PM
[2018-04-29 05:00] LABS: Cdiff Antigen Negative; Cdiff Toxin A+B Negative (Negative)
[2018-04-29] MEDS: RASPBERRY SYRUP 5 ML UDP PO SCH ×4 (05:53→23:46)
[2018-04-29] MEDS: POTASSIUM CHLORIDE 40 MEQ in SODIUM CHLORIDE 0.9% 1000ML 1,000 ML IV SCH (05:53)
[2018-04-29] MEDS: VANCOMYCIN HCL 125 MG/2.5ML SOLN PO SCH ×4 (05:53→23:46)
[2018-04-29] MEDS: THIAMINE HCL 100 MG TAB PO SCH (07:49)
[2018-04-29] MEDS: SERTRALINE HCL 50 MG TABLET PO SCH (07:49)
[2018-04-29 08:28] LABS: Hematocrit (blood only) 20.5 % (42-52); Hemoglobin 6.7 g/dL (14.0-18.0); Mean Corpuscular Hgb Conc 32.7 g/dL (32-36); Mean Corpuscular Volume 88.7 fL (80-100); Mean Platelet Volume 10.4 fL (7.4-10.4); Platelet Count 59 K/uL (130-400); RDW Coefficient of Variation 18.3 % (11.5-14.5); RDW Standard Deviation 59.7 fL (36.4-46.3); Red Blood Count 2.31 M/uL (4.7-6.1); White Blood Count 4.29 K/uL (4.8-10.8)
[2018-04-29 08:32] LABS: Eosinophils # (auto) 0.01 K/uL (0-0.5); Eosinophils % (auto) 0.2 %; Giant Platelets 1+; Immature Granulocytes # (auto) 0.02 K/uL (0.00-0.02); Immature Granulocytes % (auto) 0.5 %; Lymphocytes # (auto) 0.52 K/uL (1.2-3.4); Lymphocytes % (auto) 12.1 %; Monocytes # (auto) 0.44 K/uL (0.11-0.59); Monocytes % (auto) 10.3 %; Neutrophils % (auto) 76.9 %
[2018-04-29] MEDS ORDERED: ALBUTEROL 0.5% NEB SOLN 2.5 MG/0.5 ML VIAL NEB STA (08:51)
[2018-04-29] MEDS ORDERED: SODIUM CHLORIDE 0.9% 250 ML IV PRN (08:54)
[2018-04-29] MEDS: FOLIC ACID 1 MG TAB PO SCH (09:21)
[2018-04-29] MEDS: MULTIVITAMIN TAB PO SCH (09:22)
[2018-04-29 09:51] LABS: Albumin Level 1.7 gm/dl (3.4-5.0); BUN Creatinine Ratio 18.2 (10-20); Calcium 7.5 mg/dl (8.5-10.1); Creatinine Clr Calc Pharmacy 46.7 ml/min; Est GFR (African American) 46.6; Est GFR (Non-African American) 40.2; Potassium 3.6 mmol/L (3.5-5.1)
[2018-04-29 09:57] LABS: Albumin Globulin Ratio 0.5 (0.9-2); Bilirubin,Total 0.4 mg/dl (0.2-1); Globulin 3.5 gm/dl (2.5-4.0); Total Protein 5.2 gm/dl (6.4-8.2)
[2018-04-29] MEDS ORDERED: SODIUM CHLORIDE 0.9% 1000ML 1,000 ML IV SCH (10:00)
[2018-04-29] MEDS: PANTOprazole 40 MG in DEXTROSE 5% 100 ML IV SCH ×3 (10:05→20:23)
--- NOTE | 2018-04-29 10:53 | Nephrology Consultation ---
Date of Consultation April 29, 2018 Assessment & Plan (1) Acute kidney injury: Patient with acute kidney injury likely due to ischemic ATN in setting of GI bleed. Patient has been hypotensive with systolic blood pressure between 80s and 90s. Abdominal CT a few weeks ago showed normal size kidneys with no hydronephrosis. He is planned for blood transfusion today. Recommend Ringer's lactate at 100 mL/h. Monitor input output. Monitor daily BMP and avoid nephrotoxins unless lifesaving. (2) GI bleed: Patient with acute blood loss anemia due to GI bleed. He is planned for blood transfusion and possibly EGD. Monitor and transfuse as needed. No role for LISBET in setting of acute kidney injury. (3) Hypotension: Likely due to GI bleed. Hold metoprolol. Avoid hypotension to increase chances of renal recovery. History of Present Illness Reason for Consultation: YVAN Requesting Physician: Rayo Ramsey MD Attending Physician: Rayo Ramsey MD History of Present Illness This is a 68-year-old male with past medical history significant for hypertension, hyperlipidemia, alcohol abuse, history childhood meningitis status post therapy, past tobacco abuse, history of colonic polyps, chronic anemia, chronic thrombocytopenia who was admitted on 04/28/2018 with shortness of breath and fall at home. Patient was recently hospitalized for acute kidney injury and GI bleed and discharged on 04/10/2018. His creatinine on discharge was 1.4. He now returns with a creatinine of 2.3. He also had acute kidney injury in December 2016 with a creatinine of 12 which improved with IV fluids and never required dialysis. Patient reports having diarrhea for the past 8 weeks. He denies NSAID use. He has also been a heavy alcohol drinker but has now been clean for 4 weeks. His blood pressure has been low in the 80s-90s. His hemoglobin is dropped to 6.7 this morning. He denies any urinary symptoms such as dysuria hematuria or frequency. He does not have a Finney catheter. Allergies Allergy/AdvReac Type Severity Reaction Status Date / Time No Known Allergies Allergy Verified 04/28/18 12:17 Home Medications Home Medications Medication Instructions Recorded Confirmed Type sertraline 50 mg PO QAM 04/04/18 04/28/18 History folic acid 1 mg PO QAM 30 Days #30 tab 04/10/18 04/28/18 Rx multivitamin [Daily-Willow] 1 tab PO QAM 30 Days #30 tab 04/10/18 04/28/18 Rx pantoprazole 40 mg PO BID 30 Days #60 tab 04/10/18 04/28/18 Rx thiamine HCl (vitamin B1) [Vitamin 100 mg PO QAM 30 Days #30 tab 04/10/18 Rx B-1] acetaminophen [Tylenol Extra 1,000 mg PO Q6H PRN 04/28/18 04/28/18 History Strength] metoprolol succinate 50 mg PO HS 04/28/18 04/28/18 History rosuvastatin 20 mg PO HS 04/28/18 04/28/18 History Patient History Medical History Esophagitis (Acute) Alcohol abuse (Chronic) New onset seizure (Acute) Believed secondary to EtOH withdrawal Fall (Acute) GI bleed (Acute) Lactic acidemia (Acute) Sepsis (Resolved) YVAN (acute kidney injury) (Acute) Acute kidney injury (Acute) Hypertension (Chronic) Dyslipidemia (Chronic) Thrombocytopenia (Chronic) History of bacterial meningitis in childhood (Resolved) Anemia (Chronic) acute on chronic Surgical History Status post cholecystectomy (Chronic) History of excision of pilonidal cyst (Resolved) Family History Other No significant family history Social History marital status: Current Living Situation: Spouse Other Information That Helps Us Care for You: No Feels Safe at Home: Yes Safety Concerns: Feels Safe At This Time Smoking Status: Former smoker Smoking End Date: 2005 Hx Alcohol Use: Yes Alcohol type: hard liquor Alcohol Intake Frequency: 0-2 drinks per day Alcohol Intake Frequency Comment: Former Hx Substance Use: No Beliefs That Will Affect Care: None and Spiritism Spiritism Beliefs: mandaen Preferred Language: Amharic Senior Web Developer Required: No Review of Systems Constitutional: + fatigue and + weakness Eyes: no problem reported Ear, Nose, Mouth, Throat: no mouth lesions Respiratory: + dyspnea on exertion Cardiovascular: + dyspnea on exertion; no chest pain Gastrointestinal: + change in stools and + constant urge to pass stools; no vomiting Genitourinary (Male): no problem reported Musculoskeletal: + muscle weakness Neurologic: + tremor(s) Psychiatric: no substance abuse Physical Exam 2 Vital Signs (Past 24 Hours): Last Vital Signs Temp 37.3 C 04/29/18 07:10 Pulse 100 H 04/29/18 09:06 Resp 18 04/29/18 09:06 BP 95/55 L 04/29/18 07:10 Pulse Ox 96 04/29/18 09:06 Physical Exam: General exam: Appears comfortable, no acute distress HEENT: Pupils are equal and reactive to light Neck: No JVD, neck is supple trachea is midline Respiratory system: Clear breath sounds bilaterally. Gastrointestinal: Abdomen is soft, non distended, non tender, bowel sounds are present CVS: Regular rate and rhythm. No murmurs, rubs or gallops Musculoskeletal: No joint or muscle tenderness Extremities: Non tender, 1+ edema, peripheral pulses are present Neuro: Oriented, no tremors, no focal neurological deficits. Global weakness Skin: No rashes Results & Data Laboratory Results Sodium 135, potassium of 3.6 bicarb of 22, BUN of 31, creatinine 1.7. Hemoglobin 6.7. Urinalysis 5-10 wBCs per high-power field _ (1) GI bleed GI bleed type/associated pathology: Gastritis type:
[2018-04-29] MEDS: LACTATED RINGER'S 1,000 ML IV SCH (12:42)
[2018-04-29 19:24] LABS: Hematocrit (blood only) 23.7 % (42-52); Hemoglobin 7.9 g/dL (14.0-18.0); Mean Corpuscular Hgb Conc 33.3 g/dL (32-36); Mean Corpuscular Volume 87.8 fL (80-100); Mean Platelet Volume 11.5 fL (7.4-10.4); Platelet Count 66 K/uL (130-400); RDW Coefficient of Variation 18.2 % (11.5-14.5); RDW Standard Deviation 58.6 fL (36.4-46.3)
[2018-04-29 19:25] LABS: Basophils # (auto) 0.01 K/uL (0-0.2); Basophils % (auto) 0.2 %; Eosinophils # (auto) 0.01 K/uL (0-0.5); Eosinophils % (auto) 0.2 %; Immature Granulocytes # (auto) 0.04 K/uL (0.00-0.02); Immature Granulocytes % (auto) 0.6 %; Monocytes # (auto) 0.77 K/uL (0.11-0.59); Monocytes % (auto) 12.3 %; Neutrophils # (auto) 4.93 K/uL (1.4-6.5); Neutrophils % (auto) 78.7 %; RBC Morphology Unremarkable
--- NOTE | 2018-04-29 19:56 | Hospitalist Progress Note ---
Date of Service April 29, 2018 Assessment & Plan (1) Anemia: 68 y/o male with recent admission for GI bleed due to erosive esophagitis , YVAN and alcohol-withdrawal seizure who presented to the ED today via EMS due to progressive weakness, dyspnea on exertion and falls at home. Anemia -Hgb 6.7 which is decrease from 8.7 on admission. No overt bleeding. will send fecal occult blood. Stool is C.diff gene positive but toxin negative -unclear whether blood decrease partly due to hemodilution from IV fluids -received 1 unit PRBC -on PPI drip -[facility] gastroenterology consulted to rule out GI bleed given history of erosive esophagitis -will keep NPO after midnight Acute kidney injury -Patient with acute kidney injury likely due to ischemic ATN in setting of GI bleed. Patient has been hypotensive with systolic blood pressure between 80s and 90s Initial concerns in workup revolved around cardiac/respiratory organ system Elevated troponins Suspect due to demand ischemia and YVAN patient without chest pain initial elevated d-dimer but There is no sonographic evidence of deep venous thrombosis identified in the right or left lower extremity unlikely to have pulmonary embolism Tachycardia of low 100s despite IV fluids, but also because metoprolol held due to concern for GI bleed Dyspnea on exertion on room air at rest rule out GI bleed History of Alcohol use in the past denies alcohol in 3 to 4 weeks monitor on telemetry in case of concern for alcohol withdrawal C.diff gene positive but toxin negative start PO Vancomycin because 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 Hypokalemia resolved after supplements were given Dyslipidemia: continue statin therapy DVT ppx: SCDs Subjective Patient with anemia of Hgb 6.7 which is decrease from 8.7 on admission. No overt bleeding. will send fecal occult blood. Stool is C.diff gene positive but toxin negative Patient denies acute abdominal pain. denies shortness of breath. denies chest pain. denies palpitations. reports generalized weakness received 1 unit PRBC Physical Exam 2 Vital Signs (Past 24 Hours): Last Vital Signs Temp 37.1 C 04/29/18 19:37 Pulse 105 H 04/29/18 19:37 Resp 19 04/29/18 19:37 BP 116/62 04/29/18 19:37 Pulse Ox 95 04/29/18 19:37 Constitutional: + obese Eyes: PERRL, conjunctivae normal, anicteric sclerae EOM intact bilaterally Respiratory: normal respiratory effort, lungs clear to auscultation Cardiovascular: Rate/Rhythm: regular rhythm and + tachycardic Gastrointestinal (Abdomen): normal bowel sounds, soft, nontender, no hepatosplenomegaly Musculoskeletal: Head/Neck/Chest: normocephalic and head atraumatic Neurologic: PERRL, EOMI, accommodation nl, no face palsy, no dysarthria CN' s II-XI intact bilaterally Psychiatric: A+Ox3, euthymic affect
[2018-04-29] MEDS: ROSUVASTATIN CALCIUM 20 MG TAB PO SCH (20:23)
--- NOTE | 2018-04-30 01:17 | Consultation Report ---
DATE OF CONSULTATION: 04/29/2018 RACE: . ATTENDING PHYSICIAN: Dr. Rayo Ramsey CONSULTING PHYSICIAN: Moncho Santos DO REASON FOR CONSULTATION: Possible gastrointestinal bleed. HISTORY OF PRESENT ILLNESS: Cole Kumar is a 68-year-old male who was last seen by our service on 04/08/2018. At that time, he had undergone an upper endoscopy, which showed esophagitis and was placed on 40 mg p.o. b.i.d. of Protonix and was doing well without any further signs of acute GI bleeding. It was also noted on his EGD at that time to have a hiatal hernia, but no other findings. He returned to the department of Emergency Medicine on 04/28/2018 with complaints of worsening shortness of breath. He also complained of weakness and had some diarrhea. Upon arrival, he was noted to have an H and H of 8.7 and 26.5. His white blood cell count was 6.34 and a platelet count was 87. Repeats from this morning showed an H and H of 6.7 and 20.5. His D-dimer was noted to be 1270. His BUN and creatinine were 31 and 1.71. Due to his diarrhea, he did undergo a C. diff testing, which returned positive today. He was subsequently started on vancomycin 125 mg p.o. q. 6 hours. At the time that I saw the patient, he stated that he was feeling slightly improved though continued to have liquid bowel movements, which he described as clear and light brown in nature, frequent up to 6-8 per day at the present time. He denied any blood in his stools, any melena or any hematemesis. He states that he has not had any symptoms of melena since prior to his last hospitalization when he was diagnosed with esophagitis and has been taking his Protonix twice daily. He does have a history of heavy alcohol use in the past, though denies any significant alcohol use prior to this admission. He denied any abdominal pain at present and further denied any jaundice, acholic stools, dark urine, or pruritus. He has no further complaints. PAST MEDICAL HISTORY: Included esophagitis, hiatal hernia, alcohol abuse, seizure activity, GI bleeding, sepsis, acute kidney injury, hypertension, dyslipidemia, anemia, thrombocytopenia, history of bacterial meningitis in childhood. PAST SURGICAL HISTORY: Includes a history of cholecystectomy. ALLERGIES: None. MEDICATIONS: At present, Tylenol 650 mg p.o. q. 4 hours p.r.n., albuterol via nebulizer q. 6 hours p.r.n., folic acid 1 mg p.o. q.a.m., metoprolol 50 mg p.o. at bedtime, multivitamin 1 tab p.o. q.a.m., Protonix 40 mg p.o. b.i.d., vancomycin 125 mg p.o. q. 6 hours, Crestor 20 mg p.o. at bedtime, Zoloft 50 mg p.o. q.a.m., thiamin 100 mg p.o. q.a.m. SOCIAL HISTORY: He is . He denies any illicit drug use. He does have approximately 2 alcoholic beverages per day. He is a former smoker with a [id number] history. FAMILY HISTORY: Negative for GI malignancy or inflammatory bowel diseases. REVIEW OF SYSTEMS: Negative x12 system review other than pertinent positives listed in the HPI. PHYSICAL EXAMINATION: VITAL SIGNS: Include a temperature of 37.4, pulse 102, respirations 18, blood pressure 99/52, pulse ox 94% on room air. GENERAL: He is awake, cooperative, chronic ill appearing, in no acute distress. HEAD: Normocephalic, atraumatic. EYES: Pupils equal, round. Extraocular muscles are intact. ENT: External evaluation of ears and nose are normal. Oropharynx is clear. NECK: Soft and supple. There is no JVD or lymphadenopathy. CHEST: Clear to auscultation bilaterally. CARDIOVASCULAR SYSTEM: Regular rate and rhythm. ABDOMEN: Soft, nontender, nondistended. Positive bowel sounds. EXTREMITIES: No clubbing, cyanosis, or edema. LABORATORY STUDIES AND RADIOLOGIC STUDIES: Reviewed in the HPI. IMPRESSION: A 68-year-old male presenting with weakness, chest pain, and diarrhea with no signs of overt gastrointestinal bleeding though continued anemia who was diagnosed with Clostridium difficile on this admission. PLAN: I believe the patient's most likely cause of his diarrheal symptoms are due to his C. diff. The patient is pancytopenic at present and this can be seen with heavy alcohol use that the patient has no signs of overt GI bleeding at present C. diff can in fact cause hematochezia or blood loss through the lower GI tract and could explain part of his anemia as well. I would not recommend any invasive testing at this time due to the patient's acute diarrheal illness and I would recommend continuing vancomycin 125 mg p.o. q. 6 hours to completion for a 10-day course and I will follow his clinical course and make further recommendations as needed. Once again, thanks for allowing me to participate in the care of this patient. If you have any further questions, please do not hesitate in contacting me.
[2018-04-30] MEDS: PANTOprazole 40 MG in DEXTROSE 5% 100 ML IV SCH ×3 (01:43→09:45)
[2018-04-30] MEDS: VANCOMYCIN HCL 125 MG/2.5ML SOLN PO SCH ×3 (05:43→18:09)
[2018-04-30] MEDS: LACTATED RINGER'S 1,000 ML IV SCH (05:43)
[2018-04-30] MEDS: RASPBERRY SYRUP 5 ML UDP PO SCH ×3 (05:43→18:09)
[2018-04-30 07:10] LABS: Hematocrit (blood only) 21.9 % (42-52); Hemoglobin 7.5 g/dL (14.0-18.0); Mean Corpuscular Hgb Conc 34.2 g/dL (32-36); RDW Coefficient of Variation 18.1 % (11.5-14.5); RDW Standard Deviation 58.3 fL (36.4-46.3); Red Blood Count 2.49 M/uL (4.7-6.1); White Blood Count 5.64 K/uL (4.8-10.8)
[2018-04-30 07:19] LABS: Mean Platelet Volume 10.7 fL (7.4-10.4); Platelet Count 49 K/uL (130-400)
[2018-04-30 07:37] LABS: Eosinophils # (auto) 0.01 K/uL (0-0.5); Eosinophils % (auto) 0.2 %; Immature Granulocytes # (auto) 0.02 K/uL (0.00-0.02); Immature Granulocytes % (auto) 0.4 %; Lymphocytes # (auto) 0.53 K/uL (1.2-3.4); Lymphocytes % (auto) 9.4 %; Monocytes # (auto) 0.57 K/uL (0.11-0.59); Monocytes % (auto) 10.1 %; Neutrophils # (auto) 4.51 K/uL (1.4-6.5); Neutrophils % (auto) 79.9 %; Platelet Estimate Decreased (Normal); Toxic Granulation 1+
[2018-04-30 07:51] LABS: Albumin Level 1.7 gm/dl (3.4-5.0); BUN Creatinine Ratio 17.8 (10-20); Calcium 7.5 mg/dl (8.5-10.1); Creatinine Clr Calc Pharmacy 49.6 ml/min; Est GFR (African American) 50.2; Est GFR (Non-African American) 43.3; Potassium 3.3 mmol/L (3.5-5.1)
[2018-04-30 07:53] LABS: Albumin Globulin Ratio 0.5 (0.9-2); Bilirubin,Total 0.5 mg/dl (0.2-1); Globulin 3.6 gm/dl (2.5-4.0); Total Protein 5.3 gm/dl (6.4-8.2)
[2018-04-30] MEDS: SERTRALINE HCL 50 MG TABLET PO SCH (08:03)
[2018-04-30] MEDS: MULTIVITAMIN TAB PO SCH (08:03)
[2018-04-30] MEDS: THIAMINE HCL 100 MG TAB PO SCH (08:03)
[2018-04-30] MEDS: FOLIC ACID 1 MG TAB PO SCH (08:03)
[2018-04-30] MEDS ORDERED: POTASSIUM CHLORIDE 10 MEQ TABCR PO STA (08:33)
[2018-04-30] MEDS ORDERED: POTASSIUM CHLORIDE 20 MEQ TABCR PO STA (09:22)
[2018-04-30] MEDS: METOPROLOL SUCC 25MG EXT REL TAB PO SCH (09:44)
--- NOTE | 2018-04-30 12:50 | Hospitalist Progress Note ---
Date of Service April 30, 2018 Assessment & Plan (1) Anemia: Patient is a 68 yr male with recent admission for GI bleed due to erosive esophagitis, YVAN and alcohol-withdrawal seizure who presents with progressive weakness, dyspnea on exertion and falls at home. Anemia: No overt bleeding issues H/O GI bleed, Alcohol use disorder FOBT: Negative S/P 1 unit PRBC Hb:7.5 Continue PPI Appreciate GI Input Acute kidney injury Likely Ischemic ATN in setting of Severe anemia/GI bleed/hypotension Cr: 2.31>>1.61 Received IV fluids Monitor renal function Appreciate Nephrology Input Monitor volume status Elevated troponins Suspect due to demand ischemia/YVAN patient denies chest pain Elevated d-dimer Venous Doppler : negative for DVT Could not obtain CTA / renal function Hypokalemia: Monitor and replace electrolytes as needed Tachycardia Resume Metoprolol today Adjust the dose if BP tolerates H/O Alcohol use Denies alcohol use in 3 to 4 weeks Continue thiamine, folic acid C.diff Diarrhea Continue PO Vancomycin stool fecal fat pending: To R/O malabsorption. Dyslipidemia: continue statin DVT px: SCDs Re:Anemia, Thrombocytopenia Subjective Patient is seen and examined at bedside States diarrhea is improving Denies nausea, abd pain, chest pain, dyspnea Renal function improving Denies any bleeding issues Physical Exam 2 Vital Signs (Past 24 Hours): Last Vital Signs Temp 37.3 C 04/30/18 11:27 Pulse 104 H 04/30/18 11:27 Resp 20 04/30/18 11:27 BP 107/64 04/30/18 11:27 Pulse Ox 95 04/30/18 11:27 Physical Exam: Physical Exam: Vitals signs as noted above General Appearance:Moderately built and nourished, no apparent distress Head: normocephalic, Atraumatic Eyes: normal inspection, EOMI Neck: supple, Trachea midline Respiratory/Chest: Normal breath sounds, B/L Crackles Cardiovascular: S1, S2, No murmur, +Tachycardia Abdomen/GI:Soft, Non tender, Bowel sounds present Extremities/Musculoskelatal:normal inspection, + B/L LE pitting edema Neurologic/Psych:AAOX3, grossly no focal neurological deficits Skin: normal color, warm Results & Data Laboratory Results Short CBC 04/29/18 04/30/18 Range/Units 18:30 06:45 WBC 6.90 5.64 (4.8-10.8) K/uL Hgb 7.9 L 7.5 L (14.0-18.0) g/dL Hct 23.7 L 21.9 L (42-52) % Plt Count 66 L 49 L (130-400) K/uL BMP 04/30/18 06:45 Sodium 134 L Potassium 3.3 L Chloride 105 Carbon Dioxide 20 L BUN 29 H Creatinine 1.61 H Glucose 119 H Calcium 7.5 L Liver Function 04/30/18 Range/Units 06:45 Total Bilirubin 0.5 (0.2-1) mg/dl AST 37 (15-37) U/L ALT 21 (12-78) U/L Alkaline Phosphatase 85 (45-117) U/L Albumin 1.7 L (3.4-5.0) gm/dl
--- NOTE | 2018-04-30 16:50 | Nephrology Progress Note ---
Date of Service April 30, 2018 Assessment & Plan (1) Acute kidney injury: Patient with acute kidney injury likely due to ischemic ATN in setting of GI bleed. Patient has been hypotensive with systolic blood pressure between 80s and 90s. Abdominal CT a few weeks ago showed normal size kidneys with no hydronephrosis. Creatinine is slightly better at 1.6 today. Monitor input output. Monitor daily BMP and avoid nephrotoxins unless lifesaving. (2) GI bleed: Patient was seen by gastroenterology who felt he was less likely having a GI bleed. Recommended conservative management. Monitor and transfuse as needed. No role for LISBET in setting of acute kidney injury. (3) Hypotension: Likely due to GI bleed. Blood pressure is slightly better. Avoid hypotension to increase chances of renal recovery. Subjective Patient seen in follow-up for acute kidney injury and anemia. He reports no shortness of breath. Blood pressure is still on the lower side. He got a unit of blood yesterday. Creatinine is downtrending to 1.6 today. Constitutional: + fatigue and + weakness Respiratory: + dyspnea on exertion Cardiovascular: + dyspnea on exertion; no chest pain Gastrointestinal: + change in stools and + constant urge to pass stools; no vomiting Musculoskeletal: + muscle weakness Neurologic: + tremor(s) Physical Exam 2 Vital Signs (Past 24 Hours): Last Vital Signs Temp 37.3 C 04/30/18 11:27 Pulse 104 H 04/30/18 11:27 Resp 20 04/30/18 11:27 BP 107/64 04/30/18 11:27 Pulse Ox 95 04/30/18 11:27 Physical Exam: General exam: Appears comfortable, no acute distress HEENT: Pupils are equal and reactive to light Neck: No JVD, neck is supple trachea is midline Respiratory system: Clear breath sounds bilaterally. Gastrointestinal: Abdomen is soft, non distended, non tender, bowel sounds are present CVS: Regular rate and rhythm. No murmurs, rubs or gallops Musculoskeletal: No joint or muscle tenderness Extremities: Non tender, 1+ edema, peripheral pulses are present Neuro: Oriented, no tremors, no focal neurological deficits Skin: No rashes Results & Data Laboratory Results Reviewed including hemoglobin of 7.5, potassium of 3.3, creatinine of 1.6 _ (1) GI bleed GI bleed type/associated pathology: Gastritis type:
[2018-04-30] MEDS: ROSUVASTATIN CALCIUM 20 MG TAB PO SCH (21:50)
[2018-04-30] MEDS: PANTOprazole 40 MG in SYRINGE 0 ML IV SCH (21:50)
[2018-05-01] MEDS: RASPBERRY SYRUP 5 ML UDP PO SCH ×5 (00:33→23:03)
[2018-05-01] MEDS: VANCOMYCIN HCL 125 MG/2.5ML SOLN PO SCH ×5 (00:33→23:01)
[2018-05-01 07:42] LABS: Mean Corpuscular Hgb Conc 33.3 g/dL (32-36)
[2018-05-01 07:52] LABS: Hematocrit (blood only) 22.2 % (42-52); Hemoglobin 7.4 g/dL (14.0-18.0); Mean Corpuscular Volume 88.1 fL (80-100); RDW Coefficient of Variation 18.1 % (11.5-14.5); RDW Standard Deviation 58.7 fL (36.4-46.3); Red Blood Count 2.52 M/uL (4.7-6.1); White Blood Count 8.28 K/uL (4.8-10.8)
[2018-05-01 08:14] LABS: Eosinophils # (auto) 0.02 K/uL (0-0.5); Eosinophils % (auto) 0.2 %; Immature Granulocytes # (auto) 0.08 K/uL (0.00-0.02); Lymphocytes # (auto) 0.69 K/uL (1.2-3.4); Lymphocytes % (auto) 8.3 %; Monocytes % (auto) 7.2 %; Neutrophils # (auto) 6.89 K/uL (1.4-6.5); Neutrophils % (auto) 83.3 %; Platelet Count 35 K/uL (130-400); Platelet Estimate Decreased (Normal); Toxic Granulation 3+
[2018-05-01 08:22] LABS: Albumin Level 1.7 gm/dl (3.4-5.0); BUN Creatinine Ratio 18.7 (10-20); Calcium 7.8 mg/dl (8.5-10.1); Creatinine Clr Calc Pharmacy 44.6 ml/min; Est GFR (African American) 44.1; Est GFR (Non-African American) 38.1; Potassium 3.4 mmol/L (3.5-5.1)
[2018-05-01] MEDS: METOPROLOL SUCC 25MG EXT REL TAB PO SCH ×2 (08:23→20:33)
[2018-05-01] MEDS: MULTIVITAMIN TAB PO SCH (08:23)
[2018-05-01] MEDS: FOLIC ACID 1 MG TAB PO SCH (08:24)
[2018-05-01 08:25] LABS: Albumin Globulin Ratio 0.4 (0.9-2); Bilirubin,Total 0.6 mg/dl (0.2-1); Globulin 3.8 gm/dl (2.5-4.0); Total Protein 5.5 gm/dl (6.4-8.2)
[2018-05-01] MEDS: SERTRALINE HCL 50 MG TABLET PO SCH (08:25)
[2018-05-01] MEDS: THIAMINE HCL 100 MG TAB PO SCH (08:25)
[2018-05-01] MEDS: PANTOprazole 40 MG in SYRINGE 0 ML IV SCH ×2 (08:27→20:34)
[2018-05-01] MEDS: ALBUTEROL 0.5% NEB SOLN 2.5 MG/0.5 ML VIAL NEB PRN ×2 (08:42→17:11)
[2018-05-01] MEDS ORDERED: POTASSIUM CHLORIDE 20 MEQ TABCR PO STA (09:04)
[2018-05-01] MEDS ORDERED: LACTATED RINGER'S 1,000 ML IV ONE (10:35)
[2018-05-01] MEDS ORDERED: CHOLESTYRAMINE LIGHT 4 GM PKT PO PRN (10:56)
--- NOTE | 2018-05-01 11:00 | Gastroenterology Progress Note ---
Date of Service May 01, 2018 Assessment & Plan (1) Diarrhea: (2) Anemia: 1. Continue oral Vancomycin 125 mg QID. 2. Continue Protonix 40 mg BID. 3. Add Questran 4 g BID PRN diarrhea. 4. Continue supportive care. Supervising Physician Co-Signing Physician Notes Agree with JOHN Morales as above Abd: Soft, NT, ND, +BS Continue current therapy, but will make Questran BID scheduled not PRN due to continued diarrhea. Subjective Patient reports persistent diarrhea up to 6 times daily with associated fecal incontinence despite use of oral Vancomycin. Denies any further chest pain, dysphagia or odynophagia. No abdominal pains. Reports some shortness of breath and wheezing as well as lower extremity edema. Constitutional: no fever and no chills Ear, Nose, Mouth, Throat: as per Subjective / HPI Respiratory: as per Subjective / HPI Cardiovascular: as per Subjective / HPI; no palpitations Gastrointestinal: as per Subjective / HPI Psychiatric: no problem reported Physical Exam 2 Vital Signs (Past 24 Hours): Last Vital Signs Temp 37.5 C 05/01/18 08:10 Pulse 101 H 05/01/18 08:42 Resp 22 05/01/18 08:42 BP 100/58 L 05/01/18 08:10 Pulse Ox 95 05/01/18 08:42 Constitutional: WD/WN, vitals as above Respiratory: normal respiratory effort Auscultation: + wheezes Cardiovascular: Rate/Rhythm: regular rate and regular rhythm Gastrointestinal (Abdomen): Inspection/Auscultation: + hyperactive bowel sounds Percussion/Palpation: abdomen soft; abdomen nontender Skin: pedal edema Psychiatric: A+Ox3, euthymic affect _ (1) Diarrhea Diarrhea type: unspecified type Qualified Code(s): R19.7 - Diarrhea, unspecified
--- NOTE | 2018-05-01 13:20 | XRay Report ---
XR chest 1V portable CLINICAL HISTORY: Wheezing dyspnea COMPARISON STUDY: 04/28/2018 FINDINGS: Mild bibasilar atelectasis. Mid and upper lungs are clear. No well-defined focal infiltrate . IMPRESSION: Mild bibasilar atelectasis. Otherwise negative study. The above report was generated using voice recognition software. It may contain grammatical, syntax or spelling errors. Electronically signed by: Royal Del Rio M.D. 05/01/2018 1:18 PM
[2018-05-01 16:52] LABS: Folate (Folic Acid) 16.85 ng/ml (>5.38); Immature Platelet Fraction 14.9 % (0.9-8.3)
--- NOTE | 2018-05-01 18:15 | Nephrology Progress Note ---
Date of Service May 01, 2018 Assessment & Plan (1) Acute kidney injury: Patient with acute kidney injury likely due to ischemic ATN in setting of GI bleed. Patient has been hypotensive with systolic blood pressure between 80s and 90s. Abdominal CT a few weeks ago showed normal size kidneys with no hydronephrosis. Creatinine is up at 1.8 today. Monitor input output. Monitor daily BMP and avoid nephrotoxins unless lifesaving. (2) GI bleed: Patient was seen by gastroenterology who felt he was less likely having a GI bleed. Hb stable at 7.4 Recommended conservative management. Monitor and transfuse as needed. No role for LISBET in setting of acute kidney injury. (3) Hypotension: Likely due to GI bleed. Blood pressure is slightly better. Avoid hypotension to increase chances of renal recovery. Subjective Patient seen in follow-up for acute kidney injury and anemia. He reports no shortness of breath. Blood pressure is still on the lower side. Has diarrhoea. No vomiting. urine out put has dropped off. Creatinine is up to 1.8 today. Constitutional: + fatigue and + weakness Respiratory: + dyspnea on exertion Cardiovascular: + dyspnea on exertion; no chest pain Gastrointestinal: + change in stools and + constant urge to pass stools; no vomiting Musculoskeletal: + muscle weakness Neurologic: + tremor(s) Physical Exam 2 Vital Signs (Past 24 Hours): Last Vital Signs Temp 37.1 C 05/01/18 15:54 Pulse 103 H 05/01/18 17:11 Resp 22 05/01/18 17:11 BP 104/58 L 05/01/18 15:54 Pulse Ox 91 05/01/18 17:11 Physical Exam: General exam: Appears comfortable, no acute distress HEENT: Pupils are equal and reactive to light Neck: No JVD, neck is supple trachea is midline Respiratory system: Clear breath sounds bilaterally. Gastrointestinal: Abdomen is soft, non distended, non tender, bowel sounds are present CVS: Regular rate and rhythm. No murmurs, rubs or gallops Musculoskeletal: No joint or muscle tenderness Extremities: Non tender, no edema, peripheral pulses are present Neuro: Oriented, no tremors, no focal neurological deficits Skin: No rashes Results & Data Laboratory Results cr 1.8, k 3.4 _ (1) GI bleed GI bleed type/associated pathology: Gastritis type:
--- NOTE | 2018-05-01 18:32 | Oncology Consultation ---
Date of Consultation May 01, 2018 Imp: acute on chronic thrombocytopenia - worsening since admission immature platelet fraction fibrinogen d dimer b12 and folate checked immature platelet fraction high - likely secondary cause of thrombocytopenia rather than primary. Differential include liver disease, sequestration and/or platelet destruction and infection fibrinogen within normal range b12 and folate normal recommend monitor CBC avoid any medication that can exacerbate the thrombocytopenia check US abdomen to evaluate for hepatosplenomegaly/cirrhosis given history of alcoholism and patent also with low albumin anemia is likely due to chronic disease and blood loss transfuse as needed for symptomatic anemia thank you for consult REASON FOR CONSULT: Thrombocytopenia History of Present Illness Attending Physician: Barry Barclay MD HPI: 68 year old male with history of HTN, hyperlipidemia, alcohol abuse, anemia , intermittent thrombocytopenia admitted with dyspnea on exertion and fall at home. He was recently admitted in 03/2018 with YVAN and GI bleed and alcohol withdrawal seizure and was discharged on 04/15/18. Denies any alcohol for past 3 weeks. He has ACHARYA, fatigue, generalized weakness, states has been weak in legs and several falls in the past month, also has tremor of his hands also has diarrhea for past 2 months he was found to have C difficile positive denies fever or chills or abd pain or nausea or vomiting or urination complaints denies any chest pain or palpitations or dizziness denies any bleeding or bruising or headache hemoglobin on this admission as low as 6.7 today wbc 8.28 hgb 7.[address] 35 04/30 - platelet ct was 49 04/[address] 59, 66 he has low albumin 1.7 and abnormal LFTs denies any FH of blood or bleeding disorders mother had ovarian cancer 04/[address] 87 prior to that platelet cts ranged from 86 on 04/08 and 135 on 04/09/18 Allergies Allergy/AdvReac Type Severity Reaction Status Date / Time No Known Allergies Allergy Verified 04/28/18 12:17 Home Medications Home Medications Medication Instructions Recorded Confirmed Type sertraline 50 mg PO QAM 04/04/18 04/28/18 History folic acid 1 mg PO QAM 30 Days #30 tab 04/10/18 04/28/18 Rx multivitamin [Daily-Willow] 1 tab PO QAM 30 Days #30 tab 04/10/18 04/28/18 Rx pantoprazole 40 mg PO BID 30 Days #60 tab 04/10/18 04/28/18 Rx thiamine HCl (vitamin B1) [Vitamin 100 mg PO QAM 30 Days #30 tab 04/10/18 Rx B-1] acetaminophen [Tylenol Extra 1,000 mg PO Q6H PRN 04/28/18 04/28/18 History Strength] metoprolol succinate 50 mg PO HS 04/28/18 04/28/18 History rosuvastatin 20 mg PO HS 04/28/18 04/28/18 History Patient History Medical History Esophagitis (Acute) Alcohol abuse (Chronic) New onset seizure (Acute) Believed secondary to EtOH withdrawal Fall (Acute) GI bleed (Acute) Lactic acidemia (Acute) Sepsis (Resolved) YVAN (acute kidney injury) (Acute) Acute kidney injury (Acute) Hypertension (Chronic) Dyslipidemia (Chronic) Thrombocytopenia (Chronic) History of bacterial meningitis in childhood (Resolved) Anemia (Chronic) acute on chronic Surgical History Status post cholecystectomy (Chronic) History of excision of pilonidal cyst (Resolved) Family History Other No significant family history Social History marital status: Current Living Situation: Spouse Other Information That Helps Us Care for You: No Feels Safe at Home: Yes Safety Concerns: Feels Safe At This Time Smoking Status: Former smoker Smoking End Date: 2005 Hx Alcohol Use: Yes Alcohol type: hard liquor Alcohol Intake Frequency: 0-2 drinks per day Alcohol Intake Frequency Comment: Former Hx Substance Use: No Beliefs That Will Affect Care: None and [employer] 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
--- NOTE | 2018-05-01 19:09 | Hospitalist Progress Note ---
Date of Service May 01, 2018 Assessment & Plan (1) Anemia: Patient is a 68 yr male with recent admission for GI bleed due to erosive esophagitis, YVAN and alcohol-withdrawal seizure who presents with progressive weakness, dyspnea on exertion and falls at home. Anemia: Thrombocytopenia No overt bleeding issues H/O GI bleed, Alcohol use disorder FOBT: Negative S/P 1 unit PRBC Hb:7.4 Continue PPI Appreciate GI Input Consult Hematology for Input Acute kidney injury Likely Ischemic ATN in setting of Severe anemia/GI bleed/hypotension Cr: 2.31>>1.79 Gentle IV fluids as tolerated Monitor renal function Appreciate Nephrology Input Monitor volume status Elevated troponins Suspect due to demand ischemia/YVAN patient denies chest pain Elevated d-dimer Venous Doppler : negative for DVT Could not obtain CTA / renal function Hypokalemia: Monitor and replace electrolytes as needed Tachycardia Continue Metoprolol at reduced dose Adjust the dose if BP tolerates H/O Alcohol use Denies alcohol use in 3 to 4 weeks Continue thiamine, folic acid C.diff Diarrhea Continue PO Vancomycin Added Questran for diarrhea Appreciate GI input Dyslipidemia: continue statin DVT px: SCDs Re:Anemia, Thrombocytopenia Subjective Patient is seen and examined at bedside Reports significant diarrhea Denies nausea, abd pain, chest pain, dyspnea Heart rate elevated Renal function slightly worsened Denies any bleeding issues Physical Exam 2 Vital Signs (Past 24 Hours): Last Vital Signs Temp 37.1 C 05/01/18 15:54 Pulse 103 H 05/01/18 17:11 Resp 22 05/01/18 17:11 BP 104/58 L 05/01/18 15:54 Pulse Ox 91 05/01/18 17:11 Physical Exam: Physical Exam: Vitals signs as noted above General Appearance:Moderately built and nourished, no apparent distress Head: normocephalic, Atraumatic Eyes: normal inspection, EOMI Neck: supple, Trachea midline Respiratory/Chest: Normal breath sounds, mild B/L Crackles Cardiovascular: S1, S2, No murmur, +Tachycardia Abdomen/GI:Soft, Non tender, Bowel sounds present Extremities/Musculoskelatal:normal inspection, + B/L LE pitting edema Neurologic/Psych:AAOX3, grossly no focal neurological deficits Skin: normal color, warm Results & Data Laboratory Results Short CBC 05/01/18 Range/Units 07:23 WBC 8.28 (4.8-10.8) K/uL Hgb 7.4 L (14.0-18.0) g/dL Hct 22.2 L (42-52) % Plt Count 35 L (130-400) K/uL BMP 05/01/18 07:23 Sodium 136 Potassium 3.4 L Chloride 106 Carbon Dioxide 20 L BUN 33 H Creatinine 1.79 H Glucose 109 H Calcium 7.8 L Liver Function 05/01/18 Range/Units 07:23 Total Bilirubin 0.6 (0.2-1) mg/dl AST 45 H (15-37) U/L ALT 23 (12-78) U/L Alkaline Phosphatase 64 (45-117) U/L Albumin 1.7 L (3.4-5.0) gm/dl
[2018-05-01] MEDS: ACETAMINOPHEN 325 MG TAB PO PRN (20:34)
[2018-05-01] MEDS: ROSUVASTATIN CALCIUM 20 MG TAB PO SCH (20:34)
[2018-05-02] MEDS: CHOLESTYRAMINE LIGHT 4 GM PKT PO SCH ×2 (00:14→10:20)
[2018-05-02] MEDS: RASPBERRY SYRUP 5 ML UDP PO SCH ×3 (06:23→18:32)
[2018-05-02] MEDS: VANCOMYCIN HCL 125 MG/2.5ML SOLN PO SCH ×3 (06:23→18:32)
[2018-05-02 07:16] LABS: Mean Corpuscular Hgb Conc 33.3 g/dL (32-36)
[2018-05-02] MEDS: ALBUTEROL 0.5% NEB SOLN 2.5 MG/0.5 ML VIAL NEB PRN (07:20)
--- NOTE | 2018-05-02 07:22 | Ultrasound Report ---
ULTRASOUND ABDOMEN COMPLETE CLINICAL HISTORY: Thrombocytopenia. Elevated hepatic transaminases. COMPARISON STUDY: Abdominal CT dated 04/04/2018. TECHNIQUE: Real-time, grayscale, and color flow sonography of the abdomen was performed. Images are r eviewed in the transverse and longitudinal planes. The examination is degraded by large body habitus and significant bowel gas. FINDINGS: Liver: The liver is enlarged and demonstrates heterogeneously increased echotexture consistent with s evere hepatic steatosis. Note that this degrades acoustic penetration of the liver There is no intrah epatic biliary ductal dilatation. The main portal vein is patent. Gallbladder: The gallbladder is surgically absent. The common bile duct measures up to 0.4 cm in diam eter. Pancreas: Not well visualized due to overlying bowel gas. Spleen: The spleen is enlarged, measuring 15.8 cm in length. Kidneys: The kidneys demonstrate mild cortical atrophy. There is no hydronephrosis. The right kidney measures 12.0 cm in length and the left kidney measures 11.0 cm in length. No shadowing calculi are i dentified. Bilateral renal cysts measure up to 3.0 cm. Abdominal vasculature: The abdominal aorta is not well-visualized due to overlying bowel gas. Ascites: None. IMPRESSION: 1. Hepatomegaly and severe hepatic steatosis. 2. Splenomegaly. 3. Status post cholecystectomy. Electronically signed by: Lance Keller M.D. 05/02/2018 7:20 AM
[2018-05-02 07:42] LABS: Hematocrit (blood only) 23.7 % (42-52); Hemoglobin 7.9 g/dL (14.0-18.0); Mean Corpuscular Volume 86.8 fL (80-100); RDW Coefficient of Variation 18.6 % (11.5-14.5); RDW Standard Deviation 59.4 fL (36.4-46.3); Red Blood Count 2.73 M/uL (4.7-6.1); White Blood Count 8.74 K/uL (4.8-10.8)
[2018-05-02 07:45] LABS: Platelet Count 30 K/uL (130-400); Platelet Estimate SIGNIFIC DECREASED (Normal)
[2018-05-02 07:51] LABS: BUN Creatinine Ratio 18.3 (10-20); Calcium 7.6 mg/dl (8.5-10.1); Creatinine Clr Calc Pharmacy 38.8 ml/min; Est GFR (African American) 37.2; Est GFR (Non-African American) 32.1; Potassium 3.9 mmol/L (3.5-5.1)
[2018-05-02] MEDS: METOPROLOL SUCC 25MG EXT REL TAB PO SCH (08:18)
[2018-05-02] MEDS: MULTIVITAMIN TAB PO SCH (08:18)
[2018-05-02] MEDS: PANTOprazole 40 MG in SYRINGE 0 ML IV SCH ×2 (08:18→21:18)
[2018-05-02] MEDS: FOLIC ACID 1 MG TAB PO SCH (08:18)
[2018-05-02] MEDS: SERTRALINE HCL 50 MG TABLET PO SCH (08:19)
[2018-05-02] MEDS: THIAMINE HCL 100 MG TAB PO SCH (08:19)
[2018-05-02] MEDS ORDERED: LACTATED RINGER'S 1,000 ML IV ONE (10:01)
[2018-05-02] MEDS ORDERED: ALBUMIN 5% 250 ML IV ONE (10:30)
[2018-05-02] MEDS ORDERED: METOPROLOL SUCC 25MG EXT REL TAB PO ONE (10:30)
--- NOTE | 2018-05-02 10:39 | Gastroenterology Progress Note ---
Date of Service May 02, 2018 Assessment & Plan (1) Diarrhea: (2) Anemia: 1. Continue oral Vancomycin 125 mg QID. 2. Continue Protonix 40 mg BID. 3. Continue Questran 4 g BID. Supervising Physician Co-Signing Physician Notes Agree with JOHN Morales as above Nursing reports improvement in diarrhea symptoms today with only 1 BM this shift and soft consistency Abd: Soft, NT, ND, +BS Continue current therapy Subjective Patient confused at the time of evaluation but has reportedly only passed 3 stools since last evening. Review of Systems Unobtainable due to cognitive status Physical Exam 2 Vital Signs (Past 24 Hours): Last Vital Signs Temp 36.9 C 05/02/18 08:21 Pulse 124 H 05/02/18 08:21 Resp 20 05/02/18 08:21 BP 110/65 05/02/18 08:21 Pulse Ox 97 05/02/18 08:21 Constitutional: + altered mental status Gastrointestinal (Abdomen): Inspection/Auscultation: normal bowel sounds Percussion/Palpation: abdomen soft _ (1) Diarrhea Diarrhea type: unspecified type Qualified Code(s): R19.7 - Diarrhea, unspecified
[2018-05-02] MEDS ORDERED: LEVALBUTEROL HCL 0.63 MG/3 ML NEB NEB SCH (13:00)
--- NOTE | 2018-05-02 18:57 | Nephrology Progress Note ---
Date of Service May 02, 2018 Assessment & Plan (1) Acute kidney injury: Patient with acute kidney injury likely due to ischemic ATN in setting of GI bleed. Patient has been hypotensive with systolic blood pressure between 80s and 90s. Abdominal CT a few weeks ago showed normal size kidneys with no hydronephrosis. Creatinine is up at 2 today likely hemodynamically mediated in setting of diarrhoea. Recommend volume support with albumin 5% given severe hypoalbuminemia. Monitor input output. Monitor daily BMP and avoid nephrotoxins unless lifesaving. (2) GI bleed: Patient was seen by gastroenterology who felt he was less likely having a GI bleed. Hb stable at 7.4 Recommended conservative management. Monitor and transfuse as needed. No role for LISBET in setting of acute kidney injury. (3) Hypotension: Likely due to GI bleed. Blood pressure is slightly better. Avoid hypotension to increase chances of renal recovery. Subjective Patient seen in follow-up for acute kidney injury and anemia. He reports no shortness of breath. Blood pressure is still on the lower side. Has diarrhoea. No vomiting. Creatinine is up to 2 today. was at bedside. Constitutional: + fatigue and + weakness Respiratory: + dyspnea on exertion Cardiovascular: + dyspnea on exertion; no chest pain Gastrointestinal: + change in stools and + constant urge to pass stools; no vomiting Musculoskeletal: + muscle weakness Neurologic: + tremor(s) Physical Exam 2 Vital Signs (Past 24 Hours): Last Vital Signs Temp 36.5 C 05/02/18 15:52 Pulse 101 H 05/02/18 16:00 Resp 18 05/02/18 15:58 BP 100/57 L 05/02/18 15:52 Pulse Ox 95 05/02/18 15:58 Physical Exam: General exam: Lethergic, Appears comfortable, no acute distress HEENT: Pupils are equal and reactive to light Neck: No JVD, neck is supple trachea is midline Respiratory system: Crackles bilaterally. Gastrointestinal: Abdomen is soft, non distended, non tender, bowel sounds are present CVS: Regular rate and rhythm. No murmurs, rubs or gallops Musculoskeletal: No joint or muscle tenderness Extremities: Non tender, no edema, peripheral pulses are present Neuro: Oriented, no tremors, no focal neurological deficits Skin: No rashes Results & Data Laboratory Results Hb 7.9, cr 2 _ (1) GI bleed GI bleed type/associated pathology: Gastritis type:
--- NOTE | 2018-05-02 18:58 | Hospitalist Progress Note ---
Date of Service May 02, 2018 Assessment & Plan (1) Anemia: Patient is a 68 yr male with recent admission for GI bleed due to erosive esophagitis, YVAN and alcohol-withdrawal seizure who presents with progressive weakness, dyspnea on exertion and falls at home. Anemia: Thrombocytopenia Abdominal USD: Hepatomegaly and severe hepatic steatosis. Splenomegaly. Peripheral Smear: Non specific normocytic anemia and thrombocytopenia Normal Folate, Vit B12 levels Iron panel reviewed No overt bleeding issues H/O GI bleed, Alcohol use disorder FOBT: Negative S/P 1 unit PRBC Hb:7.9 Continue PPI Appreciate GI Input Consulted Hematology Transfuse as needed Acute kidney injury Likely Ischemic ATN in setting of Severe anemia/GI bleed/hypotension Cr: 2.31>>1.79>>2.06 Gentle IV fluids as tolerated Also received albumin Monitor renal function Appreciate Nephrology Input Monitor volume status Elevated troponins Suspect due to demand ischemia/YVAN patient denies chest pain Elevated d-dimer Venous Doppler : negative for DVT Could not obtain CTA 2/2 renal function Hypokalemia: Monitor and replace electrolytes as needed Tachycardia Continue Metoprolol at reduced dose Adjust the dose if BP tolerates H/O Alcohol use Denies alcohol use in 3 to 4 weeks Continue thiamine, folic acid C.diff Diarrhea Continue PO Vancomycin Added Questran for diarrhea Appreciate GI input Dyslipidemia: continue statin DVT px: SCDs Re:Anemia, Thrombocytopenia Subjective Patient is seen and examined at bedside Diarrhea is improving Family at bedside Discussed with Nephrology Plan to give albumin and gentle fluids Renal function slightly worse Denies nausea, abd pain, chest pain, dyspnea Denies any bleeding issues Physical Exam 2 Vital Signs (Past 24 Hours): Last Vital Signs Temp 36.5 C 05/02/18 15:52 Pulse 101 H 05/02/18 16:00 Resp 18 05/02/18 15:58 BP 100/57 L 05/02/18 15:52 Pulse Ox 95 05/02/18 15:58 Physical Exam: Physical Exam: Vitals signs as noted above General Appearance:Moderately built and nourished, no apparent distress Head: normocephalic, Atraumatic Eyes: normal inspection, EOMI Neck: supple, Trachea midline Respiratory/Chest: Normal breath sounds, mild wheezes Cardiovascular: S1, S2, No murmur, +Tachycardia Abdomen/GI:Soft, Non tender, Bowel sounds present Extremities/Musculoskelatal:normal inspection, + B/L LE pitting edema Neurologic/Psych:AAOX3, grossly no focal neurological deficits Skin: normal color, warm
[2018-05-02] MEDS: LEVALBUTEROL HCL 0.63 MG/3 ML NEB NEB SCH (19:08)
[2018-05-02] MEDS: ROSUVASTATIN CALCIUM 20 MG TAB PO SCH (21:09)
[2018-05-02] MEDS: ACETAMINOPHEN 325 MG TAB PO PRN (21:17)
[2018-05-03] MEDS: RASPBERRY SYRUP 5 ML UDP PO SCH ×5 (00:06→23:48)
[2018-05-03] MEDS: VANCOMYCIN HCL 125 MG/2.5ML SOLN PO SCH ×5 (00:06→23:36)
[2018-05-03] MEDS: CHOLESTYRAMINE LIGHT 4 GM PKT PO SCH ×3 (01:08→21:31)
[2018-05-03] MEDS: LEVALBUTEROL HCL 0.63 MG/3 ML NEB NEB SCH (07:09)
[2018-05-03] MEDS: METOPROLOL SUCC 25MG EXT REL TAB PO SCH (08:15)
[2018-05-03] MEDS: MULTIVITAMIN TAB PO SCH (08:15)
[2018-05-03] MEDS: FOLIC ACID 1 MG TAB PO SCH (08:15)
[2018-05-03] MEDS: THIAMINE HCL 100 MG TAB PO SCH (08:16)
[2018-05-03] MEDS: SERTRALINE HCL 50 MG TABLET PO SCH (08:16)
[2018-05-03 08:44] LABS: Hematocrit (blood only) 19.9 % (42-52); Hemoglobin 6.7 g/dL (14.0-18.0); Mean Corpuscular Hgb Conc 33.7 g/dL (32-36); Mean Corpuscular Volume 85.4 fL (80-100); Platelet Count 18 K/uL (130-400); Platelet Estimate SIGNIFIC DECREASED (Normal); RDW Coefficient of Variation 18.8 % (11.5-14.5); RDW Standard Deviation 58.6 fL (36.4-46.3); Red Blood Count 2.33 M/uL (4.7-6.1); White Blood Count 10.02 K/uL (4.8-10.8)
[2018-05-03 08:45] LABS: BUN Creatinine Ratio 19.8 (10-20); Calcium 7.5 mg/dl (8.5-10.1); Creatinine Clr Calc Pharmacy 34.7 ml/min; Est GFR (African American) 29.6; Est GFR (Non-African American) 25.6; Potassium 3.5 mmol/L (3.5-5.1)
[2018-05-03] MEDS ORDERED: SODIUM CHLORIDE 0.9% 250 ML IV PRN ×2 (08:46→12:04)
[2018-05-03] MEDS: PANTOprazole 40 MG in SYRINGE 0 ML IV SCH ×2 (08:47→20:40)
--- NOTE | 2018-05-03 08:50 | Nephrology Progress Note ---
Date of Service May 03, 2018 Assessment & Plan (1) Acute kidney injury: borderline oliguric ischemic ATN in setting of GI bleed. Patient has been hypotensive with systolic blood pressure between 80s and 100s, though improved later in day Abdominal CT a few weeks ago showed normal size kidneys with no hydronephrosis. Creatinine is further increased today to 2.5 w/ recurrent acute anemia and ongoing diarrhea. -consider volume support with albumin 25% given severe hypoalbuminemia as well as pRBC; monitor closely given crackles. -Monitor input output. -Monitor daily BMP and avoid nephrotoxins unless lifesaving. (2) GI bleed: Patient was seen by gastroenterology who felt he was less likely having a GI bleed. Hb dropped to 6.7; on PPI gtt; for pRBC -further per primary service and GI (3) Hypotension: Likely due to GI bleed. Avoid hypotension to increase chances of renal recovery. Subjective hgb dropped again to 6.7; plts 18K today. for pRBC; stable dyspnea x weeks. less diarrhea> 2 bm yesterday. no pain Physical Exam 2 Vital Signs (Past 24 Hours): Last Vital Signs Temp 36.6 C 05/03/18 07:05 Pulse 98 H 05/03/18 07:10 Resp 20 05/03/18 07:10 BP 104/52 L 05/03/18 07:05 Pulse Ox 95 05/03/18 07:10 Constitutional: well developed and well nourished chornically ill, on RA; struggles to sit forward for exam w/o asst Eyes: EOM intact bilaterally ENMT: Ears: no external ear abnormality Nose: no external nose abnormality Mouth: + dry oral mucous membranes Neck: no nuchal rigidity Respiratory: normal respiratory effort Auscultation: + diminished lung sounds and + crackles (1/[address] up posterior gonzalez) Cardiovascular: Rate/Rhythm: + tachycardic (regularly spaced beats in 90s) Extremities: no edema Gastrointestinal (Abdomen): Inspection/Auscultation: normal bowel sounds Percussion/Palpation: abdomen soft; abdomen nontender Musculoskeletal: Extremities: strength 5/5 throughout Skin: no rashes, warm and dry Neurologic: acevedo, fluent speech, no tremor Psychiatric: A+Ox3, euthymic affect Results & Data Laboratory Results Abnormal lab results 02/16/19 02/16/19 Range/Units 07:17 07:17 RBC 2.33 L (4.7-6.1) M/uL Hgb 6.7 L* (14.0-18.0) g/dL Hct 19.9 L* (42-52) % RDW Std Deviation 58.6 H (36.4-46.3) fL RDW Coeff of Julia 18.8 H (11.5-14.5) % Plt Count 18 L* (130-400) K/uL Sodium 133 L (136-145) mmol/L Carbon Dioxide 20 L (21-32) mmol/L BUN 49 H (7-18) mg/dl Creatinine 2.49 H D (0.6-1.4) mg/dl Glucose 101 H (70-99) mg/dl Calcium 7.5 L (8.5-10.1) mg/dl _ (1) GI bleed GI bleed type/associated pathology: Gastritis type:
[2018-05-03] MEDS ORDERED: POTASSIUM CHLORIDE 10 MEQ TABCR PO STA (08:55)
[2018-05-03] MEDS: LEVALBUTEROL TARTRATE 15 GM HFA.AER.AD INH SCH ×3 (11:38→23:45)
--- NOTE | 2018-05-03 11:44 | Hematology/Oncology Prog Note ---
Date of Service May 03, 2018 Subjective patient seen and examined S: lethargic, opens his eyes, responsive to voice but not oriented to place or time receiving PRBC transfusion sister at bedside, said patient has not spoken with her BP97/73 P97 R18 T36.3 O2 SAT 97% Gen: lethargic HEENT:+Pallor Lungs: coarse BS, scattered wheezes CV: S1 S2 Reg Abd: distended NT labs wbc 10.02 hgb 6.[address] 18 US abd: hepatomegaly, severe hepatic steatosis, splenomegaly Imp: normocytic anemia, severe thrombocytopenia: worsening, in setting of splenomegaly C diff infection recommend rule out blood loss transfuse 1 unit PRBC and 1 unit platelet and monitor serial cbc check CT scan Chest abdomen and pelvis Check head CT check PT/PTT d dimer fibrinogen FDP haptoglobin ldh immature platelet fraction discussed with Dr Barclay regarding above Physical Exam 2 Vital Signs (Past 24 Hours): Last Vital Signs Temp 36.3 C L 05/03/18 10:50 Pulse 97 H 05/03/18 10:50 Resp 18 05/03/18 10:50 BP 94/73 L 05/03/18 10:50 Pulse Ox 97 05/03/18 10:50
[2018-05-03 12:18] LABS: Albumin Level 1.7 gm/dl (3.4-5.0); Bilirubin Direct 0.3 mg/dl (0-0.2); Bilirubin,Total 0.7 mg/dl (0.2-1); Total Protein 5.4 gm/dl (6.4-8.2)
[2018-05-03 12:22] LABS: Hematocrit (blood only) 23.4 % (42-52); Hemoglobin 7.9 g/dL (14.0-18.0); Mean Corpuscular Hgb Conc 33.8 g/dL (32-36); Mean Corpuscular Volume 86.7 fL (80-100); Platelet Count 14 K/uL (130-400); RDW Coefficient of Variation 18.4 % (11.5-14.5); RDW Standard Deviation 58.3 fL (36.4-46.3)
[2018-05-03 12:26] LABS: Echinocytes 2+; Eosinophils # (auto) 0.03 K/uL (0-0.5); Eosinophils % (auto) 0.3 %; Immature Granulocytes # (auto) 0.06 K/uL (0.00-0.02); Immature Granulocytes % (auto) 0.6 %; Immature Platelet Fraction 11.6 % (0.9-8.3); Lymphocytes # (auto) 0.37 K/uL (1.2-3.4); Lymphocytes % (auto) 3.7 %; Monocytes % (auto) 7.9 %; Neutrophils # (auto) 8.84 K/uL (1.4-6.5); Neutrophils % (auto) 87.5 %; Ovalocytes 1+; Tear Drop Cells 1+; Toxic Granulation 3+; Toxic Vacuolation 2+
[2018-05-03 12:34] LABS: INR 1.2 (0.9-1.1); Partial Thromboplastin Ratio 1.3; Partial Thromboplastin Time 33.6 Seconds (21.0-31.0); Prothrombin Time 11.9 Seconds (9.0-12.0)
--- NOTE | 2018-05-03 14:15 | XRay Report ---
XR chest 1V portable CLINICAL HISTORY: Shortness of breath COMPARISON STUDY: Chest radiograph May 01, 2018. Chest CT April 04, 2018. FINDINGS: There is no pneumothorax. There are possible small bilateral pleural effusions. Lung volume s are diminished. Bibasilar opacities are noted. There is mild interstitial thickening which has deve loped. Cardiomediastinal silhouette is stable. IMPRESSION: 1. Bibasilar opacities which may reflect pneumonia or atelectasis. 2. Interstitial thickening and a few patchy bilateral opacities. The findings favor an infectious pro cess although pulmonary edema could appear similar. Electronically signed by: North Ribeiro M.D. 05/03/2018 2:14 PM
--- NOTE | 2018-05-03 15:18 | Hospitalist Progress Note ---
Date of Service May 03, 2018 Assessment & Plan (1) Anemia: Patient is a 68 yr male with recent admission for GI bleed due to erosive esophagitis, YVAN and alcohol-withdrawal seizure who presents with progressive weakness, dyspnea on exertion and falls at home. Anemia: Severe Thrombocytopenia Abdominal USD: Hepatomegaly and severe hepatic steatosis. Splenomegaly. Peripheral Smear: Non specific normocytic anemia and thrombocytopenia Normal Folate, Vit B12 levels Iron panel reviewed No overt bleeding issues H/O GI bleed, Alcohol use disorder FOBT: Negative Hb:6.7 today Platelets : 18K Plan to give 2 units PRBCs and 1 unit Platelets Continue PPI Appreciate GI/Hematology Input Transfuse as needed Monitor H&H CT Chest, Abd, Head pending Plan to repeat Peripheral smaer in AM Hemolytic work up reviewed with Acute kidney injury Likely Ischemic ATN in setting of Severe anemia/GI bleed/hypotension Cr: 2.31>>1.79>>2.06>>2.49 Received Gentle IV fluids Also received albumin Monitor renal function Appreciate Nephrology Input Monitor volume status Elevated troponins Suspect due to demand ischemia/YVAN patient denies chest pain Elevated d-dimer Venous Doppler : negative for DVT Could not obtain CTA / renal function Check V/Q scan Hypokalemia: Monitor and replace electrolytes as needed Tachycardia Continue Metoprolol at reduced dose Adjust the dose if BP tolerates H/O Alcohol use Denies alcohol use in 3 to 4 weeks Continue thiamine, folic acid C.diff Diarrhea Continue PO Vancomycin Added Questran for diarrhea Appreciate GI input Dyslipidemia: continue statin DVT px: SCDs Re:Anemia, Thrombocytopenia Subjective Patient is seen and examined at bedside Denies any active bleeding Had 2 BMs overnight Reports shortness of breath Family at bedside Discussed with Oncology today Renal function worsened Denies nausea, abd pain, chest pain Physical Exam 2 Vital Signs (Past 24 Hours): Last Vital Signs Temp 37.0 C 05/03/18 14:17 Pulse 103 H 05/03/18 14:17 Resp 20 05/03/18 14:17 BP 103/61 05/03/18 14:17 Pulse Ox 98 05/03/18 14:17 Physical Exam: Physical Exam: Vitals signs as noted above General Appearance:Moderately built and nourished, no apparent distress Head: normocephalic, Atraumatic Eyes: normal inspection, EOMI Neck: supple, Trachea midline Respiratory/Chest: Normal breath sounds, mild wheezes/crackles Cardiovascular: S1, S2, No murmur, +Tachycardia Abdomen/GI:Soft, Non tender, Bowel sounds present Extremities/Musculoskelatal:normal inspection, + B/L LE pitting edema Neurologic/Psych:AAOX3, grossly no focal neurological deficits Skin: normal color, warm Results & Data Laboratory Results Short CBC 05/03/18 05/03/18 Range/Units 07:17 11:45 WBC 10.02 10.10 (4.8-10.8) K/uL Hgb 6.7 L* 7.9 L (14.0-18.0) g/dL Hct 19.9 L* 23.4 L (42-52) % Plt Count 18 L* 14 L* (130-400) K/uL BMP 05/03/18 07:17 Sodium 133 L Potassium 3.5 Chloride 103 Carbon Dioxide 20 L BUN 49 H Creatinine 2.49 H D Glucose 101 H Calcium 7.5 L Liver Function 05/03/18 Range/Units 11:45 Total Bilirubin 0.7 (0.2-1) mg/dl Direct Bilirubin 0.3 H (0-0.2) mg/dl AST 43 H (15-37) U/L ALT 22 (12-78) U/L Alkaline Phosphatase 75 (45-117) U/L Albumin 1.7 L (3.4-5.0) gm/dl
--- NOTE | 2018-05-03 15:33 | CT Scan Report ---
HEAD CT NONCONTRAST CT DOSE: 2886.02 mGy.cm HISTORY: altered mental status, low platelets r/o bleed TECHNIQUE: Multiaxial CT images of the head were performed without the use of intravenous contrast. A utomated exposure control was utilized for this study. A dose lowering technique was utilized adheri ng to the principles of ALARA. Comparison: Head CT 04/04/2018. Findings: The paranasal sinuses and mastoid air cells are clear. The calvarium and skull base are int act. The ventricles and sulci are within normal limits. There is no mass, hematoma, midline shift, or acute infarct. Impression: No acute intracranial abnormality. Electronically signed by: Robe Wiseman M.D. 05/03/2018 3:32 PM
--- NOTE | 2018-05-03 15:50 | CT Scan Report ---
CT chest wo con, CT abd pelvis oral con only CT DOSE: HISTORY: Anemia. Thrombocytopenia. Splenomegaly. wheezing TECHNIQUE: Multiaxial CT images of the chest were performed without contrast. Multiaxial CT images o f the abdomen and pelvis were performed following the use of oral contrast only. A dose lowering tech nique was utilized adhering to the principles of ALARA. COMPARISON: Chest abdomen and pelvis CT 04/04/2018. FINDINGS: CHEST: There is respiratory motion artifact. The central airways appear patent. No pneumothorax. Trac e bilateral pleural effusions. Mild interlobular septal thickening most pronounced at the lung bases. Upper lobe multifocal groundglass airspace opacities as well as a small groundglass airspace opacity within the superior segment of the left lower lobe. These have a peripheral distribution. Dominant g roundglass opacity within the right upper lobe measures 4 cm. These are new from the prior study. Sub centimeter mediastinal lymph nodes do not meet CT criteria for pathologic involvement. Small pericard ial effusion. The heart is normal in size. Normal caliber thoracic aorta. Low density blood pool cons istent with the patient's history of anemia. No suspicious lytic or blastic osseous lesions. Mild emp hysema. Abdomen/pelvis: No pneumoperitoneum. No pneumatosis. No suspicious lytic or blastic osseous lesions. Mild body wall edema and presacral edema. No retroperitoneal hematoma. Calcified plaque within the no rmal caliber abdominal aorta. Posterior bladder diverticula are noted. No bladder wall thickening. No bowel wall thickening or obstruction. Motion artifact. No hepatic or splenic masses. Mild hepatic st eatosis. Increase in size of the spleen which now measures 17 cm in length. The adrenal glands and pa ncreas appear unremarkable. Mild bilateral perinephric edema. No renal stones. No hydronephrosis. Jc ateral renal hypodense lesions remain unchanged. These are incompletely characterize on this noncontr ast study. No retroperitoneal lymphadenopathy. Normal appendix. Cholecystectomy. IMPRESSION: 1. Interval development of bilateral upper lobe predominant multifocal groundglass airspace opacities . This is nonspecific but favors a multifocal pneumonia. An eosinophilic pneumonia, pulmonary edema, pulmonary hemorrhage, or multifocal infarcts from emboli could also have a similar appearance. 2. Small pericardial effusion and trace bilateral pleural effusions. There may be superimposed mild c ongestive change. 3. Motion artifact within the chest, abdomen, pelvis. 4. Low density blood pool consistent with the patient's history of anemia. 5. Interval development of splenomegaly. 6. Hepatic steatosis. 7. No bowel wall thickening or obstruction. 8. Additional findings as described above. Electronically signed by: Robe Wiseman M.D. 05/03/2018 3:48 PM
[2018-05-03] MEDS ORDERED: CEFEPIME CONSULT ACTIVE PRN (16:14)
[2018-05-03] MEDS ORDERED: METRONIDAZOLE CONSULT ACTIVE PRN (16:15)
[2018-05-03] MEDS: CEFEPIME 2,000 MG in SYRINGE 7.5 ML IV SCH (16:37)
[2018-05-03] MEDS: metroNIDAZOLE 500 MG/100 ML BAG IV SCH (17:02)
[2018-05-03] MEDS: ROSUVASTATIN CALCIUM 20 MG TAB PO SCH (20:40)
[2018-05-03 20:55] LABS: Hematocrit (blood only) 25.7 % (42-52); Hemoglobin 8.9 g/dL (14.0-18.0); Mean Corpuscular Volume 85.7 fL (80-100); RDW Coefficient of Variation 17.2 % (11.5-14.5); RDW Standard Deviation 53.9 fL (36.4-46.3)
[2018-05-03 21:12] LABS: Mean Corpuscular Hgb Conc 34.6 g/dL (32-36); Platelet Count 18 K/uL (130-400); Platelet Estimate SIGNIFIC DECREASED (Normal)
[2018-05-04] MEDS: metroNIDAZOLE 500 MG/100 ML BAG IV SCH ×3 (00:32→17:08)
[2018-05-04] MEDS: RASPBERRY SYRUP 5 ML UDP PO SCH ×3 (05:51→17:07)
[2018-05-04] MEDS: VANCOMYCIN HCL 125 MG/2.5ML SOLN PO SCH ×3 (05:51→17:07)
[2018-05-04] MEDS: LEVALBUTEROL TARTRATE 15 GM HFA.AER.AD INH SCH ×3 (05:51→17:08)
[2018-05-04 07:21] LABS: Hematocrit (blood only) 23.9 % (42-52); Hemoglobin 8.3 g/dL (14.0-18.0); Mean Corpuscular Hgb Conc 34.7 g/dL (32-36); Mean Corpuscular Volume 84.8 fL (80-100); Platelet Count 17 K/uL (130-400); RDW Coefficient of Variation 17.5 % (11.5-14.5); RDW Standard Deviation 54.5 fL (36.4-46.3); Red Blood Count 2.82 M/uL (4.7-6.1); White Blood Count 9.97 K/uL (4.8-10.8)
[2018-05-04 07:32] LABS: BUN Creatinine Ratio 21.9 (10-20); Calcium 7.5 mg/dl (8.5-10.1); Creatinine Clr Calc Pharmacy 36.3 ml/min; Est GFR (African American) 31.3; Magnesium 2.2 mg/dl (1.8-2.4); Potassium 3.3 mmol/L (3.5-5.1)
[2018-05-04] MEDS ORDERED: POTASSIUM CHLORIDE 10 MEQ TABCR PO STA (08:36)
--- NOTE | 2018-05-04 09:21 | Nephrology Progress Note ---
Date of Service May 04, 2018 Assessment & Plan (1) Acute kidney injury: borderline oliguric ischemic ATN in setting of GI bleed. Patient has been hypotensive with systolic blood pressure between 80s and 100s, though improved later in day Abdominal CT a few weeks ago showed normal size kidneys with no hydronephrosis. Creatinine is further increased today to 2.5 w/ recurrent acute anemia and ongoing diarrhea. -consider volume support with albumin 25% given severe hypoalbuminemia as well as pRBC; monitor closely given crackles. -Monitor input output. -Monitor daily BMP and avoid nephrotoxins unless lifesaving. (2) GI bleed: Patient was seen by gastroenterology who felt he was less likely having a GI bleed. Hb dropped to 6.7; on PPI gtt; for pRBC -further per primary service and GI (3) Hypotension: Likely due to GI bleed. Avoid hypotension to increase chances of renal recovery. Physical Exam 2 Vital Signs (Past 24 Hours): Last Vital Signs Temp 36.9 C 05/04/18 07:56 Pulse 91 H 05/04/18 07:56 Resp 18 05/04/18 07:56 BP 99/59 L 05/04/18 07:56 Pulse Ox 94 05/04/18 07:56 Constitutional: well developed and well nourished Eyes: EOM intact bilaterally ENMT: Ears: no external ear abnormality Nose: no external nose abnormality Mouth: + dry oral mucous membranes Neck: no nuchal rigidity Respiratory: normal respiratory effort Auscultation: + diminished lung sounds and + crackles (1/[address] up posterior gonzalez) Cardiovascular: Rate/Rhythm: + tachycardic (regularly spaced beats in 90s) Extremities: no edema Gastrointestinal (Abdomen): Inspection/Auscultation: normal bowel sounds Percussion/Palpation: abdomen soft; abdomen nontender Musculoskeletal: Extremities: strength 5/5 throughout Skin: no rashes, warm and dry Psychiatric: A+Ox3, euthymic affect _ (1) GI bleed GI bleed type/associated pathology: Gastritis type:
[2018-05-04] MEDS: PANTOprazole 40 MG in SYRINGE 0 ML IV SCH ×2 (09:27→20:03)
[2018-05-04] MEDS: METOPROLOL SUCC 25MG EXT REL TAB PO SCH (09:28)
[2018-05-04] MEDS: FOLIC ACID 1 MG TAB PO SCH (09:28)
[2018-05-04] MEDS: MULTIVITAMIN TAB PO SCH (09:28)
[2018-05-04] MEDS: THIAMINE HCL 100 MG TAB PO SCH (09:28)
[2018-05-04] MEDS: SERTRALINE HCL 50 MG TABLET PO SCH (09:28)
[2018-05-04] MEDS: CHOLESTYRAMINE LIGHT 4 GM PKT PO SCH ×2 (11:01→22:11)
[2018-05-04] MEDS: CEFEPIME 2,000 MG in SYRINGE 7.5 ML IV SCH (17:07)
--- NOTE | 2018-05-04 17:39 | Hospitalist Progress Note ---
Date of Service May 04, 2018 Assessment & Plan (1) Anemia: Patient is a 68 yr male with recent admission for GI bleed due to erosive esophagitis, YVAN and alcohol-withdrawal seizure who presents with progressive weakness, dyspnea on exertion and falls at home. Anemia: Severe Thrombocytopenia Abdominal USD: Hepatomegaly and severe hepatic steatosis. Splenomegaly. Peripheral Smear: Non specific normocytic anemia and thrombocytopenia Normal Folate, Vit B12 levels Iron panel reviewed No overt bleeding issues H/O GI bleed, Alcohol use disorder FOBT: Negative Hb:8.2 today Platelets : 17K S/P 3 units PRBCs and 1 unit platelets Continue PPI Appreciate GI/Hematology Input Transfuse as needed Monitor H&H Repeat Peripheral smear pending Multifocal Pneumonia Volume overload Status --CT Chest: Suggestive of multifocal Pneumonia. Small pericardial effusion and trace bilateral pleural effusions. Splenomegaly. Hepatic steatosis. Continue IV Abx Monitor volume status Pulmnology Consulted Acute kidney injury Likely Ischemic ATN in setting of Severe anemia/GI bleed/hypotension Cr: 2.31>>1.79>>2.06>>2.49>>2.38 Received Gentle IV fluids Also received albumin Monitor renal function Appreciate Nephrology Input Elevated troponins Suspect due to demand ischemia/YVAN patient denies chest pain Elevated d-dimer Venous Doppler : negative for DVT Could not obtain CTA / renal function V/Q scan pending Hypokalemia: Monitor and replace electrolytes as needed Tachycardia Continue Metoprolol at reduced dose Adjust the dose if BP tolerates H/O Alcohol use Denies alcohol use in 3 to 4 weeks Continue thiamine, folic acid C.diff Diarrhea Continue PO Vancomycin Added Questran for diarrhea Appreciate GI input Dyslipidemia: continue statin DVT px: SCDs Re:Anemia, Thrombocytopenia Subjective Patient is seen and examined at bedside Feels better today Denies diarrhea, bleeding, dyspnea, chest pain, dizziness Sitting in chair comfortably this morning Family at bedside Stable renal function Physical Exam 2 Vital Signs (Past 24 Hours): Last Vital Signs Temp 36.6 C 05/04/18 15:35 Pulse 85 05/04/18 15:35 Resp 24 05/04/18 15:35 BP 89/52 L 05/04/18 15:35 Pulse Ox 96 05/04/18 15:35 Physical Exam: Physical Exam: Vitals signs as noted above General Appearance:Moderately built and nourished, no apparent distress Head: normocephalic, Atraumatic Eyes: normal inspection, EOMI Neck: supple, Trachea midline Respiratory/Chest: Normal breath sounds, Scattered basal rales Cardiovascular: S1, S2, No murmur Abdomen/GI:Soft, Non tender, Bowel sounds present Extremities/Musculoskelatal:normal inspection, + B/L LE pitting edema Neurologic/Psych:AAOX3, grossly no focal neurological deficits Skin: normal color, warm Results & Data Laboratory Results Short CBC 05/03/18 05/04/18 Range/Units 20:15 06:18 WBC 10.40 9.97 (4.8-10.8) K/uL Hgb 8.9 L 8.3 L (14.0-18.0) g/dL Hct 25.7 L 23.9 L (42-52) % Plt Count 18 L* 17 L* (130-400) K/uL BMP 05/04/18 06:18 Sodium 133 L Potassium 3.3 L Chloride 107 Carbon Dioxide 17 L BUN 52 H Creatinine 2.38 H Glucose 101 H Calcium 7.5 L
[2018-05-04] MEDS: ROSUVASTATIN CALCIUM 20 MG TAB PO SCH (20:04)
[2018-05-04 20:33] LABS: Hematocrit (blood only) 26.1 % (42-52); Mean Corpuscular Hgb Conc 34.5 g/dL (32-36); Mean Corpuscular Volume 86.1 fL (80-100); Platelet Count 23 K/uL (130-400); RDW Coefficient of Variation 17.7 % (11.5-14.5); RDW Standard Deviation 55.6 fL (36.4-46.3); Red Blood Count 3.03 M/uL (4.7-6.1); White Blood Count 10.23 K/uL (4.8-10.8)
[2018-05-04 20:34] LABS: Platelet Estimate SIGNIFIC DECREASED (Normal)
--- NOTE | 2018-05-04 22:00 | Consultation Report ---
DATE OF CONSULTATION: 05/04/2018 REASON FOR CONSULTATION: Multifocal pneumonia. HISTORY OF PRESENT ILLNESS: A 67-year-old white male with a complex past medical history of hypertension, dyslipidemia, and anxiety was followed by Dr. Elida Swain in the [facility], apparently suffered a severe GI hemorrhage with hemodynamic instability requiring admission to our CCU back on 04/04/2018. He is somewhat confused today so most of the history is being gleaned from the electronic medical record. He has had a cholecystectomy in the past. He did have a remote smoking history, having quit many years ago after perhaps a [id number] history. There was a question of seizure activity on presentation and he received loading dose Keppra. In 12/2016, he was admitted with an acute kidney injury with a creatinine of 12 and markedly improved with intravenous fluid. He was evaluated for GI bleeding by Dr. Moncho Santos. Dr. Kerri Martino saw him in consultation on 04/05/2018. He states he had been ill for 4 days prior to the admission. 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 As stated earlier, the Keppra was given. Protonix was infused initially for presumptive GI bleed. Dr. Santos was consulted on 04/05/2018. At that point, there was no overt GI bleeding. Dr. Chen saw patient in consultation as patient was acutely ill. He was hyperglycemic and placed on an insulin protocol. He apparently stabilized on 04/07/2018 [address] with [address]. Santos. He had moderately severe esophagitis. Biopsies were obtained and he was continued on the Protonix without incident. He was discharged on the 04/10/2018, stable with marked improvement in his creatinine, but then was readmitted to 04/28/2018 because of progressive weakness, dyspnea on exertion and falling at home. The previous diagnosis was felt to be erosive esophagitis, acute renal failure, and alcohol withdrawal seizure. He initially did well upon going home and developed lower back pain and bilateral hip pain, progressive weakness. In addition to dyspnea, exertion was noted. He was coughing, but nonproductively without pleuritic pain or hemoptysis. He was drinking apple juice and liquids. There was a question of aspiration, though no obvious witnessed periods of aspiration. He is just so profoundly weak and has fallen even sitting up in bed, when asked to do so required assistance. His troponin was elevated. He was seen by nephrology, Dr. Breaux on 04/29/2018. It was felt that his acute injury was secondary to ischemic ATN in the setting of a GI bleed. CT scan of the kidneys has been normal with no hydronephrosis. He has received blood transfusion. He has chronic thrombocytopenia as well as chronic anemia. Yesterday, he was seen by nephrology. He is receiving still IV fluids, albumin. Venous Doppler was negative for DVT. CTA was not obtained because of renal function. He is on p.o. vancomycin for pseudomembranous colitis diarrhea and he does still have symptoms of dyspnea with exertion with a chronic cough. I have been asked to see patient in consultation. PHYSICAL EXAMINATION: VITAL SIGNS: Blood pressure 99/59, pulse 91 and regular, respiratory rate 18, temperature 36.9, O2 sat 94% on room air. SKIN: Without lesion. HEENT: Atraumatic, normocephalic, PERRLA, EOMI. Conjunctivae pale. Sclerae nonicteric. Fundi poorly visualized. NECK: Neck veins are not distended at 45 degrees. No evidence of lymphadenopathy in the supra or infraclavicular areas. DIAGNOSTIC DATA: A CT scan done without contrast yesterday shows interval development of bilateral upper lobe, multifocal ground-glass airspace opacities, nonspecific but favors multifocal pneumonia, small pericardial effusion, and trace bilateral pleural effusion, splenomegaly has been noted. The patient then underwent a chest x-ray earlier today, which is showing bibasilar opacities and interstitial thickening with a few patchy bilateral opacities. H and H currently 8.3 and 23.9 with a white count 9900, platelet count is only 17,000. PT, PTT shows an iron of 1.2 and 1.3 respectively. D-dimer greater than 6500. Fibrin degradation products greater than 40. Potassium 3.3, BUN 52, creatinine 2.38, albumin 2.8. Negative PCR for influenza A and B. Stool and blood cultures have been negative. Esophageal biopsy showed severe ulcerative granulation tissue prominent acute inflammation. OVERALL ASSESSMENT: A 68-year-old with complex medical history who presented with acute tubular necrosis back in 12/2016 requiring intravenous hydration and with a readmission with essentially normalization of the renal function with readmission in March, possible gastrointestinal bleed. Discharged and then readmitted with severe and profound weakness. I have reviewed the CT scan of the chest done without contrast on 05/03/2018. Multiple areas of ground-glass opacity are seen in both lung gonzalez somewhat peripheral in nature for some. Certainly the differential of multiple diagnoses are there. I cannot rule out an atypical pulmonary edema. Multifocal infarcts and emboli, eosinophilic pneumonia versus diffuse alveolar hemorrhage even in the absence of hemoptysis. Certainly, even a chronic aspiration has to be entertained in this profoundly weak individual. The degree of chronic and acute thrombocytopenia along with splenomegaly is a concern. In reviewing current medication, the patient is on IV pantoprazole, IV cefepime, and IV Flagyl along with folic acid replacement, oral vancomycin. His antibiotic selection is excellent. Could this be aspiration, it is possible, we may have to at some point consider steroid therapy. We will follow along with you, but at this point, instrumentation including bronchoscopy with or without biopsy would not be tolerated and in fact be a concern given his thrombocytopenia and hypotension. We will discuss further with primary service and will follow along with you. RACHAEL
[2018-05-05] MEDS: RASPBERRY SYRUP 5 ML UDP PO SCH ×5 (00:09→23:56)
[2018-05-05] MEDS: LEVALBUTEROL TARTRATE 15 GM HFA.AER.AD INH SCH ×3 (00:09→12:13)
[2018-05-05] MEDS: VANCOMYCIN HCL 125 MG/2.5ML SOLN PO SCH ×5 (00:09→23:56)
[2018-05-05] MEDS: metroNIDAZOLE 500 MG/100 ML BAG IV SCH ×4 (00:10→23:57)
[2018-05-05 07:51] LABS: Hematocrit (blood only) 24.7 % (42-52); Hemoglobin 8.4 g/dL (14.0-18.0); Mean Corpuscular Volume 85.2 fL (80-100); Platelet Count 20 K/uL (130-400); Platelet Estimate SIGNIFIC DECREASED (Normal); RDW Coefficient of Variation 17.9 % (11.5-14.5); RDW Standard Deviation 55.8 fL (36.4-46.3); White Blood Count 11.24 K/uL (4.8-10.8)
[2018-05-05 07:59] LABS: Calcium 7.7 mg/dl (8.5-10.1); Creatinine Clr Calc Pharmacy 40.8 ml/min; Potassium 3.3 mmol/L (3.5-5.1)
[2018-05-05] MEDS ORDERED: POTASSIUM CHLORIDE 10 MEQ TABCR PO STA (08:39)
[2018-05-05] MEDS: PANTOprazole 40 MG TAB PO SCH ×2 (10:31→19:33)
[2018-05-05] MEDS: MULTIVITAMIN TAB PO SCH (10:32)
[2018-05-05] MEDS: METOPROLOL SUCC 25MG EXT REL TAB PO SCH (10:32)
[2018-05-05] MEDS: SERTRALINE HCL 50 MG TABLET PO SCH (10:32)
[2018-05-05] MEDS: THIAMINE HCL 100 MG TAB PO SCH (10:32)
[2018-05-05] MEDS: FOLIC ACID 1 MG TAB PO SCH (10:32)
[2018-05-05] MEDS: CHOLESTYRAMINE LIGHT 4 GM PKT PO SCH ×2 (10:33→21:45)
--- NOTE | 2018-05-05 11:02 | Nuclear Medicine Report ---
NM pul vent and perfuse CLINICAL HISTORY: 68 years-old Male presenting with Elevated D-dimer, thrombocytopenia, tachycardia, weakness. TECHNIQUE: Immediately following the inhalation of 32.0 mCi of technetium 99 M DTPA for the ventilati on scan and the intravenous administration of 5.5 mCi of technetium 99 M MAA for the perfusion scan, anterior, oblique, lateral, and posterior views of the chest were obtained. Modified PIOPED II criter ia were utilized for assessment. COMPARISON: Chest CT from 05/03/2018 and chest x-ray from 05/03/2018. FINDINGS: Evaluation limited by positioning of the arms at the sides. No mismatched defects are identified on this examination. Perfusion and ventilation to both lungs is preserved. Upper and central airway deposition of ventilation tracer evident, which mildly degrades v entilation imaging. This is not significantly negatively affect the sensitivity of the exam given the adequacy of perfusion imaging. Reference: Modified PIOPED II criteria Normal: No perfusion defects. Very low likelihood ratio: Nonsegmental, perfusion defect < chest x-ray lesion, 1-3 small segmental d efects, solitary triple matched defect (< or = 1 segment) in mid or upper lung, stripe sign, solitary large pleural effusion, > or = to 2 matched defects with regionally normal chest x-ray. High likelihood ratio: > or = 2 large mismatch segmental defects. Nondiagnostic: All other findings. IMPRESSION: Normal. Electronically signed by: Thomas Forde M.D. 05/05/2018 11:00 AM
--- NOTE | 2018-05-05 14:19 | Neurology Consultation ---
Date of Consultation May 05, 2018 Assessment & Plan (1) Change in mental status: 1. MRI brain -ordered r/o infarct or lesion 2. EEG- for any focal areas r/o seizure 3. B12/folate TSH WNL for reversible causes of confusion 4. WBC is elevated again today 5. TTE - may need repeated ? embolic event due to findings in CT chest 6. antibiotics- oral vanco, IV cefepime, and flagyl 7. ammonia level with AM labs 8. already on thiamine - on home medication list 9. unclear what is causing confusion but likely multiple issues are adding to his MS once images and labs are completed will have further input. Supervising Physician Co-Signing Physician Notes I have seen and discussed above patient with Dr Rasta Dawson, neurology I saw Mr. Kumar today reviewed his chart discussed the case with Kerri Ibarra PA-C and unfortunately find nothing on exam that suggests a focal central nervous system defect and suspect this is nonspecific multifactorial encephalopathy related to his underlying C. difficile, his pulmonary infectious process versus emboli and some of his metabolic disturbances which include renal failure hypokalemia etc. all as outlined on the chart by his internal medicine team and the various consultants have been asked to see him. He does have what looks to be an essential tremor and on exam polyneuropathy the severity of which is very difficult to assess based on his less than forthcoming mental status at present He did apparently improve to some degree and was conversant and following commands but I do not know if this was anywhere near his baseline. He is clearly fallen off within the past day or 2 and I suspect this correlates with a flareup of his underlying infectious process or exacerbation of his metabolic disturbance but unfortunately cannot exclude multiple small emboli involving the central nervous system, hyperammonemia which might be of concern man who is a known alcoholic with underlying liver disease and we need to check an EEG not so much to exclude nonconvulsive status epilepticus but to see if there are some triphasic waves that might correlate with his encephalopathy or lateralizing feature that might be more worrisome. We will be following up on the studies tomorrow. Hopefully he will be able to tolerate an EEG and an MRI without requiring sedation Rasta Dawson MD History of Present Illness Reason for Consultation: mental status change Requesting Physician: Barry Barclay MD Attending Physician: Barry Barclay MD History of Present Illness Cole is a 68 year old male with an admission for GI bleed due to erosive esophagitis, YVAN and alcohol-withdrawal seizure who presented with progressive weakness, dyspnea on exertion and falls at home. According to notes he was doing well after the discharge in March. Then about ten days prior to this admission he started to have lower back pain and bilateral hip pain and progressive weakness and fatigue. The weakness is generalized and he cannot locate it to a specific area of the body. He had a mechanical fall prior to admission but was able to get back up and had no injuries. He then had a second fall which he couldn't get himself up and EMS was called. He was not eating or drinking much and his oral intact was limited due to decreased appetite. He had urgent watery diarrhea with incontinence over past several days - at least 2-3 episodes of diarrhea per night. he reported his last alcoholic drink was at least three weeks ago (prior to his last hospitalization). he is denying pain in hips or back currently. Allergies Allergy/AdvReac Type Severity Reaction Status Date / Time No Known Allergies Allergy Verified 04/28/18 12:17 Home Medications Home Medications Medication Instructions Recorded Confirmed Type sertraline 50 mg PO QAM 04/04/18 04/28/18 History folic acid 1 mg PO QAM 30 Days #30 tab 04/10/18 04/28/18 Rx multivitamin [Daily-Willow] 1 tab PO QAM 30 Days #30 tab 04/10/18 04/28/18 Rx pantoprazole 40 mg PO BID 30 Days #60 tab 04/10/18 04/28/18 Rx thiamine HCl (vitamin B1) [Vitamin 100 mg PO QAM 30 Days #30 tab 04/10/18 Rx B-1] acetaminophen [Tylenol Extra 1,000 mg PO Q6H PRN 04/28/18 04/28/18 History Strength] metoprolol succinate 50 mg PO HS 04/28/18 04/28/18 History rosuvastatin 20 mg PO HS 04/28/18 04/28/18 History Patient History Medical History Esophagitis (Acute) Alcohol abuse (Chronic) New onset seizure (Acute) Believed secondary to EtOH withdrawal Fall (Acute) GI bleed (Acute) Lactic acidemia (Acute) Sepsis (Resolved) YVAN (acute kidney injury) (Acute) Acute kidney injury (Acute) Hypertension (Chronic) Dyslipidemia (Chronic) Thrombocytopenia (Chronic) History of bacterial meningitis in childhood (Resolved) Anemia (Chronic) acute on chronic Surgical History Status post cholecystectomy (Chronic) History of excision of pilonidal cyst (Resolved) Family History Other No significant family history Social History marital status: Current Living Situation: Spouse Other Information That Helps Us Care for You: No Feels Safe at Home: Yes Safety Concerns: Feels Safe At This Time Smoking Status: Former smoker Smoking End Date: 2005 Hx Alcohol Use: Yes Alcohol type: hard liquor Alcohol Intake Frequency: 0-2 drinks per day Alcohol Intake Frequency Comment: Former Hx Substance Use: No Beliefs That Will Affect Care: None and Denominational Denominational Beliefs: christianity Communication Ability: Effective Physical Exam 2 Vital Signs (Past 24 Hours): Last Vital Signs Temp 36.7 C 05/05/18 11:38 Pulse 94 H 05/05/18 11:38 Resp 18 05/05/18 11:38 BP 91/59 L 05/05/18 11:38 Pulse Ox 95 05/05/18 11:38 Physical Exam: Constitutional: appearance over nourished ill appearing Ears, Nose, Mouth and Throat: mucous membranes moist, no injection and skin normal, eyes normal Cardiovascular: normal S-1 and S-2 and regular rate and rhythm Respiratory: course breath sounds Musculoskeletal: no peripheral edema Skin: no stigmata of neurocutaneous disease noted and normal and intact Eyes: extraocular muscles intact (EOMI) and pupils equal, round and reactive to light (PERRL) NEUROLOGIC EXAMINATION: Mental status: Alert and interactive Oriented to person does not know year thinks it is 2012, knows he lives in [place], does not know he is in a hospital or which one Speech no slurred speech but is not making sense with some questions asked Cranial Nerves facial symmetry Sensory: decrease sensation to cool and light touch, LE bilaterally to knees Coordination: finger to nose no bi pass Gait/Stance: lying in bed Motor: Negative for pronator drift of out stretched arms with eyes closed. 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 hip flex 4/5 bilaterally patellar flex ext 4+/5 Results & Data Laboratory Results Abnormal lab results 05/04/18 05/05/18 05/05/18 Range/Units 20:00 07:08 07:08 WBC 11.24 H (4.8-10.8) K/uL RBC 3.03 L 2.90 L (4.7-6.1) M/uL Hgb 9.0 L 8.4 L (14.0-18.0) g/dL Hct 26.1 L 24.7 L (42-52) % RDW Std Deviation 55.6 H 55.8 H (36.4-46.3) fL RDW Coeff of Julia 17.7 H 17.9 H (11.5-14.5) % Plt Count 23 L* 20 L* (130-400) K/uL Potassium 3.3 L (3.5-5.1) mmol/L Chloride 108 H (98-107) mmol/L Carbon Dioxide 17 L (21-32) mmol/L BUN 57 H (7-18) mg/dl Creatinine 2.12 H (0.6-1.4) mg/dl BUN/Creatinine Ratio 27.0 H (10-20) Glucose 122 H (70-99) mg/dl Calcium 7.7 L (8.5-10.1) mg/dl Diagnostic Findings CT head- No acute intracranial abnormality. CXR- Bibasilar opacities which may reflect pneumonia or atelectasis. Interstitial thickening and a few patchy bilateral opacities. The findings favor an infectious process although pulmonary edema could appear similar.
[2018-05-05] MEDS: CEFEPIME 2,000 MG in SYRINGE 7.5 ML IV SCH (15:31)
[2018-05-05] MEDS ORDERED: POTASSIUM CHLORIDE 20 MEQ TABCR PO STA (17:30)
--- NOTE | 2018-05-05 17:30 | Magnetic Resonance Report ---
MRI OF THE BRAIN WITHOUT CONTRAST CLINICAL HISTORY: Altered Mental Status COMPARISON STUDY: 04/05/2018 FINDINGS: Sagittal T1, axial diffusion, proton density and T2 weighted axial, coronal FLAIR, and axial T1-weigh alize images were acquired. No intra or extra-axial mass lesions are visualized There is a new 7 mm focus of restricted water diffusion within the right centrum semiovale. There is a new punctate focus of reticular water diffusion within the left cerebellar hemisphere. There are ne w corresponding foci of increased T2 signal at the levels of the restricted water diffusion which are not particularly bright. The findings are suggestive of subacute infarcts. Equivocal punctate foci p roject water diffusion within the right medial occipital cortex are likely artifactual. Proton density T2-weighted and FLAIR images reveal scattered foci of increased T2 signal within the w jennie matter, likely on a small vessel basis. There are no abnormal flow voids. IMPRESSION: 1. Interval development of small foci restricted water diffusion within the right centrum semiovale a nd left cerebellar hemisphere. There are new corresponding foci of T2 signal abnormality. The finding s are felt to be indicative of subacute infarcts. Electronically signed by: David Delong M.D. 05/05/2018 5:29 PM
--- NOTE | 2018-05-05 18:09 | Pulmonology Progress Note ---
Date of Service May 05, 2018 Assessment & Plan (1) Change in mental status: Impression: 1. 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 2. Bilateral groundglass opacities highly suspicious for alveolar hemorrhage. 3. Anemia. Plan: 1. The patient is not a candidate for a bronchoscopy although it can be done with a high risk. 2. I am not sure if the patient is competent enough to give a consent for the procedure. 3. Improvement of the platelets should take priority. 4. Renal pulmonary syndrome is less likely as the patient does not have any respiratory symptoms. Thank you, will follow. Subjective The patient is difficult to obtain review of system from him. The patient is confused although he is following commands, he denies any respiratory symptoms. No hemoptysis reported no shortness of breath or no cough. No events overnight. Physical Exam 2 Vital Signs (Past 24 Hours): Last Vital Signs Temp 36.5 C 05/05/18 15:21 Pulse 104 H 05/05/18 15:21 Resp 20 05/05/18 15:21 BP 100/49 L 05/05/18 15:21 Pulse Ox 91 05/05/18 15:21 Physical Exam: Vital signs are stable, S1-S2 regular rate and rhythm, lungs are distant rhonchi, abdomen is benign, no edema, neurologically no asterixis, no rash, no oral lesions. Results & Data Laboratory Results Labs consistent with profound thrombocytopenia, thought to be related to history of alcoholism. Hematocrit also is low. Elevated BUN/creatinine. Reviewed personally. Diagnostic Findings I have reviewed the CAT scan done on this patient. The findings are consistent with a groundglass opacity affecting mainly in the upper lobes. These findings are highly suspicious for pulmonary hemorrhage.
--- NOTE | 2018-05-05 18:38 | Hospitalist Progress Note ---
Date of Service May 05, 2018 Assessment & Plan (1) Anemia: Patient is a 68 yr male with recent admission for GI bleed due to erosive esophagitis, YVAN and alcohol-withdrawal seizure who presents with progressive weakness, dyspnea on exertion and falls at home. Anemia: Severe Thrombocytopenia Abdominal USD: Hepatomegaly and severe hepatic steatosis. Splenomegaly. Peripheral Smear: Non specific normocytic anemia and thrombocytopenia Normal Folate, Vit B12 levels Iron panel reviewed No obvious bleeding Suspicious for Alveolar Hemorrhage H/O GI bleed, Alcohol use disorder FOBT: Negative Hb:8.4 Platelets : 20K S/P 3 units PRBCs and 1 unit platelets Continue PPI Appreciate GI/Hematology Input Transfuse as needed Monitor H&H FISH/Cytometry pending Multifocal Pneumonia Volume overload Status Possible Alveolar hemorrhage --CT Chest: Suggestive of multifocal Pneumonia. Small pericardial effusion and trace bilateral pleural effusions. Splenomegaly. Hepatic steatosis. Continue IV Abx Cultures:Negative Monitor volume status Appreciate Pulmnology Input High risk fro Bronch due to thrombocytopenia Acute kidney injury Likely Ischemic ATN in setting of Severe anemia/GI bleed/hypotension Cr: 2.31>>1.79>>2.06>>2.49>>2.38>>2.12 IV Lasix and albumin today Monitor renal function Appreciate Nephrology Input Metabolic Encephalopathy --MRI Brain: Interval development of small foci restricted water diffusion within the right centrum semiovale and left cerebellar hemisphere. There are new corresponding foci of T2 signal abnormality. The findings are felt to be indicative of subacute infarcts. --Check ECHO with bubble study, Carotid Doppler --EEG pending --Check Ammonia levels --Appreciate Neurology Input Elevated troponins Suspect due to demand ischemia/YVAN patient denies chest pain Elevated d-dimer Venous Doppler : negative for DVT Could not obtain CTA 2/2 renal function V/Q scan: Normal Hypokalemia: Monitor and replace electrolytes as needed Tachycardia Continue Metoprolol at reduced dose Adjust the dose if BP tolerates H/O Alcohol use Denies alcohol use in 3 to 4 weeks Continue thiamine, folic acid C.diff Diarrhea Continue PO Vancomycin Added Questran for diarrhea Appreciate GI input Dyslipidemia: continue statin DVT px: SCDs Re:Anemia, Thrombocytopenia Subjective Patient is seen and examined at bedside Patient is confused today Had hallucinations overnight per staff Very weak and has poor appetite MRI brain suggestive of subacute infarct Still has cough with expectoration High risk for bronchoscopy for possible pulmonary hemorrhage Denies chest pain, dyspnea, dizziness No obvious bleeding Family at bedside Physical Exam 2 Vital Signs (Past 24 Hours): Last Vital Signs Temp 36.5 C 05/05/18 15:21 Pulse 104 H 05/05/18 15:21 Resp 20 05/05/18 15:21 BP 100/49 L 05/05/18 15:21 Pulse Ox 91 05/05/18 15:21 Physical Exam: Physical Exam: Vitals signs as noted above General Appearance:Moderately built and nourished, no apparent distress Head: normocephalic, Atraumatic Eyes: normal inspection, EOMI Neck: supple, Trachea midline Respiratory/Chest: Decreased Normal breath sounds, Distant Rhonchi Cardiovascular: S1, S2, No murmur Abdomen/GI:Soft, Non tender, Bowel sounds present Extremities/Musculoskelatal:normal inspection, + B/L LE pitting edema Neurologic/Psych:grossly no focal neurological deficits, +Confused Skin: normal color, warm Results & Data Laboratory Results Short CBC 05/04/18 05/05/18 Range/Units 20:00 07:08 WBC 10.23 11.24 H (4.8-10.8) K/uL Hgb 9.0 L 8.4 L (14.0-18.0) g/dL Hct 26.1 L 24.7 L (42-52) % Plt Count 23 L* 20 L* (130-400) K/uL BMP 05/05/18 07:08 Sodium 136 Potassium 3.3 L Chloride 108 H Carbon Dioxide 17 L BUN 57 H Creatinine 2.12 H Glucose 122 H Calcium 7.7 L Diagnostic Findings MRI Brain: Interval development of small foci restricted water diffusion within the right centrum semiovale and left cerebellar hemisphere. There are new corresponding foci of T2 signal abnormality. The findings are felt to be indicative of subacute infarcts. V/Q scan: Normal.
--- NOTE | 2018-05-05 18:38 | Hematology/Oncology Prog Note ---
"Date of Service May 05, 2018 Assessment & Plan (1) Change in mental status: * Neurology saw patient * Ordered brain MRI- subacute infarcts noted * EEG pending * Ammonia level for tomorrow * H/o ETOH abuse, on thiamine, apparently has not drank in past 1 month (2) Anemia: * Remaining stable * FOBT negative on 04/29 * Acute illness/inflammation likely contributing * Continue to CBCD daily (3) Thrombocytopenia: * No clinically reported bleeding complications * PLTs remaining stable but very low around 20K * Dr. Nicole suggests worsening splenomegaly with sequestration as likely cause * May be drug related, patient on antibiotics for pneumonia, C diff * Continue to monitor CBCD daily * DIC not favored on coag testing Subjective Patient is an unreliable historian due to confusion, sister is at bedside. He denies dyspnea at rest or cough. He denies nausea, abdominal pain. He moved his bowels today, reportedly no issues. He denies hematuria or other forms of bleeding. Review of Systems See HPI Physical Exam 2 Vital Signs (Past 24 Hours): Last Vital Signs Temp 36.5 C 05/05/18 15:21 Pulse 104 H 05/05/18 15:21 Resp 20 05/05/18 15:21 BP 100/49 L 05/05/18 15:21 Pulse Ox 91 05/05/18 15:21 Constitutional: well developed and well nourished; no acute distress Respiratory: normal respiratory effort Auscultation: + diminished lung sounds Cardiovascular: distant heart tones Gastrointestinal (Abdomen): Percussion/Palpation: abdomen soft; abdomen nontender Neurologic: + confused Speech / Cognition: + abnormal cognition Results & Data Laboratory Results 05/05/18: WBC | 11.24 | H | 4.8-10.8 K/uL | RBC | 2.90 | L | 4.7-6.1 M/uL | Hgb | 8.4 | L | 14.0-18.0 g/dL | Hct | 24.7 | L | 42-52 % | MCV | 85.2 | | 80-100 fL | MCH | 29.0 | | 25-34 pg | MCHC | 34.0 | | 32-36 g/dL | RDW Std Dev | 55.8 | H | 36.4-46.3 fL | RDW Coeff Julia | 17.9 | H | 11.5-14.5 % | Plt | 20 | LL | 130-400 K/uL | Na | 136 | | 136-145 mmol/L | K | 3.3 | L | 3.5-5.1 mmol/L | Cl | 108 | H | 98-107 mmol/L | CO2 | 17 | L | 21-32 mmol/L | Gap | 11.0 | | 3-11 | BUN | 57 | H | 7-18 mg/dl | Creat | 2.12 | H | 0.6-1.4 mg/dl | Creat Calc PHA | 40.8 | | ml/min | | Est. Creatinine Clearance (Mod Cockcroft-Gault) for pharmacy | dosing purposes. EGFR AA | 36.0 | | | | Units: ml/min per 1.73 meters squared | | The estimated GFR (CKD-EPI equation) has not been validated | for inpatient settings and may not be an accurate reflection | of renal function in critically ill patients or those with | rapidly changing renal function (e.g. YVAN). EGFR CARLOS | 31.0 | | | | Units: ml/min per 1.73 meters squared | | The estimated GFR (CKD-EPI equation) has not been validated | for inpatient settings and may not be an accurate reflection | of renal function in critically ill patients or those with | rapidly changing renal function (e.g. YVAN). BUN Creat Ratio | 27.0 | H | 10-20 | Glu | 122 | H | 70-99 mg/dl | Ca | 7.7 | L | 8.5-10.1 mg/dl Diagnostic Findings Brain MRI from 05/05/18: 1. Interval development of small foci restricted water diffusion within the right centrum semiovale and left cerebellar hemisphere. There are new corresponding foci of T2 signal abnormality. The findings are felt to be indicative of subacute infarcts. V/Q scan from 05/05/18: IMPRESSION: Normal. 05/03/18 CT chest/abd/pelvis: 1. Interval development of bilateral upper lobe predominant multifocal groundglass airspace opacities. This is nonspecific but favors a multifocal pneumonia. An eosinophilic pneumonia, pulmonary edema, pulmonary hemorrhage, or multifocal infarcts from emboli could also have a similar appearance. 2. Small pericardial effusion and trace bilateral pleural effusions. There may be superimposed mild congestive change. 3. Motion artifact within the chest, abdomen, pelvis. 4. Low density blood pool consistent with the patient's history of anemia. 5. Interval development of splenomegaly. 6. Hepatic steatosis. 7. No bowel wall thickening or obstruction."
[2018-05-05] MEDS: ALBUMIN 25% 50 ML with FUROSEMIDE 20 MG IV SCH ×2 (18:44→21:44)
[2018-05-05] MEDS: LEVALBUTEROL HCL 0.63 MG/3 ML NEB NEB SCH (19:00)
--- NOTE | 2018-05-05 19:03 | Nephrology Progress Note ---
Date of Service May 05, 2018 Assessment & Plan (1) Hypokalemia: needing frequent repletion >> started him 40 mEq tid after also giving him 40 mEq po x 1 -likely multifactorial though in part form diarrhea; now to start diuresis so expect ongoing issues Present on Admission?: Yes (2) Pancytopenia: heme, GI following has needed PRBC this admission near critical platelets >> limits diagnostic/therapeutiic options including ABG , bronchoscopy -no clear bleeding source to date >>? if he could have BM suppression after exposure to medication possibly prior to this admission/during another admission; ? if he could have such profound BM suppression from EtOH Present on Admission?: Yes (3) Renal insufficiency: baseline creatinine not well understood in setting of multiple/recurrent hospitalizations; has been as low as 1.2 in past months; however since 04/27 admission, more in range of about 2.0 - 2.5, currently 2.1. working dx had been ischemic atn w/ past borderline oliguria in setting of acute anemia, hypotension. Abdominal CT a few weeks ago showed normal size kidneys with no hydronephrosis. Now w/ mild BL perinephric edema on CT, nonspecific. Creatinine is further increased today to 2.5 w/ recurrent acute anemia and ongoing diarrhea. -support bp/minimize hypotension -daily bmp -agree w/ inman for now; may have blood in urine w/ placement Present on Admission?: Yes (4) Volume overload: start lasix 20 mg qid IV w/ albumin 25% primarily to aid in breathing Present on Admission?: Yes Subjective MS w/ marked diminishment today. pulm consulted for possible pna. pt had mri brain today. pt w/ altered MS and can't give ros. takes po well per nursing Physical Exam 2 Vital Signs (Past 24 Hours): Last Vital Signs Temp 36.5 C 05/05/18 15:21 Pulse 104 H 05/05/18 15:21 Resp 20 05/05/18 15:21 BP 100/49 L 05/05/18 15:21 Pulse Ox 91 05/05/18 15:21 Constitutional: well developed, well nourished and cooperative but w/ altered MS Eyes: EOM intact bilaterally eomi; watching ceiling and smiling ENMT: Ears: no external ear abnormality Nose: no external nose abnormality Mouth: + dry oral mucous membranes Neck: no nuchal rigidity Respiratory: + labored breathing, + cough (infrequent, ? weak; not productive) , + tachypneic and + paradoxical thoraco-abdominal movement Auscultation: + diminished lung sounds Cardiovascular: Rate/Rhythm: regular rhythm and + tachycardic Extremities: + edema (2-3+ pedal and perhaps trace dependent) Gastrointestinal (Abdomen): Inspection/Auscultation: + abdomen distended and normal bowel sounds (or slightly diminished) Percussion/Palpation: abdomen soft; abdomen nontender Musculoskeletal: Extremities: strength 5/5 throughout Skin: no rashes, warm and dry Neurologic: awake and + confused Speech / Cognition: + abnormal speech and + abnormal cognition acevedo, staring at ceiling and laughs/giggles Psychiatric: Orientation: alert Speech: + mute (minimal speech) Insight : + impaired insight Judgement: + impaired judgement Genitourinary: inman w/ darker urine Results & Data Laboratory Results Abnormal lab results 05/04/18 05/05/18 05/05/18 Range/Units 20:00 07:08 07:08 WBC 11.24 H (4.8-10.8) K/uL RBC 3.03 L 2.90 L (4.7-6.1) M/uL Hgb 9.0 L 8.4 L (14.0-18.0) g/dL Hct 26.1 L 24.7 L (42-52) % RDW Std Deviation 55.6 H 55.8 H (36.4-46.3) fL RDW Coeff of Julia 17.7 H 17.9 H (11.5-14.5) % Plt Count 23 L* 20 L* (130-400) K/uL Potassium 3.3 L (3.5-5.1) mmol/L Chloride 108 H (98-107) mmol/L Carbon Dioxide 17 L (21-32) mmol/L BUN 57 H (7-18) mg/dl Creatinine 2.12 H (0.6-1.4) mg/dl BUN/Creatinine Ratio 27.0 H (10-20) Glucose 122 H (70-99) mg/dl Calcium 7.7 L (8.5-10.1) mg/dl Diagnostic Findings CT chest wo con, CT abd pelvis oral con only 05/03 CT DOSE: HISTORY: Anemia. Thrombocytopenia. Splenomegaly. wheezing TECHNIQUE: Multiaxial CT images of the chest were performed without contrast. Multiaxial CT images of the abdomen and pelvis were performed following the use of oral contrast only. A dose lowering technique was utilized adhering to the principles of ALARA. COMPARISON: Chest abdomen and pelvis CT 04/04/2018. FINDINGS: CHEST: There is respiratory motion artifact. The central airways appear patent. No pneumothorax. Trace bilateral pleural effusions. Mild interlobular septal thickening most pronounced at the lung bases. Upper lobe multifocal groundglass airspace opacities as well as a small groundglass airspace opacity within the superior segment of the left lower lobe. These have a peripheral distribution. Dominant groundglass opacity within the right upper lobe measures 4 cm. These are new from the prior study. Subcentimeter mediastinal lymph nodes do not meet CT criteria for pathologic involvement. Small pericardial effusion. The heart is normal in size. Normal caliber thoracic aorta. Low density blood pool consistent with the patient's history of anemia. No suspicious lytic or blastic osseous lesions. Mild emphysema. Abdomen/pelvis: No pneumoperitoneum. No pneumatosis. No suspicious lytic or blastic osseous lesions. Mild body wall edema and presacral edema. No retroperitoneal hematoma. Calcified plaque within the normal caliber abdominal aorta. Posterior bladder diverticula are noted. No bladder wall thickening. No bowel wall thickening or obstruction. Motion artifact. No hepatic or splenic masses. Mild hepatic steatosis. Increase in size of the spleen which now measures 17 cm in length. The adrenal glands and pancreas appear unremarkable. Mild bilateral perinephric edema. No renal stones. No hydronephrosis. Bilateral renal hypodense lesions remain unchanged. These are incompletely characterize on this noncontrast study. No retroperitoneal lymphadenopathy. Normal appendix. Cholecystectomy. IMPRESSION: 1. Interval development of bilateral upper lobe predominant multifocal groundglass airspace opacities. This is nonspecific but favors a multifocal pneumonia. An eosinophilic pneumonia, pulmonary edema, pulmonary hemorrhage, or multifocal infarcts from emboli could also have a similar appearance. 2. Small pericardial effusion and trace bilateral pleural effusions. There may be superimposed mild congestive change. 3. Motion artifact within the chest, abdomen, pelvis. 4. Low density blood pool consistent with the patient's history of anemia. 5. Interval development of splenomegaly. 6. Hepatic steatosis. 7. No bowel wall thickening or obstruction. 8. Additional findings as described above.
[2018-05-05] MEDS: POTASSIUM CHLORIDE 20 MEQ TABCR PO SCH (19:33)
[2018-05-05] MEDS ORDERED: ROSUVASTATIN CALCIUM 10 MG TAB PO SCH (21:00)
--- NOTE | 2018-05-05 23:07 | Ultrasound Report ---
CAROTID ARTERY ULTRASOUND CLINICAL HISTORY: Subacute CVA COMPARISON STUDY: None. TECHNIQUE: Real-time, grayscale, and color Doppler sonography of the carotid and vertebral arteries w as performed. Images were viewed in the transverse and longitudinal planes. FINDINGS: This exam was significantly compromised by respiratory motion. There is moderate atherosclerotic plaq ue. Velocity measurements are listed below. COMMON CAROTID PEAK SYSTOLIC VELOCITY (CM/S): RIGHT 78 LEFT 65 ICA PEAK SYSTOLIC VELOCITY (CM/S): RIGHT 95 LEFT 104 Systolic ratios between the internal to common carotid arteries were normal. Antegrade flow is seen in the vertebral arteries. The external carotid arteries are patent. Blood pressure could not be obtained due to IV. IMPRESSION: Exam significantly compromised by motion artifact. No definite evidence for a hemodynami curly significant stenosis. Electronically signed by: North Ribeiro M.D. 05/05/2018 11:06 PM
[2018-05-06] MEDS: LEVALBUTEROL HCL 0.63 MG/3 ML NEB NEB SCH ×4 (02:04→19:18)
[2018-05-06] MEDS: RASPBERRY SYRUP 5 ML UDP PO SCH ×3 (06:15→17:50)
[2018-05-06] MEDS: VANCOMYCIN HCL 125 MG/2.5ML SOLN PO SCH ×3 (06:15→17:50)
[2018-05-06] MEDS ORDERED: PERFLUTREN LIPID MICROSPHERE (DEFINITY) IV ONE (07:05)
[2018-05-06 08:11] LABS: Hematocrit (blood only) 22.9 % (42-52); Hemoglobin 7.8 g/dL (14.0-18.0); Mean Corpuscular Volume 85.1 fL (80-100); RDW Standard Deviation 55.7 fL (36.4-46.3); Red Blood Count 2.69 M/uL (4.7-6.1); White Blood Count 9.86 K/uL (4.8-10.8)
[2018-05-06 08:18] LABS: Mean Corpuscular Hgb Conc 34.1 g/dL (32-36); Platelet Count 25 K/uL (130-400); Platelet Estimate SIGNIFIC DECREASED (Normal)
[2018-05-06 08:29] LABS: Albumin Level 1.7 gm/dl (3.4-5.0); BUN Creatinine Ratio 28.1 (10-20); Bilirubin Direct 0.3 mg/dl (0-0.2); Bilirubin,Total 0.7 mg/dl (0.2-1); Calcium 7.7 mg/dl (8.5-10.1); Creatinine Clr Calc Pharmacy 47.9 ml/min; Est GFR (African American) 43.8; Est GFR (Non-African American) 37.8; Magnesium 2.2 mg/dl (1.8-2.4); Total Protein 5.6 gm/dl (6.4-8.2)
[2018-05-06] MEDS ORDERED: SODIUM CHLORIDE 0.9% 250 ML IV PRN ×2 (09:18→16:23)
[2018-05-06] MEDS: ALBUMIN 25% 50 ML with FUROSEMIDE 20 MG IV SCH ×4 (09:22→21:13)
[2018-05-06] MEDS: POTASSIUM CHLORIDE 20 MEQ TABCR PO SCH ×2 (09:23→21:15)
[2018-05-06] MEDS: FOLIC ACID 1 MG TAB PO SCH (09:23)
[2018-05-06] MEDS: SERTRALINE HCL 50 MG TABLET PO SCH (09:23)
[2018-05-06] MEDS: metroNIDAZOLE 500 MG/100 ML BAG IV SCH ×2 (09:23→17:50)
[2018-05-06] MEDS: PANTOprazole 40 MG TAB PO SCH ×2 (09:23→21:17)
[2018-05-06] MEDS: CHOLESTYRAMINE LIGHT 4 GM PKT PO SCH ×2 (09:23→21:19)
[2018-05-06] MEDS: METOPROLOL SUCC 25MG EXT REL TAB PO SCH (09:23)
[2018-05-06] MEDS: MULTIVITAMIN TAB PO SCH (09:24)
[2018-05-06] MEDS: THIAMINE HCL 100 MG TAB PO SCH (09:24)
--- NOTE | 2018-05-06 09:53 | Nephrology Progress Note ---
Date of Service May 06, 2018 Assessment & Plan (1) Volume overload: cont lasix 20 mg qid IV w/ albumin 25% >> he is so far tolerating low / frequent doses Present on Admission?: No (2) Renal insufficiency: baseline creatinine not well understood in setting of multiple/recurrent hospitalizations; has been as low as 1.2 in past months; however since 04/27 admission, more in range of about 2.0 - 2.5, currently 1.8, improved after starting lasix. working dx had been ischemic atn w/ past borderline oliguria in setting of acute anemia, hypotension, ongoing diarrhea. Abdominal CT a few weeks ago showed normal size kidneys with no hydronephrosis. Now w/ mild BL perinephric edema on CT, nonspecific. -support bp/minimize hypotension -daily bmp -agree w/ inman for now; may have blood in urine w/ placement -per nursing goals of care discussion being consdidered Present on Admission?: Yes (3) Hypokalemia: needing frequent repletion >> started him 40 mEq tid w/ good response -will lower to 40 mEq bid po K >>>also starting po sodium bicarbonate to improve acidosis from diarrhea - this will affect K as well -daily bmp -likely multifactorial though in part form diarrhea; now to start diuresis so expect ongoing issues Present on Admission?: Yes (4) Pancytopenia: heme, GI following has needed PRBC this admission near critical platelets >> limits diagnostic/therapeutiic options including ABG , bronchoscopy -no clear bleeding source to date >>? if he could have BM suppression after exposure to medication possibly prior to this admission/during another admission; ? if he could have such profound BM suppression from EtOH Present on Admission?: Yes Subjective seen on rounds at 940 today; still w/ markedly altered MS; ongoing mucoid clear diarrhea; remains on RA but still tachypneic; speech fluent but inappropriate and unable to give ROS Physical Exam 2 Vital Signs (Past 24 Hours): Last Vital Signs Temp 36.6 C 05/06/18 07:51 Pulse 111 H 05/06/18 07:51 Resp 28 H 05/06/18 07:51 BP 104/45 L 05/06/18 07:51 Pulse Ox 92 05/06/18 07:51 Constitutional: well developed, well nourished and cooperative but confused ; on RA, Eyes: EOM intact bilaterally tendency to fix gaze on ceiling if not redirected ENMT: Ears: no external ear abnormality Nose: no external nose abnormality Mouth: + dry oral mucous membranes Neck: no nuchal rigidity Respiratory: + labored breathing (today no cough), + tachypneic (but less so) and + paradoxical thoraco-abdominal movement Auscultation: + diminished lung sounds Cardiovascular: Rate/Rhythm: regular rhythm and + tachycardic Extremities: + edema (1-2+ pedal and none dependent) Gastrointestinal (Abdomen): Inspection/Auscultation: + abdomen distended and normal bowel sounds (or slightly diminished) Percussion/Palpation: abdomen soft; abdomen nontender Musculoskeletal: Extremities: strength 5/5 throughout Skin: no rashes, warm and dry Neurologic: awake and + confused Speech / Cognition: + abnormal speech and + abnormal cognition Psychiatric: Orientation: alert Speech: + mute (minimal speech) Insight : + impaired insight Judgement: + impaired judgement Results & Data Laboratory Results Abnormal lab results 05/03/18 05/06/18 05/06/18 Range/Units 08:50 07:44 07:44 RBC 2.69 L (4.7-6.1) M/uL Hgb 7.8 L (14.0-18.0) g/dL Hct 22.9 L (42-52) % RDW Std Deviation 55.7 H (36.4-46.3) fL RDW Coeff of Julia 18.0 H (11.5-14.5) % Plt Count 25 L* (130-400) K/uL Chloride 117 H (98-107) mmol/L Carbon Dioxide 16 L (21-32) mmol/L BUN 51 H (7-18) mg/dl Creatinine 1.80 H D (0.6-1.4) mg/dl BUN/Creatinine Ratio 28.1 H (10-20) Glucose 102 H (70-99) mg/dl Calcium 7.7 L (8.5-10.1) mg/dl Direct Bilirubin 0.3 H (0-0.2) mg/dl Total Protein 5.6 L (6.4-8.2) gm/dl Albumin 1.7 L (3.4-5.0) gm/dl Crossmatch See Detail _ (1) Volume overload Hypervolemia type: other Qualified Code(s): E87.79 - Other fluid overload
[2018-05-06 10:15] LABS: Fibrinogen 338 mg/dl (184-400); INR 1.3 (0.9-1.1); Partial Thromboplastin Ratio 1.3; Partial Thromboplastin Time 34.2 Seconds (21.0-31.0); Prothrombin Time 13.1 Seconds (9.0-12.0)
[2018-05-06] MEDS: SODIUM BICARBONATE 650 MG TAB PO SCH ×2 (12:15→21:15)
[2018-05-06] MEDS ORDERED: TRAMADOL HCL 50 MG TABLET PO PRN (13:46)
--- NOTE | 2018-05-06 14:02 | Neurology Progress Note ---
Date of Service May 06, 2018 Assessment & Plan (1) Change in mental status: 1. MRI brain - likely embolic right centrum semiovale and left cerebellar hemisphere. 2. EEG- no seizure focus, global slowing 3. B12/folate TSH WNL for reversible causes of confusion 4. WBC is elevated decreased H/H currently receiving pRbc 5. TTE - with bubble- 60-65% no ASD 6. antibiotics- oral vanco, IV cefepime, and flagyl - ID for recs 7. ammonia level WNL 8. already on thiamine - on home medication list 9. in light of new stroke would normally recommend dual plt therapy but plt are 25 and ? of bleeding possible varices? 10. hem onc on board for recommendations 11. ALY may be helpful for evaluation but at this point it would be ill advised due to the bleed with no confirmed source. 12. will continue to follow with you Supervising Physician Co-Signing Physician Notes I have seen and discussed above patient with Dr Rasta Dawson, neurology I have seen Mr. Marie in the day in the company of his , reviewed his laboratory studies specifically the MRI and the results of the echocardiogram and have discussed the case with Kerri Ibarra PA-C It appears that Mr. rincon had to assumedly an embolic small cerebral infarctions one involving the right centrum semiovale and the second involving the left cerebellum which clearly are in 2 different arterial distributions and suggest a process either in the aorta or in the cardiac chambers. The standard echocardiogram shows 65% ejection fraction no wall motion abnormalities and no PFO or valvular issues so there is no clear source of embolization there although small vegetations from endocarditis could never be totally excluded. His EEG shows only mild nonspecific generalized slowing without any lateralized features or potentially epileptogenic features. Today when I examined him he was more alert and was attempting to be conversant but earlier when Kerri Ibarra saw him and when his saw him he was more somnolent and difficult to arouse so we have a man with fluctuating mental status who remains confused disoriented and overall encephalopathic without clear focal neurologic signs other than his peripheral neuropathy which is been present for some time. He has quite a number of medical illnesses including what we assume is a GI blood loss issue, thrombocytopenia, probable hemorrhagic lesions in his lungs and now 2 small emboli in 2 different circulations of the brain An ideal world one might want to consider doing a transesophageal echo to assess the status of the aorta and to get a better evaluation of the cardiac valvular structures if endocarditis is a serious consideration In reality however this man is ill may have esophageal bleeding sources and is a poor candidate in my opinion for transesophageal echocardiography In the same ideal world we would treat him with antiplatelet agents until we exclude the source of emboli but with thrombocytopenia and slow bleeding even Plavix would be contraindicated in the setting In summary then while 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 We will continue to visit him on a daily basis, reviewed the chart but at present again unfortunately do not have a lot more to offer diagnostically or therapeutically Rasta Dawson MD Gael Galvan is a 68 year old male with an admission for GI bleed due to erosive esophagitis, YVAN and alcohol-withdrawal seizure who presented with progressive weakness, dyspnea on exertion and falls at home. According to notes he was doing well after the discharge in March. Then about ten days prior to this admission he started to have lower back pain and bilateral hip pain and progressive weakness and fatigue. The weakness is generalized and he cannot locate it to a specific area of the body. He had a mechanical fall prior to admission but was able to get back up and had no injuries. He then had a second fall which he couldn't get himself up and EMS was called. He was not eating or drinking much and his oral intact was limited due to decreased appetite. He had urgent watery diarrhea with incontinence over past several days - at least 2-3 episodes of diarrhea per night. he reported his last alcoholic drink was at least three weeks ago (prior to his last hospitalization). he is denying pain in hips or back currently. Today he is still very confused and receiving Prbc. He is moaning and moans more with any pressure on head, abdomen or movement of legs. he is not oriented and does not respond to questions or commands Physical Exam 2 Vital Signs (Past 24 Hours): Last Vital Signs Temp 36.8 C 05/06/18 12:44 Pulse 98 H 05/06/18 12:44 Resp 24 05/06/18 12:44 BP 86/47 L 05/06/18 12:44 Pulse Ox 95 05/06/18 12:44 Gen: will open eye with voice command pupils equal reactive lungs course breath sounds CV RRR pushes and pulls with bi laterally when asked to automatic bandsaw tender hand does not lift legs with command. moaning with movement or pressure on abdomen Results & Data Laboratory Results Abnormal lab results 05/03/18 05/03/18 05/06/18 Range/Units 08:50 11:45 07:44 RBC 2.69 L (4.7-6.1) M/uL Hgb 7.8 L (14.0-18.0) g/dL Hct 22.9 L (42-52) % RDW Std Deviation 55.7 H (36.4-46.3) fL RDW Coeff of Julia 18.0 H (11.5-14.5) % Plt Count 25 L* (130-400) K/uL Haptoglobin <8 L (43-212) MG/DL PT (9.0-12.0) Seconds INR (0.9-1.1) APTT (21.0-31.0) Seconds Chloride (98-107) mmol/L Carbon Dioxide (21-32) mmol/L BUN (7-18) mg/dl Creatinine (0.6-1.4) mg/dl BUN/Creatinine Ratio (10-20) Glucose (70-99) mg/dl Calcium (8.5-10.1) mg/dl Direct Bilirubin (0-0.2) mg/dl Total Protein (6.4-8.2) gm/dl Albumin (3.4-5.0) gm/dl Crossmatch See Detail 05/06/18 05/06/18 05/06/18 Range/Units 07:44 09:42 09:42 RBC (4.7-6.1) M/uL Hgb (14.0-18.0) g/dL Hct (42-52) % RDW Std Deviation (36.4-46.3) fL RDW Coeff of Julia (11.5-14.5) % Plt Count (130-400) K/uL Haptoglobin (43-212) MG/DL PT 13.1 H (9.0-12.0) Seconds INR 1.3 H (0.9-1.1) APTT 34.2 H (21.0-31.0) Seconds Chloride 117 H (98-107) mmol/L Carbon Dioxide 16 L (21-32) mmol/L BUN 51 H (7-18) mg/dl Creatinine 1.80 H D (0.6-1.4) mg/dl BUN/Creatinine Ratio 28.1 H (10-20) Glucose 102 H (70-99) mg/dl Calcium 7.7 L (8.5-10.1) mg/dl Direct Bilirubin 0.3 H (0-0.2) mg/dl Total Protein 5.6 L (6.4-8.2) gm/dl Albumin 1.7 L (3.4-5.0) gm/dl Crossmatch See Detail Diagnostic Findings MRI brain -. Interval development of small foci restricted water diffusion within the right centrum semiovale and left cerebellar hemisphere. There are new corresponding foci of T2 signal abnormality. The findings are felt to be indicative of subacute infarcts. . There are new corresponding foci of T2 signal abnormality. The findings are felt to be indicative of subacute infarcts. carotid doppler-Exam significantly compromised by motion artifact. No definite evidence for a hemodynamically significant stenosis.
--- NOTE | 2018-05-06 15:32 | Procedure Note ---
EEG Procedure Note Date of Service May 06, 2018 Start / End Times Start Time: 0800 End Time: 0830 Referring Physician Rasta Aviles History confusion question non convulsive seizures Home Medication List Home Medications Medication Instructions Recorded Confirmed Type sertraline 50 mg PO QAM 04/04/18 04/28/18 History folic acid 1 mg PO QAM 30 Days #30 tab 04/10/18 04/28/18 Rx multivitamin [Daily-Willow] 1 tab PO QAM 30 Days #30 tab 04/10/18 04/28/18 Rx pantoprazole 40 mg PO BID 30 Days #60 tab 04/10/18 04/28/18 Rx thiamine HCl (vitamin B1) [Vitamin 100 mg PO QAM 30 Days #30 tab 04/10/18 Rx B-1] acetaminophen [Tylenol Extra 1,000 mg PO Q6H PRN 04/28/18 04/28/18 History Strength] metoprolol succinate 50 mg PO HS 04/28/18 04/28/18 History rosuvastatin 20 mg PO HS 04/28/18 04/28/18 History Inpatient Medication List Acetaminophen (Tylenol) 650 mg PO Q4H PRN PRN Reason: Pain or Fever Stop: 05/28/18 13:56 Last Admin: 05/02/18 21:17 Dose: 650 mg Admin: 05/01/18 20:34 Dose: 650 mg Cholestyramine Resin (Questran) 4 gm PO BID@1000,2200 [facility] Stop: 05/31/18 21:59 Last Admin: 05/06/18 09:23 Dose: 4 gm Admin: 05/05/18 21:45 Dose: 4 gm Admin: 05/05/18 10:33 Dose: 4 gm Admin: 05/04/18 22:11 Dose: 4 gm Admin: 05/04/18 11:01 Dose: 4 gm Admin: 05/03/18 21:31 Dose: 4 gm Admin: 05/03/18 09:30 Dose: 4 gm Admin: 05/03/18 01:08 Dose: 4 gm Admin: 05/02/18 10:20 Dose: 4 gm Admin: 05/02/18 00:14 Dose: 4 gm Folic Acid (Folvite) 1 mg PO QAM [facility] Stop: 05/29/18 08:59 Last Admin: 05/06/18 09:23 Dose: 1 mg Admin: 05/05/18 10:32 Dose: 1 mg Admin: 05/04/18 09:28 Dose: 1 mg Admin: 05/03/18 08:15 Dose: 1 mg Admin: 05/02/18 08:18 Dose: 1 mg Admin: 05/01/18 08:24 Dose: 1 mg Admin: 04/30/18 08:03 Dose: 1 mg Admin: 04/29/18 09:21 Dose: 1 mg Cefepime HCl 2,000 mg/ Syringe 20 mls @ 5 mls/min IV Q24H DELVIS; Protocol Stop: 05/10/18 16:29 Last Admin: 05/05/18 15:31 Dose: 5 mls/min Admin: 05/04/18 17:07 Dose: 5 mls/min Admin: 05/03/18 16:37 Dose: 5 mls/min Metronidazole (Flagyl) 500 mg in 100 mls @ 100 mls/hr IV Q8H DELVIS; Protocol Stop: 05/10/18 16:59 Last Infusion: 05/06/18 10:25 Dose: 0 mls/hr Admin: 05/06/18 09:23 Dose: 100 mls/hr Infusion: 05/06/18 00:57 Dose: 0 mls/hr Admin: 05/05/18 23:57 Dose: 100 mls/hr Infusion: 05/05/18 18:29 Dose: 0 mls/hr Admin: 05/05/18 17:28 Dose: 100 mls/hr Infusion: 05/05/18 11:46 Dose: 0 mls/hr Admin: 05/05/18 10:31 Dose: 100 mls/hr Infusion: 05/05/18 01:15 Dose: 0 mls/hr Admin: 05/05/18 00:10 Dose: 100 mls/hr Infusion: 05/04/18 18:24 Dose: 0 mls/hr Admin: 05/04/18 17:08 Dose: 100 mls/hr Infusion: 05/04/18 11:02 Dose: 0 mls/hr Admin: 05/04/18 09:27 Dose: 100 mls/hr Infusion: 05/04/18 01:48 Dose: 0 mls/hr Admin: 05/04/18 00:32 Dose: 100 mls/hr Infusion: 05/03/18 18:02 Dose: 0 mls/hr Admin: 05/03/18 17:02 Dose: 100 mls/hr Furosemide 20 mg/ Albumin (Human) 52 mls @ 54 mls/hr IV QID [facility] Stop: 05/08/18 17:59 Last Infusion: 05/06/18 14:15 Dose: 0 mls/hr Admin: 05/06/18 14:03 Dose: 54 mls/hr Infusion: 05/06/18 10:24 Dose: 0 mls/hr Admin: 05/06/18 09:22 Dose: 54 mls/hr Infusion: 05/05/18 22:55 Dose: 0 mls/hr Admin: 05/05/18 21:44 Dose: 54 mls/hr Infusion: 05/05/18 19:46 Dose: 0 mls/hr Admin: 05/05/18 18:44 Dose: 54 mls/hr Levalbuterol HCl (Xopenex 0.63 Mg/3 Ml Neb) 0.63 mg NEB Q6R [facility] Stop: 06/04/18 19:59 Last Admin: 05/06/18 13:44 Dose: Not Given Admin: 05/06/18 07:41 Dose: Not Given Admin: 05/06/18 02:04 Dose: 0.63 mg Admin: 05/05/18 19:00 Dose: 0.63 mg Metoprolol Succinate (Toprol Xl) 50 mg PO HS [facility] Stop: 05/28/18 20:59 Last Admin: 04/28/18 20:43 Dose: Not Given Metoprolol Succinate (Toprol Xl) 25 mg PO QAM [facility] Stop: 06/02/18 08:59 Last Admin: 05/06/18 09:23 Dose: 25 mg Admin: 05/05/18 10:32 Dose: Not Given Admin: 05/04/18 09:28 Dose: 25 mg Admin: 05/03/18 08:15 Dose: 25 mg Multivitamins (Multivitamin Tab) 1 tab PO QAM [facility] Stop: 05/29/18 08:59 Last Admin: 05/06/18 09:24 Dose: 1 tab Admin: 05/05/18 10:32 Dose: 1 tab Admin: 05/04/18 09:28 Dose: 1 tab Admin: 05/03/18 08:15 Dose: 1 tab Admin: 05/02/18 08:18 Dose: 1 tab Admin: 05/01/18 08:23 Dose: 1 tab Admin: 04/30/18 08:03 Dose: 1 tab Admin: 04/29/18 09:22 Dose: 1 tab Pantoprazole Sodium (Protonix) 40 mg PO BID DELVIS Stop: 06/04/18 08:59 Last Admin: 05/06/18 09:23 Dose: 40 mg Admin: 05/05/18 19:33 Dose: 40 mg Admin: 05/05/18 10:31 Dose: 40 mg Raspberry (Raspberry) 5 ml PO Q6 DELVIS Stop: 05/13/18 05:59 Last Admin: 05/06/18 12:14 Dose: 5 ml Admin: 05/06/18 06:15 Dose: 5 ml Admin: 05/05/18 23:56 Dose: 5 ml Admin: 05/05/18 17:29 Dose: 5 ml Admin: 05/05/18 12:14 Dose: 5 ml Admin: 05/05/18 06:03 Dose: 5 ml Admin: 05/05/18 00:09 Dose: 5 ml Admin: 05/04/18 17:07 Dose: 5 ml Admin: 05/04/18 12:24 Dose: 5 ml Admin: 05/04/18 05:51 Dose: 5 ml Admin: 05/03/18 23:48 Dose: 5 ml Admin: 05/03/18 17:02 Dose: 5 ml Admin: 05/03/18 12:00 Dose: 5 ml Admin: 05/03/18 05:46 Dose: 5 ml Admin: 05/03/18 00:06 Dose: 5 ml Admin: 05/02/18 18:32 Dose: 5 ml Admin: 05/02/18 12:48 Dose: 5 ml Admin: 05/02/18 06:23 Dose: 5 ml Admin: 05/01/18 23:03 Dose: 5 ml Admin: 05/01/18 17:57 Dose: 5 ml Admin: 05/01/18 10:51 Dose: 5 ml Admin: 05/01/18 06:21 Dose: 5 ml Admin: 05/01/18 00:33 Dose: 5 ml Admin: 04/30/18 18:09 Dose: 5 ml Admin: 04/30/18 12:26 Dose: 5 ml Admin: 04/30/18 05:43 Dose: 5 ml Admin: 04/29/18 23:46 Dose: 5 ml Admin: 04/29/18 18:18 Dose: 5 ml Admin: 04/29/18 12:42 Dose: 5 ml Admin: 04/29/18 05:53 Dose: 5 ml Rosuvastatin Calcium (Crestor) 20 mg PO HS DELVIS Stop: 05/28/18 20:59 Last Admin: 05/04/18 20:04 Dose: 20 mg Admin: 05/03/18 20:40 Dose: 20 mg Admin: 05/02/18 21:09 Dose: 20 mg Admin: 05/01/18 20:34 Dose: 20 mg Admin: 04/30/18 21:50 Dose: 20 mg Admin: 04/29/18 20:23 Dose: 20 mg Admin: 04/28/18 20:43 Dose: 20 mg Sertraline HCl (Zoloft) [facility] Stop: 05/29/18 08:59 Last Admin: 05/06/18 09:23 Dose: 50 mg Admin: 05/05/18 10:32 Dose: 50 mg Admin: 05/04/18 09:28 Dose: 50 mg Admin: 05/03/18 08:16 Dose: 50 mg Admin: 05/02/18 08:19 Dose: 50 mg Admin: 05/01/18 08:25 Dose: 50 mg Admin: 04/30/18 08:03 Dose: 50 mg Admin: 04/29/18 07:49 Dose: 50 mg Sodium Bicarbonate (Sodium Bicarbonate) 1,300 mg PO TID DELVIS Stop: 06/05/18 13:59 Last Admin: 05/06/18 12:15 Dose: 1,300 mg Thiamine HCl (Vitamin B-1) 100 mg PO QAM DELVIS Stop: 05/29/18 08:59 Last Admin: 05/06/18 09:24 Dose: 100 mg Admin: 05/05/18 10:32 Dose: 100 mg Admin: 05/04/18 09:28 Dose: 100 mg Admin: 05/03/18 08:16 Dose: 100 mg Admin: 05/02/18 08:19 Dose: 100 mg Admin: 05/01/18 08:25 Dose: 100 mg Admin: 04/30/18 08:03 Dose: 100 mg Admin: 04/29/18 07:49 Dose: 100 mg Tramadol HCl (Ultram) 50 mg PO Q6H PRN PRN Reason: Pain Stop: 06/05/18 13:45 Last Admin: 05/06/18 14:13 Dose: 50 mg Vancomycin HCl (Vancomycin Hcl) 125 mg PO Q6 DELVIS Stop: 05/09/18 05:59 Last Admin: 05/06/18 12:14 Dose: 125 mg Admin: 05/06/18 06:15 Dose: 125 mg Admin: 05/05/18 23:56 Dose: 125 mg Admin: 05/05/18 17:32 Dose: 125 mg Admin: 05/05/18 12:14 Dose: 125 mg Admin: 05/05/18 06:03 Dose: 125 mg Admin: 05/05/18 00:09 Dose: 125 mg Admin: 05/04/18 17:07 Dose: 125 mg Admin: 05/04/18 12:24 Dose: 125 mg Admin: 05/04/18 05:51 Dose: 125 mg Admin: 05/03/18 23:36 Dose: 125 mg Admin: 05/03/18 17:02 Dose: 125 mg Admin: 05/03/18 12:00 Dose: 125 mg Admin: 05/03/18 05:46 Dose: 125 mg Admin: 05/03/18 00:06 Dose: 125 mg Admin: 05/02/18 18:32 Dose: 125 mg Admin: 05/02/18 12:48 Dose: 125 mg Admin: 05/02/18 06:23 Dose: 125 mg Admin: 05/01/18 23:01 Dose: 125 mg Admin: 05/01/18 17:57 Dose: 125 mg Admin: 05/01/18 10:51 Dose: 125 mg Admin: 05/01/18 06:22 Dose: 125 mg Admin: 05/01/18 00:33 Dose: 125 mg Admin: 04/30/18 18:09 Dose: 125 mg Admin: 04/30/18 12:26 Dose: 125 mg Admin: 04/30/18 05:43 Dose: 125 mg Admin: 04/29/18 23:46 Dose: 125 mg Admin: 04/29/18 18:18 Dose: 125 mg Admin: 04/29/18 12:42 Dose: 125 mg Admin: 04/29/18 05:53 Dose: 125 mg Discontinued Medications Albuterol (Ventolin 0.5% 2.5mg/0.5ml) 2.5 mg NEB NOW STA Stop: 04/29/18 08:52 Last Admin: 04/29/18 09:06 Dose: 2.5 mg Albuterol (Ventolin 0.5% 2.5mg/0.5ml) 2.5 mg NEB Q6R PRN PRN Reason: shortness of breath or wheezing Stop: 05/29/18 13:59 Last Admin: 05/02/18 07:20 Dose: 2.5 mg Admin: 05/01/18 17:11 Dose: 2.5 mg Admin: 05/01/18 08:42 Dose: 2.5 mg Sodium Chloride (Nss 1000ml) 1,000 mls @ 999 mls/hr IV .Q1H1M DELVIS Stop: 04/28/18 11:15 Last Infusion: 04/28/18 12:15 Dose: 0 mls/hr Admin: 04/28/18 10:33 Dose: 999 mls/hr Sodium Chloride (Nss 1000ml) 1,000 mls @ 80 mls/hr IV .[id number] DELVIS Stop: 04/29/18 14:56 Last Infusion: 04/28/18 19:38 Dose: 0 mls/hr Infusion: 04/28/18 19:37 Dose: 0 mls/hr Infusion: 04/28/18 19:35 Dose: 80 mls/hr Admin: 04/28/18 14:27 Dose: 80 mls/hr Potassium Chloride 40 meq/ (Sodium Chloride) 1,020 mls @ 125 mls/hr IV .Q8H10M DELVIS Stop: 04/29/18 11:30 Last Infusion: 04/29/18 14:50 Dose: 0 mls/hr Admin: 04/29/18 05:53 Dose: 125 mls/hr Infusion: 04/29/18 03:45 Dose: 125 mls/hr Admin: 04/28/18 19:35 Dose: 125 mls/hr Sodium Chloride (Nss 1000ml) 1,000 mls @ 500 mls/hr IV .Q2H DELVIS Stop: 04/28/18 21:14 Last Infusion: 04/28/18 23:07 Dose: 0 mls/hr Admin: 04/28/18 20:41 Dose: 500 mls/hr Pantoprazole Sodium 40 mg/ (Dextrose) 100 mls @ 20 mls/hr IV Q5H DELVIS Stop: 05/29/18 08:59 Last Infusion: 04/30/18 16:47 Dose: 0 mg/hr, 0 mls/hr Admin: 04/30/18 09:45 Dose: 8 mg/hr, 20 mls/hr Infusion: 04/30/18 09:45 Dose: 8 mg/hr, 20 mls/hr Admin: 04/30/18 05:43 Dose: 8 mg/hr, 20 mls/hr Infusion: 04/30/18 05:43 Dose: 8 mg/hr, 20 mls/hr Admin: 04/30/18 01:43 Dose: 8 mg/hr, 20 mls/hr Infusion: 04/30/18 01:23 Dose: 8 mg/hr, 20 mls/hr Admin: 04/29/18 20:23 Dose: 8 mg/hr, 20 mls/hr Infusion: 04/29/18 19:30 Dose: 8 mg/hr, 20 mls/hr Admin: 04/29/18 14:30 Dose: 8 mg/hr, 20 mls/hr Infusion: 04/29/18 14:30 Dose: 8 mg/hr, 20 mls/hr Admin: 04/29/18 10:05 Dose: 8 mg/hr, 20 mls/hr Sodium Chloride (Nss 1000ml) 1,000 mls @ 80 mls/hr IV .[id number] DELVIS Stop: 05/29/18 09:59 Last Infusion: 04/29/18 19:30 Dose: 0 mls/hr Admin: 04/29/18 10:05 Dose: 80 mls/hr Lactated Ringer's (Lr) 1,000 mls @ 50 mls/hr IV .Q20H DELVIS Stop: 05/29/18 11:14 Last Infusion: 04/30/18 16:47 Dose: 0 mls/hr Admin: 04/30/18 05:43 Dose: 100 mls/hr Infusion: 04/29/18 22:42 Dose: 100 mls/hr Admin: 04/29/18 12:42 Dose: 100 mls/hr Pantoprazole Sodium 40 mg/ (Syringe) 10 mls @ 5 mls/min IV BID DELVIS Stop: 05/30/18 20:59 Last Admin: 05/04/18 20:03 Dose: 5 mls/min Admin: 05/04/18 09:27 Dose: 5 mls/min Admin: 05/03/18 20:40 Dose: 5 mls/min Admin: 05/03/18 08:47 Dose: 5 mls/min Admin: 05/02/18 21:18 Dose: 5 mls/min Admin: 05/02/18 08:18 Dose: 5 mls/min Admin: 05/01/18 20:34 Dose: 5 mls/min Admin: 05/01/18 08:27 Dose: 5 mls/min Admin: 04/30/18 21:50 Dose: 5 mls/min Lactated Ringer's (Lr) 1,000 mls @ 80 mls/hr IV .[id number] ONE Stop: 05/01/18 23:04 Last Infusion: 05/01/18 23:51 Dose: 0 mls/hr Admin: 05/01/18 10:48 Dose: 80 mls/hr Albumin Human (Albumin 5%) 250 mls @ 50 mls/hr IV NOW ONE Stop: 05/02/18 15:29 Last Infusion: 05/02/18 16:37 Dose: 0 mls/hr Admin: 05/02/18 10:27 Dose: 50 mls/hr Lactated Ringer's (Lr) 1,000 mls @ 80 mls/hr IV .[id number] ONE Stop: 05/02/18 22:30 Last Infusion: 05/03/18 03:58 Dose: 0 mls/hr Infusion: 05/02/18 16:01 Dose: 80 mls/hr Infusion: 05/02/18 11:03 Dose: 0 mls/hr Admin: 05/02/18 10:20 Dose: 80 mls/hr Levalbuterol HCl (Xopenex 0.63 Mg/3 Ml Neb) 0.63 mg NEB QID DELVIS Stop: 06/01/18 12:59 Last Admin: 05/02/18 15:54 Dose: 0.63 mg Levalbuterol HCl (Xopenex 0.63 Mg/3 Ml Neb) 0.63 mg NEB QIDR DELVIS Stop: 06/01/18 19:59 Last Admin: 05/03/18 07:09 Dose: 0.63 mg Admin: 05/02/18 19:08 Dose: 0.63 mg Levalbuterol HCl (Xopenex Hfa) 2 puffs INH Q6 DELVIS Stop: 06/02/18 11:59 Last Admin: 05/05/18 12:13 Dose: 2 puffs Admin: 05/05/18 06:03 Dose: 2 puffs Admin: 05/05/18 00:09 Dose: 2 puffs Admin: 05/04/18 17:08 Dose: 2 puffs Admin: 05/04/18 12:24 Dose: 2 puffs Admin: 05/04/18 05:51 Dose: 2 puffs Admin: 05/03/18 23:45 Dose: 2 puffs Admin: 05/03/18 17:02 Dose: 2 puffs Admin: 05/03/18 11:38 Dose: 2 puffs Metoprolol Succinate (Toprol Xl) 12.5 mg PO QAM [facility] Stop: 05/30/18 08:59 Last Admin: 05/01/18 08:23 Dose: 12.5 mg Admin: 04/30/18 09:44 Dose: 12.5 mg Metoprolol Succinate (Toprol Xl) 12.5 mg PO BID [facility] Stop: 05/31/18 20:59 Last Admin: 05/02/18 08:18 Dose: 12.5 mg Admin: 05/01/18 20:33 Dose: Not Given Metoprolol Succinate (Toprol Xl) 12.5 mg PO NOW ONE Stop: 05/02/18 10:31 Last Admin: 05/02/18 10:39 Dose: 12.5 mg Pantoprazole Sodium (Protonix) 40 mg PO BID DELVIS Stop: 05/28/18 20:59 Last Admin: 04/28/18 21:19 Dose: 40 mg Perflutren Lipid Microsphere (Definity) 2 ml IV ONCE ONE Stop: 05/06/18 07:06 Last Admin: 05/06/18 07:05 Dose: 2 ml Potassium Chloride (Klor-Con M20) 40 meq PO NOW STA Stop: 04/28/18 13:58 Last Admin: 04/28/18 14:25 Dose: 40 meq Potassium Chloride (Klor-Con M10) 40 meq PO NOW STA Stop: 04/30/18 08:34 Last Admin: 04/30/18 09:44 Dose: 40 meq Potassium Chloride (Klor-Con M20) 40 meq PO NOW STA Stop: 04/30/18 09:23 Last Admin: 04/30/18 09:44 Dose: 40 meq Potassium Chloride (Klor-Con M20) 40 meq PO NOW STA Stop: 05/01/18 09:05 Last Admin: 05/01/18 10:10 Dose: 40 meq Potassium Chloride (Klor-Con M10) 20 meq PO NOW STA Stop: 05/03/18 08:56 Last Admin: 05/03/18 09:30 Dose: 20 meq Potassium Chloride (Klor-Con M10) 40 meq PO NOW STA Stop: 05/04/18 08:37 Last Admin: 05/04/18 09:27 Dose: 40 meq Potassium Chloride (Klor-Con M10) 40 meq PO NOW STA Stop: 05/05/18 08:40 Last Admin: 05/05/18 10:31 Dose: 40 meq Potassium Chloride (Klor-Con M20) 40 meq PO NOW STA Stop: 05/05/18 17:31 Last Admin: 05/05/18 18:16 Dose: 40 meq Potassium Chloride (Klor-Con M20) 40 meq PO TID DELVIS Stop: 06/04/18 20:59 Last Admin: 05/06/18 09:23 Dose: 40 meq Admin: 05/05/18 19:33 Dose: 40 meq Rosuvastatin Calcium (Crestor) 20 mg PO HS DELVIS Stop: 05/05/18 21:01 Last Admin: 05/05/18 19:33 Dose: 20 mg Description This is a 21 electrode EEG with a single channel dedicated to limited EKG. The electrodes were placed in accordance with the International 10-20 system. This EEG was done at the bedside with simultaneous video analysis of movement and behavior. No activation procedures were utilized. Drowsiness and light sleep are not clearly seen. Under these conditions there is evidence for a slow but normal posterior head region maximal background rhythm in the alpha range of up to 9 Hz in maximum frequency and 20 V maximum amplitude. Polymorphic mid to lower frequency moderate amplitude theta delta activity seen over the central regions and amounts that would be considered slightly excessive even for a man of this age. Anterior adrenal region maximal bilaterally symmetrical low voltage fast activity to beta range is present but is often obscured by muscle artifact. Interpretation This is a mildly diffusely abnormal EEG during wakefulness with the abnormalities consisting of excessive amounts of theta delta activity. There is no evidence for focality, lateralizing features or superimposed potentially epileptogenic patterns. Clinical Correlation This is a mildly diffusely abnormal EEG without focal abnormalities or potentially epileptogenic features. Rasta Dawson MD
--- NOTE | 2018-05-06 16:40 | Hematology/Oncology Prog Note ---
"Date of Service May 06, 2018 Assessment & Plan (1) Change in mental status: * Neurology continuing to monitor patient * No significant improvement in cognition today * Ordered brain MRI- subacute infarcts noted- likely embolic right centrum semiovale and left cerebellar hemisphere * EEG- global slowing, no seizures * TTE- no ASD * Ammonia level was normal * H/o ETOH abuse, on thiamine, apparently has not drank in past 1 month (2) Anemia: * Remaining stable * FOBT negative on 04/29 * Acute illness/inflammation likely contributing * Continue to CBCD daily * Dr. Nicole advised PRBC x 1 today, given (3) Thrombocytopenia: * Dr. Godoy has stated that he has findings c/w alveolar hemorrhage on CT , not pneumonia * Made Dr. Nicole aware of thsis today- she contacted hospitalist and advised 1 unit PLT and to check post PLT transfusion level * PLTs remaining stable but very low around 20-25K * Dr. Nicole suggests worsening splenomegaly with sequestration as likely cause * May be drug related, patient on antibiotics for pneumonia, C diff * Continue to monitor CBCD daily * DIC not favored on coag testing Attending note patient seen and examined. sister at bedside denies any headache or abd pain or bleeding symptoms Gen: chronically ill appearing lungs:coarse BS bilaterally cv: s1 s2 rrr abd: bs present soft nontender neuro: confused, follows some simple commands labs reviewed 68 year old male thrombocytopenia, anemia, splenomegaly- flow cytometry and mds panel pending. thrombocytopenia slightly improved but still very low in 20s, immature platelet fraction elevated likely secondary thrombocytopenia from sequestration and/or platelet destruction discussed with Dr Godoy and he feel patient has alveolar hemorrhage 1unit platelet transfused and [address] Godoy was ok with addition of prednisone. I spoke to Dr Barclay to start him on prednisone 60mg daily and monitor cbc check repeat smear, direct yue haptoglobin retic count ldh spep immunofixation [place] rf and anca. d dimer and fsp elevated but his fibrinogen has been stable in 300 range subacute infarcts: neuro following Subjective Patient is an unreliable historian due to confusion, sister/ is at bedside. He has increased dyspnea today. He is otherwise unable to report any history. His family states no bleeding has been noted. Physical Exam 2 Vital Signs (Past 24 Hours): Last Vital Signs Temp 36.8 C 05/06/18 15:10 Pulse 102 H 05/06/18 15:10 Resp 24 05/06/18 15:10 BP 103/54 L 05/06/18 15:10 Pulse Ox 94 05/06/18 15:10 Constitutional: well developed and well nourished; no acute distress Respiratory: normal respiratory effort Auscultation: + bronchial breath sounds Gastrointestinal (Abdomen): Percussion/Palpation: abdomen soft; abdomen nontender Neurologic: + confused Speech / Cognition: + abnormal cognition Results & Data Laboratory Results 05/06/18: Test Result Flag Reference Site WBC | 9.86 | | 4.8-10.8 K/uL | RBC | 2.69 | L | 4.7-6.1 M/uL | Hgb | 7.8 | L | 14.0-18.0 g/dL | Hct | 22.9 | L | 42-52 % | MCV | 85.1 | | 80-100 fL | MCH | 29.0 | | 25-34 pg | MCHC | 34.1 | | 32-36 g/dL | RDW Std Dev | 55.7 | H | 36.4-46.3 fL | RDW Coeff Julia | 18.0 | H | 11.5-14.5 % | Plt | 25 | LL | 130-400 K/uL | Plt Estimate | SIGNIFIC DECREASED | | Normal | PT | 13.1 | H | 9.0-12.0 Seconds | INR | 1.3 | H | 0.9-1.1 | PTT | 34.2 | H | 21.0-31.0 Seconds | | Therapeutic APTT range is 47.0 - 72.9 seconds PTTR | 1.3 | | | Fibrinogen | 338 | | 184-400 mg/dl | Na | 143 | # | 136-145 mmol/L | | Delta: 136 on 05/05/18 K | 4.0 | # | 3.5-5.1 mmol/L | | Delta: 3.3 on 05/05/18 Cl | 117 | H | 98-107 mmol/L | CO2 | 16 | L | 21-32 mmol/L | Gap | 10.0 | | 3-11 | BUN | 51 | H | 7-18 mg/dl | Creat | 1.80 | # H | 0.6-1.4 mg/dl | | Delta: 2.12 on 05/05/18-0708 Creat Calc PHA | 47.9 | | ml/min | | Est. Creatinine Clearance (Mod Cockcroft-Gault) for pharmacy | dosing purposes. EGFR AA | 43.8 | | | | Units: ml/min per 1.73 meters squared | | The estimated GFR (CKD-EPI equation) has not been validated | for inpatient settings and may not be an accurate reflection | of renal function in critically ill patients or those with | rapidly changing renal function (e.g. YVAN). EGFR CARLOS | 37.8 | | | | Units: ml/min per 1.73 meters squared | | The estimated GFR (CKD-EPI equation) has not been validated | for inpatient settings and may not be an accurate reflection | of renal function in critically ill patients or those with | rapidly changing renal function (e.g. YVAN). BUN Creat Ratio | 28.1 | H | 10-20 | Glu | 102 | H | 70-99 mg/dl | Ca | 7.7 | L | 8.5-10.1 mg/dl | MG | 2.2 | | 1.8-2.4 mg/dl | Total Bilirubin | 0.7 | | 0.2-1 mg/dl | Direct Bili | 0.3 | H | 0-0.2 mg/dl | AST | 29 | | 15-37 U/L | Alt | 14 | | 12-78 U/L | TP | 5.6 | L | 6.4-8.2 gm/dl | Alb | 1.7 | L | 3.4-5.0 gm/dl | Alk Phos | 59 | | 45-117 U/L |"
[2018-05-06 17:36] LABS: Hematocrit (blood only) 25.8 % (42-52); Hemoglobin 8.9 g/dL (14.0-18.0); Mean Corpuscular Hgb Conc 34.5 g/dL (32-36); Mean Corpuscular Volume 86.6 fL (80-100); Platelet Count 28 K/uL (130-400); Platelet Estimate SIGNIFIC DECREASED (Normal); RDW Coefficient of Variation 17.4 % (11.5-14.5); RDW Standard Deviation 55.2 fL (36.4-46.3); Red Blood Count 2.98 M/uL (4.7-6.1); White Blood Count 10.78 K/uL (4.8-10.8)
[2018-05-06] MEDS: CEFEPIME 2,000 MG in SYRINGE 7.5 ML IV SCH (17:49)
[2018-05-06] MEDS: predniSONE 20 MG TAB PO SCH (17:50)
--- NOTE | 2018-05-06 19:39 | Pulmonology Progress Note ---
Date of Service May 06, 2018 Assessment & Plan (1) Change in mental status: Impression: 1. 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 2. Bilateral groundglass opacities highly suspicious for alveolar hemorrhage. Less likely to represent vasculitis, discussed with Dr. Nicole, appreciate her input. 3. Anemia. Plan: 1. The patient is not a candidate for a bronchoscopy, high risk for the procedure with thrombocytopenia. 2. Discussed with the at the bedside, I notified her that I would hold off on the bronchoscopy at this point. 3. Improvement of the platelets should take priority. 4. Renal pulmonary syndrome is less likely as the patient does not have any respiratory symptoms. But worth doing the workup. Thank you, will follow. Subjective The patient continued to be confused, denies any respiratory symptoms, no chest pain, no shortness of breath, no hemoptysis. Review of system otherwise was unremarkable. His was at the bedside and discussed further his case with her Physical Exam 2 Vital Signs (Past 24 Hours): Last Vital Signs Temp 37.1 C 05/06/18 19:30 Pulse 113 H 05/06/18 19:30 Resp 18 05/06/18 19:30 BP 129/61 05/06/18 19:30 Pulse Ox 92 05/06/18 19:30 Physical Exam: Appeared chronically ill, S1-S2 regular rate and rhythm, distant breath sounds bilaterally, abdomen is obese but benign, hepatomegaly, edema in the periphery, petechiae rash, oral mucosa with some blood-tinged, neurologically he is confused. Results & Data Laboratory Results Labs consistent with platelet count of 28, otherwise have been stable. Hematocrit remains at 25. Developing AK I, will be a creatinine 51 and 1.8. Bicarb is 16. Diagnostic Findings No new imaging.
[2018-05-06 19:45] LABS: Reticulocyte % 0.6 % (0.5-2.0); Reticulocytes # 0.02 10^6/uL (0.02-0.10)
--- NOTE | 2018-05-06 19:53 | Hospitalist Progress Note ---
Date of Service May 06, 2018 Assessment & Plan (1) Anemia: Patient is a 68 yr male with recent admission for GI bleed due to erosive esophagitis, YVAN and alcohol-withdrawal seizure who presents with progressive weakness, dyspnea on exertion and falls at home. Anemia: Severe Thrombocytopenia Abdominal USD: Hepatomegaly and severe hepatic steatosis. Splenomegaly. Peripheral Smear: Non specific normocytic anemia and thrombocytopenia Normal Folate, Vit B12 levels Iron panel reviewed No obvious bleeding Suspicious for Alveolar Hemorrhage/Hemolysis H/O GI bleed, Alcohol use disorder FOBT: Negative Hb:8.9 Platelets : 25K S/P 4 units PRBCs and 2 unit platelets Continue PPI Appreciate GI/Hematology Input Transfuse as needed Monitor H&H FISH/Cytometry pending Immature platelet fraction elevated Low Haptoglobin Normal Fibrinogen --Peripheral Smear today showed--consumption and the presence of schistocytes suggests an element of microangiopathic hemolysis is present Further hematological work up as per Hematology Started on prednisone 60mg today --If patient shows no improvement, he may need to be transferred for possible plasma exchange Multifocal Pneumonia Volume overload Status Possible Alveolar hemorrhage --CT Chest: Suggestive of multifocal Pneumonia. Small pericardial effusion and trace bilateral pleural effusions. Splenomegaly. Hepatic steatosis. Continue IV Abx Cultures:Negative Monitor volume status Appreciate Pulmnology Input High risk for Bronch due to thrombocytopenia Acute kidney injury Likely Ischemic ATN in setting of Severe anemia/GI bleed/hypotension Cr: 2.31>>1.79>>2.06>>2.49>>2.38>>2.12 >>1.80 Continue IV Lasix and albumin as per Nephrology Monitor renal function Appreciate Nephrology Input Metabolic Encephalopathy Subacute CVA--Likely embolic --MRI Brain: Interval development of small foci restricted water diffusion within the right centrum semiovale and left cerebellar hemisphere. There are new corresponding foci of T2 signal abnormality. The findings are felt to be indicative of subacute infarcts. --ECHO: No ASD --Carotid Doppler: No definite evidence for a hemodynamically significant stenosis. --EEG: mildly diffusely abnormal EEG without focal abnormalities or potentially epileptogenic features. --Normal Ammonia levels --Appreciate Neurology Input --May need ALY but not a candidate due to risk for bleeding Elevated troponins Suspect due to demand ischemia/YVAN patient denies chest pain Elevated d-dimer Venous Doppler : negative for DVT Could not obtain CTA 2/2 renal function V/Q scan: Normal Hypokalemia: Monitor and replace electrolytes as needed Tachycardia Resume Metoprolol to home dose monitor H/O Alcohol use Denies alcohol use in 3 to 4 weeks Continue thiamine, folic acid C.diff Diarrhea Continue PO Vancomycin Added Questran for diarrhea Appreciate GI input Dyslipidemia: continue statin DVT px: SCDs Re:Anemia, Thrombocytopenia Subjective Patient is seen and examined at bedside Continues to be confused No apparent distress No improvement of platelet count after transfusion Started on prednisone as per Hematology Input Discussed with Hematology, Pulmnology today Denies chest pain, dyspnea, dizziness--history not reliable Peripheral Smear reviewed today showed some Schistocytes today Discussed code status with family--Patient preferred to be DNI/DNR in the past as per Family Physical Exam 2 Vital Signs (Past 24 Hours): Last Vital Signs Temp 37.1 C 05/06/18 19:35 Pulse 113 H 05/06/18 19:35 Resp 18 05/06/18 19:35 BP 126/65 05/06/18 19:35 Pulse Ox 93 05/06/18 19:35 Physical Exam: Physical Exam: Vitals signs as noted above General Appearance:Moderately built and nourished, no apparent distress Head: normocephalic, Atraumatic Eyes: normal inspection, EOMI Neck: supple, Trachea midline Respiratory/Chest: Decreased Normal breath sounds, Distant Rhonchi Cardiovascular: S1, S2, No murmur Abdomen/GI:Soft, Non tender, Bowel sounds present Extremities/Musculoskelatal:normal inspection, + B/L LE pitting edema Neurologic/Psych:grossly no focal neurological deficits, +Confused Skin: normal color, warm Results & Data Laboratory Results Short CBC 05/06/18 05/06/18 Range/Units 07:44 16:34 WBC 9.86 10.78 (4.8-10.8) K/uL Hgb 7.8 L 8.9 L (14.0-18.0) g/dL Hct 22.9 L 25.8 L (42-52) % Plt Count 25 L* 28 L* (130-400) K/uL BMP 05/06/18 07:44 Sodium 143 D Potassium 4.0 D Chloride 117 H Carbon Dioxide 16 L BUN 51 H Creatinine 1.80 H D Glucose 102 H Calcium 7.7 L Liver Function 05/06/18 Range/Units 07:44 Total Bilirubin 0.7 (0.2-1) mg/dl Direct Bilirubin 0.3 H (0-0.2) mg/dl AST 29 (15-37) U/L ALT 14 (12-78) U/L Alkaline Phosphatase 59 (45-117) U/L Albumin 1.7 L (3.4-5.0) gm/dl
[2018-05-06] MEDS ORDERED: OXYCODONE HCL IR 5 MG TAB (IMMEDIATE RELEASE) PO PRN (20:08)
[2018-05-06] MEDS: TRAMADOL HCL 50 MG TABLET PO PRN (21:14)
[2018-05-06] MEDS: ROSUVASTATIN CALCIUM 20 MG TAB PO SCH (21:16)
[2018-05-06] MEDS: METOPROLOL SUCC 50MG EXT REL TAB PO SCH (21:18)
[2018-05-07] MEDS: VANCOMYCIN HCL 125 MG/2.5ML SOLN PO SCH ×5 (01:04→23:39)
[2018-05-07] MEDS: TRAMADOL HCL 50 MG TABLET PO PRN ×2 (01:04→09:27)
[2018-05-07] MEDS: RASPBERRY SYRUP 5 ML UDP PO SCH ×5 (01:04→23:39)
[2018-05-07] MEDS: metroNIDAZOLE 500 MG/100 ML BAG IV SCH ×3 (01:05→17:55)
[2018-05-07] MEDS: LEVALBUTEROL HCL 0.63 MG/3 ML NEB NEB SCH ×4 (02:06→18:40)
[2018-05-07 05:33] LABS: Mean Corpuscular Hgb Conc 34.1 g/dL (32-36)
[2018-05-07 05:41] LABS: Hematocrit (blood only) 24.6 % (42-52); Hemoglobin 8.4 g/dL (14.0-18.0); Mean Corpuscular Volume 86.9 fL (80-100); RDW Coefficient of Variation 17.8 % (11.5-14.5); RDW Standard Deviation 56.2 fL (36.4-46.3); Red Blood Count 2.83 M/uL (4.7-6.1); White Blood Count 9.04 K/uL (4.8-10.8)
[2018-05-07 06:00] LABS: Platelet Count 22 K/uL (130-400); Platelet Estimate SIGNIFIC DECREASED (Normal)
[2018-05-07 06:06] LABS: BUN Creatinine Ratio 25.6 (10-20); Calcium 7.7 mg/dl (8.5-10.1); Creatinine Clr Calc Pharmacy 47.9 ml/min; Est GFR (African American) 43.8; Est GFR (Non-African American) 37.8; Potassium 4.3 mmol/L (3.5-5.1)
--- NOTE | 2018-05-07 09:10 | Nephrology Progress Note ---
Date of Service May 07, 2018 Assessment & Plan (1) Renal insufficiency: baseline creatinine not well understood in setting of multiple/recurrent hospitalizations; has been as low as 1.2 in past months; however since 04/27 admission, more in range of about 2.0 - 2.5, currently plateau'd at 1.8, improved after starting lasix. working dx had been ischemic atn w/ past borderline oliguria in setting of acute anemia, hypotension, ongoing diarrhea>>> in this setting w/ new smear findings need also to consider TTP. Abdominal CT a few weeks ago showed normal size kidneys with no hydronephrosis. Now w/ mild BL perinephric edema on CT, nonspecific. -consider urgent transfer to tertiary care center for plasma exchange while TTP eval underway -support bp/minimize hypotension -daily bmp -agree w/ inman for now; may have blood in urine w/ placement (2) Pancytopenia: has schistocytes on peripheral smear >> started on prednisone, heme following; consider trasnfer for PEX heme, GI following; has needed PRBC, plts this admission near critical platelets >> limits diagnostic/therapeutiic options including ABG , bronchoscopy -no clear bleeding source to date >>? if he could have BM suppression after exposure to medication possibly prior to this admission/during another admission; ? 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 yesterday pt had pRBC and plts one unit each; started also on prednisone 60 mg daily; at bedside; ros limited by pt confusion >> he is pleasant, but oriented to self only. apparently had pain med earlier but cannot say where pain was/is. denies sob. Physical Exam 2 Vital Signs (Past 24 Hours): Last Vital Signs Temp 36.5 C 05/07/18 07:13 Pulse 94 H 05/07/18 07:37 Resp 24 05/07/18 07:37 BP 101/61 05/07/18 07:13 Pulse Ox 92 05/07/18 07:37 Constitutional: well developed, well nourished and cooperative on RA, oriented to self only; sometimes appears to be watching wall/ ceiling Eyes: EOM intact bilaterally ENMT: Ears: no external ear abnormality Nose: no external nose abnormality Mouth: + dry oral mucous membranes Neck: no nuchal rigidity Respiratory: + labored breathing (today no cough; slight) and + paradoxical thoraco-abdominal movement Auscultation: + diminished lung sounds Cardiovascular: Rate/Rhythm: regular rhythm and + tachycardic Extremities: + edema (1+ pedal and none dependent) Gastrointestinal (Abdomen): Inspection/Auscultation: + abdomen distended and normal bowel sounds (or slightly diminished) Percussion/Palpation: abdomen soft; abdomen nontender Musculoskeletal: Extremities: strength 5/5 throughout he is too weak today to sit forward for lung exam even w/ one person assist Skin: no rashes, warm and dry Neurologic: awake and + confused Speech / Cognition: + abnormal speech and + abnormal cognition weakness as above Psychiatric: Orientation: alert Speech: normal rate/rhythm/volume of speech Hallucinations: + visual hallucinations Insight: + impaired insight Judgement: + impaired judgement Genitourinary: inman w/ ample dark yellow urine Results & Data Laboratory Results Abnormal lab results 05/03/18 05/03/18 05/06/18 Range/Units 08:50 11:45 09:42 RBC (4.7-6.1) M/uL Hgb (14.0-18.0) g/dL Hct (42-52) % RDW Std Deviation (36.4-46.3) fL RDW Coeff of Julia (11.5-14.5) % Plt Count (130-400) K/uL Haptoglobin <8 L (43-212) MG/DL PT (9.0-12.0) Seconds INR (0.9-1.1) APTT (21.0-31.0) Seconds Sodium (136-145) mmol/L Chloride (98-107) mmol/L Carbon Dioxide (21-32) mmol/L BUN (7-18) mg/dl Creatinine (0.6-1.4) mg/dl BUN/Creatinine Ratio (10-20) Glucose (70-99) mg/dl Calcium (8.5-10.1) mg/dl Lactate Dehydrogenase (87-241) U/L Crossmatch See Detail See Detail 05/06/18 05/06/18 05/06/18 Range/Units 09:42 16:34 19:14 RBC 2.98 L (4.7-6.1) M/uL Hgb 8.9 L (14.0-18.0) g/dL Hct 25.8 L (42-52) % RDW Std Deviation 55.2 H (36.4-46.3) fL RDW Coeff of Julia 17.4 H (11.5-14.5) % Plt Count 28 L* (130-400) K/uL Haptoglobin (43-212) MG/DL PT 13.1 H (9.0-12.0) Seconds INR 1.3 H (0.9-1.1) APTT 34.2 H (21.0-31.0) Seconds Sodium (136-145) mmol/L Chloride (98-107) mmol/L Carbon Dioxide (21-32) mmol/L BUN (7-18) mg/dl Creatinine (0.6-1.4) mg/dl BUN/Creatinine Ratio (10-20) Glucose (70-99) mg/dl Calcium (8.5-10.1) mg/dl Lactate Dehydrogenase 596 H (87-241) U/L Crossmatch 05/07/18 05/07/18 Range/Units 05:21 05:21 RBC 2.83 L (4.7-6.1) M/uL Hgb 8.4 L (14.0-18.0) g/dL Hct 24.6 L (42-52) % RDW Std Deviation 56.2 H (36.4-46.3) fL RDW Coeff of Julia 17.8 H (11.5-14.5) % Plt Count 22 L* (130-400) K/uL Haptoglobin (43-212) MG/DL PT (9.0-12.0) Seconds INR (0.9-1.1) APTT (21.0-31.0) Seconds Sodium 146 H (136-145) mmol/L Chloride 120 H (98-107) mmol/L Carbon Dioxide 18 L (21-32) mmol/L BUN 46 H (7-18) mg/dl Creatinine 1.80 H (0.6-1.4) mg/dl BUN/Creatinine Ratio 25.6 H (10-20) Glucose 145 H (70-99) mg/dl Calcium 7.7 L (8.5-10.1) mg/dl Lactate Dehydrogenase (87-241) U/L Crossmatch
[2018-05-07] MEDS: PANTOprazole 40 MG TAB PO SCH ×2 (09:29→20:23)
[2018-05-07] MEDS: SERTRALINE HCL 50 MG TABLET PO SCH (09:29)
--- NOTE | 2018-05-07 12:04 | Hospitalist Progress Note ---
Date of Service May 07, 2018 Assessment & Plan (1) Anemia: Patient is a 68 yr male with recent admission for GI bleed due to erosive esophagitis, YVAN and alcohol-withdrawal seizure who presents with progressive weakness, dyspnea on exertion and falls at home. Anemia: Severe Thrombocytopenia Possible TTP Abdominal USD: Hepatomegaly and severe hepatic steatosis. Splenomegaly. Peripheral Smear: Non specific normocytic anemia and thrombocytopenia Normal Folate, Vit B12, TSH levels Suspicious for Alveolar Hemorrhage/Hemolysis H/O GI bleed, Alcohol use disorder FOBT: Negative Hb:8.4 Platelets : 22K S/P 4 units PRBCs and 2 unit platelets Continue PPI Appreciate GI/Hematology Input Transfuse as needed Monitor H&H FISH/Cytometry, [id number], NAVEED, ANCA, FISH MDS, Flow Cytometry, SPEP Immunofixation, RF pending Immature platelet fraction elevated Low Haptoglobin Normal Fibrinogen --Repeat Peripheral Smear on 05/06/18:The CBC is remarkable for a normocytic anemia and marked thrombocytopenia. The minimal rise in platelet count with transfusion suggests consumption and the presence of schistocytes suggests an element of microangiopathic hemolysis is present. Chronic disease, kidney disease and splenomegaly are likely contributing factors in the anemia and thrombocytopenia. No morphologic features of dysplasia are noted. No malignancy is seen. --Continue prednisone 60mg daily: started on 05/06/18 --Coags doesn't favour DIC --May need Plasma Exchange for possible TTP. --Patient is accepted at [facility]. Plan to transfer when bed available Multifocal Pneumonia--Less Likely as per Pulm Volume overload Status Possible Alveolar hemorrhage --CT Chest: Suggestive of multifocal Pneumonia. Small pericardial effusion and trace bilateral pleural effusions. Splenomegaly. Hepatic steatosis. Continue IV Abx:Cefepime, Flagyl Day #5 Cultures:Negative to date Monitor volume status Appreciate Pulmnology Input High risk for Bronch due to thrombocytopenia Acute kidney injury Likely Ischemic ATN in setting of Severe anemia/GI bleed/hypotension Cr: 2.31>>1.79>>2.06>>2.49>>2.38>>2.12 >>1.80 Continue IV Lasix and albumin as per Nephrology Monitor renal function Appreciate Nephrology Input Metabolic Encephalopathy Subacute CVA--Likely embolic --MRI Brain: Interval development of small foci restricted water diffusion within the right centrum semiovale and left cerebellar hemisphere. There are new corresponding foci of T2 signal abnormality. The findings are felt to be indicative of subacute infarcts. --ECHO: No ASD --Carotid Doppler: No definite evidence for a hemodynamically significant stenosis. --EEG: mildly diffusely abnormal EEG without focal abnormalities or potentially epileptogenic features. --Normal Ammonia levels --Appreciate Neurology Input --May need ALY but not a candidate due to risk for bleeding Elevated troponins Suspect due to demand ischemia/YVAN patient denies chest pain Elevated d-dimer Venous Doppler : negative for DVT Could not obtain CTA 2/2 renal function V/Q scan: Normal Hypokalemia: Monitor and replace electrolytes as needed Tachycardia Resume Metoprolol to home dose monitor H/O Alcohol use Denies alcohol use in 3 to 4 weeks Continue thiamine, folic acid C.diff Diarrhea Continue PO Vancomycin Day #9 Added Questran for diarrhea as per GI Appreciate GI input Dyslipidemia: continue statin DVT px: SCDs Re:Anemia, Thrombocytopenia Disposition: Transfer to [facility] for Possible Plasma Exchange when bed is available Family/Patient updated Accepted by Dr.Yanni Spencer at [facility] Subjective Patient is seen and examined at bedside States feeling better today "I have felt better than last 3 days" Oriented to person only No apparent distress No obvious bleeding issues Denies chest pain, dyspnea, dizziness, Abd pain, diarrhea Appetite still poor Patient is accepted at [facility] but currently no bed available Discussed with family/Patient who agreed to be transferred once bed is available Physical Exam 2 Vital Signs (Past 24 Hours): Last Vital Signs Temp 36.5 C 05/07/18 07:13 Pulse 94 H 05/07/18 07:37 Resp 24 05/07/18 07:37 BP 101/61 05/07/18 07:13 Pulse Ox 92 05/07/18 07:37 Physical Exam: Physical Exam: Vitals signs as noted above General Appearance:Moderately built and nourished, no apparent distress Head: normocephalic, Atraumatic Eyes: normal inspection, EOMI Neck: supple, Trachea midline Respiratory/Chest: Decreased breath sounds, Distant Rhonchi Cardiovascular: S1, S2, No murmur Abdomen/GI:Soft, Non tender, Bowel sounds present Extremities/Musculoskelatal:normal inspection, + B/L LE pitting edema Neurologic/Psych:grossly no focal neurological deficits, +Confused Skin: normal color, warm Results & Data Laboratory Results Short CBC 05/06/18 05/07/18 Range/Units 16:34 05:21 WBC 10.78 9.04 (4.8-10.8) K/uL Hgb 8.9 L 8.4 L (14.0-18.0) g/dL Hct 25.8 L 24.6 L (42-52) % Plt Count 28 L* 22 L* (130-400) K/uL BMP 05/07/18 05:21 Sodium 146 H Potassium 4.3 Chloride 120 H Carbon Dioxide 18 L BUN 46 H Creatinine 1.80 H Glucose 145 H Calcium 7.7 L
--- NOTE | 2018-05-07 12:35 | Discharge Summary ---
Date of Service May 07, 2018 Admission HPI Per Admitting Provider Primary Care Provider: PCP: Darya Swain 68 y/o male with recent admission for GI bleed due to erosive esophagitis, YVAN and alcohol-withdrawal seizure who presented to the ED today via EMS due to progressive weakness, dyspnea on exertion and falls at home. Pt reports that initially he was doing well upon discharge from the hospital. He was able to complete his usual ADLs without difficulty. About ten days ago he started with lower back pain and bilateral hip pain. Because of this he was spending all day sitting in his chair, sleeping there at night. Over the same time period, he has noted progressive weakness and fatigue. The weakness is generalized and he cannot locate it to a specific area of the body. Over the past 5-7 days, the patient has noted dyspnea on exertion that takes several minutes of rest to resolve. He denies chest pain, palpitations, cough or wheezing. On Saturday ( two days ago), the patient had a mechanical fall but was able to get back up and had no injuries. Today, he went to get up from the chair he has been sleeping in and was too weak to stand resulting in another mechanical fall. This time he was unable to get up from the floor, where his found him when she returned home and then called EMS. He denies hitting head or losing consciousness but does "feel sore all over" from the fall this morning. No dizziness associated with either fall. Pt notes decreased oral intake over past several days. He has been attempting to keep up with fluids but mostly drinking juices such as apple juice. His appetite is markedly decreased for past few days with very little solid food since . Tried Muscle Milk last night. He denies nausea, vomiting, heartburn or indigestion. He does note urgent watery diarrhea with incontinence over past several days - at least 2-3 episodes of diarrhea per night. Denies hematochezia or melena. Abdomen has been bloated with increased eructation and flatus. No dysphagia or odynophagia. He reports his last alcoholic drink was at least three weeks ago ( prior to his last hospitalization). He took two Tylenol for his back pain but denies use of NSAIDs, aspirin or herbal supplements. Admission Exam Per Admitting Provider Constitutional: WD/WN, vitals as above Eyes: PERRL, conjunctivae normal, anicteric sclerae ENMT: external ear and nose normal, oropharynx normal Neck: trachea midline Respiratory: able to speak in complete sentences; no respiratory distress, no labored breathing and does not use accessory muscles Auscultation: lungs clear to auscultation bilaterally; no rales, no rhonchi and no wheezes Cardiovascular: Rate/Rhythm: regular rhythm and + tachycardic (~100 bpm) Heart Sounds: + murmur; no click and no gallop Vessels: dorsalis pedis pulses present; no carotid bruit Extremities: normal capillary refill; no calf tenderness and no pedal edema Gastrointestinal (Abdomen): Inspection/Auscultation: + abdomen distended ( softly) and normal bowel sounds Percussion/Palpation: + hepatomegaly and + tympanic to percussion; abdomen nontender and no guarding Musculoskeletal: Head/Neck/Chest: normocephalic and head atraumatic Spine: no step off deformity Extremities: no cyanosis, no chronic stasis changes and no clubbing Skin: no rashes, warm and dry area of ecchymosis noted right forearm Neurologic: Speech / Cognition: no expressive aphasia Motor/Sensory: no tremor and no sensory deficit (no focal sensory deficits noted in bilateral UE and LE) Cranial Nerves: tongue midline Psychiatric: A+Ox3, euthymic affect Principal Diagnosis Discharge Information Discharge Diagnosis Possible TTP, Suspicious Alveolar Hemorrhage, Subacute CVA, ATN, C.diff diarrhea, Metabolic Encephalopathy, Alcohol use disorder Discharge Goals Decrease discomfort,Improve disease control, Improve function Discharge Activity Limitations Per instructions/follow-up Discharge Data Allergies Allergy/AdvReac Type Severity Reaction Status Date / Time No Known Allergies Allergy Verified 04/28/18 12:17 Consultations 04/28/18 11:09 ED Decision to Admit Stat 04/28/18 13:57 Consult Nephrology Routine 04/29/18 10:19 Consult Gastroenterology Routine 05/01/18 09:02 Consult Oncology Routine 05/03/18 15:57 Consult Pulmonology Routine 05/05/18 13:16 Consult Neurology Routine Procedures Performed Venosu Doppler: There is no sonographic evidence of deep venous thrombosis identified in the right or left lower extremity. ABD USD: 1. Hepatomegaly and severe hepatic steatosis. 2. Splenomegaly. 3. Status post cholecystectomy. CT ABD: 1. Interval development of bilateral upper lobe predominant multifocal groundglass airspace opacities. This is nonspecific but favors a multifocal pneumonia. An eosinophilic pneumonia, pulmonary edema, pulmonary hemorrhage, or multifocal infarcts from emboli could also have a similar appearance. 2. Small pericardial effusion and trace bilateral pleural effusions. There may be superimposed mild congestive change. 3. Motion artifact within the chest, abdomen, pelvis. 4. Low density blood pool consistent with the patient's history of anemia. 5. Interval development of splenomegaly. 6. Hepatic steatosis. 7. No bowel wall thickening or obstruction. 8. Additional findings as described above. CT Chest: 1. Interval development of bilateral upper lobe predominant multifocal groundglass airspace opacities. This is nonspecific but favors a multifocal pneumonia. An eosinophilic pneumonia, pulmonary edema, pulmonary hemorrhage, or multifocal infarcts from emboli could also have a similar appearance. 2. Small pericardial effusion and trace bilateral pleural effusions. There may be superimposed mild congestive change. 3. Motion artifact within the chest, abdomen, pelvis. 4. Low density blood pool consistent with the patient's history of anemia. 5. Interval development of splenomegaly. 6. Hepatic steatosis. 7. No bowel wall thickening or obstruction. 8. Additional findings as described above. CT head; No acute intracranial abnormality. V/Q Scan: Normal. MRI Brain: Interval development of small foci restricted water diffusion within the right centrum semiovale and left cerebellar hemisphere. There are new corresponding foci of T2 signal abnormality. The findings are felt to be indicative of subacute infarcts. Carotid Doppler: Exam significantly compromised by motion artifact. No definite evidence for a hemodynamically significant stenosis. ECHO: The interatrial septum is intact with no evidence of ASD Injection of contrast contrast documented no interatrial shunt Left ventricle systolic function is normal Ejection fraction is equal to 60-65% The right ventricle systolic function is normal The left atrial size is normal The right atrial size is normal No significant valvular pathology. Ordered Studies 04/28/18 16:30 US venous doppler LE BI Routine 05/02/18 US abdomen complete Routine 05/03/18 11:29 CT abd pelvis oral con only Urgent 05/03/18 11:42 CT chest wo con Stat 05/03/18 11:44 CT head/brain wo con Stat 05/05/18 13:19 MR brain wo con Routine 05/05/18 17:58 US carotid doppler BI Routine Hospital Course (1) Anemia: Patient is a 68 yr male with recent admission for GI bleed due to erosive esophagitis, YVAN and alcohol-withdrawal seizure who presents with progressive weakness, dyspnea on exertion and falls at home. Anemia: Severe Thrombocytopenia Possible TTP Abdominal USD: Hepatomegaly and severe hepatic steatosis. Splenomegaly. Peripheral Smear: Non specific normocytic anemia and thrombocytopenia Normal Folate, Vit B12, TSH levels Suspicious for Alveolar Hemorrhage/Hemolysis H/O GI bleed, Alcohol use disorder FOBT: Negative Hb:8.4 Platelets : 22K S/P 4 units PRBCs and 2 unit platelets Continue PPI Appreciate GI/Hematology Input Transfuse as needed Monitor H&H FISH/Cytometry, [id number], NAVEED, ANCA, FISH MDS, Flow Cytometry, SPEP Immunofixation, RF pending Immature platelet fraction elevated Low Haptoglobin Normal Fibrinogen --Repeat Peripheral Smear on 05/06/18:The CBC is remarkable for a normocytic anemia and marked thrombocytopenia. The minimal rise in platelet count with transfusion suggests consumption and the presence of schistocytes suggests an element of microangiopathic hemolysis is present. Chronic disease, kidney disease and splenomegaly are likely contributing factors in the anemia and thrombocytopenia. No morphologic features of dysplasia are noted. No malignancy is seen. --Continue prednisone 60mg daily: started on 05/06/18 --Coags doesn't favour DIC --May need Plasma Exchange for possible TTP. --Patient is accepted at [facility]. Plan to transfer when bed available Multifocal Pneumonia--Less Likely as per Pulm Volume overload Status Possible Alveolar hemorrhage --CT Chest: Suggestive of multifocal Pneumonia. Small pericardial effusion and trace bilateral pleural effusions. Splenomegaly. Hepatic steatosis. Continue IV Abx:Cefepime, Flagyl Day #5 Cultures:Negative to date Monitor volume status Appreciate Pulmnology Input High risk for Bronch due to thrombocytopenia Acute kidney injury Likely Ischemic ATN in setting of Severe anemia/GI bleed/hypotension Cr: 2.31>>1.79>>2.06>>2.49>>2.38>>2.12 >>1.80 Continue IV Lasix and albumin as per Nephrology Monitor renal function Appreciate Nephrology Input Metabolic Encephalopathy Subacute CVA--Likely embolic --MRI Brain: Interval development of small foci restricted water diffusion within the right centrum semiovale and left cerebellar hemisphere. There are new corresponding foci of T2 signal abnormality. The findings are felt to be indicative of subacute infarcts. --ECHO: No ASD --Carotid Doppler: No definite evidence for a hemodynamically significant stenosis. --EEG: mildly diffusely abnormal EEG without focal abnormalities or potentially epileptogenic features. --Normal Ammonia levels --Appreciate Neurology Input --May need ALY but not a candidate due to risk for bleeding Elevated troponins Suspect due to demand ischemia/YVAN patient denies chest pain Elevated d-dimer Venous Doppler : negative for DVT Could not obtain CTA 2/2 renal function V/Q scan: Normal Hypokalemia: Monitor and replace electrolytes as needed Tachycardia Resume Metoprolol to home dose monitor H/O Alcohol use Denies alcohol use in 3 to 4 weeks Continue thiamine, folic acid C.diff Diarrhea Continue PO Vancomycin Day #9 Added Questran for diarrhea as per GI Appreciate GI input Dyslipidemia: continue statin DVT px: SCDs Re:Anemia, Thrombocytopenia Disposition: Transfer to [facility] for Possible Plasma Exchange when bed is available Family/Patient updated Accepted by Dr.Yanni Spencer at [facility] Total Time Total Time Spent Total Time Spent (In Minutes): 50 minutes Total Time Includes: Examination of the Patient, Discharge Planning, Medication Reconciliation, Communication With Other Providers and Other Discharge Plan Discharge Items Patient Disposition: Transfer Acute Care Hospital Reason For Visit: FALL, WEAK Discharge Diagnosis: Possible TTP, Suspicious Alveolar Hemorrhage, Subacute CVA , ATN, C.diff diarrhea, Metabolic Encephalopathy, Alcohol use disorder Discharge Goals: Decrease discomfort, Improve disease control and Improve function Activity: Per 'Additional Instructions' section Exercise/Sports: Gradually increase as tolerated Non-emergency contact: Primary Care Provider, Card Setter, Activities Director Scouting, Neurologist, Oncologist and Warehouse Distribution Specialist Call non-emergency contact if: you have any medication questions, your symptoms worsen, your pain is not controlled, your pain is worsening, your pain is unusual for you, your pain is concerning for you, you have a fever and your temperature is above 100.5 Diet: Heart Healthy Addtl Provider Instructions: Follow up with your Physician Dr.Yanni Spencer at [facility] for further management Follow up with your Neurologist, Marketing Traffic Coordinator, Card Setter, Activities Director Scouting and Pulmnologist upon discharge Seek immediate medical attention if your symptoms reoccur or worsen Prescriptions: New prednisone 20 mg Tablet 60 mg PO DAILY Qty: 1 RF: 0 vancomycin 1,000 mg Recon Soln 125 mg PO Q6 Qty: 1 RF: 0 sodium bicarbonate 650 mg Tablet 1,300 mg PO TID Qty: 1 RF: 0 cholestyramine-aspartame [Cholestyramine Light] 4 gram Powder In Packet 4 g PO BID@1000,2200 Qty: 1 RF: 0 Continue sertraline 50 mg Tablet 50 mg PO QAM RF: 0 pantoprazole 40 mg Tablet,Delayed Release (Dr/Ec) 40 mg PO BID 30 Days Qty: 60 RF: 3 multivitamin [Daily-Willow] Tablet 1 tab PO QAM 30 Days Qty: 30 RF: 0 thiamine HCl (vitamin B1) [Vitamin B-1] 100 mg Tablet 100 mg PO QAM 30 Days Qty: 30 RF: 0 folic acid 1 mg Tablet 1 mg PO QAM 30 Days Qty: 30 RF: 0 rosuvastatin 40 mg tablet 20 mg PO HS RF: 0 metoprolol succinate 50 mg tablet extended release 24 hr 50 mg PO HS RF: 0 Discontinued acetaminophen [Tylenol Extra Strength] 500 mg Tablet 1,000 mg PO Q6H PRN (Reason: pain/fever) RF: 0 Stand-Alone Forms: [facility] Discharge Orders: Discharge Order (Routine); Ordered 05/07/18 Ordered By: Barry Barclay Admission Data Admit Date/Time: 04/29/18 19:24 Attending Provider: Melissa Olivares Admit Provider: Rayo Ramsey Primary Care Provider: Darya Swain Other Providers: Rasta Carrasco ; Ceci Breaux ; Moncho Santos ; Rayo Ramsey ; Constantine Nicole ; Lobo Alamo ; Rasta Dawson ; Barry Barclay Service: Telemetry Other Pending Studies at Discharge: Yes
--- NOTE | 2018-05-07 13:09 | Communication Note ---
Date of Service: May 07, 2018 I saw Mr. key briefly today he was lethargic minimally responsive but his states that he seemed actually better today and had been more conversant earlier. I reviewed the chart laboratory studies hospitalist progress notes and at this point it appears that he is being transferred to [facility] for possible plasma exchange therapy acting on the presumptive diagnosis of possible TTP many aspects of his history certainly could support this diagnosis particularly the persistent thrombocytopenia and the red cell changes described on peripheral smear aspects of his clinical presentation This point again neurology does not have much more to offer. He said to possibly embolic events involving the right centrum semiovale in the left cerebellum. These do not appear to be hemorrhagic but it is at times difficult to distinguish on MRI early on. Less the physicians who care for him at [place] feel he needs neurologic follow -up I do not think he needs to be seen in our clinic at a specified time post discharge but we will be most willing to reassess him if they feel this would be desirable. Rasta Dawson MD
[2018-05-07] MEDS: POTASSIUM CHLORIDE 20 MEQ TABCR PO SCH ×2 (13:28→15:15)
[2018-05-07] MEDS: MULTIVITAMIN TAB PO SCH (13:28)
[2018-05-07] MEDS: FOLIC ACID 1 MG TAB PO SCH (13:28)
[2018-05-07] MEDS: CHOLESTYRAMINE LIGHT 4 GM PKT PO SCH ×2 (13:29→23:36)
[2018-05-07] MEDS: THIAMINE HCL 100 MG TAB PO SCH (13:29)
[2018-05-07] MEDS: SODIUM BICARBONATE 650 MG TAB PO SCH ×3 (13:29→20:23)
[2018-05-07] MEDS: ALBUMIN 25% 50 ML with FUROSEMIDE 20 MG IV SCH ×3 (14:15→19:24)
[2018-05-07] MEDS: predniSONE 20 MG TAB PO SCH (14:17)
[2018-05-07] MEDS: CEFEPIME 2,000 MG in SYRINGE 7.5 ML IV SCH (17:55)
--- NOTE | 2018-05-07 19:24 | Pulmonology Progress Note ---
Date of Service May 07, 2018 Assessment & Plan (1) Change in mental status: Impression: 1. 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 2. Bilateral groundglass opacities highly suspicious for alveolar hemorrhage. Less likely to represent vasculitis, discussed with Dr. Nicole, appreciate her input. 3. Anemia. Plan: 1. The patient is not a candidate for a bronchoscopy, high risk for the procedure with thrombocytopenia. 2. Discussed with the at the bedside, apparently arrangement to transfer the patient to [facility] has been made, talks about plasma exchange. 3. No evidence of hemoptysis. 4. Renal pulmonary syndrome is less likely as the patient does not have any respiratory symptoms. Workup in the past year and a half ago did not reveal positivity. The findings on the CAT scan in my opinion represent pulmonary hemorrhage due to thrombocytopenia. 5. No further recommendations from pulmonary standpoint. 6. The rest of the treatment per oncology and renal. Thank you, will follow as needed. Subjective The patient continued to be confused, no respiratory symptoms reported, no hemoptysis, no chest pain, no shortness of breath but he has not been ambulatory , overall he is weak and barely can sit at the bedside, he has not ambulated yet. Physical Exam 2 Vital Signs (Past 24 Hours): Last Vital Signs Temp 36.4 C L 05/07/18 15:44 Pulse 84 05/07/18 18:40 Resp 18 05/07/18 18:40 BP 97/59 L 05/07/18 15:44 Pulse Ox 93 05/07/18 18:40 Physical Exam: Vital signs are stable, S1-S2 regular rate and rhythm, 93% on room air. No JVP, lungs with distant breath sounds bilaterally but clear, abdomen is benign, edema in the periphery. Results & Data Laboratory Results Some of the results of serology returned back negative, Anca still pending. Diagnostic Findings No new imaging.
[2018-05-07] MEDS: ROSUVASTATIN CALCIUM 20 MG TAB PO SCH (20:24)
[2018-05-07] MEDS: METOPROLOL SUCC 50MG EXT REL TAB PO SCH (20:30)
[2018-05-08] MEDS: metroNIDAZOLE 500 MG/100 ML BAG IV SCH ×2 (00:59→10:07)
[2018-05-08] MEDS: LEVALBUTEROL HCL 0.63 MG/3 ML NEB NEB SCH ×2 (01:58→07:25)
[2018-05-08] MEDS: RASPBERRY SYRUP 5 ML UDP PO SCH (05:10)
[2018-05-08] MEDS: VANCOMYCIN HCL 125 MG/2.5ML SOLN PO SCH (05:10)
[2018-05-08 07:17] LABS: Hematocrit (blood only) 25.7 % (42-52); Hemoglobin 8.5 g/dL (14.0-18.0); Mean Corpuscular Hgb Conc 33.1 g/dL (32-36); Platelet Count 44 K/uL (130-400); Platelet Estimate Decreased (Normal); RDW Coefficient of Variation 18.4 % (11.5-14.5); RDW Standard Deviation 59.4 fL (36.4-46.3); Red Blood Count 2.92 M/uL (4.7-6.1); White Blood Count 13.41 K/uL (4.8-10.8)
[2018-05-08 07:24] LABS: BUN Creatinine Ratio 33.3 (10-20); Calcium 8.1 mg/dl (8.5-10.1); Creatinine Clr Calc Pharmacy 48.1 ml/min; Est GFR (African American) 48.4; Est GFR (Non-African American) 41.7; Magnesium 2.1 mg/dl (1.8-2.4); Potassium 3.4 mmol/L (3.5-5.1)
[2018-05-08] MEDS: ALBUMIN 25% 50 ML with FUROSEMIDE 20 MG IV SCH (09:55)
[2018-05-08] MEDS: POTASSIUM CHLORIDE 20 MEQ TABCR PO SCH (09:59)
[2018-05-08] MEDS: MULTIVITAMIN TAB PO SCH (10:00)
[2018-05-08] MEDS: FOLIC ACID 1 MG TAB PO SCH (10:02)
[2018-05-08] MEDS: SODIUM BICARBONATE 650 MG TAB PO SCH (10:02)
[2018-05-08] MEDS: PANTOprazole 40 MG TAB PO SCH (10:03)
[2018-05-08] MEDS: predniSONE 20 MG TAB PO SCH (10:03)
[2018-05-08] MEDS: SERTRALINE HCL 50 MG TABLET PO SCH (10:05)
[2018-05-08] MEDS: THIAMINE HCL 100 MG TAB PO SCH (10:05)
[2018-05-11 12:43] LABS: Anti Nuclear Antibody Screen NEGATIVE (NEGATIVE); Rheumatoid Factor < 14 IU/ML (<14)
[2018-05-11 15:15] LABS: Albumin 2.4 G/DL (3.8-4.8); Alpha 1 Globulin 0.6 G/DL (0.2-0.3); Alpha 2 Globulin 0.3 G/DL (0.5-0.9); Beta-1-Globulin 0.3 G/DL (0.4-0.6); Beta-2-Globulin 0.5 G/DL (0.2-0.5); Gamma Globulin 1.6 G/DL (0.8-1.7); Monoclonal Protein Band 1 DNR G/DL (NOT DETECTED); Monoclonal Protein Band 2 DNR G/DL (NOT DETECTED); Monoclonal Protein Band 3 DNR G/DL (NOT DETECTED); Total Protein 5.7 G/DL (6.2-8.3)
== END 2018-05-08 10:41 | disposition short-term general hospital (02) | DRG 545 ==
LOC: ED 09:46 → 2S 09:46 → SUATTDRO 04-29 19:24